=== PATIENT | male | born 1970 | race Caucasian/White ===

== ENCOUNTER → 2016-12-07 | Outpatient (CLI) | payer BC ==
[~2016-12-07] MED LIST: ASP81CT PO; ASP81TEC PO; ASPI-587 PO; ATOR40TA PO; CEFU500T5 PO; GBPN300C PO; IBUP800T26 PO; LEVO500T2 PO; LOVA10TA PO; METO-272 PO; MTP25TSR PO; NAPR-689 PO; OMEG1CAP74 PO; ONDA8TAB2 PO; OXYC10TA63 PO; OXYC40TA49 PO
== END ==
LOC: RAD 10:36
PROVIDERS: ATTEND Surgery
DX: N63 Unspecified lump in breast (principal)

== ENCOUNTER → 2016-12-20 | Day surgery (SDC) | payer BC ==
[~2016-12-20] VITALS: Ht 170.2 cm; Wt 88.0 kg
[~2016-12-20] MED LIST changes: +LIDOCAINE 1% INJ 20 ML (XYLOCAINE) VIAL ONE
--- OUTSIDE RECORDS SUMMARY | 2016-12-20 10:36 | XMS REPORT | Continuity of Care Document ---
Author Author [facility] Organization [facility] Address Unknown Phone Unavailable Care Team Providers Care Hospital Liaison Name Role Phone Self, Deshaun PCP [phone] Source Comments Some departments are not documenting in the electronic medical record. If you do not see the information that you expected, contact Release of Information in the Health Information Management department at [phone] for further assistance in locating additional records.[facility] Active Allergies and Adverse Reactions Allergen Noted Date Severity Reactions Comments Fleet Phospho-Soda 05/12/2009 Medium HIVES Accu-Prep Levaquin 05/11/2009 Medium RASH, MENTAL STATUS CHANGES Percocet 05/11/2009 Medium MENTAL STATUS CHANGES Current Medications Prescription Sig. Disp. Refills Start End Date Status Date acetaminophen (TYLENOL) Take 2 Tabs by mouth Active 500 mg tablet Every 6 Hours as needed. For pain. diazepam (VALIUM) 5 mg Take 1-2 Tabs by mouth 21 0 05/17/20 Active tablet Every 8 Hours as needed 09 for Anxiety. docusate (COLACE) 100 mg Take 1 Cap by mouth Twice 30 0 05/17/20 Active capsule Daily. 09 ferrous sulfate 325 mg Take 1 Tab by mouth Three 90 0 05/17/20 Active (65 mg Iron) tablet Times Daily With Meals. 09 oxycodone 10 mg Tab Take 1-1.5 Tabs by mouth 63 0 05/17/20 Active Every 2 Hours as needed 09 for Pain. oxycodone SR (OXYCONTIN) Take 3 Tabs by mouth 30 0 05/17/20 Active 10 mg tablet Twice Daily. 09 Active Problems Problem Noted Date Spondylolisthesis, acquired 05/17/2009 Social History Tobacco Use Types Packs/Day Years Used Date Former Smoker Cigarettes 2 20 Quit: 11/27/2001 Comments: quit 5 yrs ago Alcohol Use Drinks/Week oz/Week Comments Yes socially Last Filed Vital Signs Vital Sign Reading Time Taken Blood Pressure 139/64 05/17/2009 5:25 AM CDT Pulse 82 05/17/2009 9:10 AM CDT Temperature 37.2 C (98.9 F) 05/17/2009 5:25 AM CDT Respiratory Rate - - Height - - Weight - - Body Mass Index - - Oxygen Saturation 98% 05/17/2009 9:10 AM CDT Plan of Care Health Maintenance Due Date Last Done Comments Physical (Comprehensive) 1976 Exam Pertussis Vaccine 1980 Tetanus Vaccine 1986 Influenza Vaccine 2015 Results from Last 3 Months Not on file
--- OUTSIDE RECORDS SUMMARY | 2016-12-20 10:36 | XMS REPORT | Continuity of Care Document ---
Author Author [facility] Organization [facility] Address Unknown Phone Unavailable Care Team Providers Care Data Analytics Developer Name Role Phone Self, Deshaun PCP [phone] Source Comments Some departments are not documenting in the electronic medical record. If you do not see the information that you expected, contact Release of Information in the Health Information Management department at [phone] for further assistance in locating additional records.[facility] Active Allergies and Adverse Reactions Allergen Noted [...]
[2016-12-20 11:25] VITALS: BP 131/71
--- NOTE | 2016-12-20 13:29 | Cardiac Procedure Note-CS/ASA ---
Pre-Procedure Note Pre-Op Procedure Note H&P Reviewed The H&P was reviewed, patient examined and no changes noted. Date H&P Reviewed: Dec 20, 2016 Time H&P Reviewed: 13:29 Conscious Sedation Pre-Proced Time Reviewed: :29 ASA Class: 3 Airway Mallampati Classification: ([place] appropriate class) I. II. III, IV Lungs Heart ASA score ASA 1: a normal healthy patient ASA 2: a patient with a mild systemic disease (mid diabetes, controlled hypertension, obesity ASA 3: a patient with a severe systemic disease that limits activity (angina , COPD, prior Myocardial infarction) ASA 4: a patient with an incapacitating disease that is a constant threat to life (CHF, renal failure) ASA 5: a moribund patient not expected to survive 24 hrs. (ruptured aneurysm) ASA 6: a declared brain patient whose organs are being harvested. For emergent operations, add the letter E after the classification Grade 2 Sedation Plan: Analgesia, Amnesia, Plan communicated to team members, Discussed options with patient/fam, Discussed risks with patient/fam Note The patient is an appropriate candidate to undergo the planned procedure, sedation, and anesthesia. The patient immediately re-assessed prior to indication. EVERARDO HERRING MD FACP FAC CCDS Dec 20, 2016 13:29
--- NOTE | 2016-12-21 11:49 | PROCEDURE REPORT ---
PROCEDURE PHYSICIAN: EVERARDO HERRING DATE OF PROCEDURE: 12/20/2016 PREOPERATIVE DIAGNOSIS: Implantable loop recorder at end of life POSTOPERATIVE DIAGNOSIS: Implantable loop recorder at end of life. PROCEDURE: Removal of implantable loop recorder. Krishan Salmon Is a 46-year-old gentleman who has had a loop recorder for palpitations. It has reached end of life. He is due to have MRI for pulmonary evaluation for suspected pulmonary neoplasm, but the radiology services have refused to do this without removal of the device. An informed consent was obtained. He was brought to the cardiac catheterization laboratory. The left prepectoral area, the site of the device implantation, was prepared and draped in usual sterile fashion. Fluoroscopy was used to bernardo the site. Sharp and blunt dissection was used to open the pocket and enucleated from its pocket. This was accomplished without complication. The incision was closed using 3-0 Vicryl. He tolerated the procedure well. Job ID: [id number] Dictated Date: 12/20/2016 14:48:24 Head Strength And Conditioning Coach Date: 12/21/2016 11:43:47 / gena
== END ==
LOC: CATH 10:32
PROVIDERS: ATTEND Internal Medicine Cardiovascular Disease
DX: Z45.09 Encounter for adjustment and management of other cardiac device (principal); R00.2 Palpitations; I25.10 Atherosclerotic heart disease of native coronary artery without angina pectoris; E78.5 Hyperlipidemia, unspecified; Z87.891 Personal history of nicotine dependence; Z98.84 Bariatric surgery status
CPT/HCPCS: 33284

== ENCOUNTER → 2016-12-27 | Outpatient (CLI) | payer BC ==
[~2016-12-27] MED LIST changes: +GADOBUTROL 10 MMOL/10 ML (GADAVIST) VIAL IV ONE; -LIDOCAINE 1% INJ 20 ML (XYLOCAINE) VIAL ONE
--- OUTSIDE RECORDS SUMMARY | 2016-12-27 07:25 | XMS REPORT | Continuity of Care Document ---
Author Author [facility] Organization [facility] Address Unknown Phone Unavailable Care Team Providers Care Heavy Equipment Mechanic Name Role Phone Self, Deshaun PCP [phone] Source Comments Some departments are not documenting in the electronic medical record. If you do not see the information that you expected, contact Release of Information in the Health Information Management department at [phone] for further assistance in locating additional records.[facility] Active Allergies and Adverse Reactions Allergen Noted [...]
--- NOTE | 2016-12-28 19:14 | Diagnostic Imaging Report ---
INDICATION: Bilateral breast masses. EXAMINATION: MRI of the breast with and without contrast. TECHNIQUE: MRI of the breast was performed utilizing bilateral 8-channel breast coil with a 1.5 Saadia GE magnet. High-resolution sagittal T2-weighted fat-sat images were obtained as well as temporal images for sequential evaluation following intravenous gadolinium. Images were processed and evaluated by [employer]. COMPARISON: There are no previous mammogram or ultrasound examinations available for comparison. The report from the bilateral digital diagnostic mammogram performed at [facility] on 11/11/16 failed to show any sign of malignancy. There was no solid or cystic mass within either breast. The ultrasound exam of each breast, performed on the same day, from [facility], was also unremarkable for a discrete solid or cystic mass within either breast. FINDINGS: On this exam, there is a 0.9 x 1.2 cm area of enhancement along the upper inner aspect of the left breast. This area of abnormal signal appears to involve the skin surface and the soft tissues immediately beneath the skin surface. In reviewing the previous mammogram there was a loop recorder device in place in this region. It is my understanding that the loop recorder device has been removed in the interval since the prior mammogram. Therefore I suspect that the abnormal enhancement in this area is a sequela of that procedure as opposed to a neoplastic process. There is no other area of abnormal enhancement to suggest a malignant process. There is no sign of gynecomastia either. IMPRESSION: 1. There is no abnormal signal to suggest an underlying malignancy. If there is indeed a clinically palpable mass present, then biopsy should still be considered. 2. There is an area of enhancement involving the skin and the soft tissues immediately beneath the skin in the upper inner aspect of the left breast. This would correspond to the recent surgical removal of the loop recorder device. 3. These results were discussed with Dr. Briseno. ACR BI-RADS Category 1: Negative. Result letter will be mailed to the patient. Note: At least 10% of breast cancer is not imaged by mammography. Dictated by: Dictated on workstation # [id number]
== END ==
LOC: RAD 07:22
PROVIDERS: ATTEND Surgery
DX: N63 Unspecified lump in breast (principal)
CPT/HCPCS: 77059

== ENCOUNTER → 2016-12-28 | Outpatient (CLI) | payer BC ==
[~2016-12-28] MED LIST changes: -GADOBUTROL 10 MMOL/10 ML (GADAVIST) VIAL IV ONE
--- OUTSIDE RECORDS SUMMARY | 2016-12-28 07:25 | XMS REPORT | Continuity of Care Document ---
Author Author [facility] Organization [facility] Address Unknown Phone Unavailable Care Team Providers Care Hydraulic Bull Riveter Operator Name Role Phone Self, Deshaun PCP [phone] Source Comments Some departments are not documenting in the electronic medical record. If you do not see the information that you expected, contact Release of Information in the Health Information Management department at [phone] for further assistance in locating additional records.[facility] Active Allergies and Adverse Reactions Allergen [...]
== END ==
LOC: RAD 07:22
PROVIDERS: ATTEND Surgery
DX: N63 Unspecified lump in breast (principal)

== ENCOUNTER 2017-05-31 12:17 | Emergency (ER) | payer BC ==
[~2017-05-31] VITALS: Ht 165.1 cm; Wt 86.2 kg
[2017-05-31] MEDS ORDERED: CARB200T5 PO (12:58)
[2017-05-31] MEDS ORDERED: LEVO75TA6 PO (12:58)
[2017-05-31 14:02] LABS: BILIRUBIN,URINE NEGATIVE (NEGATIVE); KETONES,URINE NEGATIVE (NEGATIVE); LEUKOCYTE ESTERASE ,URINE NEGATIVE (NEGATIVE); NITRITE,URINE NEGATIVE (NEGATIVE); PH,URINE 7 (5-9); PROTEIN,URINE NEGATIVE (NEGATIVE); UROBILINOGEN,URINE NORMAL (NORMAL)
[2017-05-31] MEDS ORDERED: KETOROLAC 60 MG/2 ML VIAL IM STA (14:05)
[2017-05-31 14:22] LABS: WBC,URINE RARE /HPF
--- NOTE | 2017-05-31 14:26 | ED GU-Male ---
General Chief Complaint: Back Problems Stated Complaint: POSS KIDNEY STONES/PAIN Nursing Triage Note: Pt c/o R flank pain and suprapubic pain x2 days. pt reports he thinks he may have a kideny stone. Pt has hx multiple kidney stones. History of Present Illness Time seen by provider: 13:55 Initial Comments Evaluation for right flank and suprapubic pain. The patient states that he's had kidney stones in the past at least 5 years ago. He denies any dysuria or hematuria. He has had mild nausea and vomited once today. Timing/Duration: yesterday Severity/Quality: moderate (pain 6/10) Location: suprapubic, right flank Radiation: none Activities at Onset: none Prior Genitourinary Problems: none Modifying Factors: Improves With Urinating Associated Symptoms: denies symptoms Allergies and Home Medications Allergies Coded Allergies: rofecoxib (Unverified Allergy, Intermediate, 07/18/10) bisacodyl (Unverified Allergy, Mild, 07/18/10) Home Medications Carbamazepine 200 Mg Tablet, 400 MG PO BID, #180 (Reported) Hydrocodone/Acetaminophen 1 Each Tablet, 1 EACH PO Q6H PRN for PAIN, #10 Ref 0 Prescribed by: ОЛЬГА MENEZES on 05/31/17 1452 Levothyroxine Sodium 75 Mcg Tablet, 75 MCG PO DAILY, #30 (Reported) Ondansetron 8 Mg Tab.rapdis, 8 MG PO Q8H, #6 Ref 0 Prescribed by: ОЛЬГА MENEZES on 05/31/17 1452 Constitutional: no symptoms reported, see HPI EENTM: no symptoms reported, see HPI Respiratory: no symptoms reported, see HPI Cardiovascular: no symptoms reported, see HPI Gastrointestinal: no symptoms reported, see HPI Genitourinary: see HPI, flank pain Musculoskeletal: no symptoms reported, see HPI Skin: no symptoms reported, see HPI Psychiatric/Neurological: No Symptoms Reported, See HPI Endocrine: No Symptoms Reported, See HPI Hematologic/Lymphatic: No Symptoms Reported, See HPI All Other Systemes Reviewed Negative Unless Noted: Yes Past Irvckht-Ykzaba-Bgeoyd Hx Patient Social History Alcohol Use: Denies Use Recreational Drug Use: Yes Smoking Status: Former Smoker Recent Foreign Travel: No Contact w/Someone Who Travel: No Recent Infectious Disease Expo: No Recent Hopitalizations: No Immunizations Up To Date Date of Pneumonia Vaccine: Nov 27, 2011 Date of Influenza Vaccine: Aug 27, 2014 Seasonal Allergies Seasonal Allergies: No Surgeries HX Surgeries: Yes (BACK SURGERY, HEART CATH, HERNIA REPAIR, CARPAL TUNNEL, CYSTOSCOPY) Surgeries: Abdominal, Orthopedic Respiratory Hx Respiratory Disorders: Yes (C-PAP) Respiratory Disorders: Sleep Apnea Cardiovascular Hx Cardiac Disorders: Yes (5-6 heart caths/no stents ) Cardiac Disorders: High Cholesterol, Hypertension Neurological Hx Neurological Disorders: No Reproductive System Hx Reproductive Disorders: No Sexually Transmitted Disease: No Genitourinary Hx Genitourinary Disorders: Yes Genitourinary Disorders: Prostate Problems, Kidney Stones Gastrointestinal Hx Gastrointestinal Disorders: Yes (gastric sleeve July 2017, patient reports 130 pound weight loss over the last year and a half.) Gastrointestinal Disorders: Hiatal Hernia Musculoskeletal Hx Musculoskeletal Disorders: Yes (HX OF BACK SURGERY) Musculoskeletal Disorders: Chronic Back Pain Endocrine Hx Endocrine Disorders: No HEENT HX ENT Disorders: No Cancer Hx Cancer: No Psychosocial Hx Psychiatric Problems: No Integumentary HX Skin/Integumentary Disorder: No Blood Transfusions Hx Blood Disorders: No Reviewed Nursing Assessment Reviewed/Agree w Nursing PMH: Yes Family Medical History Significant Family History: Heart Disease, Diabetes Family Medial History: Patient reports no known family medical history. Physical Exam Vital Signs Vital Sign - Last 12Hours 05/31/17 12:52 Temp 97.3 Pulse 62 Resp 18 B/P (MAP) 118/69 Pulse Ox 99 O2 Delivery Room Air Capillary Refill : Less Than 3 Seconds General Appearance: WD/WN, no apparent distress Neck: non-tender, full range of motion, normal inspection Cardiovascular: normal peripheral pulses, regular rate, rhythm Respiratory: chest non-tender, lungs clear, normal breath sounds Gastrointestinal: normal bowel sounds, non tender, soft, no organomegaly, no pulsatile mass, No distended, No guarding, No rebound Back: normal inspection, no vertebral tenderness, CVA tenderness (R) Extremities: no pedal edema, normal capillary refill Neurologic/Psychiatric: no motor/sensory deficits, alert, normal mood/affect, oriented x 3 Skin: normal color, warm/dry Lymphatic: no adenopathy Progress/Results/Core Measures Results/Orders Lab Results Laboratory Tests Test 05/31/17 13:45 Range/Units Urine Color YELLOW Urine Clarity CLEAR Urine pH 7 5-9 Urine Specific [place] 1.010 L 1.016-1.022 Urine Protein NEGATIVE NEGATIVE Urine Glucose (UA) NEGATIVE NEGATIVE Urine Ketones NEGATIVE NEGATIVE Urine Nitrite NEGATIVE NEGATIVE Urine Bilirubin NEGATIVE NEGATIVE Urine Urobilinogen NORMAL NORMAL MG/DL Urine Leukocyte Esterase NEGATIVE NEGATIVE Urine RBC (Auto) NEGATIVE NEGATIVE Urine RBC NONE /HPF Urine WBC RARE /HPF Urine Crystals PRESENT H /LPF Urine Amorphous Sediment FEW GUILHERME URATES H /LPF Urine Bacteria NEGATIVE /HPF Urine Casts NONE /LPF Urine Mucus NEGATIVE /LPF Urine Culture Indicated NO My Orders Orders - ОЛЬГА MENEZES Ketorolac Injection (Toradol Injection) (05/31/17 14:05) Vital Signs/I&O Vital Sign - Last 12Hours 05/31/17 05/31/17 05/31/17 12:52 14:24 14:57 Temp 97.3 97.3 97.3 Pulse 62 64 Resp 18 18 B/P (MAP) 118/69 Pulse Ox 99 99 O2 Delivery Room Air Blood Pressure Mean: 85 Progress Note : Time: 13:55 Progress Note Initial evaluation completed. We'll reevaluate after UA. Toradol 60 mg IM. 1430 discussed UA results with the patient there are no RBCs present. Discussed option to do a lab work, KUB and CT to evaluate for kidney stones. He reports to be feeling better after the Toradol. He would prefer to try treating at home before doing additional studies. Patient education about when he should return to emergency department or his primary care provider were discussed at length. Departure Impression Impression: Primary Impression: Abdominal pain Qualified Codes: R10.84 - Generalized abdominal pain Disposition: 01 HOME, SELF-CARE Condition: Improved Departure-Patient Inst. Decision time for Depature: 14:45 Referrals: VU GRAJEDA MD (PCP/Family) Primary Care Physician Patient Instructions: Acute Abdomen (Belly Pain), Adult (DC), Kidney Stones (DC ) Add. Discharge Instructions: Drink 2-2-1/2 L of fluids daily. Empty bladder every 2-3 hours. Follow-up with Dr. Grajeda and Dr. Gomes if continued symptoms. Return to emergency department for nausea, vomiting, fevers, difficulty urinating, or new complaints. All discharge instructions reviewed with patient and/or family. Voiced understanding. Scripts Ondansetron (Zofran Odt) 8 Mg Tab.rapdis 8 MG PO Q8H for Nausea, #6 TAB 0 Refills Prov: ОЛЬГА MENEZES 05/31/17 Hydrocodone/Acetaminophen (Hydrocodon -Acetaminophen 5-325) 1 Each Tablet 1 EACH PO Q6H Y for PAIN, #10 TAB 0 Refills Prov: ОЛЬГА MENEZES 05/31/17 Copy Copies To 1: VU GRAJEDA MD Copies To 2: KELSY GOMES AMY ARNP May 31, 2017 14:26
[2017-05-31] MEDS ORDERED: HYDR-3812 PO (14:52)
[2017-05-31] MEDS ORDERED: ONDA8TAB9 PO (14:52)
[2017-05-31 14:57] VITALS: BP 116/70
--- OUTSIDE RECORDS SUMMARY | 2017-05-31 18:18 | XMS REPORT | Continuity of Care Document ---
Author Author [facility] Organization [facility] Address Unknown Phone Unavailable Care Team Providers Care Middle School Band Teacher Name Role Phone Self, Deshaun PCP [phone] Source Comments Some departments are not documenting in the electronic medical record. If you do not see the information that you expected, contact Release of Information in the Health Information Management department at [phone] for further assistance in locating additional records.[facility] Active Allergies and Adverse Reactions [...] Vaccine 1980 Tetanus Vaccine 1986 Influenza Vaccine 2017 Results from Last 3 Months Not on file
--- OUTSIDE RECORDS SUMMARY | 2017-05-31 18:19 | XMS REPORT | Continuity of Care Document ---
Author Author [facility] Address Unknown Phone Unavailable Allergies Active Description Code Type Severity Reaction Onset Reported/Identified Relationship to Patient Clinical Status Yes bisacodyl [id number] Drug Allergy Mild N/A 07/18/2010 Yes rofecoxib [id number] Drug Allergy Moderate N/A 07/18/2010 Yes Fleet Enema Drug Allergy N/A N/A 03/25/2014 Medications Problems Date Dx Coded Attending Type Code Diagnosis Diagnosed By 07/19/2010 Ot 272.4 07/19/2010 Ot 278.00 07/19/2010 Ot 401.9 07/19/2010 Ot 414.01 07/19/2010 Ot 724.2 07/19/2010 Ot 786.05 07/19/2010 Ot 786.59 07/19/2010 Ot V58.69 07/19/2010 Ot V85.38 03/25/2014 TIFFANY DAVEY DO K 338.29 OTHER CHRONIC PAIN 03/25/2014 TIFFANY DAVEY DO 401.1 HYPERTENSION, BENIGN ESSENTIAL 03/25/2014 TIFFANY DAVEY DO K 414.00 CORONARY ATHEROSCLEROSIS OF UNSPECIFIED TYPE OF VESSEL [place] OR GRAFT 03/25/2014 TIFFANY DAVEY DO 724.2 LUMBAGO 03/25/2014 TIFFANY DAVEY DO 724.3 SCIATICA 03/25/2014 TIFFANY DAVEY DO V70.0 EXAM - ROUTINE H&P 03/25/2014 TIFFANY DAVEY DO V76.44 PROSTATE CANCER SCREENING 03/25/2014 TIFFANY DAVEY DO V76.51 COLON CANCER SCREENING 03/25/2014 TIFFANY DAVEY DO 338.29 OTHER CHRONIC PAIN 03/25/2014 IJEOMA DAVEY DOA K 401.1 HYPERTENSION, BENIGN ESSENTIAL 03/25/2014 TIFFANY DAVEY DO K 414.00 CORONARY ATHEROSCLEROSIS OF UNSPECIFIED TYPE OF VESSEL [place] OR GRAFT 03/25/2014 TIFFANY DAVEY DO 604.90 ORCHITIS AND EPIDIDYMITIS UNSPECIFIED 03/25/2014 DAVEY DO, TIFFANY K 724.2 LUMBAGO 03/25/2014 DAVEY DO, TIFFANY K 724.3 SCIATICA 03/25/2014 DAVEY DO, TIFFANY K 782.0 DISTURBANCE OF SKIN SENSATION 03/25/2014 DAVEY DO, TIFFANY K V70.0 EXAM - ROUTINE H&P 03/25/2014 DAVEY DO, TIFFANY K V76.44 PROSTATE CANCER SCREENING 03/25/2014 DAVEY DO, TIFFANY K V76.51 COLON CANCER SCREENING 03/25/2014 DAVEY DO, TIFFANY K 338.29 OTHER CHRONIC PAIN 03/25/2014 DAVEY DO, TIFFANY K 401.1 HYPERTENSION, BENIGN ESSENTIAL 03/25/2014 DAVEY DO, TIFFANY K 414.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 03/25/2014 DAVEY DO, TIFFANY K 604.90 ORCHITIS AND EPIDIDYMITIS UNSPECIFIED 03/25/2014 DAVEY DO, TIFFANY K 724.2 LUMBAGO 03/25/2014 DAVEY DO, TIFFANY K 724.3 SCIATICA 03/25/2014 DAVEY DO, TIFFANY K 782.0 DISTURBANCE OF SKIN SENSATION 03/25/2014 DAVEY DO, TIFFANY K V70.0 EXAM - ROUTINE H&P 03/25/2014 DAVEY DO, TIFFANY K V76.44 PROSTATE CANCER SCREENING 03/25/2014 DAVEY DO, TIFFANY K V76.51 COLON CANCER SCREENING 03/25/2014 DAVEY DO, TIFFANY K 338.29 OTHER CHRONIC PAIN 03/25/2014 DAVEY DO, TIFFANY K 401.1 HYPERTENSION, BENIGN ESSENTIAL 03/25/2014 DAVEY DO, TIFFANY K 414.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 03/25/2014 DAVEY DO, TIFFANY K 604.90 ORCHITIS AND EPIDIDYMITIS UNSPECIFIED 03/25/2014 DAVEY DO, TIFFANY K 724.2 LUMBAGO 03/25/2014 DAVEY DO, TIFFANY K 724.3 SCIATICA 03/25/2014 DAVEY DO, TIFFANY K 782.0 DISTURBANCE OF SKIN SENSATION 03/25/2014 DAVEY DO, TIFFANY K V70.0 EXAM - ROUTINE H&P 03/25/2014 DAVEY DO, TIFFANY K V76.44 PROSTATE CANCER SCREENING 03/25/2014 DAVEY DO, TIFFANY K V76.51 COLON CANCER SCREENING 03/25/2014 MADL CLIENT SERVICE SUPERVISORJUWAN 338.29 OTHER CHRONIC PAIN 03/25/2014 MADL CLIENT SERVICE SUPERVISOR, JUWAN L 401.1 HYPERTENSION, BENIGN ESSENTIAL 03/25/2014 JINAL CLIENT SERVICE SUPERVISOR, JUWAN L 414.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 03/25/2014 JINAL CLIENT SERVICE SUPERVISOR, JUWAN L 604.90 ORCHITIS AND EPIDIDYMITIS UNSPECIFIED 03/25/2014 MADL CLIENT SERVICE SUPERVISOR, JUWAN L 724.2 LUMBAGO 03/25/2014 MADL CLIENT SERVICE SUPERVISOR, JUWAN L 724.3 SCIATICA 03/25/2014 MADL CLIENT SERVICE SUPERVISOR, JUWAN L 782.0 DISTURBANCE OF SKIN SENSATION 03/25/2014 JINAL CLIENT SERVICE SUPERVISOR, JUWAN L V70.0 EXAM - ROUTINE H&P 03/25/2014 ELROY CLIENT SERVICE SUPERVISOR JUWAN L V76.44 PROSTATE CANCER SCREENING 03/25/2014 ELROY DE JESUSBarbara JUWAN L V76.51 COLON CANCER SCREENING 03/25/2014 SAMANTHA HANEY MD 338.29 OTHER CHRONIC PAIN 03/25/2014 SAMANTHA HANEY MD 401.1 HYPERTENSION, BENIGN ESSENTIAL 03/25/2014 SAMANTHA HANEY MD 414.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 03/25/2014 SAMANTHA HANEY MD 604.90 ORCHITIS AND EPIDIDYMITIS UNSPECIFIED 03/25/2014 SAMANTHA HANYE MD 724.2 LUMBAGO 03/25/2014 SAMANTHA HANEY MD 724.3 SCIATICA 03/25/2014 SAMANTHA HANEY MD 782.0 DISTURBANCE OF SKIN SENSATION 03/25/2014 SAMANTHA HANEY MD V70.0 EXAM - ROUTINE H&P 03/25/2014 SAMANTHA HANEY MD V76.44 PROSTATE CANCER SCREENING 03/25/2014 SAMANTHA HANEY MD V76.51 COLON CANCER SCREENING 03/25/2014 IJEOMA DAVEY DOA K 338.29 OTHER CHRONIC PAIN 03/25/2014 IJEOMA DAVEY DOA K 401.1 HYPERTENSION, BENIGN ESSENTIAL 03/25/2014 TAMICA BOLTON TIFFANY K 414.00 CORONARY ATHEROSCLEROSIS OF UNSPECIFIED TYPE OF VESSEL [place] OR GRAFT 03/25/2014 TAMICA BOLTON TIFFANY K 604.90 ORCHITIS AND EPIDIDYMITIS UNSPECIFIED 03/25/2014 TAMICA BOLTON TIFFANY K 724.2 LUMBAGO 03/25/2014 DAVEY DO, TIFFANY K 724.3 SCIATICA 03/25/2014 DAVEY DO, TIFFANY K 782.0 DISTURBANCE OF SKIN SENSATION 03/25/2014 DAVEY DO, TIFFANY K V70.0 EXAM - ROUTINE H&P 03/25/2014 DAVEY DO, TIFFANY K V76.44 PROSTATE CANCER SCREENING 03/25/2014 DAVEY DO, TIFFANY K V76.51 COLON CANCER SCREENING 03/25/2014 DAVEY DO, TIFFANY K 338.29 OTHER CHRONIC PAIN 03/25/2014 DAVEY DO, TIFFANY K 401.1 HYPERTENSION, BENIGN ESSENTIAL 03/25/2014 DAVEY DO, TIFFANY K 414.00 CORONARY ATHEROSCLEROSIS OF UNSPECIFIED TYPE OF VESSEL [place] OR GRAFT 03/25/2014 DAVEY DO, TIFFANY K 604.90 ORCHITIS AND EPIDIDYMITIS UNSPECIFIED 03/25/2014 DAVEY DO, TIFFANY K 724.2 LUMBAGO 03/25/2014 DAVEY DO, TIFFANY K 724.3 SCIATICA 03/25/2014 DAVEY DO, TIFFANY K 782.0 DISTURBANCE OF SKIN SENSATION 03/25/2014 DAVEY DO, TIFFANY K V70.0 EXAM - ROUTINE H&P 03/25/2014 DAVEY DO, TIFFANY K V76.44 PROSTATE CANCER SCREENING 03/25/2014 DAEVY DO, TIFFANY K V76.51 COLON CANCER SCREENING 03/25/2014 DAVEY DO, TIFFANY K 338.29 OTHER CHRONIC PAIN 03/25/2014 DAVEY DO, TIFFANY K 401.1 HYPERTENSION, BENIGN ESSENTIAL 03/25/2014 DAVEY DO, TIFFANY K 414.00 CORONARY ATHEROSCLEROSIS OF UNSPECIFIED TYPE OF VESSEL [place] OR GRAFT 03/25/2014 DAVEY DO, TIFFANY K 604.90 ORCHITIS AND EPIDIDYMITIS UNSPECIFIED 03/25/2014 DAVEY DO, TIFFANY K 724.2 LUMBAGO 03/25/2014 DAVEY DO, TIFFANY K 724.3 SCIATICA 03/25/2014 DAVEY DO, TIFFANY K 782.0 DISTURBANCE OF SKIN SENSATION 03/25/2014 DAVEY DO, TIFFANY K V70.0 EXAM - ROUTINE H&P 03/25/2014 DAVEY DO, TIFFANY K V76.44 PROSTATE CANCER SCREENING 03/25/2014 DAVEY DO, TIFFANY K V76.51 COLON CANCER SCREENING 03/25/2014 DAVEY DO, TIFFANY K 338.29 OTHER CHRONIC PAIN 03/25/2014 DAVEY DO, TIFFANY K 401.1 HYPERTENSION, BENIGN ESSENTIAL 03/25/2014 IJEOMA DAVEY DOA K 414.00 CORONARY ATHEROSCLEROSIS OF UNSPECIFIED TYPE OF VESSEL [place] OR GRAFT 03/25/2014 TIFFANY DAVEY DO K 604.90 ORCHITIS AND EPIDIDYMITIS UNSPECIFIED 03/25/2014 TIFFANY DAVEY DO K 724.2 LUMBAGO 03/25/2014 IJEOMA DAVEY DOA K 724.3 SCIATICA 03/25/2014 TIFFANY DAVEY DO K 782.0 DISTURBANCE OF SKIN SENSATION 03/25/2014 TIFFANY DAVEY DO K V70.0 EXAM - ROUTINE H&P 03/25/2014 TIFFANY DAVEY DO K V76.44 PROSTATE CANCER SCREENING 03/25/2014 TIFFANY DAVEY DO V76.51 COLON CANCER SCREENING 04/02/2014 MEDINA ORR, SAMANTHA Sánchez Ot 272.4 HYPERLIPIDEMIA NEC/NOS 04/02/2014 SAMANTHA HANEY MD Ot 278.00 OBESITY, NOS 04/02/2014 SAMANTHA HANEY MD Ot 338.29 OTHER CHRONIC PAIN 04/02/2014 SAMANTHA HANEY MD Ot 401.9 HYPERTENSION NOS 04/02/2014 MEDINA ORR, SAMANTHA Sánchez Ot 414.01 CORONARY ATHEROSCLEROSIS OF [place] CORON 04/02/2014 SAMANTHA HANEY MD Ot 722.4 CERVICAL DISC DEGEN 04/02/2014 SAMANTHA HANEY MD Ot 724.2 LUMBAGO 04/02/2014 SAMANTHA HANEY MD Ot 729.5 PAIN IN LIMB 04/02/2014 SAMANTHA HANEY MD Ot 782.0 SKIN SENSATION DISTURB 04/02/2014 SAMANTHA HANEY MD Ot 786.59 CHEST PAIN NEC 04/02/2014 SAMANTHA HANEY MD Ot V85.41 BODY MASS INDEX 40.0-44.9, ADULT 04/14/2014 TIFFANY DAVEY DO 780.79 OTHER MALAISE AND FATIGUE 04/14/2014 TIFFANY DAVEY DO 780.79 OTHER MALAISE AND FATIGUE 04/14/2014 JUWAN ABBASI APRN 780.79 OTHER MALAISE AND FATIGUE 04/14/2014 SAMANTHA HANEY MD 780.79 OTHER MALAISE AND FATIGUE 04/14/2014 TIFFANY DAVEY DO 780.79 OTHER MALAISE AND FATIGUE 04/14/2014 DAVEY DO, TIFFANY K 780.79 OTHER MALAISE AND FATIGUE 04/14/2014 DAVEY DO, TIFFANY K 780.79 OTHER MALAISE AND FATIGUE 04/14/2014 DAVEY DO, TIFFANY K 780.79 OTHER MALAISE AND FATIGUE 04/22/2014 DAVEY DO, TIFFANY K 786.09 RESPIRATORY ABNORMALITY OTHER 04/22/2014 JUWAN ABBASI APRN L 786.09 RESPIRATORY ABNORMALITY OTHER 04/22/2014 SAMANTHA HANEY MD 786.09 RESPIRATORY ABNORMALITY OTHER 04/22/2014 DAVEY DO, TIFFANY K 786.09 RESPIRATORY ABNORMALITY OTHER 04/22/2014 DAVEY DO, TIFFANY K 786.09 RESPIRATORY ABNORMALITY OTHER 04/22/2014 DAVEY DO, TIFFANY K 786.09 RESPIRATORY ABNORMALITY OTHER 04/22/2014 DAVEY DO, TIFFANY K 786.09 RESPIRATORY ABNORMALITY OTHER 04/22/2014 SANDY DO, DEBORA K Ot 338.29 OTHER CHRONIC PAIN 04/22/2014 SANDY DO, DEBORA K Ot 786.05 SHORTNESS OF BREATH 04/22/2014 SANDY DO, DEBORA K Ot 786.52 PAINFUL RESPIRATION 04/22/2014 SANDY DO, DEBORA K Ot V15.81 HX OF PAST NONCOMPLIANCE 04/29/2014 JUWAN ABBASI APRN L 786.50 UNSPECIFIED CHEST PAIN 04/29/2014 SAMANTHA HANEY MD 786.50 UNSPECIFIED CHEST PAIN 04/29/2014 DAVEY DO, TIFFANY K 786.50 UNSPECIFIED CHEST PAIN 04/29/2014 DAVEY DO, TIFFANY K 786.50 UNSPECIFIED CHEST PAIN 04/29/2014 DAVEY DO, TIFFANY K 786.50 UNSPECIFIED CHEST PAIN 04/29/2014 DAVEY DO, TIFFANY K 786.50 UNSPECIFIED CHEST PAIN 05/06/2014 DAVEY DO, TIFFANY K 553.1 UMBILICAL HERNIA WITHOUT OBSTRUCTION OR GANGRENE 05/06/2014 DAVEY DO, TIFFANY K 780.57 UNSPECIFIED SLEEP APNEA 05/06/2014 DAVEY DO, TIFFANY K 799.02 HYPOXEMIA 05/06/2014 DAVEY DO, TIFFANY K 553.1 UMBILICAL HERNIA WITHOUT OBSTRUCTION OR GANGRENE 05/06/2014 DAVEY DO, TIFFANY K 780.57 UNSPECIFIED SLEEP APNEA 05/06/2014 DAVEY DO, TIFFANY K 799.02 HYPOXEMIA 05/06/2014 DAVEY DO, TIFFANY K 553.1 UMBILICAL HERNIA WITHOUT OBSTRUCTION OR GANGRENE 05/06/2014 TAMICA BOLTON TIFFANY K 780.57 UNSPECIFIED SLEEP APNEA 05/06/2014 IJEOMA DAVEY DOA K 799.02 HYPOXEMIA 05/06/2014 TAMICA BOLTON TIFFANY K 553.1 UMBILICAL HERNIA WITHOUT OBSTRUCTION OR GANGRENE 05/06/2014 IJEOMA DAVEY DOA K 780.57 UNSPECIFIED SLEEP APNEA 05/06/2014 TAMICA BOLTON TIFFANY K 799.02 HYPOXEMIA 12/02/2014 KYARA ORR, CARLOS N Ot 272.4 12/02/2014 KYARA ORR, CARLOS N Ot 401.9 12/02/2014 KYARA ORR, CARLOS N Ot 414.01 12/02/2014 KYARA ORR, CARLOS N Ot 560.9 12/02/2014 KYARA ORR, CARLOS N Ot 272.4 12/02/2014 KYARA ORR, CARLOS N Ot 401.9 12/02/2014 KYARA ORR, CARLOS N Ot 414.01 12/02/2014 KYARA ORR, CARLOS N Ot 560.9 12/02/2014 KYARA ORR, CARLOS N Ot 272.4 HYPERLIPIDEMIA NEC/NOS 12/02/2014 KYARA ORR, CARLOS N Ot 401.9 HYPERTENSION NOS 12/02/2014 KYARA ORR, CARLOS N Ot 414.01 CORONARY ATHEROSCLEROSIS OF [place] CORON 12/02/2014 KYARA ORR, CARLOS N Ot 560.9 INTESTINAL OBSTRUCT NOS 12/09/2014 TIFFANY DAVEY DO K 564.00 UNSPECIFIED CONSTIPATION 12/09/2014 TIFFANY DAVEY DO K 719.46 PAIN IN JOINT INVOLVING LOWER LEG 12/09/2014 TIFFANY DAVEY DO K 729.5 PAIN IN LIMB 12/09/2014 TIFFANY DAVEY DO K 564.00 UNSPECIFIED CONSTIPATION 12/09/2014 IJEOMA DAVEY DOA K 719.46 PAIN IN JOINT INVOLVING LOWER LEG 12/09/2014 TIFFANY DAVEY DO K 729.5 PAIN IN LIMB 03/19/2015 NIMA ORR FAC, ALI FACP CCDS Ot 414.00 03/19/2015 NIMA ORR FACC, ALI FACP CCDS Ot 443.9 03/19/2015 NIMA ORR FACC, ALI FACP CCDS Ot 278.01 03/19/2015 NIMA ORR FACC, ALI FACP CCDS Ot 414.00 03/19/2015 NIMA ORR FACC, ALI FACP CCDS Ot 786.50 03/19/2015 NIMA ORR FACC, EVERARDO FACP CCDS Ot V85.41 03/19/2015 NIMA ORR FACC, ALI FACP CCDS Ot 414.00 03/19/2015 NIMA ORR FACC, ALI FACP CCDS Ot 443.9 03/19/2015 NIMA ORR FACC, EVERARDO FACP CCDS Ot 278.01 03/19/2015 NIMA ORR FACC, ALI FACP CCDS Ot 414.00 03/19/2015 NIMA ORR FACC, EVERARDO FACP CCDS Ot 786.50 03/19/2015 NIMA ORR FAC, EVERARDO FACP CCDS Ot V85.41 03/20/2015 SHARP DO, CHILANGO Ot 272.4 HYPERLIPIDEMIA NEC/NOS 03/20/2015 SHARP DO, CHILANGO Ot 278.00 OBESITY, NOS 03/20/2015 ARON DO, CHILANGO Ot 401.9 HYPERTENSION NOS 03/20/2015 ARON DO CHILANGO Ot 414.01 CORONARY ATHEROSCLEROSIS OF [place] CORON 03/20/2015 ARON DO, CHILANGO Ot 724.2 LUMBAGO 03/20/2015 ARON DO, CHILANGO Ot 780.2 SYNCOPE AND COLLAPSE 03/20/2015 ARON DO, CHILANGO Ot 780.57 UNSPECIFIED SLEEP APNEA 03/20/2015 ARON DO, CHILANGO Ot 782.0 SKIN SENSATION DISTURB 03/20/2015 SHARP DO, CHILANGO Ot 784.0 HEADACHE 03/20/2015 ARON DO, CHILANGO Ot 786.05 SHORTNESS OF BREATH 03/20/2015 ARON DO, CHILANGO Ot 786.50 CHEST PAIN NOS 03/20/2015 SHARP DO, CHILANGO Ot V85.41 BODY MASS INDEX 40.0-44.9, ADULT 03/20/2015 SHARP DO, CHILANGO Ot 272.4 03/20/2015 SHARP DO, CHILANGO Ot 278.00 03/20/2015 SHARP DO, CHILANGO Ot 401.9 03/20/2015 SHARP DO, CHILANGO Ot 414.01 03/20/2015 SHARP DO CHILANGO Ot 724.2 03/20/2015 ARON BOLTON CHILANGO Ot 780.2 03/20/2015 SHARP DO, CHILANGO Ot 780.57 03/20/2015 SHARP DO, CHILANGO Ot 782.0 03/20/2015 SHARP DO, CHILANGO Ot 784.0 03/20/2015 SHARP DO, CHILANGO Ot 786.05 03/20/2015 SHARP DO, CHILANGO Ot 786.50 03/20/2015 SHARP DO, CHILANGO Ot V85.41 03/24/2015 NIMA ORR FACC, ALI FACP CCDS Ot 414.00 03/24/2015 NIMA ORR FACC, ALI FACP CCDS Ot 443.9 03/24/2015 NIMA ORR FACC, ALI FACP CCDS Ot 278.01 03/24/2015 NIMA ORR FACC, ALI FACP CCDS Ot 414.00 03/24/2015 NIMA ORR FACC, ALI FACP CCDS Ot 786.50 03/24/2015 NIMA ORR FACC, ALI FACP CCDS Ot V85.41 04/14/2015 NIMA ORR FACC, ALI FACP CCDS Ot 414.00 04/14/2015 NIMA ORR FACC, ALI FACP CCDS Ot 443.9 04/14/2015 NIMA ORR FACC, ALI FACP CCDS Ot 278.01 04/14/2015 NIMA ORR FACC, ALI FACP CCDS Ot 414.00 04/14/2015 NIMA ORR FACC, ALI FACP CCDS Ot 786.50 04/14/2015 NIMA ORR FACC, ALI FACP CCDS Ot V85.41 04/14/2015 NIMA ORR FACC, ALI FACP CCDS Ot 272.4 04/14/2015 NIMA ORR FACC, ALI FACP CCDS Ot 278.00 04/14/2015 NIMA ORR FACC, ALI FACP CCDS Ot 401.9 04/14/2015 NIMA ORR FACC, ALI FACP CCDS Ot 414.00 04/14/2015 NIMA ORR FACC, ALI FACP CCDS Ot 780.2 04/14/2015 NIMA ORR FACC, ALI FACP CCDS Ot 786.59 04/14/2015 NIMA ORR FACC, ALI FACP CCDS Ot V15.82 04/14/2015 NIMA ORR FACC, ALI FACP CCDS Ot V58.69 04/14/2015 NIMA ORR FACC, ALI FACP CCDS Ot V85.41 04/24/2015 NIMA ORR FACC, ALI FACP CCDS Ot 414.00 04/24/2015 NIMA ORR FACC, ALI FACP CCDS Ot 443.9 04/24/2015 NIMA ORR FACC, ALI FACP CCDS Ot 278.01 04/24/2015 NIMA ORR FACC, ALI FACP CCDS Ot 414.00 04/24/2015 NIMA ORR FACC, ALI FACP CCDS Ot 786.50 04/24/2015 NIMA ORR FACC, ALI FACP CCDS Ot V85.41 04/24/2015 NIMA ORR FACC, ALI FACP CCDS Ot 272.4 04/24/2015 NIMA ORR FACC, ALI FACP CCDS Ot 278.00 04/24/2015 NIMA ORR FACC, ALI FACP CCDS Ot 401.9 04/24/2015 NIMA ORR FACC, ALI FACP CCDS Ot 414.00 04/24/2015 NIMA ORR FACC, ALI FACP CCDS Ot 780.2 04/24/2015 NIMA ORR FACC, ALI FACP CCDS Ot 786.59 04/24/2015 NIMA ORR FACC, ALI FACP CCDS Ot V15.82 04/24/2015 NIMA ORR FACC, ALI FACP CCDS Ot V58.69 04/24/2015 NIMA ORR FACC, ALI FACP CCDS Ot V85.41 05/08/2015 JAYDNE JACOBSEN MD Ot 780.39 05/12/2015 JAYDEN JACOBSEN MD Ot 780.39 05/15/2015 NIMA ORR FACC, ALI FACP CCDS Ot 272.4 05/15/2015 NIMA ORR FACC, ALI FACP CCDS Ot 278.00 05/15/2015 NIMA ORR FACC, ALI FACP CCDS Ot 401.9 05/15/2015 NIMA ORR FACC, ALI FACP CCDS Ot 414.00 05/15/2015 NIMA ORR FACC, ALI FACP CCDS Ot 780.2 05/15/2015 NIMA ORR FACC, ALI FACP CCDS Ot 786.59 05/15/2015 NIMA ORR FACC, ALI FACP CCDS Ot V15.82 05/15/2015 NIMA ORR FACC, ALI FACP CCDS Ot V58.69 05/15/2015 NIMA ORR FACC, ALI FACP CCDS Ot V85.41 05/19/2015 JAYDEN JACOBSEN MD Ot 780.39 05/22/2015 JAYDEN JACOBSEN MD Ot 780.39 05/22/2015 JAYDEN JACOBSEN MD Ot V58.69 12/25/2015 ELISEOKELSY HARDEN DO Ot R10.11 12/07/2016 NIMA MONTGOMERYC, ALI FACP CCDS Ot 414.00 CORON ATHEROSCLER NOS TYPE VESSEL, NATIV 12/07/2016 NIMA MONTGOMERYC, ALI FACP CCDS Ot 443.9 PERIPH VASCULAR DIS NOS 12/07/2016 NIMA ORR FACC, ALI FACP CCDS Ot 278.01 MORBID OBESITY 12/07/2016 NIMA MONTGOMERYC, ALI FACP CCDS Ot 414.00 CORON ATHEROSCLER NOS TYPE VESSEL, NATIV 12/07/2016 NIMA ORR FACC, ALI FACP CCDS Ot 786.50 CHEST PAIN NOS 12/07/2016 NIMA ORR FACC, ALI FACP CCDS Ot V85.41 BODY MASS INDEX 40.0-44.9, ADULT 12/07/2016 NIMA ORR FACC, ALI FACP CCDS Ot 272.4 HYPERLIPIDEMIA NEC/NOS 12/07/2016 NIMA ORR FACC, ALI FACP CCDS Ot 278.00 OBESITY, NOS 12/07/2016 NIMA ORR FACC, ALI FACP CCDS Ot 401.9 HYPERTENSION NOS 12/07/2016 NIMA ORR FACC, ALI FACP CCDS Ot 414.00 CORON ATHEROSCLER NOS TYPE VESSEL, NATIV 12/07/2016 NIMA ORR FACC, ALI FACP CCDS Ot 780.2 SYNCOPE AND COLLAPSE 12/07/2016 NIMA MONTGOMERYC, ALI FACP CCDS Ot 786.59 CHEST PAIN NEC 12/07/2016 NIMA ORR FACC, ALI FACP CCDS Ot V15.82 HISTORY OF TOBACCO USE 12/07/2016 NIMA ORR FACC, ALI FACP CCDS Ot V58.69 OTH MED,LT,CURRENT USE 12/07/2016 NIMA ORR FACC, ALI FACP CCDS Ot V85.41 BODY MASS INDEX 40.0-44.9, ADULT 12/07/2016 JAYDEN JACOBSEN MD Ot 780.39 OTHER CONVULSIONS 12/07/2016 JAYDEN JACOBSEN MD Ot 780.39 OTHER CONVULSIONS 12/07/2016 JAYDEN JACOBSEN MD Ot V58.69 OTH MED,LT,CURRENT USE 12/07/2016 ELISEO , KELSY Ot R10.11 RIGHT UPPER QUADRANT PAIN 12/28/2016 ELISEO DO, KELSY Ot N63 UNSPECIFIED LUMP IN BREAST 12/28/2016 ELISEO DO, WAYNEROUTIE Ot N63 UNSPECIFIED LUMP IN BREAST 12/29/2016 ELISEO DO, WAYNEROUTIE Ot N63 UNSPECIFIED LUMP IN BREAST 12/29/2016 ELISEO KELSY BOLTON Ot N63 UNSPECIFIED LUMP IN BREAST 12/29/2016 ELISEO DO, WAYNEROUTIE Ot N63 UNSPECIFIED LUMP IN BREAST 01/04/2017 NIMA ORR FACC, ALI FACP CCDS Ot E78.5 HYPERLIPIDEMIA, UNSPECIFIED 01/04/2017 NIMA ORR FACC, ALI FACP CCDS Ot I25.10 ATHSCL HEART DISEASE OF [place] CORONARY 01/04/2017 NIMA ORR FACC, EVERARDO FACP CCDS Ot R00.2 PALPITATIONS 01/04/2017 NIMA ORR FACC, ALI FACP CCDS Ot Z45.09 ENCOUNTER FOR ADJUSTMENT AND MANAGEMENT 01/04/2017 NIMA ORR FACC, ALI FACP CCDS Ot Z87.891 PERSONAL HISTORY OF NICOTINE DEPENDENCE 01/04/2017 NIMA ORR FACC, ALI FACP CCDS Ot Z98.84 BARIATRIC SURGERY STATUS 01/26/2017 KELSY GOMES DO Ot N63 UNSPECIFIED LUMP IN BREAST 03/14/2017 NIMA ORR FACC, EVERARDO FACP CCDS Ot E78.5 HYPERLIPIDEMIA, UNSPECIFIED 03/14/2017 NIMA ORR FACC, ALI FACP CCDS Ot I25.10 ATHSCL HEART DISEASE OF [place] CORONARY 03/14/2017 NIMA ORR FACC, ALI FACP CCDS Ot R00.2 PALPITATIONS 03/14/2017 NIMA ORR FACC, ALI FACP CCDS Ot Z45.09 ENCOUNTER FOR ADJUSTMENT AND MANAGEMENT 03/14/2017 NIMA ORR FACC, ALI FACP CCDS Ot Z87.891 PERSONAL HISTORY OF NICOTINE DEPENDENCE 03/14/2017 NIMA ORR FACC, EVERARDO SHOEMAKER CCDS Ot Z98.84 BARIATRIC SURGERY STATUS Procedures Code Description [place] [address] ROUTINE VENIPUNCTURE 03/27/2014 08942 EKG, TRACING (IN-HOUSE) 03/27/2014 90863 CBC 03/27/2014 02183 CMP 03/27/2014 61019 LIPID PANEL 03/27 04005 MAGNESIUM 2013 [id number] GFR CALC (RESULT ONLY) 03/27/2014 27994 PSA TOTAL 2013 21703 TSH 03/27/2014 37955 HEMOCCULT 2013 01188 HEMOCCULT 2013 CARDIOLOG SHELLY WILKERSON 04/01/2014 64395 ROUTINE VENIPUNCTURE 04/22/2014 64227 A1C (IN-HOUSE) 19506 SED/ESR RATE (IN HOUSE) 04/22/2014 15812 URIC ACID 2013 19520 CRP 04/22/2014 21577 PULMONARY FUNCTION TEST (IN-HOUSE) 04/23/2014 36900 PULMONARY EDUCATION 04/23/2014 ANAANA GABRIELA ANALYZER (SCREEN) 04/23/2014 06673 RA FACTOR 2013 16476 CBC 04/29/2014 61843 OXIMETRY - OVERNIGHT 04/29/2014 80176 SLEEP STUDY (HOME) 05/06/2014 04940 PULMONARY FUNCTION TEST (IN-HOUSE) 05/09/2014 39817 RESPIRATORY FLOW VOLUME LOOP 05/09/2014 Results Encounters ACCT No. Visit Date/Time Discharge Status Pt. Type Provider Facility Loc./Unit Complaint [id number] 12/15/2014 13:53:00 12/15/2014 23: 59:59 CLS Outpatient TIFFANY DAVEY DO [id number] 12/09/2014 13:36:00 12/09/2014 23: 59:59 CLS Outpatient TIFFANY DAVEY DO [id number] 05/09/2014 16:00:00 05/09/2014 23: 59:59 CLS Outpatient TIFFANY DAVEY DO [id number] 05/06/2014 13:23:00 05/06/2014 23: 59:59 CLS Outpatient TIFFANY DAVEY DO [id number] 04/30/2014 05:36:00 04/30/2014 23: 59:59 CLS Outpatient SAMANTHA HANEY MD [id number] 04/29/2014 15:30:00 04/29/2014 23: 59:59 CLS Outpatient JUWAN ABBASI APRN [id number] 04/22/2014 13:18:00 04/22/2014 23: 59:59 CLS Outpatient TIFFANY DAVEY DO [id number] 04/14/2014 12:45:00 04/14/2014 23: 59:59 CLS Outpatient TIFFANY DAVEY DO [id number] 03/31/2014 17:27:00 03/31/2014 23: 59:59 CLS Outpatient TIFFANY DAVEY DO [id number] 03/27/2014 08:50:00 03/27/2014 23: 59:59 CLS Outpatient TIFFANY DAVEY DO
== END 2017-05-31 14:57 | disposition home or self-care (01) ==
LOC: EDUNIT# 12:17 → ER 12:19
DX: R10.30 Lower abdominal pain, unspecified (principal); G47.30 Sleep apnea, unspecified; E78.00 Pure hypercholesterolemia, unspecified; I10 Essential (primary) hypertension; Z87.442 Personal history of urinary calculi; Z87.891 Personal history of nicotine dependence; Z87.19 Personal history of other diseases of the digestive system; Z82.49 Family history of ischemic heart disease and other diseases of the circulatory system
CPT/HCPCS: 81000; 96372; 99284

== ENCOUNTER 2018-03-09 10:02 | Emergency (ER) | payer BC ==
[~2018-03-09] VITALS: Ht 165.1 cm; Wt 86.2 kg
[~2018-03-09 10:02] MED LIST changes: +ACHD5005 PO; +CARB200T5 PO; +LEVO75TA6 PO; +ONDA8TAB9 PO
--- NOTE | 2018-03-09 10:28 | Diagnostic Imaging Report ---
INDICATION: Headache, dizziness and left-sided weakness. TIME OF EXAMINATION: 10:42 a.m. COMPARISON: Comparison is made with prior study from 03/19/2015. FINDINGS: The heart size is normal. The pulmonary vascularity is unremarkable. The lungs are clear. No infiltrate, effusion or pneumothorax is detected. IMPRESSION: No acute cardiopulmonary process is detected. Dictated by: Dictated on workstation # [id number]
--- NOTE | 2018-03-09 10:31 | Diagnostic Imaging Report ---
Indication: Left weakness and headache. Comparison is made to study of 03/19/2015. Findings: Ventricles and sulci remain within normal limits for size. Low-density within the left basal ganglia region is likely due to volume averaging and is not changed when compared to previous study. There is no evidence of hemorrhage. There is no evidence of territorial infarct. No abnormal mass effect or shift of midline structures is identified. The calvarium is intact and the visualized paranasal sinuses are clear. Impression: No CT evidence of acute intracranial abnormality. Dictated by: Dictated on workstation # [id number]
--- NOTE | 2018-03-09 10:43 | ED Neurological Problem ---
General Chief Complaint: Neuro-Stroke Like Symptoms Stated Complaint: LEFT SIDE OF BODY NUMB,SPEECH ISSUES Source: patient Exam Limitations: no limitations History of Present Illness Date Seen by Provider: Mar 09, 2018 Time Seen by Provider: 10:39 Initial Comments To ER with reports of strokelike symptoms. Patient states that this began yesterday afternoon while at work. It began with a sensation of fatigue and a headache. The headache persisted and continued into last night at which point he developed some left arm numbness and tingling, left face numbness and tingling, left hip numbness and tingling. He also noticed some slurred speech and some difficulty with swallowing. He does report photophobia. He also states that he has in the past had a headache associated with some numbness in his left arm but it was nowhere near this bad he states. Timing/Duration: 24 hours Severity: moderate Associated Symptoms: paresthesia, slurred speech Allergies and Home Medications Allergies Coded Allergies: rofecoxib (Unverified Allergy, Intermediate, 07/18/10) bisacodyl (Unverified Allergy, Mild, 07/18/10) Home Medications Carbamazepine 200 Mg Tablet, 400 MG PO BID, (Reported) Hydrocodone Bit/Acetaminophen 1 Each Tablet, 1 EACH PO Q6H PRN for PAIN Prescribed by: ОЛЬАГ MENEZES on 05/31/171451 Levothyroxine Sodium 75 Mcg Tablet, 75 MCG PO DAILY, (Reported) Ondansetron 8 Mg Tab.rapdis, 8 MG PO Q8H Prescribed by: ОЛЬГА MENEZES on 05/31/171451 Patient Home Medication List Home Medication List Reviewed: Yes Review of Systems Constitutional: see HPI Eyes: No Symptoms Reported Ears, Nose, Mouth, Throat: no symptoms reported Respiratory: no symptoms reported Cardiovascular: no symptoms reported Genitourinary: no symptoms reported Musculoskeletal: no symptoms reported Skin: no symptoms reported Psychiatric/Neurological: See HPI, Headache, Numbness, Tingling Endocrine: No Symptoms Reported Hematologic/Lymphatic: No Symptoms Reported Past [place]-Rcojjh-Fkslhs Hx Patient Social History Recent Foreign Travel: No Contact w/Someone Who Travel: No Recent Hopitalizations: No Immunizations Up To Date Date of Pneumonia Vaccine: Nov 27, 2011 Date of Influenza Vaccine: Aug 27, 2014 Seasonal Allergies Seasonal Allergies: No Past Medical History Surgeries: Yes (BACK SURGERY, HEART CATH, HERNIA REPAIR, CARPAL TUNNEL, CYSTOSCOPY) Abdominal, Orthopedic Respiratory: Yes (C-PAP) Sleep Apnea Cardiac: Yes (5-6 heart caths/no stents ) High Cholesterol, Hypertension Neurological: No Reproductive Disorders: No Sexually Transmitted Disease: No Genitourinary: No Prostate Problems, Kidney Stones Gastrointestinal: No Hiatal Hernia Musculoskeletal: Yes (HX OF BACK SURGERY) Chronic Back Pain Endocrine: No HEENT: No Cancer: No Psychosocial: No Integumentary: No Blood Disorders: No Family Medical History Patient reports no known family medical history. Heart Disease, Diabetes Physical Exam Vital Signs Vital Signs - First Documented 03/09/18 10:07 Temp 98.6 Pulse 78 Resp 18 B/P (MAP) 144/86 (105) Pulse Ox 98 O2 Delivery Room Air Capillary Refill : General Appearance: WD/WN, no apparent distress HEENT: PERRL/EOMI, normal ENT inspection, other (does keep his eyes closed during conversation) Neck: non-tender, full range of motion Respiratory: normal breath sounds, no respiratory distress, no accessory muscle use Cardiovascular: regular rate, rhythm, no murmur Gastrointestinal: normal bowel sounds, non tender Neurologic/Psychiatric: alert, normal mood/affect, oriented x 3 Crainal Nerves: normal hearing, normal speech, PERRL Skin: normal color, warm/dry Stroke Onset of Symptoms Date of Onset of Symptoms: Mar 08, 2018 Time of Symptom Onset: 15:00 Onset of Symptoms: Yes NIH Stroke Scale Assessment Select: Initial Level of Consciousness: 0=Alert (0), Level of Consciousness- Questions: 0=Answers both month/age (0), LOC Commands: 0=Performs both tasks (0) , Gaze: Normal (0), Visual [place]: 0=No visual loss (0), Facial Movement ( Facial Paresis): 1=Minor paralysis (1), Motor Function-Arms Right: 0=No drift (0 ), Motor Function-Arms Left: 1=Drift (1), Motor Function-Legs Right: 0=No drift (0), Motor Function-Legs Left: 1=Drift (1), Limb Ataxia: 1=Present in one limb ( 1), Sensory: 1=Mild to Moderate loss (1), Best Language: 0=No aphasia (0), Dysarthria: 0=Normal (0), Extinction & Inattention: 0=No abnormality (0), Total : 5 Stroke Thrombolytic Exclusion Age 18 or Over: Yes Acute intenal hemorrhage: No History of CVA: No Uncontrolled Coagulation Defec: No Intracranial Hemorrhage: No Severe Hypertension: No GI or Bleed: No Subarachnoid Hemorrhage: No Intracranial Neoplasm/Aneurysm: No Oral Anticoagulants: No Surgery or Trauma: No Puncture of Non-Compressible V: No Recent CPR: No Diabetic Hemorrhagic Retinopat: No Organ Biopsy: No Recent Obstetric Delivery: No Glucose: No Significant Hepatic Dysfunctio: No NIH Stoke Scale >22: No Bacterial Endocarditis: No Pericarditis: No Improving Symptoms: No Platelets: No TPA Contraindication: No Progress/Results/Core Measures Lab Results Laboratory Tests Test 03/09/18 10:34 03/09/18 12:03 Range/Units White Blood Count 8.7 4.3-11.0 10^3/uL Red Blood Count 4.57 4.35-5.85 10^6/uL Hemoglobin 14.4 13.3-17.7 G/DL Hematocrit 42 40-54 % Mean Corpuscular Volume 92 80-99 FL Mean Corpuscular Hemoglobin 32 25-34 PG Mean Corpuscular Hemoglobin Concent 34 32-36 G/DL Red Cell Distribution Width 12.8 10.0-14.5 % Platelet Count 213 130-400 10^3/uL Mean Platelet Volume 8.1 7.4-10.4 FL Neutrophils (%) (Auto) 68 42-75 % Lymphocytes (%) (Auto) 25 12-44 % Monocytes (%) (Auto) 7 0-12 % Eosinophils (%) (Auto) 1 0-10 % Basophils (%) (Auto) 0 0-10 % Neutrophils # (Auto) 5.9 1.8-7.8 X 10^3 Lymphocytes # (Auto) 2.1 1.0-4.0 X 10^3 Monocytes # (Auto) 0.6 0.0-1.0 X 10^3 Eosinophils # (Auto) 0.0 0.0-0.3 10^3/uL Basophils # (Auto) 0.0 0.0-0.1 10^3/uL Prothrombin Time 12.4 12.2-14.7 SEC INR Comment 0.9 0.8-1.4 Activated Partial Thromboplast Time 26 24-35 SEC D-Dimer < 0.27 0.00-0.49 UG/ML Sodium Level 141 135-145 MMOL/L Potassium Level 3.7 3.6-5.0 MMOL/L Chloride Level 104 98-107 MMOL/L Carbon Dioxide Level 28 21-32 MMOL/L Anion Gap 9 5-14 MMOL/L Blood Urea Nitrogen 17 7-18 MG/DL Creatinine 0.89 0.60-1.30 MG/DL Estimat Glomerular Filtration Rate > 60 BUN/Creatinine Ratio 19 Glucose Level 95 70-105 MG/DL Calcium Level 9.6 8.5-10.1 MG/DL Total Bilirubin 0.4 0.1-1.0 MG/DL Aspartate Amino Transf (AST/SGOT) 16 5-34 U/L Alanine Aminotransferase (ALT/SGPT) 15 0-55 U/L Alkaline Phosphatase 76 40-136 U/L Troponin I < 0.30 <0.30 NG/ML Total Protein 6.7 6.4-8.2 GM/DL Albumin 4.2 3.2-4.5 GM/DL Urine Color YELLOW Urine Clarity CLEAR Urine pH 8 5-9 Urine Specific [place] 1.010 L 1.016-1.022 Urine Protein NEGATIVE NEGATIVE Urine Glucose (UA) NEGATIVE NEGATIVE Urine Ketones NEGATIVE NEGATIVE Urine Nitrite NEGATIVE NEGATIVE Urine Bilirubin NEGATIVE NEGATIVE Urine Urobilinogen NORMAL NORMAL MG/DL Urine Leukocyte Esterase NEGATIVE NEGATIVE Urine RBC (Auto) NEGATIVE NEGATIVE Urine RBC NONE /HPF Urine WBC NONE /HPF Urine Squamous Epithelial Cells RARE /HPF Urine Crystals PRESENT H /LPF Urine Amorphous Sediment RARE GUILHERME PHOSPHATE H /LPF Urine Bacteria NEGATIVE /HPF Urine Casts NONE /LPF Urine Mucus NEGATIVE /LPF Urine Culture Indicated NO My Orders Orders - YANCY GUZMAN APRN Cbc With Automated Diff (03/09/18 10:35) Comprehensive Metabolic Panel (03/09/18 10:35) Ct Angio Head/Neck (03/09/18 10:35) Ekg Tracing (03/09/18 10:35) Protime With Inr (03/09/18 10:35) Partial Thromboplastin Time (03/09/18 10:35) Fibrin Degradation Products (03/09/18 10:35) Troponin I (03/09/18 10:35) Ua Culture If Indicated (03/09/18 10:35) Nothing By Mouth (03/09/18 Dinner) Accucheck Stat ONCE (03/09/18 10:35) Saline Lock/Iv-Start (03/09/18 10:35) Vital Signs Stroke Patient Q15M (03/09/18 10:35) O2 (03/09/18 10:35) Intake & Output 06,14,22 (03/09/18 10:35) Monitor-Rhythm Ecg Trace Only (03/09/18 10:35) Dysphagia Screening Tool (03/09/18 10:35) Post Thrombolytic Adminstratio (03/09/18 10:35) Ketorolac Injection (Toradol Injection) (03/09/18 10:45) Ns Iv 1000 Ml (Sodium Chloride 0.9%) (03/09/18 10:45) Iohexol Injection (Omnipaque 350 Mg/Ml 1 (03/09/18 11:00) Ns (Ivpb) (Sodium Chloride 0.9%) (03/09/18 11:00) Pharmacy Communication (Pharmacy Communi (03/09/18 11:00) Mri Brain W/Wo Contrast (03/09/18 12:04) Gadobutrol Inj (Radiology) (Gadavist Inj (03/09/18 12:45) Medications Given in ED Current Medications Medications Dose Ordered Sig/Shant Route Start Time Stop Time Status Last Admin Dose Admin Gadobutrol 10 mmol ONCE ONCE IV 03/09/18 12:45 03/09/18 12:46 DC 03/09/18 12:55 8 MMOL Iohexol 80 ml ONCE ONCE IV 03/09/18 11:00 03/09/18 11:19 DC 03/09/18 11:10 80 ML Ketorolac Tromethamine 30 mg ONCE ONCE IVP 03/09/18 10:45 03/09/18 10:46 DC 03/09/18 10:52 30 MG Sodium Chloride 250 ml ONCE ONCE IV 03/09/18 11:00 03/09/18 11:19 DC 03/09/18 11:10 80 ML Vital Signs/I&O 03/09/18 10:07 Temp 98.6 Pulse 78 Resp 18 B/P (MAP) 144/86 (105) Pulse Ox 98 O2 Delivery Room Air Progress Note : Progress Note 1200-denies any improvement in his headache after 15 mg of Toradol IV. However the left arm numbness and weakness he states is essentially gone as long as he lay still but comes back when he moves. I did offer him Fioricet for his headache or fentanyl through his IV for headache. He states he used to be addicted to pills and does not want any pain medication Diagonstic Imaging: CT Comments NAME: CHAITANYA VAIL [facility] REC#: [id number] PT STATUS: REG ER : 1970 PHYSICIAN: YANCY GUZMAN APRN ADMIT DATE: 03/09/18/ER Draft Date of Exam:03/09/18 CT ANGIO HEAD/NECK PROCEDURE: CT angiography of the head and CT angiography of the neck with and without contrast. TECHNIQUE: Contiguous noncontrast images were obtained from the skull base through the vertex. After intravenous contrast administration, helical CT angiography of the neck was performed. Source data was reformatted into multiple MIP projections. Delayed post contrast acquisition was also obtained. INDICATION: Left-sided weakness. COMPARISON: Correlation is made with a noncontrast head CT performed earlier this same morning. FINDINGS: The delayed portion of the study is without evidence of abnormal enhancement. The CT angiography portion of the exam demonstrates a three-vessel branching pattern to the aortic arch. Both common carotid arteries are widely patent. There is mild plaquing at the bifurcations bilaterally. The internal carotid arteries appear to be intact. There is suboptimal opacification of the distal internal carotid arteries near the carotid siphons. Flow is identified within bilateral middle cerebral arteries. No filling defects are seen. There is opacification of bilateral anterior cerebral arteries. The bilateral posterior cerebral arteries are patent. The basilar is unremarkable. The vertebral arteries appear to be codominant and unremarkable. Extensive degenerative changes of the cervical spine are noted with prominent anterior osteophytes from C4 through C7. IMPRESSION: There is suboptimal opacification of the distal internal carotid arteries. The remainder of the study is unremarkable. No filling defect is seen to suggest thromboembolism. No carotid stenosis is detected. Dictated on workstation # [id number] Dict: 03/09/18 1143 Trans: 03/09/18 1152 [id number] Interpreted by: VICENTE RODNEY MD Electronically signed by: NAME: CHAITANYA VAIL [facility] REC#: [id number] PT STATUS: REG ER : 1970 PHYSICIAN: YANCY GUZMAN APRN ADMIT DATE: 03/09/18/ER Draft Date of Exam:03/09/18 MRI BRAIN W/WO CONTRAST PROCEDURE: MR imaging of the brain with and without contrast. TECHNIQUE: Multiplanar, multisequence MR imaging of the brain was performed with and without contrast. INDICATION: Headache and slurred speech with left-sided weakness. COMPARISON: Correlation is made with CT brain studies performed earlier the same day. FINDINGS: The ventricles and sulci are appropriate for the patient's age. No diffusion restriction is seen to suggest acute ischemia. Normal expected flow-voids within the carotid siphons are seen. No acute intra-axial or extra-axial hemorrhage is detected. The corpus callosum is unremarkable. The sella and parasellar structures are unremarkable. No abnormal enhancement is seen following contrast administration. IMPRESSION: Unremarkable MRI of the brain with and without contrast. No acute abnormality is detected. Dictated on workstation # [id number] Dict: 03/09/18 1306 Trans: 03/09/18 1310 [facility] [id number] Interpreted by: VICENTE RODNEY MD Electronically signed by: Departure Communication (Admissions) [id number] spoke with Dr. Mercedes from neurology at the [facility] regarding the patient's symptoms and laboratory evaluation so far. He agrees that a migraine variant is certainly a possibility but would be a diagnosis of exclusion he would recommend proceeding with a lipid panel and MRI of the brain. Impression Primary Impression: Migraine variant with headache Additional Impression: left side paresthesia Disposition: 01 HOME, SELF-CARE Condition: Stable Departure-Patient Inst. Decision time for Depature: 13:15 Referrals: VU BLISS MD (PCP/Family) Primary Care Physician Patient Instructions: Paresthesias (DC), Migraine Headache (DC) Add. Discharge Instructions: 1. Return to the emergency room for any worsening symptoms 2. Follow-up with your doctor next week for recheck within 5 days. All discharge instructions reviewed with patient and/or family. Voiced understanding. Work/School Note: Work Release Form Date Seen in the Emergency Department: Mar 09, 2018 Return to Work: Mar 11, 2018 YANCY GUZMAN APRN Mar 09, 2018 10:43
[2018-03-09 10:44] LABS: BASOPHILS % (AUTO) 0 % (0-10); EOSINOPHILS % (AUTO) 1 % (0-10); HEMATOCRIT 42 % (40-54); HEMOGLOBIN 14.4 G/DL (13.3-17.7); LYMPHOCYTES # (AUTO) 2.1 X 10^3 (1.0-4.0); LYMPHOCYTES % (AUTO) 25 % (12-44); MEAN CORPUSCULAR HEMOGLOBIN 32 PG (25-34); MEAN CORPUSCULAR HGB CONC 34 G/DL (32-36); MEAN CORPUSCULAR VOLUME 92 FL (80-99); MEAN PLATELET VOLUME 8.1 FL (7.4-10.4); MONOCYTES # (AUTO) 0.6 X 10^3 (0.0-1.0); MONOCYTES % (AUTO) 7 % (0-12); NEUTROPHILS # (AUTO) 5.9 X 10^3 (1.8-7.8); NEUTROPHILS % (AUTO) 68 % (42-75); PLATELET COUNT 213 10^3/uL (130-400); RED BLOOD COUNT 4.57 10^6/uL (4.35-5.85); RED CELL DISTRIBUTION WIDTH 12.8 % (10.0-14.5); WHITE BLOOD COUNT 8.7 10^3/uL (4.3-11.0)
[2018-03-09] MEDS ORDERED: NS IV 1000 ML 1,000 ML IV SCH (10:45)
[2018-03-09] MEDS ORDERED: KETOROLAC 30 MG/ML VIAL IVP ONE (10:45)
[2018-03-09 10:52] LABS: INR 0.9 (0.8-1.4); PROTHROMBIN TIME PATIENT 12.4 SEC (12.2-14.7)
[2018-03-09 10:53] LABS: PARTIAL THROMBOPLASTIN TIME 26 SEC (24-35)
[2018-03-09 10:55] LABS: FIBRIN DEGRADATION PRODUCTS < 0.27 UG/ML (0.00-0.49)
[2018-03-09 11:00] LABS: ALANINE AMINOTRANSFERASE 15 U/L (0-55); ALBUMIN 4.2 GM/DL (3.2-4.5); ALKALINE PHOSPHATASE 76 U/L (40-136); BILIRUBIN,TOTAL 0.4 MG/DL (0.1-1.0); BUN/CREATININE RATIO 19; CALCIUM 9.6 MG/DL (8.5-10.1); CARBON DIOXIDE 28 MMOL/L (21-32); CHLORIDE 104 MMOL/L (98-107); CREATININE SERUM 0.89 MG/DL (0.60-1.30); GFR ESTIMATED > 60; GLUCOSE 95 MG/DL (70-105); POTASSIUM 3.7 MMOL/L (3.6-5.0); SODIUM 141 MMOL/L (135-145); TOTAL PROTEIN 6.7 GM/DL (6.4-8.2)
[2018-03-09] MEDS ORDERED: IOHEXOL 350 MG/ML 100 ML (OMNIPAQUE 350) VIAL IV ONE (11:00)
[2018-03-09] MEDS ORDERED: NS 250 ML (IVPB) BAG IV ONE (11:00)
--- NOTE | 2018-03-09 11:53 | Diagnostic Imaging Report ---
PROCEDURE: CT angiography of the head and CT angiography of the neck with and without contrast. TECHNIQUE: Contiguous noncontrast images were obtained from the skull base through the vertex. After intravenous contrast administration, helical CT angiography of the neck was performed. Source data was reformatted into multiple MIP projections. Delayed post contrast acquisition was also obtained. INDICATION: Left-sided weakness. COMPARISON: Correlation is made with a noncontrast head CT performed earlier this same morning. FINDINGS: The delayed portion of the study is without evidence of abnormal enhancement. The CT angiography portion of the exam demonstrates a three-vessel branching pattern to the aortic arch. Both common carotid arteries are widely patent. There is mild plaquing at the bifurcations bilaterally. The internal carotid arteries appear to be intact. There is suboptimal opacification of the distal internal carotid arteries near the carotid siphons. Flow is identified within bilateral middle cerebral arteries. No filling defects are seen. There is opacification of bilateral anterior cerebral arteries. The bilateral posterior cerebral arteries are patent. The basilar is unremarkable. The vertebral arteries appear to be codominant and unremarkable. Extensive degenerative changes of the cervical spine are noted with prominent anterior osteophytes from C4 through C7. IMPRESSION: There is suboptimal opacification of the distal internal carotid arteries. The remainder of the study is unremarkable. No filling defect is seen to suggest thromboembolism. No carotid stenosis is detected. Dictated by: Dictated on workstation # [id number]
[2018-03-09 12:10] LABS: BILIRUBIN,URINE NEGATIVE (NEGATIVE); CLARITY,URINE CLEAR; COLOR,URINE YELLOW; GLUCOSE, URINE (UA) NEGATIVE (NEGATIVE); KETONES,URINE NEGATIVE (NEGATIVE); LEUKOCYTE ESTERASE ,URINE NEGATIVE (NEGATIVE); NITRITE,URINE NEGATIVE (NEGATIVE); PH,URINE 8 (5-9); PROTEIN,URINE NEGATIVE (NEGATIVE); UROBILINOGEN,URINE NORMAL (NORMAL)
[2018-03-09 12:25] LABS: AMORPHOUS SEDIMENT,UR RARE AMOR PHOSPHATE /LPF; BACTERIA,URINE NEGATIVE /HPF; SQUAMOUS EPITHELIAL CELL,UR RARE /HPF
[2018-03-09] MEDS ORDERED: GADOBUTROL 10 MMOL/10 ML (GADAVIST) VIAL IV ONE (12:45)
--- NOTE | 2018-03-09 13:10 | Diagnostic Imaging Report ---
PROCEDURE: MR imaging of the brain with and without contrast. TECHNIQUE: Multiplanar, multisequence MR imaging of the brain was performed with and without contrast. INDICATION: Headache and slurred speech with left-sided weakness. COMPARISON: Correlation is made with CT brain studies performed earlier the same day. FINDINGS: The ventricles and sulci are appropriate for the patient's age. No diffusion restriction is seen to suggest acute ischemia. Normal expected flow-voids within the carotid siphons are seen. No acute intra-axial or extra-axial hemorrhage is detected. The corpus callosum is unremarkable. The sella and parasellar structures are unremarkable. No abnormal enhancement is seen following contrast administration. IMPRESSION: Unremarkable MRI of the brain with and without contrast. No acute abnormality is detected. Dictated by: Dictated on workstation # [id number]
[2018-03-09 13:26] VITALS: BP 132/82
--- OUTSIDE RECORDS SUMMARY | 2018-03-11 07:18 | XMS REPORT | Clinical Summary ---
Author Author [facility] Organization [facility] Address Unknown Phone Unavailable Care Team Providers Care Outside [employer] Sales Name Role Phone Self, Deshaun ORR PCP Channing Be MD Unavailable Source Comments Some departments are not documenting in the electronic medical record. If you do not see the information that you expected, contact Release of Information in the Health Information Management department at [phone] for further assistance in locating additional records.[facility] Allergies Active Allergy Reactions Severity Noted Date Comments Sodium HIVES Medium 05/12/2009 Vsbxalhgic-Kqlmuq-Dnw Levofloxacin RASH, MENTAL STATUS Medium 05/11/2009 CHANGES Oxycodone-Acetaminophen MENTAL STATUS CHANGES Medium 05/11/2009 Current Medications Prescription Sig. Disp. Refills Start [...] Alcohol Use Drinks/Week oz/Week Comments Yes socially Sex Assigned at Date Recorded Not on file Last Filed Vital Signs Vital Sign Reading Time Taken Blood Pressure 139/64 05/17/2009 5:25 AM CDT Pulse 82 05/17/2009 9:10 AM CDT Temperature 37.2 C (98.9 F) 05/17/2009 5:25 AM CDT Respiratory Rate - - Oxygen Saturation 98% 05/17/2009 9:10 AM CDT Inhaled Oxygen - - Concentration Weight - - Height - - Body Mass Index - - Plan of Treatment Health Maintenance Due Date Last Done Comments PHYSICAL (COMPREHENSIVE) 1976 EXAM PERTUSSIS VACCINE 1980 HIV SCREENING 1984 TETANUS VACCINE 1986 INFLUENZA VACCINE 08/27/2018 Results Not on filefrom Last 3 Months
--- OUTSIDE RECORDS SUMMARY | 2018-03-11 07:19 | XMS REPORT | Continuity of Care Document ---
Author Author Counts Include [address] [facility] Address Unknown Phone Unavailable Allergies Active Description Code Type Severity Reaction Onset Reported/Identified Relationship to Patient Clinical Status Yes BISACODYL BISACODYL UNKNOWN Yes FLEET ENEMA FLEET ENEMA UNKNOWN Yes OXYCONTIN OXYCONTIN SEVERE Yes PERCOCET PERCOCET UNKNOWN Yes VIOXX VIOXX UNKNOWN Yes ZOLOFT ZOLOFT UNKNOWN Yes BISACODYL UNKNOWN UNKNOWN Yes FLEET ENEMA UNKNOWN UNKNOWN Yes OXYCONTIN SEVERE OTHER Yes PERCOCET UNKNOWN UNKNOWN Yes VIOXX UNKNOWN UNKNOWN Yes ZOLOFT UNKNOWN UNKNOWN Yes bisacodyl [id number] Drug Allergy Mild N/A 07/18/2010 Yes rofecoxib [id number] Drug Allergy Moderate N/A 07/18/2010 Yes Fleet Enema Drug Allergy N/A N/A 03/25/2014 Medications Medication Packaging Start Date Stop Date Route Dosage Sig NORMAL SALINE 1000CC IV BAG INJ 0.9 % (NS 1000CC IV BAG) ml 12/06/2017 12/06/2017 [id number] Problems Date Dx Coded Attending Type Code Diagnosis Diagnosed By 07/19/2010 Ot 272.4 07/19/2010 Ot 278.00 07/19/2010 Ot 401.9 07/19/2010 Ot 414.01 07/19/2010 Ot 724.2 07/19/2010 Ot 786.05 07/19/2010 Ot 786.59 07/19/2010 Ot V58.69 07/19/2010 Ot V85.38 03/25/2014 TIFFANY DAVEY DO 338.29 OTHER CHRONIC PAIN 03/25/2014 TIFFANY DAVEY DO 401.1 HYPERTENSION, BENIGN ESSENTIAL 03/25/2014 TIFFANY DAVEY DO 414.00 CORONARY ATHEROSCLEROSIS OF UNSPECIFIED TYPE OF VESSEL [place] OR GRAFT 03/25/2014 TIFFANY DAVEY DO 724.2 LUMBAGO 03/25/2014 DAVEY DO, TIFFANY K 724.3 SCIATICA 03/25/2014 DAVEY DO, TIFFANY K V70.0 EXAM - ROUTINE H&P 03/25/2014 DAVEY DO, TIFFANY K V76.44 PROSTATE CANCER SCREENING 03/25/2014 DAVEY DO, TIFFANY K V76.51 COLON CANCER SCREENING 03/25/2014 DAVEY DO, TIFFANY K 338.29 OTHER CHRONIC PAIN 03/25/2014 DAVEY DO TIFFANY K 401.1 HYPERTENSION, BENIGN ESSENTIAL 03/25/2014 DAVEY DO, TIFFANY K 414.00 CORONARY ATHEROSCLEROSIS OF UNSPECIFIED TYPE OF VESSEL [place] OR GRAFT 03/25/2014 DAVEY DO, TIFFANY K [...] K 782.0 DISTURBANCE OF SKIN SENSATION 03/25/2014 TAMICA BOLTON, TIFFANY K V70.0 EXAM - ROUTINE H&P 03/25/2014 DAVEY DO, TIFFANY K V76.44 PROSTATE CANCER SCREENING 03/25/2014 DAVEY , TIFFANY K V76.51 COLON CANCER SCREENING 03/25/2014 MADL CLOTHING CONSULTANT, JUWAN L 338.29 OTHER CHRONIC PAIN 03/25/2014 MADL CLOTHING CONSULTANT, JUWAN L 401.1 HYPERTENSION, BENIGN ESSENTIAL 03/25/2014 MADL CLOTHING CONSULTANT, JUWAN L 414.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 03/25/2014 MADL CLOTHING CONSULTANT, JUWAN L 604.90 ORCHITIS AND EPIDIDYMITIS UNSPECIFIED 03/25/2014 MADL CLOTHING CONSULTANT, JUWAN L 724.2 LUMBAGO 03/25/2014 MADL CLOTHING CONSULTANT, JUWAN L 724.3 SCIATICA 03/25/2014 MADL CLOTHING CONSULTANT, JUWAN L 782.0 DISTURBANCE OF SKIN SENSATION 03/25/2014 MADL CLOTHING CONSULTANT, JUWAN L V70.0 EXAM - ROUTINE H&P 03/25/2014 MADL CLOTHING CONSULTANT, JUWAN L V76.44 PROSTATE CANCER SCREENING 03/25/2014 MADL CLOTHING CONSULTANT, JUWAN L V76.51 COLON CANCER SCREENING 03/25/2014 SAMANTHA HANEY MD 338.29 OTHER CHRONIC PAIN 03/25/2014 SAMANTHA HANEY MD 401.1 HYPERTENSION, BENIGN ESSENTIAL 03/25/2014 SAMANTHA HANEY MD 414.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 03/25/2014 SAMANTHA HANEY MD 604.90 ORCHITIS AND EPIDIDYMITIS UNSPECIFIED 03/25/2014 SAMANTHA HANEY MD 724.2 LUMBAGO 03/25/2014 SAMANTHA HANEY MD 724.3 SCIATICA 03/25/2014 SAMANTHA HANEY MD 782.0 DISTURBANCE OF SKIN SENSATION 03/25/2014 SAMANTHA HANEY MD V70.0 EXAM - ROUTINE H&P 03/25/2014 SAMANTHA HANEY MD V76.44 PROSTATE CANCER SCREENING 03/25/2014 SAMANTHA HANEY MD V76.51 COLON CANCER SCREENING 03/25/2014 DAVEY DO, TIFFANY K 338.29 OTHER CHRONIC PAIN 03/25/2014 DAVEY DO, TIFFANY K 401.1 HYPERTENSION, BENIGN ESSENTIAL 03/25/2014 DAVEY DO, TIFFANY K 414.00 CORONARY ATHEROSCLEROSIS OF UNSPECIFIED TYPE OF VESSEL [place] OR GRAFT 03/25/2014 DAVEY DO, TIFFANY K [...] CORONARY ATHEROSCLEROSIS OF UNSPECIFIED TYPE OF VESSEL [place] OR GRAFT 03/25/2014 DAVEY DO, TIFFANY K [...] CORONARY ATHEROSCLEROSIS OF UNSPECIFIED TYPE OF VESSEL [place] OR GRAFT 03/25/2014 DAVEY DO TIFFANY K 604.90 ORCHITIS AND EPIDIDYMITIS UNSPECIFIED 03/25/2014 DAVEY DO, TIFFANY K 724.2 LUMBAGO 03/25/2014 DAVEY DO TIFFANY K 724.3 SCIATICA 03/25/2014 DAVEY DO, TIFFANY K 782.0 DISTURBANCE OF SKIN SENSATION 03/25/2014 DAVEY DO TIFFANY K V70.0 EXAM - ROUTINE H&P 03/25/2014 DAVEY DO TIFFANY K V76.44 PROSTATE CANCER SCREENING 03/25/2014 DAVEY DO TIFFANY K V76.51 COLON CANCER SCREENING 03/25/2014 DAVEY DO TIFFANY K 338.29 OTHER CHRONIC PAIN 03/25/2014 DAVEY DO TIFFANY K 401.1 HYPERTENSION, BENIGN ESSENTIAL 03/25/2014 DAVEY DO TIFFANY K 414.00 CORONARY ATHEROSCLEROSIS OF UNSPECIFIED TYPE OF VESSEL [place] OR GRAFT 03/25/2014 DAVEY DO TIFFANY K 604.90 ORCHITIS AND EPIDIDYMITIS UNSPECIFIED 03/25/2014 DAVEY DO TIFFANY K 724.2 LUMBAGO 03/25/2014 DAVEY DO TIFFANY K 724.3 SCIATICA 03/25/2014 DAVEY DO TIFFANY K 782.0 DISTURBANCE OF SKIN SENSATION 03/25/2014 DAVEY DO TIFFANY K V70.0 EXAM - ROUTINE H&P 03/25/2014 TAMICA BOLTON TIFFANY K V76.44 PROSTATE CANCER SCREENING 03/25/2014 DAVEY DO TIFFANY K V76.51 COLON CANCER SCREENING 04/02/2014 MEDINA ORR, SAMANTHA Sánchez Ot 272.4 HYPERLIPIDEMIA NEC/NOS 04/02/2014 SAMANTHA HANEY MD Ot 278.00 OBESITY, NOS 04/02/2014 SAMANTHA HANEY MD Ot 338.29 OTHER CHRONIC PAIN 04/02/2014 SAMANTHA HANEY MD Ot 401.9 HYPERTENSION NOS 04/02/2014 SAMANTHA HANEY MD Ot 414.01 CORONARY ATHEROSCLEROSIS OF [place] CORON 04/02/2014 SAMANTHA HANEY MD Ot 722.4 CERVICAL DISC DEGEN 04/02/2014 SAMANTHA HANEY MD Ot 724.2 LUMBAGO 04/02/2014 SAMANTHA HANEY MD Ot 729.5 PAIN IN LIMB 04/02/2014 SAMANTHA HANEY MD Ot 782.0 SKIN SENSATION DISTURB 04/02/2014 SAMANTHA HANEY MD, Ot 786.59 CHEST PAIN NEC 04/02/2014 SAMANTHA HANEY MD, Ot V85.41 BODY MASS INDEX 40.0-44.9, ADULT 04/14/2014 DAVEY DO, TIFFANY K 780.79 OTHER MALAISE AND FATIGUE 04/14/2014 DAVEY DO, TIFFANY K 780.79 OTHER MALAISE AND FATIGUE 04/14/2014 JUWAN ABBASI APRN 780.79 OTHER MALAISE AND FATIGUE 04/14/2014 SAMANTHA HANEY MD 780.79 OTHER MALAISE AND FATIGUE 04/14/2014 DAVEY [...] TIFFANY K 786.50 UNSPECIFIED CHEST PAIN 04/29/2014 TAMICA BOLTON, TIFFANY K 786.50 UNSPECIFIED CHEST PAIN 05/06/2014 TAMICA BOLTON, TIFFANY K 553.1 UMBILICAL HERNIA WITHOUT OBSTRUCTION OR GANGRENE 05/06/2014 TAMICA BOLTON, TIFFANY K 780.57 UNSPECIFIED SLEEP APNEA 05/06/2014 TAMICA BOLTON, TIFFANY K 799.02 HYPOXEMIA 05/06/2014 TAMICA BOLTON, TIFFANY K 553.1 UMBILICAL HERNIA WITHOUT OBSTRUCTION OR GANGRENE 05/06/2014 TAMICA BOLTON, TIFFANY K 780.57 UNSPECIFIED SLEEP APNEA 05/06/2014 TAMICA BOLTON, TIFFANY K 799.02 HYPOXEMIA 05/06/2014 TAMICA BOLTON, TIFFANY K 553.1 UMBILICAL HERNIA WITHOUT OBSTRUCTION OR GANGRENE 05/06/2014 TAMICA BOLTON, TIFFANY K 780.57 UNSPECIFIED SLEEP APNEA 05/06/2014 TAMICA BOLTON, TIFFANY K 799.02 HYPOXEMIA 05/06/2014 TAMICA BOLTON, TIFFANY K 553.1 UMBILICAL HERNIA WITHOUT OBSTRUCTION OR GANGRENE 05/06/2014 TAMICA BOLTON, TIFFANY K 780.57 UNSPECIFIED SLEEP APNEA 05/06/2014 TAMICA BOLTON, TIFFANY K 799.02 HYPOXEMIA 12/02/2014 CARLOS SPARROW MD N Ot 272.4 12/02/2014 CARLOS SPARROW MD Ot 401.9 12/02/2014 CARLOS SPARROW MD Ot 414.01 12/02/2014 CARLOS SPARROW MD Ot 560.9 12/02/2014 CARLOS SPARROW MD N Ot 272.4 12/02/2014 CARLOS SPARROW MD N Ot 401.9 12/02/2014 CARLOS SPARROW MD N Ot 414.01 12/02/2014 CARLOS SPARROW MD N Ot 560.9 12/02/2014 CARLOS SPARROW MD N Ot 272.4 HYPERLIPIDEMIA NEC/NOS 12/02/2014 CARLOS SPARROW MD N Ot 401.9 HYPERTENSION NOS 12/02/2014 CARLOS SPARROW MD N Ot 414.01 CORONARY ATHEROSCLEROSIS OF [place] CORON 12/02/2014 CARLOS SPARROW MD Ot 560.9 INTESTINAL OBSTRUCT NOS 12/09/2014 TIFFANY [...] 729.5 PAIN IN LIMB 03/19/2015 NIMA ORR FACC, EVERARDO FACP CCDS Ot 414.00 03/19/2015 NIMA ORR FACC, EVERARDO FACP CCDS Ot 443.9 03/19/2015 NIMA ORR FACC, ALI FACP CCDS Ot 278.01 03/19/2015 NIMA ORR FACC, ALI FACP CCDS Ot 414.00 03/19/2015 NIMA ORR FACC, ALI FACP CCDS Ot 786.50 03/19/2015 NIMA ORR FACC, ALI FACP CCDS Ot V85.41 03/19/2015 NIMA ORR FACC, ALI FACP CCDS Ot 414.00 03/19/2015 NIMA ORR FACC, ALI FACP CCDS Ot 443.9 03/19/2015 NIMA ORR FACC, ALI FACP CCDS Ot 278.01 03/19/2015 NIMA ORR FACC, ALI FACP CCDS Ot 414.00 03/19/2015 NIMA ORR FAC, ALI FACP CCDS Ot 786.50 03/19/2015 NIMA ORR FACC, ALI FACP CCDS Ot V85.41 03/20/2015 ARON BOLTON CHILANGO Ot 272.4 HYPERLIPIDEMIA NEC/NOS 03/20/2015 ARON BOLTON CHILANGO Ot 278.00 OBESITY, NOS 03/20/2015 ARON BOLTON CHILANGO Ot 401.9 HYPERTENSION NOS 03/20/2015 ARON BOLTON CHILANGO Ot 414.01 CORONARY ATHEROSCLEROSIS OF [place] CORON 03/20/2015 ARON BOLTON CHILANGO Ot 724.2 LUMBAGO 03/20/2015 ARON BOLTON CHILANGO Ot 780.2 SYNCOPE AND COLLAPSE 03/20/2015 ARON BOLTON CHILANGO Ot 780.57 UNSPECIFIED SLEEP APNEA 03/20/2015 ARON BOLTON CHILANGO Ot 782.0 SKIN SENSATION DISTURB 03/20/2015 ARON BOLTON CHILANGO Ot 784.0 HEADACHE 03/20/2015 SHARP DO, CHILANGO Ot 786.05 SHORTNESS OF BREATH 03/20/2015 SHARP DO, CHILANGO Ot 786.50 CHEST PAIN NOS 03/20/2015 SHARP DO, CHILANGO Ot V85.41 BODY MASS INDEX 40.0-44.9, ADULT 03/20/2015 SHARP DO, CHILANGO Ot 272.4 03/20/2015 SHARP DO, CHILANGO Ot 278.00 03/20/2015 SHARP DO, CHILANGO Ot 401.9 03/20/2015 SHARP DO, CHILANGO Ot 414.01 03/20/2015 SHARP DO, CHILANGO Ot 724.2 03/20/2015 SHARP DO, CHILANGO Ot 780.2 03/20/2015 SHARP DO, CHILANGO Ot 780.57 03/20/2015 SHARP DO, CHILANGO Ot 782.0 03/20/2015 SHARP DO, CHILANGO Ot 784.0 03/20/2015 SHARP DO, CHILANGO Ot 786.05 03/20/2015 SHARP DO, CHILANGO Ot 786.50 03/20/2015 SHARP DO, CHILANGO Ot V85.41 03/24/2015 NIMA ORR FACC, ALI FACP CCDS Ot 414.00 03/24/2015 NIMA ORR FACC, EVERARDO FACP CCDS Ot 443.9 03/24/2015 NIMA ORR [...] ALI FACP CCDS Ot 401.9 04/14/2015 NIMA FACC, ALI FACP CCDS Ot 414.00 04/14/2015 NIMA FACC, ALI FACP CCDS Ot 780.2 04/14/2015 NIMA MD FACC, ALI FACP CCDS Ot 786.59 04/14/2015 NIMA MD FACC, ALI FACP CCDS Ot V15.82 04/14/2015 NIMA MD FACC, ALI FACP CCDS Ot V58.69 04/14/2015 NIMA MD FACC, ALI FACP CCDS Ot V85.41 04/24/2015 NIMA MD FACC, ALI FACP CCDS Ot 414.00 04/24/2015 NIMA MD FACC, ALI FACP CCDS Ot 443.9 04/24/2015 NIMA MD FACC, ALI FACP CCDS Ot 278.01 04/24/2015 NIMA MD FACC, ALI FACP CCDS Ot 414.00 04/24/2015 NIMA MD FACC, ALI FACP CCDS Ot 786.50 04/24/2015 NIMA MD FACC, ALI FACP CCDS Ot V85.41 04/24/2015 NIMA MD FACC, ALI FACP CCDS Ot 272.4 04/24/2015 NIMA MD FACC, ALI FACP CCDS Ot 278.00 04/24/2015 NIMA MD FACC, ALI FACP CCDS Ot 401.9 04/24/2015 [facility] FACC, ALI FACP CCDS Ot 414.00 04/24/2015 NIMA MD FACC, ALI FACP CCDS Ot 780.2 04/24/2015 NIMA MD FACC, ALI FACP CCDS Ot 786.59 04/24/2015 NIMA MD FACC, ALI FACP CCDS Ot V15.82 04/24/2015 NIMA FACC, ALI FACP CCDS Ot V58.69 04/24/2015 NIMA MD FACC, ALI FACP CCDS Ot V85.41 05/08/2015 JAYDEN JACOBSEN MD Ot 780.39 05/12/2015 JAYDEN JACOBSEN MD Ot 780.39 05/15/2015 NIMA MONTGOMERYC, ALI FACP CCDS Ot 272.4 05/15/2015 NIMA MONTGOMERYC, ALI FACP CCDS Ot 278.00 05/15/2015 NIMA ORR FACC, ALI FACP CCDS Ot 401.9 05/15/2015 NIMA ORR FACC, ALI FACP CCDS Ot 414.00 05/15/2015 NIMA MONTGOMERYC, ALI FACP CCDS Ot 780.2 05/15/2015 NIMA ORR FACC, ALI FACP CCDS Ot 786.59 05/15/2015 NIMA ORR FACC, ALI FACP CCDS Ot V15.82 05/15/2015 NIMA ORR FACC, ALI FACP CCDS Ot V58.69 05/15/2015 NIMA MONTGOMERYC, ALI FACP CCDS Ot V85.41 05/19/2015 JAYDEN JACOBSEN MD Ot 780.39 05/22/2015 JAYDEN JACOBSEN MD Ot 780.39 05/22/2015 JAYDEN JACOBSEN MD K Ot V58.69 12/25/2015 KELSY GOMES DO Ot R10.11 12/07/2016 NIMA ORR FACC, EVERARDO FACP CCDS Ot 414.00 CORON ATHEROSCLER NOS TYPE VESSEL, NATIV 12/07/2016 NIMA ORR FACC, ALI FACP CCDS Ot 443.9 PERIPH VASCULAR DIS NOS 12/07/2016 NIMA MONTGOMERYC, ALI FACP CCDS Ot 278.01 MORBID OBESITY 12/07/2016 NIMA MONTGOMERYC, ALI FACP CCDS Ot 414.00 CORON ATHEROSCLER NOS TYPE VESSEL, NATIV 12/07/2016 NIMA MONTGOMERYC, ALI FACP CCDS Ot 786.50 CHEST PAIN NOS 12/07/2016 NIMA MONTGOMERYC, ALI FACP CCDS Ot V85.41 BODY MASS INDEX 40.0-44.9, ADULT 12/07/2016 NIMA MONTGOMERYC, ALI FACP CCDS Ot 272.4 HYPERLIPIDEMIA NEC/NOS 12/07/2016 NIMA MONTGOMERYC, ALI FACP CCDS Ot 278.00 OBESITY, NOS 12/07/2016 NIMA MONTGOMERYC, ALI FACP CCDS Ot 401.9 HYPERTENSION NOS 12/07/2016 NIMA ORR FACC, EVERARDO FACP CCDS Ot 414.00 CORON ATHEROSCLER NOS TYPE VESSEL, NATIV 12/07/2016 NIMA ORR FACC, EVERARDO FACP CCDS Ot 780.2 SYNCOPE AND COLLAPSE 12/07/2016 NIMA ORR FACC, EVERARDO FACP CCDS Ot 786.59 CHEST PAIN NEC 12/07/2016 NIMA ORR FACC, EVERARDO FACP CCDS Ot V15.82 HISTORY OF TOBACCO USE 12/07/2016 NIMA ORR FACC, EVERARDO FACP CCDS Ot V58.69 OTH MED,LT,CURRENT USE 12/07/2016 NIMA ORR FACC, EVERARDO FACP CCDS Ot V85.41 BODY MASS INDEX 40.0-44.9, ADULT 12/07/2016 JAYDEN JACOBSEN MD Ot 780.39 OTHER CONVULSIONS 12/07/2016 JAYDEN JACOBSEN MD Ot 780.39 OTHER CONVULSIONS 12/07/2016 JAYDEN JACOBSEN MD Ot V58.69 OTH MED,LT,CURRENT USE 12/07/2016 KELSY GOMES DO Ot R10.11 RIGHT UPPER QUADRANT PAIN 12/28/2016 KELSY GOMES DO Ot N63 UNSPECIFIED LUMP IN BREAST 12/28/2016 WAYNE GOMES DOROUTIE Ot N63 UNSPECIFIED LUMP IN BREAST 12/29/2016 WAYNE GOMES DOROUTIE Ot N63 UNSPECIFIED LUMP IN BREAST 12/29/2016 WAYNE GOMES DOROUTIE Ot N63 UNSPECIFIED LUMP IN BREAST 12/29/2016 WAYNE GOMES DOROUTIE Ot N63 UNSPECIFIED LUMP IN BREAST 01/04/2017 NIMA ORR FACC, EVERARDO FACP CCDS Ot E78.5 HYPERLIPIDEMIA, UNSPECIFIED 01/04/2017 NIMA ORR FACC, EVERARDO FACP CCDS Ot I25.10 ATHSCL HEART DISEASE OF [place] CORONARY 01/04/2017 NIMA ORR FACC, EVERARDO FACP CCDS Ot R00.2 PALPITATIONS 01/04/2017 NIMA ORR FACC, EVERARDO FACP CCDS Ot Z45.09 ENCOUNTER FOR ADJUSTMENT AND MANAGEMENT 01/04/2017 NIMA ORR FACC, EVERARDO FACP CCDS Ot Z87.891 PERSONAL HISTORY OF NICOTINE DEPENDENCE 01/04/2017 NIMA ORR FACC, EVERARDO FACP CCDS Ot Z98.84 BARIATRIC SURGERY STATUS 01/26/2017 KELSY GOMES DO Ot N63 UNSPECIFIED LUMP IN BREAST 03/14/2017 NIMA ORR FACC, EVERARDO FACP CCDS Ot E78.5 HYPERLIPIDEMIA, UNSPECIFIED 03/14/2017 NIMA ORR FACC, ALI FACP CCDS Ot I25.10 ATHSCL HEART DISEASE OF [place] CORONARY 03/14/2017 NIMA ORR FACC, EVERARDO FACP CCDS Ot R00.2 PALPITATIONS 03/14/2017 NIMA ORR FACC, EVERARDO FACP CCDS Ot Z45.09 ENCOUNTER FOR ADJUSTMENT AND MANAGEMENT 03/14/2017 NIMA ORR FACC, EVERARDO FACP CCDS Ot Z87.891 PERSONAL HISTORY OF NICOTINE DEPENDENCE 03/14/2017 NIMA ORR FACC, EVERARDO FACP CCDS Ot Z98.84 BARIATRIC SURGERY STATUS 05/31/2017 RIRI ОЛЬГА DAY HAUL YOUTH SUPERVISOR Ot E78.00 PURE HYPERCHOLESTEROLEMIA, UNSPECIFIED 05/31/2017 RIRI, ОЛЬГА DAY HAUL YOUTH SUPERVISOR Ot G47.30 SLEEP APNEA, UNSPECIFIED 05/31/2017 RIRI, ОЛЬГА DAY HAUL YOUTH SUPERVISOR Ot I10 ESSENTIAL (PRIMARY) HYPERTENSION 05/31/2017 RIRI, ОЛЬГА DAY HAUL YOUTH SUPERVISOR Ot R10.30 LOWER ABDOMINAL PAIN, UNSPECIFIED 05/31/2017 RIRI, ОЛЬГА DAY HAUL YOUTH SUPERVISOR Ot Z82.49 FAMILY HX OF ISCHEM HEART DIS AND OTH DI 05/31/2017 RIRI, ОЛЬГА DAY HAUL YOUTH SUPERVISOR Ot Z87.19 PERSONAL HISTORY OF OTHER DISEASES OF 05/31/2017 RIRI ОЛЬГА DAY HAUL YOUTH SUPERVISOR Ot Z87.442 PERSONAL HISTORY OF URINARY CALCULI 05/31/2017 RIRI ОЛЬГА DAY HAUL YOUTH SUPERVISOR Ot Z87.891 PERSONAL HISTORY OF NICOTINE DEPENDENCE 06/02/2017 RIRI, ОЛЬГА DAY HAUL YOUTH SUPERVISOR Ot E78.00 PURE HYPERCHOLESTEROLEMIA, UNSPECIFIED 06/02/2017 RIRI, ОЛЬГА DAY HAUL YOUTH SUPERVISOR Ot G47.30 SLEEP APNEA, UNSPECIFIED 06/02/2017 RIRI, ОЛЬГА DAY HAUL YOUTH SUPERVISOR Ot I10 ESSENTIAL (PRIMARY) HYPERTENSION 06/02/2017 RIRI, ОЛЬГА DAY HAUL YOUTH SUPERVISOR Ot R10.30 LOWER ABDOMINAL PAIN, UNSPECIFIED 06/02/2017 RIRI, ОЛЬГА DAY HAUL YOUTH SUPERVISOR Ot Z82.49 FAMILY HX OF ISCHEM HEART DIS AND OTH DI 06/02/2017 RIRI, ОЛЬГА DAY HAUL YOUTH SUPERVISOR Ot Z87.19 PERSONAL HISTORY OF OTHER DISEASES OF 06/02/2017 ОЛЬГА MENEZES Ot Z87.442 PERSONAL HISTORY OF URINARY CALCULI 06/02/2017 ОЛЬГА MENEZES Ot Z87.891 PERSONAL HISTORY OF NICOTINE DEPENDENCE 11/29/2017 BLISS, VU W 272.4 11/29/2017 BLISS, VU W 401.0 MALIGNANT ESSENTIAL HYPERTENSION 11/29/2017 BLISS, VU W 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 11/29/2017 BLISS, VU W 780.4 DIZZINESS AND GIDDINESS 11/29/2017 BLISS, VU W 780.97 ALTERED MENTAL STATUS 11/29/2017 BLISS, VU W E78.5 HYPERLIPIDEMIA, UNSPECIFIED 11/29/2017 BLISS, VU W I10 ESSENTIAL (PRIMARY) HYPERTENSION 11/29/2017 BLISS, VU W 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 11/29/2017 RUTHY VU W R41.82 ALTERED MENTAL STATUS, UNSPECIFIED 11/29/2017 BLISS, VU W R42 DIZZINESS AND GIDDINESS 11/29/2017 BLISS, VU W 244.9 11/29/2017 BLISS, VU W 272.4 11/29/2017 BLISS, VU W 401.0 11/29/2017 BLISS, VU W 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 11/29/2017 BLISS, VU W 780.4 DIZZINESS AND GIDDINESS 11/29/2017 BLISS, VU W 780.97 ALTERED MENTAL STATUS 11/29/2017 RUTHY VU W E03.9 HYPOTHYROIDISM, UNSPECIFIED 11/29/2017 BLISS, VU W E78.5 HYPERLIPIDEMIA, UNSPECIFIED 11/29/2017 BLISS, VU W I10 ESSENTIAL (PRIMARY) HYPERTENSION 11/29/2017 RUTHY VU W 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 11/29/2017 RUTHY VU W R41.82 ALTERED MENTAL STATUS, UNSPECIFIED 11/29/2017 BLISS, VU W R42 DIZZINESS AND GIDDINESS 11/29/2017 BLISS, VU W 244.9 11/29/2017 BLISS, VU W 272.4 11/29/2017 BLISS, VU W 401.0 11/29/2017 VU BLISS W 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 11/29/2017 VU BLISS W 780.4 DIZZINESS AND GIDDINESS 11/29/2017 VU BLISS W 780.97 ALTERED MENTAL STATUS 11/29/2017 VU BLISS W E03.9 HYPOTHYROIDISM, UNSPECIFIED 11/29/2017 VU BLISS W E78.5 HYPERLIPIDEMIA, UNSPECIFIED 11/29/2017 VU BLISS W I10 ESSENTIAL (PRIMARY) HYPERTENSION 11/29/2017 VU BLISS W 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 11/29/2017 VU BLISS W R41.82 ALTERED MENTAL STATUS, UNSPECIFIED 11/29/2017 VU BLISS W R42 DIZZINESS AND GIDDINESS 12/03/2017 VU BLISS W 780.97 ALTERED MENTAL STATUS 12/03/2017 VU BLISS W R41.82 ALTERED MENTAL STATUS, UNSPECIFIED 12/03/2017 VU BLISS W 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 12/03/2017 VU BLISS W 780.4 DIZZINESS AND GIDDINESS 12/03/2017 VU BLISS W 780.97 ALTERED MENTAL STATUS 12/03/2017 VU BLISS W 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 12/03/2017 VU BLISS W R41.82 ALTERED MENTAL STATUS, UNSPECIFIED 12/03/2017 VU BLISS W R42 DIZZINESS AND GIDDINESS 12/03/2017 VU BLISS W 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 12/03/2017 VU BLISS W 780.4 DIZZINESS AND GIDDINESS 12/03/2017 LESLIE BLISSHEL W 780.97 ALTERED MENTAL STATUS 12/03/2017 VU BLISS W 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 12/03/2017 VU BLISS W R41.82 ALTERED MENTAL STATUS, UNSPECIFIED 12/03/2017 RUTHY VU W R42 DIZZINESS AND GIDDINESS 12/06/2017 ERICKSON BYRNE W 244.9 UNSPECIFIED HYPOTHYROIDISM 12/06/2017 ERICKSON BYRNE W 272.4 OTHER AND UNSPECIFIED HYPERLIPIDEMIA 12/06/2017 ERICKSON BYRNE W 401.0 MALIGNANT ESSENTIAL HYPERTENSION 12/06/2017 ERICKSON BYRNE A 780.2 12/06/2017 CHAVEZ, ERICKSON W 780.4 12/06/2017 CHAVEZ, ERICKSON W 784.0 HEADACHE 12/06/2017 ERICKSON BYRNE E03.9 HYPOTHYROIDISM, UNSPECIFIED 12/06/2017 ERICKSON BYRNE W E78.5 HYPERLIPIDEMIA, UNSPECIFIED 12/06/2017 CHAVEZ, ERICKSON W I10 ESSENTIAL (PRIMARY) HYPERTENSION 12/06/2017 ERICKSON BYRNE W R42 DIZZINESS AND GIDDINESS 12/06/2017 CHAVEZ, ERICKSON W R51 HEADACHE 12/06/2017 ERICKSON BYRNE R55 SYNCOPE AND COLLAPSE 03/09/2018 NIMA ORR FACC, ALI FACP CCDS Ot 414.00 CORON ATHEROSCLER NOS TYPE VESSEL, NATIV 03/09/2018 NIMA ORR FACC, ALI FACP CCDS Ot 443.9 PERIPH VASCULAR DIS NOS 03/09/2018 NIMA MONTGOMERYC, ALI FACP CCDS Ot 278.01 MORBID OBESITY 03/09/2018 NIMA MONTGOMERYC, ALI FACP CCDS Ot 414.00 CORON ATHEROSCLER NOS TYPE VESSEL, NATIV 03/09/2018 NIMA MONTGOMERYC, ALI FACP CCDS Ot 786.50 CHEST PAIN NOS 03/09/2018 NIMA ORR FACC, ALI FACP CCDS Ot V85.41 BODY MASS INDEX 40.0-44.9, ADULT 03/09/2018 NIMA MONTGOMERYC, ALI FACP CCDS Ot 272.4 HYPERLIPIDEMIA NEC/NOS 03/09/2018 NIMA MONTGOMERYC, ALI FACP CCDS Ot 278.00 OBESITY, NOS 03/09/2018 NIMA ORR FACC, ALI FACP CCDS Ot 401.9 HYPERTENSION NOS 03/09/2018 NIMA MONTGOMERYC, ALI FACP CCDS Ot 414.00 CORON ATHEROSCLER NOS TYPE VESSEL, NATIV 03/09/2018 NIMA ORR FACC, ALI FACP CCDS Ot 780.2 SYNCOPE AND COLLAPSE 03/09/2018 NIMA ORR FACC, ALI FACP CCDS Ot 786.59 CHEST PAIN NEC 03/09/2018 NIMA ORR FACC, ALI FACP CCDS Ot V15.82 HISTORY OF TOBACCO USE 03/09/2018 NIMA ORR FACC, ALI FACP CCDS Ot V58.69 OTH MED,LT,CURRENT USE 03/09/2018 NIMA ORR FACC, ALI FACP CCDS Ot V85.41 BODY MASS INDEX 40.0-44.9, ADULT 03/09/2018 JAYDEN JACOBSEN MD Ot 780.39 OTHER CONVULSIONS 03/09/2018 JAYDEN JACOBSEN MD Ot 780.39 OTHER CONVULSIONS 03/09/2018 JAYDEN JACOBSEN MD Ot V58.69 OTH MED,LT,CURRENT USE 03/09/2018 KELSY GOMES DO Ot R10.11 RIGHT UPPER QUADRANT PAIN 03/09/2018 KELSY GOMES DO Ot N63 UNSPECIFIED LUMP IN BREAST 03/09/2018 KELSY GOMES DO Ot N63 UNSPECIFIED LUMP IN BREAST 03/09/2018 NIMA ORR FACC, ALI FACP CCDS Ot E78.5 HYPERLIPIDEMIA, UNSPECIFIED 03/09/2018 NIMA ORR FACC, ALI FACP CCDS Ot I25.10 ATHSCL HEART DISEASE OF [place] CORONARY 03/09/2018 NIMA ORR FACC, ALI FACP CCDS Ot R00.2 PALPITATIONS 03/09/2018 NIMA ORR FACC, ALI FACP CCDS Ot Z45.09 ENCOUNTER FOR ADJUSTMENT AND MANAGEMENT 03/09/2018 NIMA ORR FACC, ALI FACP CCDS Ot Z87.891 PERSONAL HISTORY OF NICOTINE DEPENDENCE 03/09/2018 NIMA ORR FACC, ALI FACP CCDS Ot Z98.84 BARIATRIC SURGERY STATUS 03/09/2018 KELSY GOMES DO Ot N63 UNSPECIFIED LUMP IN BREAST Procedures Code [place] [address] ROUTINE VENIPUNCTURE 03/27/2014 46667 EKG, TRACING (IN-HOUSE) 03/27/2014 43271 CBC 03/27/2014 19041 CMP 03/27/2014 61644 LIPID PANEL 03/27/2014 30431 MAGNESIUM 03/27/2014 8522771 GFR CALC (RESULT ONLY) 03/27/2014 06246 PSA TOTAL 03/27/2014 00700 TSH 03/27/2014 40836 HEMOCCULT 03/31/2014 53470 HEMOCCULT 03/31/2014 CARDIOLOG SHELLY WILKERSON 04/01/2014 85362 ROUTINE VENIPUNCTURE 04/22/2014 37400 A1C (IN-HOUSE) 04/22/2014 02861 SED/ESR RATE (IN HOUSE) 04/22/2014 28074 URIC ACID 04/22/2014 08213 CRP 04/22/2014 84967 PULMONARY FUNCTION TEST (IN- HOUSE) 04/23/2014 35604 PULMONARY EDUCATION 04/23/2014 ANAANA GABRIELA ANALYZER (SCREEN) 04/23/2014 88096 RA FACTOR 04/23/2014 76991 CBC 04/29/2014 06336 OXIMETRY - OVERNIGHT 04/29/2014 04429 SLEEP STUDY (HOME) 05/06/2014 69528 PULMONARY FUNCTION TEST (IN- HOUSE) 05/09/2014 22338 RESPIRATORY FLOW VOLUME LOOP 05/09/2014 Results Test Result Range Thyroid Stimulating Hormone - 10/18/16 14:45 TSH 0.00 mIU/mL 0.32-5.00 Free T4 - 11/10/16 10:15 Free T4 1.47 ng/dL 0.81-1.61 Thyroid Stimulating Hormone - 11/10/16 10:15 TSH 0.00 mIU/mL 0.32-5.00 Thyroid Stimulating Hormone - 01/10/17 15:10 TSH 0.06 mIU/mL 0.32-5.00 Thyroid Stimulating Hormone - 03/28/17 17:00 TSH 0.63 mIU/mL 0.32-5.00 Comprehensive Metabolic Panel - 05/17/17 17:00 Albumin 4.2 g/dL 3.6-5.1 ALP 78 U/L 35-130 ALT 13 U/L 6-45 Anion Gap 12 6-14 AST 13 U/L 2-40 BUN 17 mg/dL 5-25 Calcium 9.3 mg/dL 8.3-10.4 Chloride 107 mmol/L 95-114 CO2 29 mEq/L 22-33 Creat 0.91 mg/dL 0.50-1.50 eGFR 89 mL/min/1.73m2 >59 Globulin 2.3 g/dL 2.3-3.5 Glucose 79 mg/dL 70-110 Osmo 298 280-295 Potassium 4.1 mmol/L 3.5-5.3 Sodium 144 mmol/L 134-148 TBil 0.3 mg/dL 0.2-1.2 TP 6.5 g/dL 6.0-8.3 Carbamazepine - 05/17/17 17:00 Carbamazepine 8.4 ug/mL 4.0-10.0 CBC with Auto Diff - 05/18/17 16:30 Baso% 0.20 % 0.00-2.50 Eos 0.1 K/uL 0.0-0.7 Eos% 1.0 % 0.0-7.0 Hct 43.5 % 42.0-52.0 Hgb 14.3 g/dL 14.0-17.0 Lym 2.88 K/uL 0.60-3.40 Lym% 34.6 % 10.0-50.0 MCH 30.4 pg 27.0-31.2 MCHC 32.9 g/dL 32.0-36.0 MCV 92.4 fL 80.0-97.0 [place]% 8.5 % 0.0-12.0 MPV 9.1 fL 7.4-10.0 Elaine% 55.7 % 37.0-80.0 Plt 189 K/uL 150-400 RBC 4.71 M/uL 4.20-5.40 RDW 12.6 % 11.6-14.8 WBC 8.32 K/uL 5.00-10.00 Elaine 4.63 K/uL 2.00-6.90 [place] 0.7 K/uL 0.0-0.9 Baso 0.0 K/uL 0.0-0.2 Complete urinalysis with reflex to culture - 05/31/17 13:45 Urine color determination YELLOW NRG Urine clarity determination CLEAR NRG Urine pH measurement by test strip 7 5-9 Specific gravity of urine by test strip 1.010 1.016- 1.022 Urine protein assay by test strip, semi-quantitative NEGATIVE NEGATIVE Urine glucose detection by automated test strip NEGATIVE NEGATIVE Erythrocytes detection in urine sediment by light microscopy NEGATIVE NEGATIVE Urine ketones detection by automated test strip NEGATIVE NEGATIVE Urine nitrite detection by test strip NEGATIVE NEGATIVE Urine total bilirubin detection by test strip NEGATIVE NEGATIVE Urine urobilinogen measurement by automated test strip (mass/volume) NORMAL NORMAL Urine leukocyte esterase detection by dipstick NEGATIVE NEGATIVE Automated urine sediment erythrocyte count by microscopy (number/high power field) NONE NRG Automated urine sediment leukocyte count by microscopy (number/high power field ) RARE NRG Bacteria detection in urine sediment by light microscopy NEGATIVE NRG Crystals detection in urine sediment by light microscopy PRESENT NRG Casts detection in urine sediment by light microscopy NONE NRG Mucus detection in urine sediment by light microscopy NEGATIVE NRG Complete urinalysis with reflex to culture NO NRG Amorphous sediment detection in urine sediment by light microscopy FEW GUILHERME URATES NRG VIT B-12 - 06/27/17 17:38 Vitamin B12 1482.00 pg/mL 213.00-816.00 Lyme, Total Ab Test/Reflex - 06/27/17 17:38 LYME IGG/IGM AB <0.91 ISR 0.00-0.90 [facility] Sp[facility], IgM - 06/27/17 17:38 [facility] SPOTTED FEVER, IGM 0.31 INDEX 0.00-0.89 Thyroid Stimulating Hormone - 11/29/17 10:35 TSH 1.01 mIU/mL 0.32-5.00 EKG - 12/06/17 12:09 EKG Complete CBC with Auto Diff - 12/06/17 12:09 Baso% 0.10 % 0.00-2.50 Eos 0.0 K/uL 0.0-0.7 Eos% 0.0 % 0.0-7.0 Hct 44.1 % 42.0-52.0 Hgb 14.8 g/dL 14.0-17.0 Lym 0.64 K/uL 0.60-3.40 Lym% 5.6 % 10.0-50.0 MCH 31.5 pg 27.0-31.2 MCHC 33.6 g/dL 32.0-36.0 MCV 93.8 fL 80.0-97.0 [place]% 12.9 % 0.0-12.0 MPV 8.3 fL 7.4-10.0 Elaine% 81.4 % 37.0-80.0 Plt 177 K/uL 150-400 RBC 4.70 M/uL 4.20-5.40 RDW 11.9 % 11.6-14.8 WBC 11.42 K/uL 5.00-10.00 Elaine 9.30 K/uL 2.00-6.90 [place] 1.5 K/uL 0.0-0.9 Baso 0.0 K/uL 0.0-0.2 Rapid Drug Screen + ETOH,Medical - 12/06/17 12:09 Amphetamine NEGATIVE NEGATIVE Barbiturates NEGATIVE NEGATIVE Benzodiazepines NEGATIVE NEGATIVE Cocaine NEGATIVE NEGATIVE Marijuana NEGATIVE NEGATIVE Methylenedioxymethamphetamine NEGATIVE NEGATIVE Opiates NEGATIVE NEGATIVE Oxycodone NEGATIVE NEGATIVE Phencyclidine NEGATIVE NEGATIVE Propoxyphene NEGATIVE NEGATIVE Tricyclic Antidepressant NEGATIVE NEGATIVE Urinalysis - 12/06/17 12:09 Icotest N/A Negative Urine Volume Urine Volume Sufficient (10mL) Urine Yeast No Yeast present Urine-Appearance Clear Clear Urine-Bacteria Negative Urine-Bilirubin Negative Negative Urine-Blood Negative Negative Urine-Color Yellow Colorless-Lt. Yellow Urine-Epithelial Cells 0-5/HPF Urine-Glucose Negative Negative Urine-Ketones Negative Negative Urine-Leukocytes Negative Negative Urine-Nitrite Negative Negative Urine-Other Urine Saved if Culture Needed (48hrs from time of collection) Urine-pH 8.5 5-8.5 Urine-Protein Negative Negative Urine-RBC Negative Urine-Specific Raymond 1.020 1.000-1.030 Urine-WBC Nothing Seen on Microscopic Urobilinogen 1.0 E.U./dL 0.2-1.0 VIT B-12 - 12/07/17 15:39 Vitamin B12 967.00 pg/mL 213.00-816.00 Thyroid Stimulating Hormone - 12/07/17 15:39 TSH 0.73 mIU/mL 0.32-5.00 Holter Montor 24 Hour - 12/07/17 15:39 Holter Monitor 24 Hour Complete Encounters ACCT No. Visit Date/Time Discharge Status Pt. Type Provider Facility Loc./Unit Complaint [id number] 12/15/2014 13:53:00 12/15/2014 23:59:59 CLS Outpatient TIFFANY DAVEY DO [id number] 12/09/2014 13:36:00 12/09/2014 23:59:59 CLS Outpatient TIFFANY DAVEY DO [id number] 05/09/2014 16:00:00 05/09/2014 23:59:59 CLS Outpatient TIFFANY DAVEY DO [id number] 05/06/2014 13:23:00 05/06/2014 23:59:59 CLS Outpatient TIFFANY DAVEY DO [id number] 04/30/2014 05:36:00 04/30/2014 23:59:59 CLS Outpatient SAMANTHA HANEY MD [id number] 04/29/2014 15:30:00 04/29/2014 23:59:59 CLS Outpatient JUWAN ABBASI APRN [id number] 04/22/2014 13:18:00 04/22/2014 23:59:59 CLS Outpatient TIFFANY DAVEY DO [id number] 04/14/2014 12:45:00 04/14/2014 23:59:59 CLS Outpatient TIFFANY DAVEY DO [id number] 03/31/2014 17:27:00 03/31/2014 23:59:59 CLS Outpatient TIFFANY DAVEY DO [id number] 03/27/2014 08:50:00 03/27/2014 23:59:59 CLS Outpatient TIFFANY DAVEY DO [id number] 03/09/2018 10:04:00 03/09/2018 13:26:00 DIS Emergency YANCY GUZMAN Jacky DE JESUSN [facility] ER LEFT SIDE OF BODY NUMB, SPEECH ISSUES [id number] 05/31/2017 12:19:00 05/31/2017 14:57:00 DIS Emergency RIRIОЛЬГА [facility] ER POSS KIDNEY STONES/PAIN [id number] 12/28/2016 07:22:00 12/28/2016 23:59:59 CLS Outpatient WAYNE GOMES DOROUTIE [facility] RAD BILATERAL BREAST NODULES [id number] 12/27/2016 07:22:00 12/27/2016 23:59:59 CLS Outpatient WAYNE GOMES DOROUTIE [facility] RAD BILATERAL BREAST NODULES [id number] 12/20/2016 10:32:00 12/20/2016 23:59:59 CLS Outpatient NIMA ORR FACC, EVERARDO SHOEMAKER CCDS [facility] CATH END OF LIFE LOOP RECORDER [id number] 12/07/2016 10:36:00 12/07/2016 23:59:59 CLS Outpatient ELISEO BOLTON CHANDROUTIE [facility] RAD BILATERAL BREAST NODULES [id number] 12/08/2015 09:03:00 12/08/2015 23:59:59 CLS Outpatient WAYNE GOMES DOROUTIE [facility] CARD EPIGASTRIC PAIN [id number] 05/05/2015 09:34:00 05/05/2015 23:59:59 CLS Outpatient JAYDEN JACOBSEN MD [facility] LAB SEIZURE ON DEPAKOTE [id number] 04/24/2015 09:22:00 04/24/2015 23:59:59 CLS Outpatient JAYDEN JACOBSEN MD [facility] RT SEIZURES [id number] 03/24/2015 08:49:00 03/24/2015 23:59:59 CLS Outpatient NIMA ORR FACC, ALI FACP CCDS [facility] CARD DIZZINESS SYNCOPE CHEST TIGHTNESS [id number] 03/19/2015 18:52:00 03/20/2015 19:00:00 DIS Inpatient CHILANGO SHARP DO [facility] CSD CP,SYNCOE,MONIQUE,L FACIAL NUMBNESS,SOA [id number] 11/28/2014 11:02:00 12/02/2014 12:35:00 DIS Inpatient CARLOS SPARROW MD [facility] SURGICAL SMALL BOWEL OBSTRUCTION [id number] 05/12/2014 11:31:00 05/12/2014 23:59:59 CLS Outpatient NIMA ORR FACC, EVERARDO FACP CCDS [facility] CARD HLP,CP,CAD, [id number] 04/22/2014 09:27:00 04/22/2014 11:10:00 DIS Emergency DEBORA DELGADO DO [facility] ER BLURRED VISION,SOA [id number] 04/17/2014 13:34:00 04/17/2014 23:59:59 CLS Outpatient NIMA ORR FACC, ALI FACP CCDS [facility] RAD HLP,CP,CAD, CLAUDICATION [id number] 03/31/2014 21:00:00 04/02/2014 11:45:00 DIS Inpatient SAMANTHA HANEY MD [facility] CSD CHEST PAIN [id number] 05/12/2013 16:38:00 05/12/2013 23:59:59 CLS Outpatient [id number] 07/18/2010 22:50:00 Document Registration [id number] 12/07/2017 15:35:00 12/07/2017 23:59:00 DIS Outpatient VU BLISS [id number] 12/06/2017 12:01:00 12/06/2017 14:15:00 DIS Outpatient [facility] [id number] 12/03/2017 07:05:00 12/03/2017 23:59:00 DIS Outpatient VU BLISS [id number] 11/29/2017 11:20:00 11/29/2017 23:59:00 DIS Outpatient VU BLISS [id number] 06/27/2017 17:36:00 06/27/2017 23:59:00 DIS Outpatient VU BLISS [id number] 05/17/2017 17:00:00 05/17/2017 23:59:00 DIS Outpatient VU BLISS [id number] 03/28/2017 17:00:00 03/28/2017 23:59:00 DIS Outpatient VU BLISS [id number] 01/10/2017 15:10:00 01/10/2017 23:59:00 DIS Outpatient VU BLISS [id number] 11/11/2016 10:42:00 11/11/2016 23:59:00 DIS Outpatient VU BLISS [id number] 11/10/2016 11:02:00 11/10/2016 23:59:00 DIS Outpatient VU BLISS [id number] 10/18/2016 14:41:00 10/18/2016 23:59:00 DIS Outpatient VU BLISS [id number] 12/06/2017 12:13:13 Document Registration [id number] 12/07/2017 15:35:00 Document Registration [id number] 05/05/2015 09:36:29 ACT Document Registration
== END 2018-03-09 13:26 | disposition home or self-care (01) ==
LOC: EDUNIT# 10:02 → ER 10:04
DX: G43.809 Other migraine, not intractable, without status migrainosus (principal); R20.2 Paresthesia of skin; G47.30 Sleep apnea, unspecified; E78.00 Pure hypercholesterolemia, unspecified; I10 Essential (primary) hypertension; Z87.442 Personal history of urinary calculi; Z88.8 Allergy status to other drugs, medicaments and biological substances; Z87.19 Personal history of other diseases of the digestive system
CPT/HCPCS: 36415; 70450; 70496; 70498; 70553; 71045; 80053; 81000; 84484; 85025; 85379; 85610; 85730; 93005; 93041; 96361; 96374

== ENCOUNTER 2018-04-24 08:21 | Outpatient (RCR) | payer BC | END 2018-05-28 10:35 | disposition home or self-care (01) | PROVIDERS: ATTEND Physician Assistant | DX: M25.78 Osteophyte, vertebrae (principal) ==

== ENCOUNTER 2019-04-29 13:51 | Observation (INO) | payer BC ==
[~2019-04-29] VITALS: Ht 170.2 cm; Wt 93.7 kg
[2019-04-29] MEDS ORDERED: RT-ALBUTEROL/IPRATROPIUM 3 ML (DUONEB) VIAL ONE (13:59)
[2019-04-29 14:14] LABS: BASOPHILS % (AUTO) 0 % (0-10); EOSINOPHILS % (AUTO) 1 % (0-10); HEMATOCRIT 42 % (40-54); HEMOGLOBIN 14.4 G/DL (13.3-17.7); LYMPHOCYTES # (AUTO) 2.7 X 10^3 (1.0-4.0); LYMPHOCYTES % (AUTO) 43 % (12-44); MEAN CORPUSCULAR HEMOGLOBIN 32 PG (25-34); MEAN CORPUSCULAR HGB CONC 35 G/DL (32-36); MEAN CORPUSCULAR VOLUME 91 FL (80-99); MEAN PLATELET VOLUME 8.4 FL (7.4-10.4); MONOCYTES # (AUTO) 0.5 X 10^3 (0.0-1.0); MONOCYTES % (AUTO) 8 % (0-12); NEUTROPHILS % (AUTO) 49 % (42-75); PLATELET COUNT 198 10^3/uL (130-400); RED CELL DISTRIBUTION WIDTH 12.1 % (10.0-14.5); WHITE BLOOD COUNT 6.3 10^3/uL (4.3-11.0)
--- NOTE | 2019-04-29 14:26 | Diagnostic Imaging Report ---
INDICATION: Cough. TIME OF EXAM: 2:15 p.m. COMPARISON: Correlation is made with prior study from 03/09/2018. FINDINGS: The heart size is normal. The pulmonary vascularity is unremarkable. The lungs are clear. No infiltrate, effusion or pneumothorax is detected. IMPRESSION: No acute cardiopulmonary process is detected. Dictated by: Dictated on workstation # [id number]
[2019-04-29 14:28] LABS: MAGNESIUM 2.4 MG/DL (1.8-2.4)
[2019-04-29 14:30] LABS: INR 0.9 (0.8-1.4); PROTHROMBIN TIME PATIENT 12.5 SEC (12.2-14.7)
[2019-04-29 14:34] LABS: ALANINE AMINOTRANSFERASE 20 U/L (0-55); ALBUMIN 4.5 GM/DL (3.2-4.5); ALKALINE PHOSPHATASE 83 U/L (40-136); BILIRUBIN,TOTAL 0.4 MG/DL (0.1-1.0); BUN/CREATININE RATIO 7; CALCIUM 9.6 MG/DL (8.5-10.1); CARBON DIOXIDE 24 MMOL/L (21-32); CHLORIDE 105 MMOL/L (98-107); CREATININE SERUM 0.96 MG/DL (0.60-1.30); GFR ESTIMATED > 60; GLUCOSE 99 MG/DL (70-105); POTASSIUM 3.1 MMOL/L (3.6-5.0); SODIUM 140 MMOL/L (135-145); TOTAL PROTEIN 6.7 GM/DL (6.4-8.2)
--- NOTE | 2019-04-29 14:42 | NUR ---
lab just called me lactic acid of 2.14. i will give result to now.
[2019-04-29] MEDS ORDERED: POTASSIUM CL 10MEQ/50ML IVPB 50 ML IV ONE (14:45)
[2019-04-29] MEDS ORDERED: NS IV 1000 ML 1,000 ML IV ONE (14:45)
--- NOTE | 2019-04-29 14:58 | ED Syncope ---
General Chief Complaint: Neurological Problems Stated Complaint: SOA Nursing Triage Note: PT BROUGHT IN BY EMS FROM THE [facility] WITH COMPLAINT OF UNRESPONSIVENESS. PER EMS, PT STARTED ACTING OFF WHILE AT WORK. EMS STATES PT WOULD GO IN AND OUT OF UNRESPONSIVENESS. STATES PT HAS HAD DIFFICULTY SWALLOWING FOR ROUGHLY A MONTH. PT IS COMPLAINING OF PAIN FROM THROAT TO MIDDLE OF CHEST. EMS STATES PT HAD A FROTHY COUGH AT SCENE AND O2 WAS IN THE 80S. WAS GIVEN DUONEB IN ROUTE. 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 He experienced a witnessed syncope and collapse. His custodial supervisor was with him at the time and reports that he went down to the ground without any notable injury. He laid on the ground with wet sounding respiration and minimal responsiveness until EMS arrived. EMS reported waxing and waning level of alertness. Oxygen saturation was 80 percent on room air initially for EMS. It was 100 percent after a nebulizer treatment. Patient was noted to have decreased breath sounds and wheezing. Blood sugar was 101. There is no bowel or bladder incontinence. Patient is sluggish on arrival but will answer questions. He reports having difficulties with swallowing and chest/epigastric discomfort over the past month. He is under workup with Dr. Briseno who has performed a barium swallow, upper GI series, and endoscopy. Patient also has had numerous "knots" under the skin of his chest and upper extremities. He is scheduled for biopsy with Dr. Briseno to assess that further. Patient reports feeling very weak. He has not been able to eat solids for about a month. He has been consuming clear liquids due to his swallowing difficulty. He denies any drugs or alcohol. He denies any known cardiopulmonary problems. Patient had a gastric sleeve surgery performed about 3 years ago. Allergies and Home Medications Allergies Coded Allergies: rofecoxib (Unverified Allergy, Intermediate, 07/18/10) bisacodyl (Unverified Allergy, Mild, 07/18/10) acetaminophen (Verified Allergy, Unknown, 04/29/19) oxycodone (Verified Allergy, Unknown, 04/29/19) Home Medications Carbamazepine 200 Mg Tablet, 400 MG PO BID, (Reported) Hydrocodone Bit/Acetaminophen 1 Each Tablet, 1 EACH PO Q6H PRN for PAIN Prescribed by: ОЛЬГА MENEZES on 05/31/171451 Levothyroxine Sodium 75 Mcg Tablet, 75 MCG PO DAILY, (Reported) Ondansetron 8 Mg Tab.rapdis, 8 MG PO Q8H Prescribed by: ОЛЬГА MENEZES on 05/31/17 1452 Patient Home Medication List Home Medication List Reviewed: Yes Review of Systems Constitutional: see HPI EENTM: no symptoms reported Respiratory: see HPI Cardiovascular: see HPI Gastrointestinal: no symptoms reported Genitourinary: no symptoms reported Musculoskeletal: no symptoms reported Skin: no symptoms reported Psychiatric/Neurological: See HPI Past Zkilcqk-Iqermt-Lxuyzo Hx Past Med/Social Hx: Reviewed and Corrections made Patient Social History Alcohol Use: Denies Use Recreational Drug Use: No Smoking Status: Former Smoker Former Smoker, Quit: Nov 27, 2006 Recent Foreign Travel: No Contact w/Someone Who Travel: No Recent Infectious Disease Expo: No Recent Hopitalizations: No Immunizations Up To Date Date of Pneumonia Vaccine: Nov 27, 2011 Date of Influenza Vaccine: Aug 27, 2018 Seasonal Allergies Seasonal Allergies: No Past Medical History Surgeries: Yes (BACK SURGERY, HEART CATH, HERNIA REPAIR, CARPAL TUNNEL, CYSTOSCOPY, GASTRIC SLEEVE) Abdominal, Orthopedic Respiratory: Yes (PT. DENIES USING CPAP OR O2 AT THIS VIST. PMH SHOWED THAT HE DID USED CPAP) Asthma (Remotely treated), Sleep Apnea (Improved after losing weight) Cardiac: Yes (5-6 heart caths/no stents ) High Cholesterol, Hypertension Neurological: No Reproductive Disorders: No Sexually Transmitted Disease: No Genitourinary: Yes Prostate Problems, Kidney Stones Gastrointestinal: Yes Hiatal Hernia Musculoskeletal: Yes (HX OF BACK SURGERY) Chronic Back Pain Endocrine: No HEENT: No Cancer: No Psychosocial: Yes ("Anger issues") Integumentary: No Blood Disorders: No Family Medical History Patient reports no known family medical history. Heart Disease, Diabetes Physical Exam Vital Signs Vital Signs - First Documented 04/29/19 13:52 Temp 97.8 Pulse 75 Resp 17 B/P (MAP) 141/79 (99) Pulse Ox 96 O2 Delivery Room Air Capillary Refill : Less Than 3 Seconds Height, Weight, BMI Height: 5'7.00" Weight: 205lbs. 0.0oz. [id number]; 30.4 BMI Method:Stated General Appearance: No Apparent Distress, WD/WN, Other (Sluggish, somnolent) HEENT: PERRL/EOMI, Normal ENT Inspection, Pharynx Normal Neck: Normal Inspection Cardiovascular: Regular Rate, Rhythm, No Edema, No Murmur Respiratory: Lungs Clear, Normal Breath Sounds, No Accessory Muscle Use, No Respiratory Distress Gastrointestinal: Normal Bowel Sounds, Soft, Tenderness (Epigastrium) Extremities: Normal Inspection, No Pedal Edema Neurologic/Psychiatric: Alert, Oriented x3, No Motor/Sensory Deficits, Normal Mood/Affect, optical scientist II-XII Norm as Tested, Other (Initially mentation was sluggish and there was decreased alertness. This improved fairly rapidly with time.) Cranial Nerves: Normal Hearing, Normal Speech, PERRL Coordination/Gait: Normal Gait Motor/Sensory: No Motor Deficit, No Sensory Deficit Skin: Normal Color, Warm/Dry Focused Exam Lactate Level 04/29/19 14:04: Lactic Acid Level 2.14*H 04/29/19 14:13: Lactic Acid Level 1.43 Lactic Acid Level Laboratory Tests Test 04/29/19 14:04 04/29/19 14:13 Lactic Acid Level 2.14 MMOL/L (0.50-2.00) *H 1.43 MMOL/L (0.50-2.00) Progress/Results/Core Measures Results/Orders Lab Results Laboratory Tests Test 04/29/19 14:04 04/29/19 14:11 04/29/19 14:13 04/29/19 16:40 Range/Units White Blood Count 6.3 4.3-11.0 10^3/uL Red Blood Count 4.56 4.35-5.85 10^6/uL Hemoglobin 14.4 13.3-17.7 G/DL Hematocrit 42 40-54 % Mean Corpuscular Volume 91 80-99 FL Mean Corpuscular Hemoglobin 32 25-34 PG Mean Corpuscular Hemoglobin Concent 35 32-36 G/DL Red Cell Distribution Width 12.1 10.0-14.5 % Platelet Count 198 130-400 10^3/uL Mean Platelet Volume 8.4 7.4-10.4 FL Neutrophils (%) (Auto) 49 42-75 % Lymphocytes (%) (Auto) 43 12-44 % Monocytes (%) (Auto) 8 0-12 % Eosinophils (%) (Auto) 1 0-10 % Basophils (%) (Auto) 0 0-10 % Neutrophils # (Auto) 3.0 1.8-7.8 X 10^3 Lymphocytes # (Auto) 2.7 1.0-4.0 X 10^3 Monocytes # (Auto) 0.5 0.0-1.0 X 10^3 Eosinophils # (Auto) 0.0 0.0-0.3 10^3/uL Basophils # (Auto) 0.0 0.0-0.1 10^3/uL Prothrombin Time 12.5 12.2-14.7 SEC INR Comment 0.9 0.8-1.4 Activated Partial Thromboplast Time 24 24-35 SEC Sodium Level 140 135-145 MMOL/L Potassium Level 3.1 L 3.6-5.0 MMOL/L Chloride Level 105 98-107 MMOL/L Carbon Dioxide Level 24 21-32 MMOL/L Anion Gap 11 5-14 MMOL/L Blood Urea Nitrogen 7 7-18 MG/DL Creatinine 0.96 0.60-1.30 MG/DL Estimat Glomerular Filtration Rate > 60 BUN/Creatinine Ratio 7 Glucose Level 99 70-105 MG/DL Lactic Acid Level 2.14 *H 1.43 0.50-2.00 MMOL/L Calcium Level 9.6 8.5-10.1 MG/DL Corrected Calcium 9.2 8.5-10.1 MG/DL Magnesium Level 2.4 1.8-2.4 MG/DL Total Bilirubin 0.4 0.1-1.0 MG/DL Aspartate Amino Transf (AST/SGOT) 20 5-34 U/L Alanine Aminotransferase (ALT/SGPT) 20 0-55 U/L Alkaline Phosphatase 83 40-136 U/L Myoglobin 83.6 10.0-92.0 NG/ML Troponin I < 0.028 <0.028 NG/ML Total Protein 6.7 6.4-8.2 GM/DL Albumin 4.5 3.2-4.5 GM/DL Serum Alcohol < 10 <10 MG/DL Thyroid Stimulating Hormone (TSH) 0.69 0.35-4.94 UIU/ML Free Thyroxine 0.90 0.70-1.48 NG/DL Urine Color YELLOW Urine Clarity CLEAR Urine pH 8 5-9 Urine Specific [place] 1.010 L 1.016-1.022 Urine Protein NEGATIVE NEGATIVE Urine Glucose (UA) NEGATIVE NEGATIVE Urine Ketones NEGATIVE NEGATIVE Urine Nitrite NEGATIVE NEGATIVE Urine Bilirubin NEGATIVE NEGATIVE Urine Urobilinogen NORMAL NORMAL MG/DL Urine Leukocyte Esterase NEGATIVE NEGATIVE Urine RBC (Auto) NEGATIVE NEGATIVE Urine RBC NONE /HPF Urine WBC NONE /HPF Urine Crystals PRESENT H /LPF Urine Amorphous Sediment LARGE GUILHERME PHOSPHATE H /LPF Urine Bacteria NEGATIVE /HPF Urine Casts NONE /LPF Urine Mucus NEGATIVE /LPF Urine Culture Indicated CULTURE PENDING Urine Opiates Screen NEGATIVE NEGATIVE Urine Oxycodone Screen NEGATIVE NEGATIVE Urine Methadone Screen NEGATIVE NEGATIVE Urine Propoxyphene Screen NEGATIVE NEGATIVE Urine Barbiturates Screen NEGATIVE NEGATIVE Ur Tricyclic Antidepressants Screen NEGATIVE NEGATIVE Urine Phencyclidine Screen NEGATIVE NEGATIVE Urine Amphetamines Screen NEGATIVE NEGATIVE Urine Methamphetamines Screen NEGATIVE NEGATIVE Urine Benzodiazepines Screen NEGATIVE NEGATIVE Urine Cocaine Screen NEGATIVE NEGATIVE Urine Cannabinoids Screen NEGATIVE NEGATIVE My Orders Orders - ERICKSON SCOTT MD Albuterol/Ipra Inhalation Soln (Duoneb I (04/29/19 13:59) Cbc With Automated Diff (04/29/19 14:03) Comprehensive Metabolic Panel (04/29/19 14:03) Blood Culture (04/29/19 14:03) Sputum Culture (04/29/19 14:03) Urinalysis (04/29/19 14:03) Urine Culture (04/29/19 14:03) Protime With Inr (04/29/19 14:03) Partial Thromboplastin Time (04/29/19 14:03) Chest 1 View, Ap/Pa Only (04/29/19 14:03) Ed Iv/Invasive Line Start (04/29/19 14:03) Ed Iv/Invasive Line Start (04/29/19 14:03) Vital Signs Adult Sepsis Patie Q15M (04/29/19 14:03) O2 (04/29/19 14:03) Remove Rings In Anticipation O (04/29/19 14:03) Lactic Acid Analyzer (04/29/19 14:03) Magnesium (04/29/19 14:03) Ekg Tracing (04/29/19 14:03) Cardiac Profile 1 (04/29/19 14:03) Myoglobin Serum (04/29/19 14:03) Monitor-Rhythm Ecg Trace Only (04/29/19 14:03) Lipid Panel (04/30/19 06:00) Ns Iv 1000 Ml (Sodium Chloride 0.9%) (04/29/19 14:45) Potassium Cl 10meq/50ml Ivpb (Kcl 10 Meq (04/29/19 14:45) Alcohol (04/29/19 14:45) Drug Screen Stat (Urine) (04/29/19 14:45) Ct Head Wo (04/29/19 14:45) Ct Pita Chest/Noang Abd-Pelv W (04/29/19 14:45) Iohexol Injection (Omnipaque 350 Mg/Ml 1 (04/29/19 15:15) Received Contrast (Hold Metformin- Contr (04/29/19 15:15) Ns (Ivpb) (Sodium Chloride 0.9% Ivpb Bag (04/29/19 15:15) Ns Iv 500 Ml (Sodium Chloride 0.9%) (04/29/19 17:11) Thyroid Stimulating Hormone (04/29/19 18:35) Free T4 (Free Thyroxine) (04/29/19 18:35) Medications Given in ED Current Medications Medications Dose Ordered Sig/Shant Route Start Time Stop Time Status Last Admin Dose Admin Albuterol/ Ipratropium 3 ml STK-MED ONCE .ROUTE 04/29/19 13:59 04/29/19 14:04 DC 04/29/19 14:04 3 ML Iohexol 100 ml ONCE ONCE IV 04/29/19 15:15 04/29/19 15:16 DC 04/29/19 15:42 100 ML Potassium Chloride 50 ml @ 50 mls/hr ONCE ONCE IV 04/29/19 14:45 04/29/19 15:44 DC 04/29/19 16:37 50 MLS/HR Sodium Chloride 500 ml @ ud STK-MED ONCE .ROUTE 04/29/19 17:11 04/29/19 17:15 DC 04/29/19 17:15 500 MLS/HR Sodium Chloride 1,000 ml @ 0 mls/hr Q0M ONCE IV 04/29/19 14:45 04/29/19 14:46 DC 04/29/19 15:05 1,000 MLS/HR Vital Signs/I&O 04/29/19 04/29/19 13:52 14:04 Temp 97.8 Pulse 75 Resp 17 B/P (MAP) 141/79 (99) Pulse Ox 96 95 O2 Delivery Room Air Room Air Blood Pressure Mean: 99 Progress Progress Note #1: Time: 14:57 Progress Note Patient is now alert and oriented. He is having no difficulty breathing. Oxygen saturation is 100 percent. He complains of headache which he often has after a "spell". Neck was again palpated and he has no cervical spine tenderness. CT of the head, chest, abdomen, and pelvis has been ordered. Labs were fairly unremarkable except for hypokalemia. Potassium and IV fluids are being given. Progress Note #2: Progress Note CT scans were unremarkable. Potassium replacement was initiated with 10 mEq by IV route. Patient received 1500 mL of normal saline. Level of alertness returned to baseline. Cause of his syncopal episode is uncertain. It may have been related to hypoxia from COPD exacerbation, cardiac issue, or seizure. Patient has no history of seizures. He does take Tegretol for anger issues. Patient has remote history of asthma that was treated about 20 years ago. He also used to have sleep apnea for which she used CPAP until he lost weight a few years ago with a gastric sleeve. He used to weigh over 300 pounds. Patient agrees to admission for observation on telemetry. Case was discussed with Dr. Bhatt and Dr. Hilliard. Initial ECG Impression Date: Apr 29, 2019 Initial ECG Impression Time: 13:56 Initial ECG Rate: 69 Initial ECG Rhythm: Normal Sinus Comment Sinus rhythm with no ST elevation or depression. No abnormal intervals or axis deviation. Diagnostic Imaging Diagonstic Imaging: CT Plain Films/CT/US/NM/MRI: chest, abdomen, pelvis Comments CT chest, abdomen and pelvis viewed by me and report reviewed. See report below: NAME: CHAITANYA VAIL [facility] REC#: [id number] PT STATUS: REG ER : 1970 PHYSICIAN: ERICKSON SCOTT MD ADMIT DATE: 04/29/19/ER Draft Date of Exam:04/29/19 CT PITA CHEST/NOANG ABD-PELV W INDICATION: Esophageal problems. Patient has history of gastric sleeve. TECHNIQUE: Axial imaging through the chest, abdomen, and pelvis was performed after the administration of intravenous contrast. CT angiography protocol for the chest was performed. Multiplanar 3D and MIP reformations were performed. COMPARISON: No prior CT chest is available for comparison. Comparison is made with a prior CT abdomen/pelvis from 11/27/2014. FINDINGS: CTA CHEST: The arterial system is without thromboembolism. No filling defects are seen. The thoracic aorta is of normal caliber. There is no dissection. No pericardial or pleural fluid is identified. No axillary lymphadenopathy is seen. No definite hilar or mediastinal lymphadenopathy is seen. The esophagus has a normal appearance. Imaging through the lungs does show some calcification in the right lower lobe, perhaps granulomas or old scars. No noncalcified mass or nodule is seen. No infiltrate is detected. IMPRESSION: No evidence of pulmonary embolism or thoracic aortic dissection. No acute feature in the chest is identified. No mediastinal mass is identified. CT ABDOMEN AND PELVIS: Post surgical changes of gastric bypass are noted. The liver does contain some calcifications in the right lobe. No noncalcified mass is seen. The gallbladder is surgically absent. There is no biliary ductal dilatation. The pancreas and spleen are unremarkable. No adrenal mass is detected. The kidneys are unremarkable. The aorta is nonaneurysmal. No central retroperitoneal or mesenteric lymphadenopathy is seen. The bowel loops are of normal caliber. There is no ascites. No pelvic lymphadenopathy is seen. The bladder is unremarkable. The bony structures show postop changes of posterior instrumented fusion in the lower lumbar spine. IMPRESSION: Essentially unremarkable CT abdomen/pelvis with post surgical changes of gastric bypass. No acute feature is identified. No mass or lymphadenopathy is detected. Dictated on workstation # [id number] Dict: 04/29/19 1553 Trans: 04/29/19 1606 [id number] Interpreted by: VICENTE RODNEY MD Diagonstic Imaging: CT Plain Films/CT/US/NM/MRI: head Comments CT head viewed by me and report reviewed. See report below: NAME: CHAITANYA VAIL [facility] REC#: [id number] PT STATUS: REG ER : 1970 PHYSICIAN: ERICKSON SCOTT MD ADMIT DATE: 04/29/19/ER Signed Date of Exam: 04/29/19 CT HEAD WO PROCEDURE: CT head without contrast. TECHNIQUE: Multiple contiguous axial images were obtained through the brain without the use of intravenous contrast. Auto Exposure Controls were utilized during the CT exam to meet ALARA standards for radiation dose reduction. INDICATION: Posterior headache and dizziness. COMPARISON: 03/09/2018. FINDINGS: The ventricles and sulci are within normal limits. No sulcal effacement, midline shift, or hemorrhage is detected. The cisterns are patent. The visualized paranasal sinuses are clear apart from minimal mucosal thickening in the left maxillary sinus. IMPRESSION: No acute intracranial process is detected. Dictated by: Dictated on workstation # [id number] Dict: 04/29/19 1530 Trans: 04/29/19 1600 Interpreted by: VICENTE RODNEY MD Electronically signed by: VICENTE RODNEY MD 04/29/19 1600 Departure Communication (Admissions) Time/Spoke to Admitting Phy: 18:25 Dr. Hilliard Time/Spoke to Consulting Phy: 18:13 Dr. Bhatt Impression Primary Impression: Syncope and collapse Additional Impressions: Hypokalemia Epigastric pain Disposition: ADMITTED INPATIENT Condition: Improved Admissions Decision to Admit Reason: Admit from ER (General) Decision to Admit/Date: Apr 29, 2019 Time/Decision to Admit Time: 14:00 Departure-Patient Inst. Referrals: ERICKSON BOO (PCP) Primary Care Physician ERICKSON SCOTT MD Apr 29, 2019 14:58
[2019-04-29] MEDS ORDERED: HOLD METFORMIN - RECEIVED CONTRAST 20 ML VIAL IV SCH (15:15)
[2019-04-29] MEDS ORDERED: IOHEXOL 350 MG/ML 100 ML (OMNIPAQUE 350) VIAL IV ONE (15:15)
[2019-04-29] MEDS ORDERED: NS 100 ML (IVPB) BAG IV ONE (15:15)
--- NOTE | 2019-04-29 15:34 | Diagnostic Imaging Report ---
PROCEDURE: CT head without contrast. TECHNIQUE: Multiple contiguous axial images were obtained through the brain without the use of intravenous contrast. Auto Exposure Controls were utilized during the CT exam to meet ALARA standards for radiation dose reduction. INDICATION: Posterior headache and dizziness. COMPARISON: 03/09/2018. FINDINGS: The ventricles and sulci are within normal limits. No sulcal effacement, midline shift, or hemorrhage is detected. The cisterns are patent. The visualized paranasal sinuses are clear apart from minimal mucosal thickening in the left maxillary sinus. IMPRESSION: No acute intracranial process is detected. Dictated by: Dictated on workstation # [id number]
--- NOTE | 2019-04-29 16:07 | Diagnostic Imaging Report ---
INDICATION: Esophageal problems. Patient has history of gastric sleeve. TECHNIQUE: Axial imaging through the chest, abdomen, and pelvis was performed after the administration of intravenous contrast. CT angiography protocol for the chest was performed. Multiplanar 3D and MIP reformations were performed. COMPARISON: No prior CT chest is available for comparison. Comparison is made with a prior CT abdomen/pelvis from 11/27/2014. FINDINGS: CTA CHEST: The arterial system is without thromboembolism. No filling defects are seen. The thoracic aorta is of normal caliber. There is no dissection. No pericardial or pleural fluid is identified. No axillary lymphadenopathy is seen. No definite hilar or mediastinal lymphadenopathy is seen. The esophagus has a normal appearance. Imaging through the lungs does show some calcification in the right lower lobe, perhaps granulomas or old scars. No noncalcified mass or nodule is seen. No infiltrate is detected. IMPRESSION: No evidence of pulmonary embolism or thoracic aortic dissection. No acute feature in the chest is identified. No mediastinal mass is identified. CT ABDOMEN AND PELVIS: Post surgical changes of gastric bypass are noted. The liver does contain some calcifications in the right lobe. No noncalcified mass is seen. The gallbladder is surgically absent. There is no biliary ductal dilatation. The pancreas and spleen are unremarkable. No adrenal mass is detected. The kidneys are unremarkable. The aorta is nonaneurysmal. No central retroperitoneal or mesenteric lymphadenopathy is seen. The bowel loops are of normal caliber. There is no ascites. No pelvic lymphadenopathy is seen. The bladder is unremarkable. The bony structures show postop changes of posterior instrumented fusion in the lower lumbar spine. IMPRESSION: Essentially unremarkable CT abdomen/pelvis with post surgical changes of gastric bypass. No acute feature is identified. No mass or lymphadenopathy is detected. Dictated by: Dictated on workstation # [id number]
[2019-04-29 16:45] LABS: BILIRUBIN,URINE NEGATIVE (NEGATIVE); CLARITY,URINE CLEAR; COLOR,URINE YELLOW; GLUCOSE, URINE (UA) NEGATIVE (NEGATIVE); KETONES,URINE NEGATIVE (NEGATIVE); LEUKOCYTE ESTERASE ,URINE NEGATIVE (NEGATIVE); NITRITE,URINE NEGATIVE (NEGATIVE); PH,URINE 8 (5-9); PROTEIN,URINE NEGATIVE (NEGATIVE); UROBILINOGEN,URINE NORMAL (NORMAL)
[2019-04-29 16:56] LABS: AMORPHOUS SEDIMENT,UR LARGE AMOR PHOSPHATE /LPF; BACTERIA,URINE NEGATIVE /HPF
[2019-04-29 17:05] LABS: AMPHETAMINE SCREEN, URINE NEGATIVE (NEGATIVE); BARBITURATE SCREEN URINE NEGATIVE (NEGATIVE); BENZODIAZEPINES SCREEN URINE NEGATIVE (NEGATIVE); CANNABINOID SCREEN, URINE NEGATIVE (NEGATIVE); COCAINE SCREEN URINE NEGATIVE (NEGATIVE); METHADONE STAT NEGATIVE (NEGATIVE); METHAMPHETAMINE SCREEN URINE S NEGATIVE (NEGATIVE); OPIATE SCREEN URINE NEGATIVE (NEGATIVE); OXYCODONE STAT NEGATIVE (NEGATIVE); PROPOXYPHENE STAT NEGATIVE (NEGATIVE); TRICYCLIC ANTIDEPRESSANTS SCRE NEGATIVE (NEGATIVE)
[2019-04-29] MEDS ORDERED: NS IV 500 ML 500 ML ONE (17:11)
--- NOTE | 2019-04-29 17:33 | NUR ---
iv kcl completed.
[2019-04-29 19:19] LABS: FREE T4 (FREE THYROXINE) 0.9 NG/DL (0.70-1.48)
--- NOTE | 2019-04-29 20:07 | NUR ---
CHAITANYA VAIL admitted to room 430-1, with an admitting diagnosis of syncope, hypoxia, hypokalemia, on 04/29/19 from ED via wheelchair, accompanied by ED STAFF.CHAITANYA VAIL introduced to surroundings, call light, bed controls, phone, TV, temperature control, lights, meal times, smoking policy, visitor policy, side rail policy, bathrooms and showers. Patient Rights given to patient in the handbook. CHAITANYA VAIL verbalizes understanding that [facility] is not responsible for the loss or damage to any personal effects or valuables that are kept in the patients posession during their hospitalization. CHAITANYA VAIL verbalizes understanding of Interdisciplinary Patient Education. Patient and/or family were informed about the Rapid Response Team and its purpose.
[2019-04-29 20:08] VITALS: BP 131/68
[2019-04-29] MEDS ORDERED: NS W/KCL 40 MEQ/L 1,000 ML IV ONE (20:30)
[2019-04-29] MEDS ORDERED: ONDANSETRON 4 MG/2 ML (SDV) Z0FRAN IV PRN (20:30)
[2019-04-29] MEDS ORDERED: CATHETER FLUSH 10 ML SYR IV PRN (20:30)
[2019-04-29] MEDS: carBAMazepine 200 MG (TEGretol) TAB PO SCH (21:16)
[2019-04-29] MEDS: FAMOTIDINE 20MG/2ML IV (PEPCID) IV SCH (21:16)
--- OUTSIDE RECORDS SUMMARY | 2019-04-29 22:15 | XMS REPORT | Clinical Summary ---
Author Author [facility] Organization [facility] Address Unknown Phone Unavailable Care Team Providers Care Can Top Setter Name Role Phone PCP Unavailable Allergies Active Allergy Reactions Severity Noted Date Comments Fleet Prep Kit #4 Nausea And Vomiting 06/10/2015 Oxycodone-Acetaminophen Itching 06/10/2015 Also Weird dreams Rofecoxib 06/10/2015 Rash Current Medications Prescription Sig. Disp. Refills Start End Date Status Date aspirin 81 MG EC tablet Take 81 mg by mouth Active nightly. lovastatin (MEVACOR) 10 Take 10 mg by mouth Active MG tablet nightly. ibuprofen (ADVIL,MOTRIN) Take 800 mg by mouth Active 800 MG tablet every 8 (eight) hours as needed for pain. citalopram (CELEXA) 20 MG Take one tablet (20 mg 30 tablet 0 06/12/20 Active tablet total) by mouth daily. 15 Active Problems Problem Noted Date Other specified psychophysiological malfunction 06/12/2015 Hyperlipidemia 06/12/2015 WHIT on CPAP 06/12/2015 CAD (coronary artery disease) 06/12/2015 Morbid obesity (HCC) 06/12/2015 Chronic back pain 06/12/2015 Depression 06/12/2015 Anxiety 06/12/2015 Convulsions (HCC) 06/10/2015 Overview: ICD-10 conversion Syncope and collapse 06/01/2015 Family History Medical History Relation Name Comments Cancer Mother non-hodkins lymphoma Seizures Son Relation Name Status Comments Father Mother Alive Sister Sister Son Social History Tobacco Use Types Packs/Day Years Used Date Former Smoker Cigarettes 2 4 Quit: 12/11/2008 Smokeless Tobacco: Former Chew Quit: User 12/11/2008 Comments: chewing tobacco quit 2008 Alcohol Use Drinks/Week oz/Week Comments No 0 Standard 0.0 rare 1 beer per month / hx of heavy abuse x10 drinks or years quit 2008 equivalent Sex Assigned at Date Recorded Not on file Last Filed Vital Signs Vital Sign Reading Time Taken Blood Pressure 136/70 06/12/2015 3:10 PM CDT Pulse 82 06/12/2015 3:10 PM CDT Temperature 36.3 C (97.4 F) 06/12/2015 3:10 PM CDT Respiratory Rate 18 06/12/2015 3:10 PM CDT Oxygen Saturation 97% 06/12/2015 3:10 PM CDT Inhaled Oxygen - - Concentration Weight 137.7 kg (303 lb 8 oz) 06/10/2015 9:15 AM CDT Height 170.2 cm (5' 7") 06/10/2015 9:15 AM CDT Body Mass Index 47.53 06/10/2015 9:15 AM CDT Plan of Treatment Not on file Implants Implanted Type Area Teaching Specialists Device Expiration Model / Identifier Date Serial / Lot Rods Back Plates Back Screws Back Loop Recorder Chest MED[employer]ON[employer] [id number] / Implanted: 03/24/2015 (Quantity not [id number] on file) / Results Not on filefrom Last 3 Months
--- OUTSIDE RECORDS SUMMARY | 2019-04-29 22:15 | XMS REPORT ---
Author Author Migration, Doctor Organization [facility] Address Unknown Phone Unavailable Care Team Providers Care Conservation Enforcement Officer Name Role Phone Migration, Doctor Unavailable Unavailable PROBLEMS Type Condition ICD9-CM Code [id number] Code Onset Dates Condition Status SNOMED Code Problem Hypoxemia 799.02 Active 068301922 Problem Routine general medical examination at health care facility V70.0 Active 460586597 Problem Other dyspnea and respiratory abnormalities 786.09 Active 055557737 Problem Chest pain, unspecified 786.50 Active 05599976 Problem Other malaise and fatigue 780.79 Active 629870121 Problem Disturbance of skin sensation 782.0 Active 293400031 Problem Pain in soft tissues of limb 729.5 Active 49714697 Problem Unspecified sleep apnea 780.57 Active 36688607 Problem Sciatica 724.3 Active 54164794 Problem Unspecified orchitis and epididymitis 604.90 Active 453085361 Problem Unspecified constipation 564.00 Active 77295771 Problem 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 Active 42101987 Problem Lumbago 724.2 Active 526896330 Problem Special screening for malignant neoplasms, colon V76.51 Active 346449453 Problem Bipolar II disorder F31.81 Active 96918166 Problem Pain in joint, lower leg 719.46 Active 021918242 Problem Special screening for malignant neoplasm of prostate V76.44 Active 959099999 Problem Umbilical hernia without mention of obstruction or gangrene 553.1 Active 292352619 Problem Coronary atherosclerosis of unspecified type of vessel, [place] or graft 414.00 Active 525805630 Problem Essential hypertension, benign 401.1 Active 9444052 Problem Other chronic pain 338.29 Active 63896425 ALLERGIES No Information ENCOUNTERS Encounter Location Date Diagnosis [facility] [address] [facility] [id number], [place] [address] Oct, [facility] [address] [id number] [address] Jul, Bipolar II disorder F31.81 and 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 [facility] [address] [facility] [id number], [place] [address] Jul, Bipolar II disorder F31.81 and 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 [facility] [address] [facility] [id number], [place] [address] 14 Feb, 2015 [facility] [address] [facility] [id number] [place] [address] Feb, [facility] [address] [facility] [id number], [place] [address] Nov, [facility] [address] [facility] [id number] [place] [address] Nov, [facility] [address] [id number], [place] [address] Aug, [facility] [id number] [place] [address] Aug, [facility] [address] [id number], [place] [address] Jul, [facility] [address] [id number], [place] [address] Jul, [facility] [address]00565100[place], [place] [address] Apr, [facility] [address] [facility] [id number], [place] [address] 17 Apr, 2014 [facility] [place] [facility] [address] [facility] [id number], [place] [address] Apr, [facility] [place] [facility] [address] [facility] [id number], [place] [address] Apr, [facility] [address] [facility] [id number], [place] [address] Apr, [facility] [address]65[address], [place] [address] Apr, [facility] [place] [facility] [address] [id number] [place] [address] Apr, [facility] [place] [facility] [address] [id number] [place] [address] Apr, [facility] [place] [facility] [address] [id number] [place] [address] Apr, [facility] [place] [facility] [address] [id number] [place] [address] Apr, [facility] [place] [facility] [address] [id number] [place] [address] Apr, [facility] [place] [facility] [address] [id number] [place] [address] Apr, [facility] [place] [facility] [address] [id number] [place] [address] March, [facility] [place] [facility] [address] [id number] [place] [address] March, [facility] [place] [facility] [address] [id number] [place] [address] March, [facility] [place] [facility] [address] [id number] [place] [address] March, [facility] [place] [facility] [address] [id number] [place] [address] March, [facility] [place] [facility] [address] [id number] [place] [address] March, [facility] [place] [facility] [address] [id number] [place] [address] March, [facility] [place] [facility] [address] [id number] [place] [address] March, [facility] [place] [facility] [address] [id number] [place] [address] March, [facility] [place] [facility] [address] [facility] [id number], [place] [address] March, [facility] [address] [id number], [place] [address] March, [facility] [address] [facility] [id number], [place] [address] March, [facility] [address] [facility] [id number], [place] [address] March, [facility] [address] [id number], [place] [address] March, [facility] [address] [facility] [id number], [place] [address] March, [facility] [address] [facility] [id number], [place] [address] March, [facility] [address]65[address], [place] [address] March, [facility] [address] [id number], [place] [address] March, [facility] [address]00565100[place], [place] [address] March, [facility] [address] [id number], [place] [address] March, [facility] [address]65[address], [place] [address] March, [facility] [address] [facility] [id number], [place] [address] March, [facility] [address]65100[place], [place] [address] Feb, [facility] [address] [id number], [place] [address] Feb, IMMUNIZATIONS No Known Immunizations SOCIAL HISTORY Never Assessed REASON FOR VISIT [place] [place] CARE VITAL SIGNS MEDICATIONS Unknown Medications RESULTS No Results PROCEDURES No Known procedures INSTRUCTIONS MEDICATIONS ADMINISTERED No Known Medications MEDICAL (GENERAL) HISTORY Type Description Date Surgical History several hernia surgeries, 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
--- OUTSIDE RECORDS SUMMARY | 2019-04-29 22:15 | XMS REPORT | Clinical Summary ---
Author Author [facility] Organization [facility] Address Unknown Phone Unavailable Care Team Providers Care E Learning Developer Name Role Phone Self, Deshaun ORR PCP Channing Be MD Unavailable Unavailable Source Comments Some departments are not documenting in the electronic medical record. If you d o not see the information that you expected, contact Release of Information in [facility] Information Management department at [phone] for further assistan ce in locating additional records.[facility] Allergies Comments Active Allergy Reactions Severity Noted Date Sodium HIVES Medium 05/12/2009 Ujblhdgzat-Ueoatx-Oru Levofloxacin RASH, MENTAL Medium 05/11/2009 STATUS CHANGES Oxycodone-Acetaminophen MENTAL STATUS Medium 05/11/2009 CHANGES Medications End Date Status Medication Sig Dispensed Refills Start Date Active acetaminophen (TYLENOL) Take 2 Tabs 0 500 mg tablet by mouth Every 6 Hours as needed. For pain. Active diazepam (VALIUM) 5 mg Take 1-2 Tabs 21 0 200 tablet by mouth 9 Every 8 Hours as needed for Anxiety. Active docusate (COLACE) 100 mg Take 1 Cap by 30 0 200 capsule mouth Twice 9 Daily. Active ferrous sulfate 325 mg Take 1 Tab by 90 0 200 (65 mg Iron) tablet mouth Three 9 Times Daily With Meals. Active oxycodone 10 mg Tab Take 1-1.5 63 0 200 Tabs by mouth 9 Every 2 Hours as needed for Pain. Active oxycodone SR (OXYCONTIN) Take 3 Tabs 30 0 200 10 mg tablet by mouth 9 Twice Daily. Active Problems Problem Noted Date Spondylolisthesis, acquired 05/17/2009 Social History Date Tobacco Use Types Packs/Day Years Used Quit: 11/27/2001 Former Smoker Cigarettes 2 20 Comments: quit 5 yrs ago Alcohol Use Drinks/Week oz/Week Comments Yes socially Sex Assigned at Date Recorded Not on file Industry Job Start Date Occupation Not on file Not on file Not on file Travel End Travel History Travel Start No recent travel history available. Last Filed Vital Signs Time Taken Vital Sign Reading 05/17/2009 5:25 AM CDT Blood Pressure 139/64 05/17/2009 9:10 AM CDT Pulse 82 05/17/2009 5:25 AM CDT Temperature 37.2 C (98.9 F) - Respiratory Rate - 05/17/2009 9:10 AM CDT Oxygen Saturation 98% - Inhaled Oxygen - Concentration - Weight - - Height - - Body Mass Index - Plan of Treatment Health Maintenance Due Date Last Done Comments PHYSICAL (COMPREHENSIVE) 1976 EXAM HIV SCREENING 1984 DTAP/TDAP VACCINES (1 - 1987 Tdap) INFLUENZA VACCINE 08/27/2019 Results Not on filefrom Last 3 Months
--- OUTSIDE RECORDS SUMMARY | 2019-04-29 22:15 | XMS REPORT ---
Author Author Migration, Doctor Organization [facility] Address Unknown Phone Unavailable Care Team Providers Care Carrier Driver Name Role Phone Migration, Doctor Unavailable Unavailable PROBLEMS Type Condition ICD9-CM Code [id number] Code Onset Dates Condition Status SNOMED Code Problem Hypoxemia 799.02 Active 215567505 Problem Routine general medical examination at health care facility V70.0 Active 585185459 Problem Other dyspnea and respiratory abnormalities 786.09 Active 107858245 Problem Chest pain, unspecified 786.50 Active 80941313 Problem Other malaise and fatigue 780.79 Active 632464538 Problem Disturbance of skin sensation 782.0 Active 034811650 Problem Pain in soft tissues of limb 729.5 Active 63516359 Problem Unspecified sleep apnea 780.57 Active 47877649 Problem Sciatica 724.3 Active 42946382 Problem Unspecified orchitis and epididymitis 604.90 Active 262122070 Problem Unspecified constipation 564.00 Active 48806656 Problem 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 Active 59895115 Problem Lumbago 724.2 Active 611198075 Problem Special screening for malignant neoplasms, colon V76.51 Active 117711714 Problem Bipolar II disorder F31.81 Active 01385383 Problem Pain in joint, lower leg 719.46 Active 780390445 Problem Special screening for malignant neoplasm of prostate V76.44 Active 345340617 Problem Umbilical hernia without mention of obstruction or gangrene 553.1 Active 136830570 Problem Coronary atherosclerosis of unspecified type of vessel, [place] or graft 414.00 Active 818489726 Problem Essential hypertension, benign 401.1 Active 4584980 Problem Other chronic pain 338.29 Active 48911913 ALLERGIES No Information ENCOUNTERS Encounter Location Date Diagnosis [facility] [place] [address] [facility] [id number] [address] Oct, [facility] [place] [address] [id number] [address] Jul, Bipolar II disorder F31.81 and 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 [facility] [address] [facility] [place] [id number] [place] [address] Jul, Bipolar II disorder F31.81 and 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 [facility] [address] [facility] [place] [id number] [place] [address] 14 Feb, 2015 [facility] [address] [facility] [place] [id number] [place] [address] Feb, [facility] [address] [facility] [place] [id number] [place] [address] Nov, [facility] [address] [facility] [place] [id number] [place] [address] Nov, [facility] [address] [id number] [address] Aug, [facility] [id number] [place] [address] Aug, [facility] [address] [id number] [address] Jul, [facility] [address] [id number] [address] Jul, [facility] [address]00565100[place] [address] Apr, [facility] [address] [facility] [place] [id number] [place] [address] 17 Apr, 2014 [facility] [place] [facility] [address] [facility] [place] [id number] [place] [address] Apr, [facility] [place] [facility] [address] [facility] [place] [id number] [place] [address] Apr, [facility] [address] [facility] [place] [id number] [place] [address] Apr, [facility] [address]00565100[place] [address] Apr, [facility] [place] [facility] [address] [id number] [place] [address] Apr, [facility] [place] [facility] [address] [id number] [place] [address] Apr, [facility] [place] [facility] [address] [id number] [place] [address] Apr, [facility] [place] [facility] [address] [id number] [place] [address] Apr, [facility] [place] [facility] [address] [id number] [place] [address] Apr, [facility] [place] [facility] [address] [id number] [place] [address] Apr, [facility] [place] [facility] [address] [id number] [place] [address] March, [facility] [place] [facility] [address] [id number] [place] [address] March, [facility] [place] [facility] [address] [id number] [place] [address] March, [facility] [place] [facility] [address] [id number] [place] [address] March, [facility] [place] [facility] [address] [id number] [place] [address] March, [facility] [place] [facility] [address] [id number] [place] [address] March, [facility] [place] [facility] [address] [id number] [place] [address] March, [facility] [place] [facility] [address] [id number] [place] [address] March, [facility] [place] [facility] [address] [id number] [place] [address] March, [facility] [place] [facility] [address] [facility] [place] [id number] [place] [address] March, [facility] [place] [address] [id number] [place] [address] March, [facility] [place] [address] [facility] [place] [id number] [place] [address] March, [facility] [place] [address] [facility] [place] [id number] [place] [address] March, [facility] [place] [address] [id number] [place] [address] March, [facility] [place] [address] [facility] [place] [id number] [place] [address] March, [facility] [place] [address] [facility] [place] [id number] [place] [address] March, [facility] [place] [address]00565100[place] [address] March, [facility] [place] [address] [id number] [address] March, [facility] [place] [address]00565100[place] [address] March, [facility] [place] [address] [id number] [address] March, [facility] [place] [address]00565100[place] [address] March, [facility] [place] [address] [facility] [place] [id number] [place] [address] March, [facility] [place] [address]00565100[place] [address] Feb, [facility] [place] [address] [id number] [address] Feb, IMMUNIZATIONS No Known Immunizations SOCIAL HISTORY Never Assessed REASON FOR VISIT EMR-[facility] [place]AN OF CARE VITAL SIGNS MEDICATIONS Unknown Medications RESULTS No Results PROCEDURES No Known procedures INSTRUCTIONS MEDICATIONS ADMINISTERED No Known Medications MEDICAL (GENERAL) HISTORY Type Description Date Surgical History several hernia surgeries, 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
--- OUTSIDE RECORDS SUMMARY | 2019-04-29 22:16 | XMS REPORT ---
Author Author TIFFANY DAVEY 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 Active 18674941 Problem Special screening for malignant neoplasms, colon V76.51 Active 033143283 Problem Coronary atherosclerosis of unspecified type of vessel, [place] or graft 414.00 Active 698644257 Problem Umbilical hernia without mention of obstruction or gangrene 553.1 Active 424685711 Problem Other chronic pain 338.29 Active 53258272 Problem Essential hypertension, benign 401.1 Active 3675980 Problem Chest pain, unspecified 786.50 Active 68513444 Problem Other dyspnea and respiratory abnormalities 786.09 Active 384193357 Problem Routine general medical examination at health care facility V70.0 Active 149132138 Problem Hypoxemia 799.02 Active 124581904 Problem Unspecified sleep apnea 780.57 Active 00818219 Problem Pain in soft tissues of limb 729.5 Active 77886641 Problem Disturbance of skin sensation 782.0 Active 447077576 Problem Pain in joint, lower leg 719.46 Active 454349383 Problem Other malaise and fatigue 780.79 Active 265584780 Problem Lumbago 724.2 Active [id number] ALLERGIES No Information ENCOUNTERS Encounter Location Date Diagnosis [facility] [address] [facility] [id number], [place] [address] Oct, [facility] [address], [place] [address] 25 Jul, 2018 Bipolar II disorder F31.81 and 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 [facility] [address] [id number] [place] [address] 20 Jul, 2018 Bipolar II disorder F31.81 and 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 [facility] [address] [facility] [id number] [place] [address] 14 Feb, 2015 [facility] [address] [facility] [id number] [place] [address] Feb, [facility] [address] [facility] [id number] [place] [address] Nov, [facility] [address] [facility] [id number] [place] [address] Nov, [facility] [address], [place] [address] Aug, [facility] [address] [facility] [id number], [place] [address] Aug, [facility] [address], [place] [address] Jul, [facility] [address] [id number], [place] [address] Jul, [facility] [address], [place] [address] Apr, [facility] [address] [facility] [id number], [place] [address] Apr, [facility] [address] [facility] [id number], [place] [address] Apr, [facility] [address] [facility] [id number], [place] [address] Apr, [facility] [address], [place] [address] Apr, [facility] [place] [facility] [address] [id number] [place] [address] Apr, [facility] [place] [facility] [address] [id number] [place] [address] Apr, [facility] [place] [facility] [address] [id number] [place] [address] Apr, [facility] [place] [facility] [address] [id number] [place] [address] Apr, [facility] [place] [facility] [address] [id number] [place] [address] Apr, [facility] [place] [facility] [address] [id number] [place] [address] Apr, [facility] [place] [facility] [address] [id number] [place] [address] Apr, [facility] [place] [facility] [address] [id number] [place] [address] March, [facility] [place] [facility] [address] [id number] [place] [address] March, [facility] [place] [facility] [address] [id number] [place] [address] March, [facility] [place] [facility] [address] [id number] [place] [address] March, [facility] [place] [facility] [address] [id number] [place] [address] March, [facility] [place] [facility] [address] [id number] [place] [address] March, [facility] [place] [facility] [address] [id number] [place] [address] March, [facility] [place] [facility] [address] [id number] [place] [address] March, [facility] [place] [facility] [address] [id number] [place] [address] March, [facility] [address] [id number] [place] [address] March, [facility] [address] [id number] [place] [address] March, [facility] [address] [id number] [place] [address] March, [facility] [address] [id number] [place] [address] March, [facility] [address] [id number] [place] [address] March, [facility] [address] [id number] [place] [address] March, [facility] [address] [id number] [place] [address] March, [facility] [address] [id number] [place] [address] March, [facility] [address] [id number] [place] [address] March, [facility] [address] [facility] [id number] [place] [address] March, [facility] [address] [id number] [place] [address] March, [facility] [address] [id number], [place] [address] March, [facility] [address] [id number] [place] [address] March, [facility] [address] [id number] [place] [address] Feb, 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
--- OUTSIDE RECORDS SUMMARY | 2019-04-29 22:16 | XMS REPORT ---
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 Active 42306812 Problem Special screening for malignant neoplasms, colon V76.51 Active 505410247 Problem Coronary atherosclerosis of unspecified type of vessel, [place] or graft 414.00 Active 507553202 Problem Umbilical hernia without mention of obstruction or gangrene 553.1 Active 213789764 Problem Other chronic pain 338.29 Active 46112815 Problem Essential hypertension, benign 401.1 Active 5125538 Problem Chest pain, unspecified 786.50 Active 12143534 Problem Other dyspnea and respiratory abnormalities 786.09 Active 973340194 Problem Routine general medical examination at health care facility V70.0 Active 992530992 Problem Hypoxemia 799.02 Active 410028943 Problem Unspecified sleep apnea 780.57 Active 96479270 Problem Pain in soft tissues of limb 729.5 Active 14968435 Problem Disturbance of skin sensation 782.0 Active 189274875 Problem Pain in joint, lower leg 719.46 Active 365706396 Problem Other malaise and fatigue 780.79 Active 061947036 Problem Lumbago 724.2 Active 985905612 ALLERGIES No Information ENCOUNTERS Encounter Location Date Diagnosis [facility] [address] [id number], [place] [address] Aug, [facility] [address], [place] [address] 15 Aug, 2018 [facility] [id number] [place] [address] Aug, [facility] [address] [place] [address] 25 Jul, 2018 Bipolar II disorder F31.81 and 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 [facility] [id number] [place] [address] 20 Jul, 2018 Bipolar II disorder F31.81 and 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 [facility] [id number] [place] [address] 14 Feb, 2015 [facility] [address] [id number], [place] [address] Feb, [facility] [id number] [place] [address] Nov, [facility] [address], [place] [address] Nov, [facility] [address], [place] [address] Aug, [facility] [address], [place] [address] Aug, [facility] [address], [place] [address] 08 Jul, 2014 [facility] [address] [id number], [place] [address] Jul, [facility] [address] [id number], [place] [address] Apr, [facility] [address] [id number], [place] [address] Apr, [facility] [id number] [place] [address] Apr, [facility] [place] [facility] [address] [id number] [place] [address] Apr, [facility] [place] [facility] [address] [id number] [place] [address] Apr, [facility] [place] [facility] [address] [id number] [place] [address] Apr, [facility] [place] [facility] [address] [id number] [place] [address] Apr, [facility] [place] [facility] [address] [id number] [place] [address] Apr, [facility] [place] [facility] [address] [id number] [place] [address] Apr, [facility] [place] [facility] [address] [id number] [place] [address] Apr, [facility] [place] [facility] [address] [id number] [place] [address] Apr, [facility] [place] [facility] [address] [id number] [place] [address] Apr, [facility] [place] [facility] [address] [id number] [place] [address] March, [facility] [place] [facility] [address] [id number] [place] [address] March, [facility] [place] [facility] [address] [id number] [place] [address] March, [facility] [place] [facility] [address] [id number] [place] [address] March, [facility] [place] [facility] [address] [id number] [place] [address] March, [facility] [place] [facility] [address] [id number] [place] [address] March, [facility] [place] [facility] [address] [id number] [place] [address] March, [facility] [address] [id number] [place] [address] March, [facility] [address] [id number] [place] [address] March, [facility] [address] [id number] [place] [address] March, [facility] [address] [id number] [place] [address] March, [facility] [address] [id number] [place] [address] March, [facility] [address] [id number] [place] [address] March, [facility] [address] [id number] [place] [address] March, [facility] [address] [id number] [place] [address] March, [facility] [address] [id number] [place] [address] March, [facility] [address] [id number] [place] [address] March, [facility] [address] [id number] [place] [address] March, [facility] [address] [id number] [place] [address] March, [facility] [place] [facility] [address] [id number] [place] [address] March, [facility] [address] [id number] [place] [address] March, [facility] [address] [id number] [place] [address] March, [facility] [address] [facility] [id number] [place] [address] Feb, [facility] [address] [facility] [id number] [place] [address] Feb, IMMUNIZATIONS No Known Immunizations SOCIAL HISTORY Never Assessed REASON FOR VISIT f/u PLAN OF CARE Activity Details Follow Up Next available Reason: VITAL SIGNS MEDICATIONS Unknown Medications RESULTS No Results PROCEDURES Procedure Date Ordered Result Body Site Psychotherapy, patient &/family, 30 minutes, established patient Aug 21, 2018 INSTRUCTIONS MEDICATIONS ADMINISTERED No Known Medications MEDICAL (GENERAL) HISTORY Type Description Date Surgical History several hernia surgeries, 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
--- OUTSIDE RECORDS SUMMARY | 2019-04-29 22:16 | XMS REPORT ---
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 Active 00462482 Problem Special screening for malignant neoplasms, colon V76.51 Active 162788454 Problem Coronary atherosclerosis of unspecified type of vessel, [place] or graft 414.00 Active 124784088 Problem Umbilical hernia without mention of obstruction or gangrene 553.1 Active 734379998 Problem Other chronic pain 338.29 Active 51834868 Problem Essential hypertension, benign 401.1 Active 7819422 Problem Chest pain, unspecified 786.50 Active 89002143 Problem Other dyspnea and respiratory abnormalities 786.09 Active 125349530 Problem Routine general medical examination at health care facility V70.0 Active 152303746 Problem Hypoxemia 799.02 Active 629119163 Problem Unspecified sleep apnea 780.57 Active 21121981 Problem Pain in soft tissues of limb 729.5 Active 94493869 Problem Disturbance of skin sensation 782.0 Active 569073485 Problem Pain in joint, lower leg 719.46 Active 476372440 Problem Other malaise and fatigue 780.79 Active 107380793 Problem Lumbago 724.2 Active 796839451 ALLERGIES No Information ENCOUNTERS Encounter Location Date Diagnosis [facility] [address] [id number] [address] Aug, [facility] [address], [place] [address] 15 Aug, 2018 [facility] [address] [place] [address] Aug, [facility] [address] [place] [address] 25 Jul, 2018 Bipolar II disorder F31.81 and 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 [facility] [id number] [place] [address] 20 Jul, 2018 Bipolar II disorder F31.81 and 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 [facility] [id number] [place] [address] 14 Feb, 2015 [facility] [address] [id number] [address] Feb, [facility] [id number] [place] [address] Nov, [facility] [address] [address] Nov, [facility] [address], [place] [address] Aug, [facility] [address], [place] [address] Aug, [facility] [address], [place] [address] 08 Jul, 2014 [facility] [address] [id number] [address] Jul, [facility] [address] [id number], [place] [address] Apr, [facility] [address] [id number] [address] Apr, [facility] [id number] [place] [address] Apr, [facility] [place] [facility] [address] [id number] [place] [address] Apr, [facility] [place] [facility] [address] [id number] [place] [address] Apr, [facility] [place] [facility] [address] [id number] [place] [address] Apr, [facility] [place] [facility] [address] [id number] [place] [address] Apr, [facility] [place] [facility] [address] [id number] [place] [address] Apr, [facility] [place] [facility] [address] [id number] [place] [address] Apr, [facility] [place] [facility] [address] [id number] [place] [address] Apr, [facility] [place] [facility] [address] [id number] [place] [address] Apr, [facility] [place] [facility] [address] [id number] [place] [address] Apr, [facility] [place] [facility] [address] [id number] [place] [address] March, [facility] [place] [facility] [address] [id number] [place] [address] March, [facility] [place] [facility] [address] [id number] [place] [address] March, [facility] [place] [facility] [address] [id number] [place] [address] March, [facility] [place] [facility] [address] [id number] [place] [address] March, [facility] [place] [facility] [address] [id number] [place] [address] March, [facility] [place] [facility] [address] [id number] [place] [address] March, [facility] [address] [id number] [place] [address] March, [facility] [address] [id number] [place] [address] March, [facility] [address] [id number] [place] [address] March, [facility] [address] [id number] [place] [address] March, [facility] [address] [id number] [place] [address] March, [facility] [address] [id number] [place] [address] March, [facility] [address] [id number] [place] [address] March, [facility] [address] [id number] [place] [address] March, [facility] [address] [id number] [place] [address] March, [facility] [address] [id number] [place] [address] March, [facility] [address] [id number] [place] [address] March, [facility] [address] [id number] [place] [address] March, [facility] [place] [facility] [address] [id number] [place] [address] March, [facility] [address] [id number] [place] [address] March, [facility] [address] [id number] [place] [id number] March, [facility] [address] [facility] [id number] [place] [address] Feb, [facility] [address] [facility] [id number] [place] [address] Feb, IMMUNIZATIONS No Known Immunizations SOCIAL HISTORY Never Assessed REASON FOR VISIT intake PLAN OF CARE Activity Details Follow Up 2 Weeks Reason: VITAL SIGNS MEDICATIONS Medication Instructions Dosage Frequency Start Date End Date Duration Status Synthroid Active Tegretol Active Indomethacin 50 mg 1 capsule by Oral route 3 times per day Nov, Not-Taking Blood Pressure Cuff Dx: Hypertension history Feb, Not-Taking RESULTS No Results PROCEDURES Procedure Date Ordered Result Body Site Psych diagnostic evaluation, established patient Aug 16, 2018 INSTRUCTIONS MEDICATIONS ADMINISTERED No Known Medications MEDICAL (GENERAL) HISTORY Type Description Date Surgical History several hernia surgeries, 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
--- OUTSIDE RECORDS SUMMARY | 2019-04-29 22:18 | XMS REPORT | Continuity of Care Document ---
Demographics Preferred Language Unknown Marital Status Unknown Adventism Affiliation Unknown Race Unknown Ethnic Group Unknown Author Organization Unknown Address Unknown Allergies Active Description Code Type Severity Reaction Onset Reported/Identified Relationship to Patient Clinical Status Yes BISACODYL BISACODYL UNKNOWN Yes FLEET ENEMA FLEET ENEMA UNKNOWN Yes OXYCONTIN OXYCONTIN SEVERE Yes PERCOCET PERCOCET UNKNOWN Yes VIOXX VIOXX UNKNOWN Yes ZOLOFT ZOLOFT UNKNOWN Yes BISACODYL UNKNOWN UNKNOWN Yes FLEET ENEMA UNKNOWN UNKNOWN Yes OXYCONTIN SEVERE OTHER Yes OXYCONTIN SEVERE SEVERE Yes PERCOCET UNKNOWN UNKNOWN Yes VIOXX UNKNOWN UNKNOWN Yes ZOLOFT UNKNOWN UNKNOWN Yes bisacodyl [id number] Drug Allergy Mild N/A 07/18/2010 Yes rofecoxib [id number] Drug Allergy Moderate N/A 07/18/2010 Yes Fleet Enema Drug Allergy N/A N/A 03/25/2014 Medications Medication Packaging Start Date Stop Date Route Dosage Sig NORMAL SALINE 1000CC IV BAG INJ 0.9 % (NS 1000CC IV BAG) ml 12/06/2017 12/06/2017 [id number] LACTATED RINGERS 1000CC IV BAG INJ ml 04/12/2019 04/19/2019 CONTINUOUSEVERY 0 Hour Problems Date Dx Coded Attending Type Code Diagnosis Diagnosed By 10/26/1034 ERICKSON VARGAS Ot 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, VERTEBRAE 07/19/2010 Ot 272.4 07/19/2010 Ot 278.00 07/19/2010 Ot 401.9 07/19/2010 Ot 414.01 07/19/2010 Ot 724.2 07/19/2010 Ot 786.05 07/19/2010 Ot 786.59 07/19/2010 Ot V58.69 07/19/2010 Ot V85.38 03/25/2014 TIFFANY DAVEY DO 338.29 OTHER CHRONIC PAIN 03/25/2014 TIFFANY DAVEY DO 401.1 HYPERTENSION, BENIGN ESSENTIAL 03/25/2014 DAVEY DO, TIFFANY K 414.00 CORONARY ATHEROSCLEROSIS OF UNSPECIFIED TYPE OF VESSEL [place] OR GRAFT 03/25/2014 DAVEY DO, TIFFANY K 724.2 LUMBAGO [...] OF UNSPECIFIED TYPE OF VESSEL [place] OR GRAFT 03/25/2014 DAVEY DO, TIFFANY K [...] TIFFANY K V76.51 COLON CANCER SCREENING 03/25/2014 ELROY MINERALOGY PROFESSOR, JUWAN L 338.29 OTHER CHRONIC PAIN 03/25/2014 MADL MINERALOGY PROFESSOR, JUWAN L 401.1 HYPERTENSION, BENIGN ESSENTIAL 03/25/2014 MADL MINERALOGY PROFESSOR, JUWAN L 414.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 03/25/2014 MADL MINERALOGY PROFESSOR, JUWAN L 604.90 ORCHITIS AND EPIDIDYMITIS UNSPECIFIED 03/25/2014 MADL MINERALOGY PROFESSOR, JUWAN L 724.2 LUMBAGO 03/25/2014 MADL MINERALOGY PROFESSOR, JUWAN L 724.3 SCIATICA 03/25/2014 MADL MINERALOGY PROFESSOR, JUWAN L 782.0 DISTURBANCE OF SKIN SENSATION 03/25/2014 MADL MINERALOGY PROFESSOR, JUWAN L V70.0 EXAM - ROUTINE H&P 03/25/2014 MADL MINERALOGY PROFESSOR, JUWAN L V76.44 PROSTATE CANCER SCREENING 03/25/2014 MADL MINERALOGY PROFESSOR, JUWAN L V76.51 COLON CANCER SCREENING 03/25/2014 [...] OF UNSPECIFIED TYPE OF VESSEL [place] OR [place]FT 03/25/2014 DAVEY DO, TIFFANY K [...] OF UNSPECIFIED TYPE OF VESSEL [place] OR GRAFT 03/25/2014 DAVEY DO, TIFFANY K [...] OF UNSPECIFIED TYPE OF VESSEL [place] OR G[place]FT 03/25/2014 DAVEY DO, TIFFANY K [...] OF UNSPECIFIED TYPE OF VESSEL [place] OR [place] 03/25/2014 DAVEY DO TIFFANY K 604.90 ORCHITIS AND EPIDIDYMITIS UNSPECIFIED 03/25/2014 DAVEY DO, TIFFANY K 724.2 LUMBAGO 03/25/2014 DAVEY DO, TIFFANY K 724.3 SCIATICA 03/25/2014 DAVEY DO, TIFFANY K 782.0 DISTURBANCE OF SKIN SENSATION 03/25/2014 DAVEY DO, TIFFANY K V70.0 EXAM - ROUTINE H&P 03/25/2014 DAVEY DO TIFFANY K V76.44 PROSTATE CANCER SCREENING 03/25/2014 TAMICA BOLTON TIFFANY K V76.51 COLON CANCER SCREENING 04/02/2014 MEDINA ORR, SAMANTHA Sánchez Ot 272.4 HYPERLIPIDEMIA NEC/NOS 04/02/2014 SAMANTHA HANEY MD Ot 278.00 OBESITY, NOS 04/02/2014 SAMANTHA HANEY MD Ot 338.29 OTHER CHRONIC PAIN 04/02/2014 SAMANTHA HANEY MD Ot 401.9 HYPERTENSION NOS 04/02/2014 SAMANTHA HANEY MD Ot 414.01 CORONARY ATHEROSCLEROSIS OF [place] CORON 04/02/2014 SAMANTHA HANEY MD Ot 722.4 [...] MALAISE AND FATIGUE 04/14/2014 JUWAN ABBASI APRN L 780.79 OTHER MALAISE AND FATIGUE 04/14/2014 SAMANTHA [...] K 786.09 RESPIRATORY ABNORMALITY OTHER 04/22/2014 SANDY KALEY BOLTONA K Ot 338.29 OTHER CHRONIC PAIN 04/22/2014 SANDY DO DEBORA K Ot 786.05 SHORTNESS OF BREATH 04/22/2014 SANDY DO DEBORA K Ot 786.52 PAINFUL RESPIRATION 04/22/2014 SANDY DO DEBORA K Ot V15.81 HX OF PAST [...] K 799.02 HYPOXEMIA 12/02/2014 CARLOS SPARROW MD Ot 272.4 12/02/2014 CARLOS SPARROW MD Ot 401.9 12/02/2014 CARLOS SPARROW MD Ot 414.01 12/02/2014 CARLOS SPARROW MD Ot 560.9 12/02/2014 CARLOS SPARROW MD Ot 272.4 12/02/2014 CARLOS SPARROW MD Ot 401.9 12/02/2014 CARLOS SPARROW MD Ot 414.01 12/02/2014 CARLOS SPARROW MD Ot 560.9 12/02/2014 CARLOS SPARROW MD Ot 272.4 HYPERLIPIDEMIA NEC/NOS 12/02/2014 CARLOS SPARROW MD Ot 401.9 HYPERTENSION NOS 12/02/2014 CARLOS SPARROW MD Ot 414.01 CORONARY ATHEROSCLEROSIS OF [place] CORON 12/02/2014 CARLOS SPARROW MD Ot 560.9 INTESTINAL OBSTRUCT NOS 12/09/2014 DAVEY DO, TIFFANY K 564.00 UNSPECIFIED CONSTIPATION 12/09/2014 DAVEY DO, TIFFANY K 719.46 PAIN IN JOINT INVOLVING LOWER LEG 12/09/2014 DAVEY DO, TIFFANY K 729.5 PAIN IN LIMB 12/09/2014 DAVEY DO, TIFFANY K 564.00 UNSPECIFIED CONSTIPATION 12/09/2014 DAVEY DO, TIFFANY K 719.46 PAIN IN JOINT INVOLVING LOWER LEG 12/09/2014 DAVEY DO, TIFFANY K 729.5 PAIN IN LIMB 03/19/2015 NIMA ORR FACC, ALI FACP CCDS [...] ALI FACP CCDS Ot V85.41 03/20/2015 ARON DO CHILANGO Ot 272.4 HYPERLIPIDEMIA NEC/NOS 03/20/2015 ARON DO CHILANGO Ot 278.00 OBESITY, NOS 03/20/2015 ARON BOLTON CHILANGO Ot 401.9 HYPERTENSION NOS 03/20/2015 ARON BOLTON CHILANGO Ot 414.01 CORONARY ATHEROSCLEROSIS OF [place] CORON 03/20/2015 ARON BOLTON CHILANGO Ot 724.2 LUMBAGO 03/20/2015 ARON BOLTON CHILANGO Ot 780.2 SYNCOPE AND COLLAPSE 03/20/2015 ARON BOLTON CHILANGO Ot 780.57 UNSPECIFIED SLEEP APNEA 03/20/2015 SHARP DO, CHILANGO Ot 782.0 SKIN SENSATION DISTURB 03/20/2015 SHARP DO, CHILANGO Ot 784.0 HEADACHE 03/20/2015 SHARP DO, [...] SHARP DO, CHILANGO Ot V85.41 03/24/2015 NIMA MONTGOMERYC, EVERARDO FACP CCDS Ot 414.00 03/24/2015 NIMA ORR FACC, EVERARDO FACP CCDS Ot 443.9 03/24/2015 NIMA ORR FACC, EVERARDO FACP CCDS Ot 278.01 03/24/2015 NIMA MONTGOMERYC, ALI FACP CCDS Ot 414.00 03/24/2015 NIMA ORR FACC, ALI FACP CCDS Ot 786.50 03/24/2015 NIMA ORR FACC, ALI FACP CCDS Ot V85.41 04/14/2015 NIMA MONTGOMERYC, ALI FACP CCDS Ot 414.00 04/14/2015 NIMA ORR FACC, ALI FACP CCDS Ot 443.9 04/14/2015 NIMA MONTGOMERYC, ALI FACP CCDS Ot 278.01 04/14/2015 NIMA MONTGOMERYC, ALI FACP CCDS Ot 414.00 04/14/2015 NIMA [...] ALI FACP CCDS Ot 414.00 04/24/2015 NIMA ROR FACC, ALI FACP CCDS Ot 443.9 04/24/2015 [...] ALI FACP CCDS Ot V58.69 04/24/2015 NIMA MONTGOMERYC, ALI FACP CCDS Ot V85.41 05/08/2015 JAYDEN [...] ALI FACP CCDS Ot V15.82 05/15/2015 NIMA MONTGOMERYC, ALI FACP CCDS Ot V58.69 05/15/2015 NIMA ROR FACC, ALI FACP CCDS Ot V85.41 05/19/2015 JAYDEN JACOBSEN MD Ot 780.39 05/22/2015 JAYDEN JACOBSEN MD Ot 780.39 05/22/2015 JAYDEN JACOBSEN MD Ot V58.69 12/25/2015 MIGUELITO BRISENO DO Ot R10.11 12/07/2016 NIMA ORR FACC, EVERARDO FACP CCDS Ot 414.00 CORON ATHEROSCLER NOS TYPE VESSEL, NATIV 12/07/2016 NIMA ORR FACC, EVERARDO FACP CCDS Ot 443.9 PERIPH VASCULAR DIS [...] 278.00 OBESITY, NOS 12/07/2016 NIMA ORR FACC, EVERARDO FACP CCDS Ot 401.9 HYPERTENSION NOS 12/07/2016 [...] CCDS Ot V58.69 OTH MED,LT,CURRENT USE 12/07/2016 EVERARDO HERRING MD, FACC FACP CCDS Ot V85.41 BODY MASS INDEX 40.0-44.9, ADULT 12/07/2016 JAYDEN JACOBSEN MD Ot 780.39 OTHER CONVULSIONS 12/07/2016 JAYDEN JACOBSEN MD Ot 780.39 OTHER CONVULSIONS 12/07/2016 JAYDEN JACOBSEN MD Ot V58.69 OTH MED,LT,CURRENT USE 12/07/2016 MIGUELITO BRISENO DO Ot R10.11 RIGHT UPPER QUADRANT PAIN 12/28/2016 MIGUELITO BRISENO DO, Ot N63 UNSPECIFIED LUMP IN BREAST 12/28/2016 MIGUELITO BRISENO DO Ot N63 UNSPECIFIED [place] IN BREAST 12/29/2016 MIGUELITO BRISENO DO Ot N63 UNSPECIFIED LU[place] IN BREAST 12/29/2016 MIGUELITO BRISENO DO Ot N63 UNSPECIFIED LUMP IN BREAST 12/29/2016 MIGUELITO BRISENO DO Ot N63 UNSPECIFIED LUMP IN BREAST 01/04/2017 EVERARDO HERRING MD, FACC FACP CCDS Ot E78.5 HYPERLIPIDEMIA, UNSPECIFIED 01/04/2017 EVERARDO HERRING MD, FACC FACP CCDS Ot I25.10 ATHSCL HEART DISEASE OF [place] CORONARY 01/04/2017 EVERARDO HERRING MD, FACC FACP CCDS Ot R00.2 PALPITATIONS 01/04/2017 EVERARDO HERRING MD, FACC FACP CCDS Ot Z45.09 ENCOUNTER FOR ADJUSTMENT AND MANAGEMENT 01/04/2017 NIMA ORR FACC, ALI FACP CCDS Ot Z87.891 PERSONAL HISTORY OF NICOTINE DEPENDENCE 01/04/2017 NIMA ORR FACC, ALI FACP CCDS Ot Z98.84 BARIATRIC SURGERY STATUS 01/26/2017 ELISEOMIGUELITO HARDEN DO Ot N63 UNSPECIFIED LUMP IN BREAST 03/14/2017 NIMA ORR FACC, EVERARDO FACP CCDS Ot E78.5 HYPERLIPIDEMIA, UNSPECIFIED 03/14/2017 NIMA ORR FACC, ALI FACP CCDS Ot I25.10 ATHSCL HEART DISEASE OF [place] CORONARY 03/14/2017 NIMA ORR FACC, ALI FACP CCDS Ot R00.2 PALPITATIONS 03/14/2017 NIMA ORR FACC, ALI FACP CCDS Ot Z45.09 ENCOUNTER FOR ADJUSTMENT AND MANAGEMENT 03/14/2017 NIMA ORR FACC, ALI FACP CCDS Ot Z87.891 PERSONAL HISTORY OF NICOTINE DEPENDENCE 03/14/2017 NIMA ORR FACC, ALI FACP CCDS Ot Z98.84 BARIATRIC SURGERY STATUS 05/31/2017 RIRI, ОЛЬГА HADOOP APPLICATION DEVELOPER Ot E78.00 PURE HYPERCHOLESTEROLEMIA, UNSPECIFIED 05/31/2017 RIRI, ОЛЬГА HADOOP APPLICATION DEVELOPER Ot G47.30 SLEEP APNEA, UNSPECIFIED 05/31/2017 RIRI, ОЛЬГА HADOOP APPLICATION DEVELOPER Ot I10 ESSENTIAL (PRIMARY) HYPERTENSION 05/31/2017 RIRI, ОЛЬГА HADOOP APPLICATION DEVELOPER Ot R10.30 LOWER ABDOMINAL PAIN, UNSPECIFIED 05/31/2017 RIRI, ОЛЬГА HADOOP APPLICATION DEVELOPER Ot Z82.49 FAMILY HX OF ISCHEM HEART DIS AND OTH DI 05/31/2017 RIRI, ОЛЬГА HADOOP APPLICATION DEVELOPER Ot Z87.19 PERSONAL HISTORY OF OTHER DISEASES OF TH 05/31/2017 RIRI ОЛЬГА HADOOP APPLICATION DEVELOPER Ot Z87.442 PERSONAL HISTORY OF URINARY CALCULI 05/31/2017 RIRI, ОЛЬГА HADOOP APPLICATION DEVELOPER Ot Z87.891 PERSONAL HISTORY OF NICOTINE DEPENDENCE 06/02/2017 RIRI, ОЛЬГА HADOOP APPLICATION DEVELOPER Ot E78.00 PURE HYPERCHOLESTEROLEMIA, UNSPECIFIED 06/02/2017 RIRI, ОЛЬГА HADOOP APPLICATION DEVELOPER Ot G47.30 SLEEP APNEA, UNSPECIFIED 06/02/2017 RIRI, ОЛЬГА HADOOP APPLICATION DEVELOPER Ot I10 ESSENTIAL (PRIMARY) HYPERTENSION 06/02/2017 RIRI, ОЛЬГА HADOOP APPLICATION DEVELOPER Ot R10.30 LOWER ABDOMINAL PAIN, UNSPECIFIED 06/02/2017 RIRI, ОЛЬГА HADOOP APPLICATION DEVELOPER Ot Z82.49 FAMILY HX OF ISCHEM HEART DIS AND OTH DI 06/02/2017 ОЛЬГА MENEZES Ot Z87.19 PERSONAL HISTORY OF OTHER DISEASES OF TH 06/02/2017 ОЛЬГА MENEZES Ot Z87.442 PERSONAL HISTORY OF URINARY CALCULI 06/02/2017 ОЛЬГА MENEZES Ot Z87.891 PERSONAL HISTORY OF NICOTINE DEPENDENCE 11/29/2017 BLISSVU CARDOSO W 272.4 11/29/2017 LESLIE BLISSHEL W 401.0 MALIGNANT ESSENTIAL HYPERTENSION 11/29/2017 RUTHY VU W 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 11/29/2017 RUTHY VU W 780.4 DIZZINESS AND GIDDINESS 11/29/2017 RUTHY VU W 780.97 ALTERED MENTAL STATUS 11/29/2017 VU BLISS W E78.5 HYPERLIPIDEMIA, UNSPECIFIED 11/29/2017 RUTHY VU W I10 ESSENTIAL (PRIMARY) HYPERTENSION 11/29/2017 LESLIE BLISSHEL W 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 11/29/2017 VU BLISS W R41.82 ALTERED MENTAL STATUS, UNSPECIFIED 11/29/2017 BLISS, VU W R42 DIZZINESS AND GIDDINESS 11/29/2017 RUTHY VU W 244.9 11/29/2017 BLISS, VU W 272.4 11/29/2017 BLISS, VU W 401.0 11/29/2017 BLISS VU W 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 11/29/2017 VU BLISS W 780.4 DIZZINESS AND GIDDINESS 11/29/2017 LESLIE BLISSHEL W 780.97 ALTERED MENTAL STATUS 11/29/2017 VU BLISS W E03.9 HYPOTHYROIDISM, UNSPECIFIED 11/29/2017 LESLIE BLISSHEL W E78.5 HYPERLIPIDEMIA, UNSPECIFIED 11/29/2017 RUTHY VU W I10 ESSENTIAL (PRIMARY) HYPERTENSION 11/29/2017 RUTHY VU W 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 11/29/2017 VU BLISS W R41.82 ALTERED MENTAL STATUS, UNSPECIFIED 11/29/2017 LESLIE BLISSHEL W R42 DIZZINESS AND GIDDINESS 11/29/2017 VU BLISS W 244.9 11/29/2017 LESLIE BLISSHEL W 272.4 11/29/2017 BLISS, VU W 401.0 11/29/2017 BLISS, VU W 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 11/29/2017 LESLIE BLISSHEL W 780.4 DIZZINESS AND GIDDINESS 11/29/2017 LESLIE BLISSHEL W 780.97 ALTERED MENTAL STATUS 11/29/2017 VU BLISS W E03.9 HYPOTHYROIDISM, UNSPECIFIED 11/29/2017 LESLIE BLISSHEL W E78.5 HYPERLIPIDEMIA, UNSPECIFIED 11/29/2017 LESLIE BLISSHEL W I10 ESSENTIAL (PRIMARY) HYPERTENSION 11/29/2017 LESLIE BLISSHEL W 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 11/29/2017 RUTHY VU W R41.82 ALTERED MENTAL STATUS, UNSPECIFIED 11/29/2017 LESLIE BLISSHEL W R42 DIZZINESS AND GIDDINESS 12/03/2017 LESLIE BLSISHEL W 780.97 ALTERED MENTAL STATUS 12/03/2017 LESLIE BLISSHEL W R41.82 ALTERED MENTAL STATUS, UNSPECIFIED 12/03/2017 RUTHY VU W 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 12/03/2017 VU BLISS W 780.4 DIZZINESS AND GIDDINESS 12/03/2017 RUTHY, VU W 780.97 ALTERED MENTAL STATUS 12/03/2017 LESLIE BLISSHEL W 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 12/03/2017 RUTHY VU W R41.82 ALTERED MENTAL STATUS, UNSPECIFIED 12/03/2017 BLISS, VU W R42 DIZZINESS AND GIDDINESS 12/03/2017 LESLIE BLISSHEL W 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 12/03/2017 BLISSLESLIE CARDOSOHEL W 780.4 DIZZINESS AND GIDDINESS 12/03/2017 BLISS, VU W 780.97 ALTERED MENTAL STATUS 12/03/2017 RUTHY VU W 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 12/03/2017 BLISS VU W R41.82 ALTERED MENTAL STATUS, UNSPECIFIED 12/03/2017 BLISS, VU W R42 DIZZINESS AND GIDDINESS 12/06/2017 ERICKSON BYRNE W 244.9 UNSPECIFIED HYPOTHYROIDISM 12/06/2017 CHAVEZ, ERICKSON W 272.4 OTHER AND UNSPECIFIED HYPERLIPIDEMIA 12/06/2017 ERICKSON BYRNE W 401.0 MALIGNANT ESSENTIAL HYPERTENSION 12/06/2017 CHAVEZ, ERICKSON A 780.2 12/06/2017 CHAVEZ, ERICKSON W 780.4 12/06/2017 CHAVEZ, ERICKSON W 784.0 HEADACHE 12/06/2017 ERICKSON BYRNE W E03.9 HYPOTHYROIDISM, UNSPECIFIED 12/06/2017 CHAVEZ, ERICKSON W E78.5 HYPERLIPIDEMIA, UNSPECIFIED 12/06/2017 CHAVEZ, ERICKSON W I10 ESSENTIAL (PRIMARY) HYPERTENSION 12/06/2017 ERICKSON BYRNE W R42 DIZZINESS AND GIDDINESS 12/06/2017 ERICKSON BYRNE W R51 HEADACHE 12/06/2017 ERICKSON BYRNE A R55 SYNCOPE AND COLLAPSE 03/09/2018 NIMA ORR FACC, ALI FACP CCDS Ot 414.00 CORON ATHEROSCLER NOS TYPE VESSEL, NATIV 03/09/2018 NIMA ORR FACC, ALI FACP CCDS Ot 443.9 PERIPH VASCULAR DIS NOS 03/09/2018 NIMA ORR FACC, ALI FACP CCDS Ot 278.01 MORBID OBESITY 03/09/2018 NIMA ORR FACC, ALI FACP CCDS Ot 414.00 CORON ATHEROSCLER NOS TYPE VESSEL, NATIV 03/09/2018 NIMA ORR FACC, ALI FACP CCDS Ot 786.50 CHEST PAIN NOS 03/09/2018 NIMA ORR FACC, ALI FACP CCDS Ot V85.41 BODY MASS INDEX 40.0-44.9, ADULT 03/09/2018 NIMA ORR FACC, ALI FACP CCDS Ot 272.4 HYPERLIPIDEMIA NEC/NOS 03/09/2018 NIMA ORR FACC, ALI FACP CCDS Ot 278.00 OBESITY, NOS 03/09/2018 NIMA ORR FACC, ALI FACP CCDS Ot 401.9 HYPERTENSION NOS 03/09/2018 NIMA ORR FACC, ALI FACP CCDS Ot 414.00 CORON ATHEROSCLER NOS TYPE VESSEL, NATIV 03/09/2018 NIMA ORR FACC, ALI FACP CCDS Ot 780.2 SYNCOPE AND COLLAPSE 03/09/2018 NIMA ORR FACC, ALI FACP CCDS Ot 786.59 CHEST PAIN NEC 03/09/2018 NIMA ORR FACC, EVERARDO FACP CCDS Ot V15.82 HISTORY OF TOBACCO USE 03/09/2018 NIMA ORR FACC, ALI FACP CCDS Ot V58.69 OTH MED,LT,CURRENT USE 03/09/2018 NIMA ORR FACC, ALI FACP CCDS Ot V85.41 BODY MASS INDEX 40.0-44.9, ADULT 03/09/2018 JAYDEN JACOBSEN MD Ot 780.39 OTHER CONVULSIONS 03/09/2018 JAYDEN JACOBSEN MD K Ot 780.39 OTHER CONVULSIONS 03/09/2018 JAYDEN JACOBSEN MD Ot V58.69 OTH MED,LT,CURRENT USE 03/09/2018 MIGUELITO BRISENO DO Ot R10.11 RIGHT UPPER QUADRANT PAIN 03/09/2018 MIGUELITO BRISENO DO Ot N63 UNSPECIFIED LUMP IN BREAST 03/09/2018 MIGUELITO BRISENO DO Ot N63 UNSPECIFIED LUMP IN BREAST 03/09/2018 NIMA ORR FACC, ALI FACP CCDS Ot E78.5 HYPERLIPIDEMIA, UNSPECIFIED 03/09/2018 NIMA ORR FACC, ALI FACP CCDS Ot I25.10 ATHSCL HEART DISEASE OF [place] CORONARY 03/09/2018 NIMA ORR FACC, ALI FACP CCDS Ot R00.2 PALPITATIONS 03/09/2018 NIMA ORR FACC, ALI FACP CCDS Ot Z45.09 ENCOUNTER FOR ADJUSTMENT AND MANAGEMENT 03/09/2018 NIMA ORR FACC, ALI FACP CCDS Ot Z87.891 PERSONAL HISTORY OF NICOTINE DEPENDENCE 03/09/2018 NIMA ORR FACC, ALI FACP CCDS Ot Z98.84 BARIATRIC SURGERY STATUS 03/09/2018 MIGUELITO BRISENO DO Ot N63 UNSPECIFIED LUMP IN BREAST 03/09/2018 YANCY GUZMAN APRN Ot E78.00 PURE HYPERCHOLESTEROLEMIA, UNSPECIFIED 03/09/2018 YANCY GUZMAN APRN Ot G43.809 OTHER MIGRAINE, NOT INTRACTABLE, WITHOUT 03/09/2018 YANCY GUZMAN MINERALOGY PROFESSOR Ot G47.30 SLEEP APNEA, UNSPECIFIED 03/09/2018 YANCY GUZMAN MINERALOGY PROFESSOR Ot I10 ESSENTIAL (PRIMARY) HYPERTENSION 03/09/2018 YANCY GUZMAN APRN Ot R20.2 PARESTHESIA OF SKIN 03/09/2018 YANCY GUZMAN MINERALOGY PROFESSOR Ot R51 HEADACHE 03/09/2018 YANCY GUZMAN APRN Ot Z87.19 PERSONAL HISTORY OF OTHER DISEASES OF TH 03/09/2018 YANCY GUZMAN APRN Ot Z87.442 PERSONAL HISTORY OF URINARY CALCULI 03/09/2018 YANCY GUZMAN APRN Ot Z88.8 ALLERGY STATUS TO OTH DRUG/MEDS/BIOL SUB 03/12/2018 YANCY GUZMAN APRN Ot E78.00 PURE HYPERCHOLESTEROLEMIA, UNSPECIFIED 03/12/2018 YANCY GUZMAN APRN Ot G43.809 OTHER MIGRAINE, NOT INTRACTABLE, WITHOUT 03/12/2018 YANCY GUZMAN APRN Ot G47.30 SLEEP APNEA, UNSPECIFIED 03/12/2018 YANCY GUZMAN APRN Ot I10 ESSENTIAL (PRIMARY) HYPERTENSION 03/12/2018 YANCY GUZMAN APRN Ot R20.2 PARESTHESIA OF SKIN 03/12/2018 YANCY GUZMAN APRN Ot R51 HEADACHE 03/12/2018 YANCY GUZMAN APRN Ot Z87.19 PERSONAL HISTORY OF OTHER DISEASES OF 03/12/2018 YANCY GUZMAN APRN Ot Z87.442 PERSONAL HISTORY OF URINARY CALCULI 03/12/2018 YANCY GUZMAN APRN Ot Z88.8 ALLERGY STATUS TO OTH DRUG/MEDS/BIOL SUB 04/30/2018 GERI VARGASUA R Ot 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, VERTEBRAE 05/10/2018 SWEET KENNETH, ERICKSON R Ot 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, VERTEBRAE 07/24/2018 Lea Powell 719.42 PAIN IN JOINT INVOLVING UPPER ARM 07/24/2018 Lea Powell 780.79 OTHER MALAISE AND FATIGUE 07/24/2018 Lea Powell 989.5 TOXIC EFFECT OF VENOM 07/24/2018 Lea Powell M25.529 PAIN IN UNSPECIFIED ELBOW 07/24/2018 Lea Powell R53.83 OTHER FATIGUE 07/24/2018 Lea Powell S60.229 CONTUSION OF UNSPECIFIED HAND 02/11/2019 VU BLISS 244.9 UNSPECIFIED HYPOTHYROIDISM 02/11/2019 VU BLISS 401.0 MALIGNANT ESSENTIAL HYPERTENSION 02/11/2019 BLISS, VU W 414.01 CORONARY ATHEROSCLEROSIS OF [place] CORONARY ARTERY 02/11/2019 VU BLISS W E03.9 HYPOTHYROIDISM, UNSPECIFIED 02/11/2019 VU BLISS W I10 ESSENTIAL (PRIMARY) HYPERTENSION 02/11/2019 VU BLISS W I25.10 ATHEROSCLEROTIC HEART DISEASE OF [place] CORONARY ARTERY WITHOUT ANGINA PECTORIS 02/11/2019 VU BLISS W 244.9 UNSPECIFIED HYPOTHYROIDISM 02/11/2019 VU BLISS W 272.4 OTHER AND UNSPECIFIED HYPERLIPIDEMIA 02/11/2019 VU BLISS W 401.0 MALIGNANT ESSENTIAL HYPERTENSION 02/11/2019 VU BLISS W 414.01 CORONARY ATHEROSCLEROSIS OF [place] CORONARY ARTERY 02/11/2019 VU BLISS W E03.9 HYPOTHYROIDISM, UNSPECIFIED 02/11/2019 VU BLISS W E78.5 HYPERLIPIDEMIA, UNSPECIFIED 02/11/2019 VU BLISS W I10 ESSENTIAL (PRIMARY) HYPERTENSION 02/11/2019 LESLIE BLISSALLYSON Branch I25.10 ATHEROSCLEROTIC HEART DISEASE OF [place] CORONARY ARTERY WITHOUT ANGINA PECTORIS 02/11/2019 BLISS VU W V45.86 BARIATRIC SURGERY STATUS 02/11/2019 VU BLISS W Z98.84 BARIATRIC SURGERY STATUS 02/11/2019 VU BLISS W 244.9 UNSPECIFIED HYPOTHYROIDISM 02/11/2019 LESLIE BLISSHEL W 272.4 OTHER AND UNSPECIFIED HYPERLIPIDEMIA 02/11/2019 VU BLISS W 401.0 MALIGNANT ESSENTIAL HYPERTENSION 02/11/2019 VU BLISS W 414.01 CORONARY ATHEROSCLEROSIS OF [place] CORONARY ARTERY 02/11/2019 VU BLISS Sarina E03.9 HYPOTHYROIDISM, UNSPECIFIED 02/11/2019 VU BLISS W E78.5 HYPERLIPIDEMIA, UNSPECIFIED 02/11/2019 VU BLISS W I10 ESSENTIAL (PRIMARY) HYPERTENSION 02/11/2019 BLISSLESLIEVU W I25.10 ATHEROSCLEROTIC HEART DISEASE OF [place] CORONARY ARTERY WITHOUT ANGINA PECTORIS 02/11/2019 BLISS, VU W V45.86 BARIATRIC SURGERY STATUS 02/11/2019 BLISSVU Sarina Z98.84 BARIATRIC SURGERY STATUS Procedures Code [place] [address] ROUTINE VENIPUNCTURE 03/27/2014 92965 EKG, TRACING (IN-HOUSE) 03/27/2014 00384 CBC 03/27/2014 86563 CMP 03/27/2014 55819 LIPID PANEL 03/27/2014 78846 MAGNESIUM 03/27/2014 9739625 GFR CALC (RESULT ONLY) 03/27/2014 99072 PSA TOTAL 03/27/2014 01577 TSH 03/27/2014 62997 HEMOCCULT 03/31/2014 99435 HEMOCCULT 03/31/2014 CARDIOLOG SHELLY WILKERSON 04/01/2014 41054 ROUTINE VENIPUNCTURE 04/22/2014 34384 A1C (IN-HOUSE) 04/22/2014 19876 SED/ESR RATE (IN HOUSE) 04/22/2014 94647 URIC ACID 04/22/2014 58399 CRP 04/22/2014 41556 PULMONARY FUNCTION TEST (IN-HOUSE) 04/23/2014 03871 PULMONARY EDUCATION 04/23/2014 ANAANA GABRIELA ANALYZER (SCREEN) 04/23/2014 71354 RA FACTOR 04/23/2014 82999 CBC 04/29/2014 54493 OXIMETRY - OVERNIGHT 04/29/2014 60600 SLEEP STUDY (HOME) 05/06/2014 29265 PULMONARY FUNCTION TEST (IN-HOUSE) 05/09/2014 95887 RESPIRATORY FLOW VOLUME LOOP 05/09/2014 Results Test Result Range Comprehensive Metabolic Panel - 08/16/16 18:00 Albumin 4.1 g/dL 3.6-5.1 ALP 132 U/L 35-130 ALT 109 U/L 6-45 Anion Gap 13 6-14 AST 85 U/L 2-40 BUN 10 mg/dL 5-25 Calcium 9.0 mg/dL 8.3-10.4 Chloride 104 mmol/L 95-114 CO2 26 mEq/L 22-33 Creat 0.82 mg/dL 0.50-1.50 eGFR 101 mL/min/1.73m2 >59 Globulin 2.3 g/dL 2.3-3.5 Glucose 156 mg/dL 70-110 Osmo 289 280-295 Potassium 4.2 mmol/L 3.5-5.3 Sodium 139 mmol/L 134-148 TBil 0.5 mg/dL 0.2-1.2 TP 6.4 g/dL 6.0-8.3 Thyroid Stimulating Hormone - 10/18/16 14:45 TSH 0.00 mIU/mL 0.32-5.00 Free T4 - 12/15/16 10:15 Free T4 1.47 ng/dL 0.81-1.61 Thyroid [...] 32.9 g/dL 32.0-36.0 MCV 92.4 fL 80.0-97.0 Brooke% 8.5 % 0.0-12.0 MPV 9.1 fL 7.4-10.0 Elaine% 55.7 % 37.0-80.0 Plt 189 K/uL 150-400 RBC 4.71 M/uL 4.20-5.40 RDW 12.6 % 11.6-14.8 WBC 8.32 K/uL 5.00-10.00 Elaine 4.63 K/uL 2.00-6.90 Brooke 0.7 K/uL 0.0-0.9 Baso 0.0 K/uL 0.0-0.2 Complete urinalysis with reflex to culture - 05/31/17 13:45 Urine color determination YELLOW NRG Urine clarity determination CLEAR NRG Urine pH measurement by test strip 7 5-9 Specific gravity of urine by test strip 1.010 1.016-1.022 Urine protein assay by test strip, semi-quantitative [...] sediment leukocyte count by microscopy (number/high power field) RARE NRG Bacteria detection in urine sediment [...] 17:38 LYME IGG/IGM AB <0.91 ISR 0.00-0.[address] Spotted Fever, IgM - 06/27/17 17:38 WILLY MTN SPOTTED FEVER, IGM 0.31 INDEX 0.00-0.89 Thyroid [...] 33.6 g/dL 32.0-36.0 MCV 93.8 fL 80.0-97.0 Brooke% 12.9 % 0.0-12.0 MPV 8.3 fL 7.4-10.0 Elaine% 81.4 % 37.0-80.0 Plt 177 K/uL 150-400 RBC 4.70 M/uL 4.20-5.40 RDW 11.9 % 11.6-14.8 WBC 11.42 K/uL 5.00-10.00 Elaine 9.30 K/uL 2.00-6.90 Brooke 1.5 K/uL 0.0-0.9 Baso 0.0 K/uL 0.0-0.2 [...] 5-8.5 Urine-Protein Negative Negative Urine-RBC Negative Urine-Specific [place] 1.020 1.000-1.030 Urine-WBC Nothing Seen on Microscopic Urobilinogen 1.0 E.U./dL 0.2-1.0 VIT B-12/07/18 15:39 Vitamin B12 967.00 pg/mL 213.00-816.00 Thyroid Stimulating Hormone - 12/07/17 15:39 TSH 0.73 mIU/mL 0.32-5.00 Complete blood count (CBC) with automated white blood cell (WBC) differential - 03/09/18 10:34 Blood leukocytes automated count (number/volume) 8.7 10*3/uL 4.3-11.0 Blood erythrocytes automated count (number/volume) 4.57 10*6/uL 4.35-5.85 Venous blood hemoglobin measurement (mass/volume) 14.4 g/dL 13.3-17.7 Blood hematocrit (volume fraction) 42 % 40-54 Automated erythrocyte mean corpuscular volume 92 [foz_us] 80-99 Automated erythrocyte mean corpuscular hemoglobin (mass per erythrocyte) 32 pg 25-34 Automated erythrocyte mean corpuscular hemoglobin concentration measurement (mass/volume) 34 g/dL 32-36 Automated erythrocyte distribution width ratio 12.8 % 10.0- 14.5 Automated blood platelet count (count/volume) 213 10*3/uL 130-400 Automated blood platelet mean volume measurement 8.1 [foz_us] 7.4-10.4 Automated blood neutrophils/100 leukocytes 68 % 42-75 Automated blood lymphocytes/100 leukocytes 25 % 12-44 Blood monocytes/100 leukocytes 7 % 0-12 Automated blood eosinophils/100 leukocytes 1 % 0-10 Automated blood basophils/100 leukocytes 0 % 0-10 Blood neutrophils automated count (number/volume) 5.9 10*3 1.8-7.8 Blood lymphocytes automated count (number/volume) 2.1 10*3 1.0-4.0 Blood monocytes automated count (number/volume) 0.6 10*3 0.0- 1.0 Automated eosinophil count 0.0 10*3/uL 0.0-0.3 Automated blood basophil count (count/volume) 0.0 10*3/uL 0.0-0.1 Comprehensive metabolic panel - 03/09/18 10:34 Serum or plasma sodium measurement (moles/volume) 141 mmol/L 135-145 Serum or plasma potassium measurement (moles/volume) 3.7 mmol/L 3.6-5.0 Serum or plasma chloride measurement (moles/volume) 104 mmol/L 98-107 Carbon dioxide 28 mmol/L 21-32 Serum or plasma anion gap determination (moles/volume) 9 mmol/L 5-14 Serum or plasma urea nitrogen measurement (mass/volume) 17 mg/dL 7-18 Serum or plasma creatinine measurement (mass/volume) 0.89 mg/dL 0.60-1.30 Serum or plasma urea nitrogen/creatinine mass ratio 19 NRG Serum or plasma creatinine measurement with calculation of estimated glomerular filtration rate > NRG Serum or plasma glucose measurement (mass/volume) 95 mg/dL 70-105 Serum or plasma calcium measurement (mass/volume) 9.6 mg/dL 8.5-10.1 Serum or plasma total bilirubin measurement (mass/volume) 0.4 mg/dL 0.1-1.0 Serum or plasma alkaline phosphatase measurement (enzymatic activity/volume) 76 U/L 40-136 Serum or plasma aspartate aminotransferase measurement (enzymatic activity/volume) 16 U/L 5-34 Serum or plasma alanine aminotransferase measurement (enzymatic activity/volume) 15 U/L 0-55 Serum or plasma protein measurement (mass/volume) 6.7 g/dL 6.4-8.2 Serum or plasma albumin measurement (mass/volume) 4.2 g/dL 3.2-4.5 PT panel in platelet poor plasma by coagulation assay - 03/09/18 10:34 Prothrombin time (PT) in platelet poor plasma by coagulation assay 12.4 s 12.2-14.7 INR in platelet poor plasma or blood by coagulation assay 0.9 0.8-1.4 Activated partial thromboplastin time (aPTT) in platelet poor plasma bycoagulation assay - 03/09/18 10:34 Activated partial thromboplastin time (aPTT) in platelet poor plasma bycoagulation assay 26 s 24-35 Fibrin D-dimer FEU measurement in platelet poor plasma (mass/volume) - 03/09/18 10:34 Fibrin D-dimer FEU measurement in platelet poor plasma (mass/volume) < ug/mL 0.00-0.49 Serum or plasma troponin i.cardiac measurement (mass/volume) - 03/09/18 10:34 Serum or plasma troponin i.cardiac measurement (mass/volume) < ng/mL <0.30 Complete urinalysis with reflex to culture - 03/09/18 12:03 Urine color determination YELLOW NRG Urine clarity determination CLEAR NRG Urine pH measurement by test strip 8 5-9 Specific gravity of urine by test strip 1.010 1.016-1.022 Urine protein assay by test strip, semi-quantitative [...] sediment leukocyte count by microscopy (number/high power field) NONE NRG Bacteria detection in urine sediment by light microscopy NEGATIVE NRG Squamous epithelial cells detection in urine sediment by light microscopy RARE NRG Crystals detection in urine sediment by light microscopy PRESENT NRG Casts detection in urine sediment by light microscopy NONE NRG Mucus detection in urine sediment by light microscopy NEGATIVE NRG Complete urinalysis with reflex to culture NO NRG Amorphous sediment detection in urine sediment by light microscopy RARE GUILHERME PHOSPHATE NRG Carbamazepine - 07/24/18 11:37 Carbamazepine 8.7 ug/mL 4.0-10.0 Willy Mtn Spotted Fev,IgG - 07/24/18 11:37 RMSF, IGG, EIA NEGATIVE NEGATIVE Willy Mtn Spotted Fever, IgM - 07/24/18 11:37 WILLY MTN SPOTTED FEVER, IGM 0.28 INDEX 0.00-0.89 West Nile Virus Antibody,Serum - 07/24/18 11:37 [place]ST [place] VIRUS, IGG NEGATIVE NEGATIVE [place] VIRUS, IGM NEGATIVE NEGATIVE Ferritin - 02/11/19 09:05 Ferritin 106.21 ng/mL 21.81-274.66 Thyroid Stimulating Hormone - 02/11/19 09:05 TSH 0.93 mIU/mL 0.32-5.00 Prolactin - 04/02/19 10:15 Prolactin 8.0 ng/mL 4.0-15.2 VIT B-12 - 04/02/19 10:15 Vitamin B12 >2000.00 pg/mL 213.00-816.00 Prolactin - 04/02/19 10:15 PROLACTIN 8.0 NG/ML 4.0-15.2 BMP - 04/08/19 09:14 Anion Gap 12 6-14 BUN 13 mg/dL 5-25 Calcium 10.3 mg/dL 8.3-10.4 Chloride 103 mmol/L 95-114 CO2 29 mEq/L 22-33 Creat 0.97 mg/dL 0.50-1.50 eGFR 82 mL/min/1.73m2 >59 Glucose 93 mg/dL 70-110 Osmo 289 280-295 Potassium 4.3 mmol/L 3.5-5.3 Sodium 140 mmol/L 134-148 Surgical Pathology - 04/12/19 09:10 Surg Path Sent to [facility] Pathology Encounters ACCT No. Visit Date/Time Discharge Status Pt. Type Provider Facility Loc./Unit Complaint [id number] 04/03/2019 00:06:00 Document Registration [id number] 04/24/2018 08:21:00 05/28/2018 10:35:00 DIS Outpatient ERICKSON VARGAS [facility] REHAB LUE WEAKNESS;CERVICAL OSTEOPHYTES [id number] 03/09/2018 10:04:00 03/09/2018 13:26:00 DIS Emergency YANCY GUZMAN APRN [facility] ER LEFT SIDE OF BODY NUMB,SPEECH ISSUES [id number] 05/31/2017 12:19:00 05/31/2017 14:57:00 DIS Emergency ОЛЬГА MENEZES [facility] ER POSS KIDNEY STONES/PAIN [id number] 12/28/2016 07:22:00 12/28/2016 23:59:59 CLS Outpatient MIGUELITO BRISENO DO [facility] RAD BILATERAL BREAST NODULES [id number] 12/27/2016 07:22:00 12/27/2016 23:59:59 CLS Outpatient MIGUELITO BRISENO DO [facility] RAD BILATERAL BREAST NODULES [id number] 12/20/2016 10:32:00 12/20/2016 23:59:59 CLS Outpatient NIMA ORR FACCEVERARDO FACP CCDS [facility] CATH END OF LIFE LOOP RECORDER [id number] 12/07/2016 10:36:00 12/07/2016 23:59:59 CLS Outpatient MIGUELITO BRISENO DO [facility] RAD BILATERAL BREAST NODULES [id number] 12/08/2015 09:03:00 12/08/2015 23:59:59 CLS Outpatient MIGUELITO BRISENO DO [facility] CARD EPIGASTRIC PAIN [id number] 05/05/2015 09:34:00 05/05/2015 23:59:59 CLS Outpatient JAYDEN JACOBSEN MD [facility] LAB SEIZURE ON DEPAKOTE [id number] 04/24/2015 09:22:00 04/24/2015 23:59:59 CLS Outpatient JAYDEN JACOBSEN MD [facility] RT SEIZURES [id number] 03/24/2015 08:49:00 03/24/2015 23:59:59 CLS Outpatient EVERARDO HERRING MD, FACC, FACP CCDS [facility] CARD DIZZINESS SYNCOPE CHEST TIGHTNESS [id number] 03/19/2015 18:52:00 03/20/2015 19:00:00 DIS Inpatient CHILANGO SHARP DO [facility] CSD CP,SYNCOE,MONIQUE,L FACIAL NUMBNESS,SOA [id number] 11/28/2014 11:02:00 12/02/2014 12:35:00 DIS Inpatient CARLOS SPARROW MD [facility] SURGICAL SMALL BOWEL OBSTRUCTION [id number] 05/12/2014 11:31:00 05/12/2014 23:59:59 CLS Outpatient EVERARDO HERRING MD, FACC, FACP CCDS [facility] CARD HLP,CP,CAD, [id number] 04/22/2014 09:27:00 04/22/2014 11:10:00 DIS Emergency DEBORA DELGADO DO K [facility] ER BLURRED VISION,SOA [id number] 04/17/2014 13:34:00 04/17/2014 23:59:59 CLS Outpatient EVERARDO HERRING MD, FACC, FACP CCDS [facility] RAD HLP,CP,CAD,CLAUDICATION [id number] 03/31/2014 21:00:00 04/02/2014 11:45:00 DIS Inpatient SAMANTHA HANEY MD [facility] CSD CHEST PAIN [id number] 05/12/2013 16:38:00 05/12/2013 23:59:59 CLS Outpatient [id number] 07/18/2010 22:50:00 Document Registration [id number] 04/12/2019 07:14:00 04/12/2019 10:03:00 DIS Outpatient Miguelito Briseno [id number] 04/08/2019 08:54:00 04/08/2019 23:59:00 DIS Outpatient Miguelito Briseno [id number] 04/02/2019 10:54:00 04/02/2019 23:59:00 DIS Outpatient VU BLISS [id number] 02/11/2019 10:07:00 02/11/2019 23:59:00 DIS Outpatient RUTHY VU [id number] 07/24/2018 11:37:00 07/24/2018 23:59:00 DIS Outpatient Lea Powell [id number] 12/07/2017 15:35:00 12/07/2017 23:59:00 DIS Outpatient BLISSVU [id number] 12/06/2017 12:01:00 12/06/2017 14:15:00 [id number] 12/03/2017 07:05:00 12/03/2017 23:59:00 DIS Outpatient RUTHY VU [id number] 11/29/2017 11:20:00 11/29/2017 23:59:00 DIS Outpatient RUTHY VU [id number] 06/27/2017 17:36:00 06/27/2017 23:59:00 DIS Outpatient BLISSVU [id number] 05/17/2017 17:00:00 05/17/2017 23:59:00 DIS Outpatient BLISS, VU [id number] 03/28/2017 17:00:00 03/28/2017 23:59:00 DIS Outpatient BLISSVU [id number] 01/10/2017 15:10:00 01/10/2017 23:59:00 DIS Outpatient BLISSVU CARDOSO [id number] 11/11/2016 10:42:00 11/11/2016 23:59:00 DIS Outpatient BLISSVU CARDOSO [id number] 11/10/2016 11:02:00 11/10/2016 23:59:00 DIS Outpatient VU BLISS [id number] 10/18/2016 14:41:00 10/18/2016 23:59:00 DIS Outpatient VU BLISS [id number] 04/26/2019 11:57:52 Document Registration [id number] 12/06/2017 12:13:13 Document Registration [id number] 08/16/2016 06:58:00 Document Registration [id number] 12/15/2014 13:53:00 12/15/2014 23:59:59 CLS Outpatient DAVEY DO TIFFANY Samantha [id number] 12/09/2014 13:36:00 12/09/2014 23:59:59 CLS Outpatient DAVEY DO, TIFFANY Singh [id number] 05/09/2014 16:00:00 05/09/2014 23:59:59 CLS Outpatient DAVEY DO, TIFFANY Singh [id number] 05/06/2014 13:23:00 05/06/2014 23:59:59 CLS Outpatient DAVEY DO, TIFFANY Singh [id number] 04/30/2014 05:36:00 04/30/2014 23:59:59 CLS Outpatient SAMANTHA HANEY MD [id number] 04/29/2014 15:30:00 04/29/2014 23:59:59 CLS Outpatient JINAL JUWAN GÓMEZ [id number] 04/22/2014 13:18:00 04/22/2014 23:59:59 CLS Outpatient DAVEY DO, TIFFANY Singh [id number] 04/14/2014 12:45:00 04/14/2014 23:59:59 CLS Outpatient DAVEY DO, TIFFANY Singh [id number] 03/31/2014 17:27:00 03/31/2014 23:59:59 CLS Outpatient DAVEY DOTIFFANY [id number] 03/27/2014 08:50:00 03/27/2014 23:59:59 CLS Outpatient DAVEY DO, TIFFANY Singh [id number] 04/12/2019 07:14:00 Document Registration
[2019-04-29 22:39] VITALS: BP 131/68
[2019-04-29] MEDS ORDERED: RT-ALBUTEROL SULF 2.5 MG/3 ML PRE-MIX VIAL INH PRN (23:00)
--- OUTSIDE RECORDS SUMMARY | 2019-04-29 23:34 | XMS REPORT | Clinical Summary ---
Author Author [facility] Organization [facility] Address Unknown Phone Unavailable Care Team Providers Care Server Manager Name Role Phone Self, Deshaun ORR PCP Channing Be MD Unavailable Unavailable Source Comments Some departments are not documenting in the electronic medical record. If you d o not see the information that you expected, contact Release of Information in [facility] [employer] Information Management department at [phone] for further assistan ce in locating additional records.[facility] Allergies Comments Active Allergy Reactions Severity Noted Date Sodium HIVES Medium 05/12/2009 Qbznpgzzeo-Wycrtu-Cej Levofloxacin RASH, MENTAL Medium 05/11/2009 STATUS CHANGES [...]
--- OUTSIDE RECORDS SUMMARY | 2019-04-29 23:34 | XMS REPORT | Clinical Summary ---
Author Author [facility] Organization [facility] Address Unknown Phone Unavailable Care Team Providers Care Avionics Integration Engineer Name Role Phone PCP Unavailable Allergies Active [...] Not on file Implants Implanted Type Area Cleaner Touch Up Worker Device Expiration Model / Identifier Date Serial / Lot Rods Back Plates Back Screws Back Loop Recorder Chest [employer] [id number] / Implanted: 03/24/2015 (Quantity not [id number] on file) / Results Not on filefrom Last 3 Months
--- OUTSIDE RECORDS SUMMARY | 2019-04-29 23:36 | XMS REPORT | Continuity of Care Document ---
Demographics Preferred Language Unknown Marital Status Unknown Evangelical Affiliation Unknown Race Unknown Ethnic Group Unknown [...] UNKNOWN UNKNOWN Yes ZOLOFT UNKNOWN UNKNOWN Yes rofecoxib [id number] Drug Allergy Moderate N/A 07/18/2010 Yes bisacodyl [id number] Drug Allergy Mild N/A 07/18/2010 Yes Fleet Enema Drug Allergy N/A N/A 03/25/2014 Yes acetaminophen [id number] Drug Allergy Unknown N/A 04/29/2019 Yes oxycodone [id number] Drug Allergy Unknown N/A 04/29/2019 Medications Medication Packaging Start Date Stop Date [...] 07/19/2010 Ot V58.69 07/19/2010 Ot V85.38 03/25/2014 DAVEY DO, TIFFANY K 338.29 OTHER CHRONIC PAIN 03/25/2014 DAVEY DO, TIFFANY K 401.1 HYPERTENSION, BENIGN ESSENTIAL 03/25/2014 DAVEY DO, TIFFANY K 414.00 CORONARY ATHEROSCLEROSIS OF UNSPECIFIED TYPE OF VESSEL [place] OR GRAFT 03/25/2014 DAVEY DO, TIFFANY K [...] CORONARY ATHEROSCLEROSIS OF UNSPECIFIED TYPE OF VESSEL [place] OR GRAFT 03/25/2014 DAVEY DO, TIFFANY K [...] K V76.51 COLON CANCER SCREENING 03/25/2014 MADL CAT DOG OR OTHER PET GROOMER, JUWAN L 338.29 OTHER CHRONIC PAIN 03/25/2014 MADL CAT DOG OR OTHER PET GROOMER, JUWAN L 401.1 HYPERTENSION, BENIGN ESSENTIAL 03/25/2014 MADL CAT DOG OR OTHER PET GROOMER, JUWAN L 414.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 03/25/2014 MADL CAT DOG OR OTHER PET GROOMER, JUWAN L 604.90 ORCHITIS AND EPIDIDYMITIS UNSPECIFIED 03/25/2014 MADL CAT DOG OR OTHER PET GROOMER, JUWAN L 724.2 LUMBAGO 03/25/2014 MADL CAT DOG OR OTHER PET GROOMER, JUWAN L 724.3 SCIATICA 03/25/2014 MADL CAT DOG OR OTHER PET GROOMER, JUWAN L 782.0 DISTURBANCE OF SKIN SENSATION 03/25/2014 MADL CAT DOG OR OTHER PET GROOMER, JUWAN L V70.0 EXAM - ROUTINE H&P 03/25/2014 MADL CAT DOG OR OTHER PET GROOMER, JUWAN L V76.44 PROSTATE CANCER SCREENING 03/25/2014 MADL CAT DOG OR OTHER PET GROOMER, JUWAN L V76.51 COLON CANCER SCREENING 03/25/2014 [...] CORONARY ATHEROSCLEROSIS OF UNSPECIFIED TYPE OF VESSEL [place] OR [place] 03/25/2014 DAVEY DO TIFFANY K [...] CORONARY ATHEROSCLEROSIS OF UNSPECIFIED TYPE OF VESSEL [place] OR [place] 03/25/2014 DAVEY DO, TIFFANY K [...] CORONARY ATHEROSCLEROSIS OF UNSPECIFIED TYPE OF VESSEL [place] OR [place] 03/25/2014 DAVEY DO, TIFFANY K [...] CORONARY ATHEROSCLEROSIS OF UNSPECIFIED TYPE OF VESSEL [place] OR [place] 03/25/2014 DAVEY DO, TIFFANY K [...] DO, TIFFANY K V76.51 COLON CANCER SCREENING 04/02/2014 MEDINA ORR, SAMANTHA Sánchez Ot 272.4 HYPERLIPIDEMIA NEC/NOS 04/02/2014 SAMANTHA HANEY MD Ot 278.00 OBESITY, NOS 04/02/2014 SAMANTHA HANEY MD Ot 338.29 OTHER CHRONIC PAIN 04/02/2014 SAMANTHA HANEY MD Ot 401.9 HYPERTENSION NOS 04/02/2014 SAMANTHA HANEY MD Ot 414.01 CORONARY ATHEROSCLEROSIS OF [place] CORON 04/02/2014 SAMANTHA HANEY MD Ot 722.4 CERVICAL DISC DEGEN 04/02/2014 SAMANTHA HANEY MD Ot 724.2 LUMBAGO 04/02/2014 SAMANTHA HANEY MD Ot 729.5 PAIN IN LIMB 04/02/2014 SAMANTHA HANEY MD Ot 782.0 SKIN SENSATION DISTURB 04/02/2014 SAMANTHA HANEY MD Ot 786.59 CHEST PAIN NEC 04/02/2014 SAMANTHA HANEY MD Ot V85.41 BODY MASS INDEX 40.0-44.9, ADULT 04/14/2014 DAVEY DO TIFFANY K 780.79 OTHER MALAISE AND FATIGUE 04/14/2014 DAVEY DO TIFFANY K 780.79 OTHER MALAISE AND FATIGUE [...] RESPIRATORY ABNORMALITY OTHER 04/22/2014 JUWAN ABBASI APRN 786.09 RESPIRATORY ABNORMALITY OTHER 04/22/2014 SAMANTHA HANEY MD 786.09 RESPIRATORY ABNORMALITY OTHER 04/22/2014 DAVEY DO TIFFANY K 786.09 RESPIRATORY ABNORMALITY OTHER 04/22/2014 DAVEY DO, TIFFANY K 786.09 RESPIRATORY ABNORMALITY OTHER 04/22/2014 DAVEY DO, TIFFANY K 786.09 RESPIRATORY ABNORMALITY OTHER 04/22/2014 DAVEY DO TIFFANY K 786.09 RESPIRATORY ABNORMALITY OTHER 04/22/2014 DEBORA DELGADO DO Ot 338.29 OTHER CHRONIC PAIN 04/22/2014 DEBORA DELGADO DO Ot 786.05 SHORTNESS OF BREATH 04/22/2014 DEBORA DELGADO DO Ot 786.52 PAINFUL RESPIRATION 04/22/2014 DEBORA DELGADO DO Ot V15.81 HX OF PAST NONCOMPLIANCE 04/29/2014 JEREMIAH ABBASI APRNNYA Kassandra 786.50 UNSPECIFIED CHEST PAIN 04/29/2014 SAMANTHA HANEY [...] 05/06/2014 DAVEY DO, TIFFANY K 799.02 HYPOXEMIA 12/02/2014 CARLOS SPARROW [...] SPARROW MD Ot 414.01 CORONARY ATHEROSCLEROSIS OF [place] CORON 12/02/2014 CARLOS SPARROW MD Ot 560.9 [...] ALI FACP CCDS Ot V85.41 03/20/2015 ARON DO, CHILANGO Ot 272.4 HYPERLIPIDEMIA NEC/NOS 03/20/2015 SHARP DO, CHILANGO Ot 278.00 OBESITY, NOS 03/20/2015 SHARP DO, CHILANGO Ot 401.9 HYPERTENSION NOS 03/20/2015 ARON BOLTON CHILANGO Ot 414.01 CORONARY ATHEROSCLEROSIS OF [place] CORON 03/20/2015 ARON BOLTON CHILANGO Ot 724.2 LUMBAGO 03/20/2015 SHARP DO, CHILANGO Ot 780.2 SYNCOPE AND COLLAPSE 03/20/2015 SHARP DO, CHILANGO Ot 780.57 UNSPECIFIED SLEEP APNEA [...] 03/20/2015 SHARP DO, CHILANGO Ot 724.2 03/20/2015 SHAPR DO, CHILANGO Ot 780.2 03/20/2015 SHARP DO, CHILANGO Ot 780.57 03/20/2015 SHARP DO, CHILANGO Ot 782.0 03/20/2015 SHARP DO, CHILANGO Ot 784.0 03/20/2015 SHARP DO, CHILANGO Ot 786.05 03/20/2015 SHARP DO, CHILANGO Ot 786.50 03/20/2015 SHARP DO, CHILANGO Ot V85.41 03/24/2015 NIMA MONTGOMERYC, EVERARDO FACP CCDS Ot 414.00 03/24/2015 NIMA MONTGOMERYC, EVERARDO FACP CCDS Ot 443.9 03/24/2015 NIMA ORR FACC, ALI FACP CCDS Ot 278.01 03/24/2015 NIMA ORR FACC, ALI FACP CCDS Ot 414.00 03/24/2015 NIMA MONTGOMERYC, ALI FACP CCDS Ot 786.50 03/24/2015 NIMA MONTGOMERYC, ALI FACP CCDS Ot V85.41 04/14/2015 NIMA MONTGOMERYC, EVERARDO FACP CCDS Ot 414.00 04/14/2015 NIMA ORR FACC, EVERARDO FACP CCDS Ot 443.9 04/14/2015 NIMA MD FACC, ALI FACP CCDS Ot 278.01 04/14/2015 [...] ALI FACP CCDS Ot 786.59 04/24/2015 NIMA MONTGOMERYC, ALI FACP CCDS Ot V15.82 04/24/2015 NIMA [...] ALI FACP CCDS Ot 786.59 05/15/2015 NIMA MONTGOMERYC, ALI FACP CCDS Ot V15.82 05/15/2015 NIMA ORR FACC, ALI FACP CCDS Ot V58.69 05/15/2015 NIMA MONTGOMERYC, ALI FACP CCDS Ot V85.41 05/19/2015 JAYDEN JACOBSEN MD Ot 780.39 05/22/2015 JAYDEN JACOBSEN MD Ot 780.39 05/22/2015 JAYDEN JACOBSEN MD Ot V58.69 12/25/2015 MIGUELITO BRISENO DO Ot R10.11 12/07/2016 NIMA MONTGOMERYC, ALI [...] INDEX 40.0-44.9, ADULT 12/07/2016 NIMA ORR FACC, EVERARDO FACP CCDS Ot 272.4 HYPERLIPIDEMIA NEC/NOS 12/07/2016 NIMA ORR FACC, ALI FACP CCDS Ot 278.00 OBESITY, NOS 12/07/2016 NIMA ORR FACC, ALI FACP CCDS Ot 401.9 HYPERTENSION NOS 12/07/2016 NIMA ORR FACC, ALI FACP CCDS Ot 414.00 CORON ATHEROSCLER NOS TYPE VESSEL, [place] 12/07/2016 NIMA ORR FACC, ALI FACP CCDS Ot 780.2 SYNCOPE AND COLLAPSE 12/07/2016 NIMA ORR FACC, ALI FACP CCDS [...] RIGHT UPPER QUADRANT PAIN 12/28/2016 MIGUELITO BRISENO DO Ot N63 UNSPECIFIED [...] CCDS Ot I25.10 ATHSCL HEART DISEASE OF [place] CORONARY 01/04/2017 NIMA ORR FACC, EVERARDO FACP CCDS Ot R00.2 PALPITATIONS 01/04/2017 NIMA ORR FACC, ALI FACP CCDS Ot Z45.09 ENCOUNTER FOR ADJUSTMENT AND MANAGEMENT 01/04/2017 NIMA ORR FACC, ALI FACP CCDS Ot Z87.891 PERSONAL HISTORY OF NICOTINE DEPENDENCE 01/04/2017 NIMA ORR FACC, ALI FACP CCDS Ot Z98.84 BARIATRIC SURGERY STATUS 01/26/2017 MIGUELITO BRISENO DO Ot N63 UNSPECIFIED LUMP IN BREAST 03/14/2017 NIMA MONTGOMERY, EVERARDO FACP CCDS Ot E78.5 HYPERLIPIDEMIA, UNSPECIFIED 03/14/2017 NIMA ORR [facility], ALI FACP CCDS Ot I25.10 ATHSCL HEART DISEASE OF [place] CORONARY 03/14/2017 NIMA ORR FACC, ALI FACP CCDS Ot R00.2 PALPITATIONS 03/14/2017 NIMA ORR FACC, ALI FACP CCDS Ot Z45.09 ENCOUNTER FOR ADJUSTMENT AND MANAGEMENT 03/14/2017 NIMA ORR FACC, EVERARDO FACP CCDS Ot Z87.891 PERSONAL HISTORY OF NICOTINE DEPENDENCE 03/14/2017 NIMA ORR FACC, ALI FACP CCDS Ot Z98.84 BARIATRIC SURGERY STATUS 05/31/2017 RIRI ОЛЬГА CREDIT COORDINATOR Ot E78.00 PURE HYPERCHOLESTEROLEMIA, UNSPECIFIED 05/31/2017 RIRI, ОЛЬГА CREDIT COORDINATOR Ot G47.30 SLEEP APNEA, UNSPECIFIED 05/31/2017 RIRI, ОЛЬГА CREDIT COORDINATOR Ot I10 ESSENTIAL (PRIMARY) HYPERTENSION 05/31/2017 RIRI, ОЛЬГА CREDIT COORDINATOR Ot R10.30 LOWER ABDOMINAL PAIN, UNSPECIFIED 05/31/2017 RIRI, ОЛЬГА CREDIT COORDINATOR Ot Z82.49 FAMILY HX OF ISCHEM HEART DIS AND OTH DI 05/31/2017 RIRI ОЛЬГА CREDIT COORDINATOR Ot Z87.19 PERSONAL HISTORY OF OTHER DISEASES OF TH 05/31/2017 RIRI ОЛЬГА CREDIT COORDINATOR Ot Z87.442 PERSONAL HISTORY OF URINARY CALCULI 05/31/2017 RIRI ОЛЬГА CREDIT COORDINATOR Ot Z87.891 PERSONAL HISTORY OF NICOTINE DEPENDENCE 06/02/2017 RIRI ОЛЬГА CREDIT COORDINATOR Ot E78.00 PURE HYPERCHOLESTEROLEMIA, UNSPECIFIED 06/02/2017 RIRI, ОЛЬГА CREDIT COORDINATOR Ot G47.30 SLEEP APNEA, UNSPECIFIED 06/02/2017 RIRI, ОЛЬГА CREDIT COORDINATOR Ot I10 ESSENTIAL (PRIMARY) HYPERTENSION 06/02/2017 ОЛЬГА MENEZES Ot R10.30 LOWER ABDOMINAL PAIN, UNSPECIFIED 06/02/2017 ОЛЬГА MENEZESP Ot Z82.49 FAMILY HX OF ISCHEM HEART DIS AND OTH DI 06/02/2017 ОЛЬГА MENEZES Ot Z87.19 PERSONAL HISTORY OF OTHER DISEASES OF TH 06/02/2017 ОЛЬГА MENEZES Ot Z87.442 PERSONAL HISTORY OF URINARY CALCULI 06/02/2017 ОЛЬГА MENEZES Ot Z87.891 PERSONAL HISTORY OF NICOTINE DEPENDENCE 11/29/2017 VU BLISS W 272.4 11/29/2017 VU BLISS W 401.0 MALIGNANT ESSENTIAL HYPERTENSION 11/29/2017 VU BLISS W 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 11/29/2017 VU BLISS W 780.4 DIZZINESS AND GIDDINESS 11/29/2017 VU BLISS W 780.97 ALTERED MENTAL STATUS 11/29/2017 VU BLISS W E78.5 HYPERLIPIDEMIA, UNSPECIFIED 11/29/2017 VU BLISS W I10 ESSENTIAL (PRIMARY) HYPERTENSION 11/29/2017 VU BLISS W 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 11/29/2017 VU BLISS R41.82 ALTERED MENTAL STATUS, UNSPECIFIED 11/29/2017 VU BLISS W R42 DIZZINESS AND GIDDINESS 11/29/2017 VU BLISS W 244.9 11/29/2017 VU BLISS W 272.4 11/29/2017 VU BLISS W 401.0 11/29/2017 VU BLISS W 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 11/29/2017 VU BLISS W 780.4 DIZZINESS AND GIDDINESS 11/29/2017 VU BLISS W 780.97 ALTERED MENTAL STATUS 11/29/2017 VU BLISS W E03.9 HYPOTHYROIDISM, UNSPECIFIED 11/29/2017 VU BLISS W E78.5 HYPERLIPIDEMIA, UNSPECIFIED 11/29/2017 VU BLISS W I10 ESSENTIAL (PRIMARY) HYPERTENSION 11/29/2017 VU BLISS W 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 11/29/2017 BLISS, VU W R41.82 ALTERED MENTAL STATUS, UNSPECIFIED 11/29/2017 LESLIE BLISSHEL W R42 DIZZINESS AND GIDDINESS 11/29/2017 RUTHY VU W 244.9 11/29/2017 LESLIE BLISSHEL W 272.4 [...] 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 11/29/2017 BLISS VU W R41.82 ALTERED MENTAL STATUS, UNSPECIFIED 11/29/2017 RUTHY VU W R42 DIZZINESS AND GIDDINESS 12/03/2017 BLISS, VU W 780.97 ALTERED MENTAL STATUS 12/03/2017 LESLIE BLISSHEL W R41.82 ALTERED MENTAL STATUS, UNSPECIFIED 12/03/2017 RUTHY VU W 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 12/03/2017 BLISS VU W 780.4 DIZZINESS AND GIDDINESS 12/03/2017 BLISS VU W 780.97 ALTERED MENTAL STATUS 12/03/2017 LESLIE BLISSHEL W 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 12/03/2017 BLISS VU W R41.82 ALTERED MENTAL STATUS, UNSPECIFIED 12/03/2017 BLISS, VU W R42 DIZZINESS AND GIDDINESS 12/03/2017 BLISS, VU W 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 12/03/2017 BLISS VU W 780.4 DIZZINESS AND GIDDINESS 12/03/2017 BLISS, VU W 780.97 ALTERED MENTAL STATUS 12/03/2017 BLISS VU W 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 12/03/2017 VU BLISS W R41.82 ALTERED MENTAL STATUS, UNSPECIFIED 12/03/2017 VU BLISS W R42 DIZZINESS AND GIDDINESS 12/06/2017 ERICKSON BYRNE W 244.9 UNSPECIFIED HYPOTHYROIDISM 12/06/2017 CHAVEZ, ERICKSON W 272.4 OTHER AND UNSPECIFIED HYPERLIPIDEMIA 12/06/2017 ERICKSON BYRNE W 401.0 MALIGNANT ESSENTIAL HYPERTENSION 12/06/2017 CHAVEZ ERICKSON A 780.2 12/06/2017 CHAVEZ, ERICKSON W 780.4 12/06/2017 CHAVEZ, ERICKSON W 784.0 HEADACHE 12/06/2017 CHAVEZ, ERICKSON W E03.9 HYPOTHYROIDISM, UNSPECIFIED 12/06/2017 CHAVEZ, ERICKSON W E78.5 HYPERLIPIDEMIA, UNSPECIFIED 12/06/2017 CHAVEZ, ERICKSON W I10 ESSENTIAL (PRIMARY) HYPERTENSION 12/06/2017 ERICKSON BYRNE W R42 DIZZINESS AND GIDDINESS 12/06/2017 CHAVEZ ERICKSON W R51 HEADACHE 12/06/2017 CHAVEZ ERICKSON A R55 SYNCOPE AND COLLAPSE 03/09/2018 NIMA [...] SYNCOPE AND COLLAPSE 03/09/2018 NIMA ORR FACC, EVERARDO FACP CCDS Ot 786.59 CHEST PAIN NEC 03/09/2018 NIMA ORR FACC, EVERARDO FACP CCDS Ot V15.82 HISTORY OF TOBACCO USE 03/09/2018 NIMA ORR FACC, EVERARDO FACP CCDS [...] LUMP IN BREAST 03/09/2018 NIMA ORR FACC, EVERARDO FACP CCDS Ot E78.5 HYPERLIPIDEMIA, UNSPECIFIED 03/09/2018 NIMA ORR FACC, ALI FACP CCDS Ot I25.10 ATHSCL HEART DISEASE OF [place] CORONARY 03/09/2018 NIMA ORR FACC, EVERARDO FACP CCDS Ot R00.2 PALPITATIONS 03/09/2018 NIMA ORR FACC, EVERARDO FACP CCDS Ot Z45.09 ENCOUNTER FOR ADJUSTMENT AND MANAGEMENT 03/09/2018 NIMA ORR FACC, ALI FACP CCDS Ot Z87.891 PERSONAL HISTORY OF NICOTINE DEPENDENCE 03/09/2018 NIMA ORR FACC, ALI FACP CCDS Ot Z98.84 BARIATRIC SURGERY STATUS 03/09/2018 MIGUELITO BRISENO DO Ot N63 UNSPECIFIED LUMP IN BREAST 03/09/2018 YANCY GUZMAN APRN Ot E78.00 PURE HYPERCHOLESTEROLEMIA, UNSPECIFIED 03/09/2018 YANCY GUZMAN CAT DOG OR OTHER PET GROOMER Ot G43.809 OTHER MIGRAINE, NOT INTRACTABLE, WITHOUT 03/09/2018 YANCY GUZMAN CAT DOG OR OTHER PET GROOMER Ot G47.30 SLEEP APNEA, UNSPECIFIED 03/09/2018 YANCY GUZMAN APRN Ot I10 ESSENTIAL (PRIMARY) HYPERTENSION 03/09/2018 YANCY GUZMAN APRN Ot R20.2 PARESTHESIA OF SKIN 03/09/2018 YANCY GUZMAN APRN Ot R51 HEADACHE 03/09/2018 YANCY GUZMAN APRN [...] ALLERGY STATUS TO OTH DRUG/MEDS/BIOL SUB 04/30/2018 ERICKSON VARGAS R Ot 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, VERTEBRAE 05/10/2018 ERICKSON VARGAS R Ot 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, VERTEBRAE 07/24/2018 Lea Powell 719.42 PAIN IN JOINT INVOLVING UPPER ARM 07/24/2018 Lea Powell 780.79 OTHER MALAISE AND FATIGUE 07/24/2018 Lea Powell 989.5 TOXIC EFFECT OF VENOM 07/24/2018 Lea Powell M25.529 PAIN IN UNSPECIFIED ELBOW 07/24/2018 Lea Powell R53.83 OTHER FATIGUE 07/24/2018 Lea Powell S60.229 CONTUSION OF UNSPECIFIED HAND 02/11/2019 LESLIE BLISSHEL W 244.9 UNSPECIFIED HYPOTHYROIDISM 02/11/2019 LESLIE BLISSHEL W 401.0 MALIGNANT ESSENTIAL HYPERTENSION 02/11/2019 BLISSVU CARDOSO W 414.01 CORONARY ATHEROSCLEROSIS OF [place] CORONARY ARTERY 02/11/2019 LESLIE BLISSHEL W E03.9 HYPOTHYROIDISM, UNSPECIFIED 02/11/2019 VU BLISS W I10 ESSENTIAL (PRIMARY) HYPERTENSION 02/11/2019 BLISSVU CARDOSO W I25.10 ATHEROSCLEROTIC HEART DISEASE OF [place] CORONARY ARTERY WITHOUT ANGINA PECTORIS 02/11/2019 BLISS VU W 244.9 UNSPECIFIED HYPOTHYROIDISM 02/11/2019 BLISS VU W 272.4 OTHER AND UNSPECIFIED HYPERLIPIDEMIA 02/11/2019 BLISS, VU W 401.0 MALIGNANT ESSENTIAL HYPERTENSION 02/11/2019 BLISSVU CARDOSO W 414.01 CORONARY ATHEROSCLEROSIS OF [place] CORONARY ARTERY 02/11/2019 BLISS, VU W E03.9 HYPOTHYROIDISM, UNSPECIFIED 02/11/2019 VU BLISS W E78.5 HYPERLIPIDEMIA, UNSPECIFIED 02/11/2019 VU BLISS W I10 ESSENTIAL (PRIMARY) HYPERTENSION 02/11/2019 VU BLISS W I25.10 ATHEROSCLEROTIC HEART DISEASE OF [place] CORONARY ARTERY WITHOUT ANGINA PECTORIS 02/11/2019 VU BLISS V45.86 BARIATRIC SURGERY STATUS 02/11/2019 VU BLISS Z98.84 BARIATRIC SURGERY STATUS 02/11/2019 BLISS, VU W 244.9 UNSPECIFIED HYPOTHYROIDISM 02/11/2019 BLISS, VU W 272.4 OTHER AND UNSPECIFIED HYPERLIPIDEMIA 02/11/2019 VU BLISS W 401.0 MALIGNANT ESSENTIAL HYPERTENSION 02/11/2019 VU BLISS W 414.01 CORONARY ATHEROSCLEROSIS OF [place] CORONARY ARTERY 02/11/2019 BLISS, VU W E03.9 HYPOTHYROIDISM, UNSPECIFIED 02/11/2019 VU BLISS E78.5 HYPERLIPIDEMIA, UNSPECIFIED 02/11/2019 VU BLISS W I10 ESSENTIAL (PRIMARY) HYPERTENSION 02/11/2019 VU BLISS W I25.10 ATHEROSCLEROTIC HEART DISEASE OF [place] CORONARY ARTERY WITHOUT ANGINA PECTORIS 02/11/2019 VU BLISS V45.86 BARIATRIC SURGERY STATUS 02/11/2019 VU BLISS Z98.84 BARIATRIC SURGERY STATUS Procedures Code Description [place] [address] ROUTINE VENIPUNCTURE 03/27/2014 22264 EKG, TRACING (IN-HOUSE) 03/27/2014 95456 CBC 03/27/2014 89792 CMP 03/27/2014 20320 LIPID PANEL 03/27/2014 97887 MAGNESIUM 03/27/2014 [id number] GFR CALC (RESULT ONLY) 03/27/2014 93315 PSA TOTAL 03/27/2014 81919 TSH 03/27/2014 33845 HEMOCCULT 03/31/2014 45285 HEMOCCULT 03/31/2014 CARDIOLOG SHELLY WILKERSON 04/01/2014 26192 ROUTINE VENIPUNCTURE 04/22/2014 27353 A1C (IN-HOUSE) 04/22/2014 35361 SED/ESR RATE (IN HOUSE) 04/22/2014 05906 URIC ACID 04/22/2014 18768 CRP 04/22/2014 98351 PULMONARY FUNCTION TEST (IN-HOUSE) 04/23/2014 64237 PULMONARY EDUCATION 04/23/2014 ANAANA GABRIELA ANALYZER (SCREEN) 04/23/2014 07661 RA FACTOR 04/23/2014 77399 CBC 04/29/2014 00208 OXIMETRY - OVERNIGHT 04/29/2014 81650 SLEEP STUDY (HOME) 05/06/2014 12190 PULMONARY FUNCTION TEST (IN-HOUSE) 05/09/2014 59208 RESPIRATORY FLOW VOLUME LOOP 05/09/2014 Results Test [...] 6.4 g/dL 6.0-8.3 Thyroid Stimulating Hormone - 11/22/16 14:45 TSH 0.00 mIU/mL 0.32-5.00 Free T4 [...] 32.9 g/dL 32.0-36.0 MCV 92.4 fL 80.0-97.0 [place]% 8.5 % 0.0-12.0 MPV 9.1 fL 7.4-10.0 Elaine% 55.7 % 37.0-80.0 Plt 189 K/uL 150-400 RBC 4.71 M/uL 4.20-5.40 RDW 12.6 % 11.6-14.8 WBC 8.32 K/uL 5.00-10.00 Elaine 4.63 K/uL 2.00-6.90 [place] 0.7 K/uL 0.0-0.9 Baso 0.0 K/uL 0.0-0.2 [...] 33.6 g/dL 32.0-36.0 MCV 93.8 fL 80.0-97.0 [place]% 12.9 % 0.0-12.0 MPV 8.3 fL 7.4-10.0 [place]% 81.4 % 37.0-80.0 Plt 177 K/uL 150-400 RBC 4.70 M/uL 4.20-5.40 RDW 11.9 % 11.6-14.8 WBC 11.42 K/uL 5.00-10.00 Elaine 9.30 K/uL 2.00-6.90 [place] 1.5 K/uL 0.0-0.9 Baso 0.0 K/uL 0.0-0.2 [...] 5-8.5 Urine-Protein Negative Negative Urine-RBC Negative Urine-Specific [place] 1.020 1.000-1.030 Urine-WBC Nothing Seen on Microscopic [...] - 04/12/19 09:10 Surg Path Sent to [facility] Pathology Complete blood count (CBC) with automated white blood cell (WBC) differential - 04/29/19 14:04 Blood leukocytes automated count (number/volume) 6.3 10*3/uL 4.3-11.0 Blood erythrocytes automated count (number/volume) 4.56 10*6/uL 4.35-5.85 Venous blood hemoglobin measurement (mass/volume) 14.4 g/dL 13.3-17.7 Blood hematocrit (volume fraction) 42 % 40-54 Automated erythrocyte mean corpuscular volume 91 [foz_us] 80-99 Automated erythrocyte mean corpuscular hemoglobin (mass per erythrocyte) 32 pg 25-34 Automated erythrocyte mean corpuscular hemoglobin concentration measurement (mass/volume) 35 g/dL 32-36 Automated erythrocyte distribution width ratio 12.1 % 10.0- 14.5 Automated blood platelet count (count/volume) 198 10*3/uL 130-400 Automated blood platelet mean volume measurement 8.4 [foz_us] 7.4-10.4 Automated blood neutrophils/100 leukocytes 49 % 42-75 Automated blood lymphocytes/100 leukocytes 43 % 12-44 Blood monocytes/100 leukocytes 8 % 0-12 Automated blood eosinophils/100 leukocytes 1 % 0-10 Automated blood basophils/100 leukocytes 0 % 0-10 Blood neutrophils automated count (number/volume) 3.0 10*3 1.8-7.8 Blood lymphocytes automated count (number/volume) 2.7 10*3 1.0-4.0 Blood monocytes automated count (number/volume) 0.5 10*3 0.0- 1.0 Automated eosinophil count 0.0 10*3/uL 0.0-0.3 Automated blood basophil count (count/volume) 0.0 10*3/uL 0.0-0.1 Magnesium - 04/29/19 14:04 Magnesium 2.4 mg/dL 1.8-2.4 PT panel in platelet poor plasma by coagulation assay - 04/29/19 14:04 Prothrombin time (PT) in platelet poor plasma by coagulation assay 12.5 s 12.2-14.7 INR in platelet poor plasma or blood by coagulation assay 0.9 0.8-1.4 Activated partial thromboplastin time (aPTT) in platelet poor plasma bycoagulation assay - 04/29/19 14:04 Activated partial thromboplastin time (aPTT) in platelet poor plasma bycoagulation assay 24 s 24-35 Comprehensive metabolic panel - 04/29/19 14:04 Serum or plasma sodium measurement (moles/volume) 140 mmol/L 135-145 Serum or plasma potassium measurement (moles/volume) 3.1 mmol/L 3.6-5.0 Serum or plasma chloride measurement (moles/volume) 105 mmol/L 98-107 Carbon dioxide 24 mmol/L 21-32 Serum or plasma anion gap determination (moles/volume) 11 mmol/L 5-14 Serum or plasma urea nitrogen measurement (mass/volume) 7 mg/dL 7-18 Serum or plasma creatinine measurement (mass/volume) 0.96 mg/dL 0.60-1.30 Serum or plasma urea nitrogen/creatinine mass ratio 7 NRG Serum or plasma creatinine measurement with calculation of estimated glomerular filtration rate > NRG Serum or plasma glucose measurement (mass/volume) 99 mg/dL 70-105 Serum or plasma calcium measurement (mass/volume) 9.6 mg/dL 8.5-10.1 Serum or plasma total bilirubin measurement (mass/volume) 0.4 mg/dL 0.1-1.0 Serum or plasma alkaline phosphatase measurement (enzymatic activity/volume) 83 U/L 40-136 Serum or plasma aspartate aminotransferase measurement (enzymatic activity/volume) 20 U/L 5-34 Serum or plasma alanine aminotransferase measurement (enzymatic activity/volume) 20 U/L 0-55 Serum or plasma protein measurement (mass/volume) 6.7 g/dL 6.4-8.2 Serum or plasma albumin measurement (mass/volume) 4.5 g/dL 3.2-4.5 CALCIUM CORRECTED 9.2 mg/dL 8.5-10.1 Serum or plasma troponin i.cardiac measurement (mass/volume) - 04/29/19 14:04 Serum or plasma troponin i.cardiac measurement (mass/volume) < ng/mL <0.028 Myoglobin, serum - 04/29/19 14:04 Myoglobin, serum 83.6 ng/mL 10.0-92.0 Blood lactic acid measurement (moles/volume) - 04/29/19 14:04 Blood lactic acid measurement (moles/volume) 2.14 mmol/L 0.50- 2.00 Serum or plasma ethanol measurement (mass/volume) - 04/29/19 14:04 Serum or plasma ethanol measurement (mass/volume) < mg/dL <10 THYROID STIMULATING HORMONE - 04/29/19 14:11 THYROID STIMULATING HORMONE 0.69 u[iU]/mL 0.35-4.94 Serum or plasma thyroxine (T4) free measurement (mass/volume) - 04/29/19 14:11 Serum or plasma thyroxine (T4) free measurement (mass/volume) 0.90 ng/dL 0.70-1.48 Serum or plasma lactate measurement (moles/volume) - 04/29/19 14:13 Serum or plasma lactate measurement (moles/volume) 1.43 mmol/L 0.50-2.00 Complete urinalysis with reflex to culture - 04/29/19 16:40 Urine color determination YELLOW NRG Urine clarity [...] NRG Complete urinalysis with reflex to culture CULTURE PENDING NRG Amorphous sediment detection in urine sediment by light microscopy LARGE GUILHERME PHOSPHATE NRG Urine drug screening test - 04/29/19 16:40 Urine phencyclidine detection by screening method NEGATIVE NEGATIVE Urine benzodiazepines detection by screening method NEGATIVE NEGATIVE Urine cocaine detection NEGATIVE NEGATIVE Urine amphetamines detection by screening method NEGATIVE NEGATIVE Urine methamphetamine detection by screening method NEGATIVE NEGATIVE Urine cannabinoids detection by screening method NEGATIVE NEGATIVE Urine opiates detection by screening method NEGATIVE NEGATIVE Urine barbiturates detection NEGATIVE NEGATIVE Screening urine tricyclic antidepressants detection NEGATIVE NEGATIVE Urine methadone detection by screening method NEGATIVE NEGATIVE Urine oxycodone detection NEGATIVE NEGATIVE Urine propoxyphene detection NEGATIVE NEGATIVE Encounters ACCT No. Visit Date/Time Discharge Status Pt. Type Provider Facility Loc./Unit Complaint [id number] 04/03/2019 00:06:00 Document Registration [id number] 04/24/2018 08:21:00 05/28/2018 10:35:00 DIS Outpatient ERICKSON VARGAS [facility] REHAB LUE WEAKNESS;CERVICAL OSTEOPHYTES [id number] 03/09/2018 10:04:00 03/09/2018 13:26:00 DIS Emergency YANCY GUZMAN APRN [facility] ER LEFT SIDE OF BODY NUMB,SPEECH ISSUES [id number] 05/31/2017 12:19:00 05/31/2017 14:57:00 DIS Emergency ОЛЬГА MENEZES [facility] ER POSS KIDNEY STONES/PAIN [id number] 12/28/2016 07:22:00 12/28/2016 23:59:59 CLS Outpatient MIGUELITO BRISENO DO [facility] RAD BILATERAL BREAST NODULES [id number] 12/27/2016 07:22:00 12/27/2016 23:59:59 CLS Outpatient MIGUELITO BRISENO DO [facility] RAD BILATERAL BREAST NODULES [id number] 12/20/2016 10:32:00 12/20/2016 23:59:59 CLS Outpatient NIMA ORR FACC, EVERARDO SHOEMAKER CCDS [facility] CATH END OF LIFE LOOP RECORDER [id number] 12/07/2016 10:36:00 12/07/2016 23:59:59 CLS Outpatient MIGUELITO BRISENO DO [facility] RAD BILATERAL BREAST NODULES [id number] 12/08/2015 09:03:00 12/08/2015 23:59:59 CLS Outpatient [facility] - [place] CARD EPIGASTRIC PAIN [id number] 05/05/2015 09:34:00 05/05/2015 23:59:59 CLS Outpatient JAYDEN JACOBSEN MD [facility] [place] LAB SEIZURE ON DEPAKOTE [id number] 04/24/2015 09:22:00 04/24/2015 23:59:59 CLS Outpatient JAYDEN JACOBSEN MD [facility] [place] RT SEIZURES [id number] 03/24/2015 08:49:00 03/24/2015 23:59:59 CLS Outpatient EVERARDO HERRING MD, FACC, FACP CCDS [facility] [place] CARD DIZZINESS SYNCOPE CHEST TIGHTNESS [id number] 03/19/2015 18:52:00 03/20/2015 19:00:00 DIS Inpatient CHILANGO SHARP DO [facility] [place] CSD CP,SYNCOE,MONIQUE,L FACIAL NUMBNESS,SOA [id number] 11/28/2014 11:02:00 12/02/2014 12:35:00 DIS Inpatient KYARA ORR, CARLOS Jimenez [facility] [place] SURGICAL SMALL BOWEL OBSTRUCTION [id number] 05/12/2014 11:31:00 05/12/2014 23:59:59 CLS Outpatient EVERARDO HERRING MD, FACC, FACP CCDS [facility] [place] CARD HLP,CP,CAD, [id number] 04/22/2014 09:27:00 04/22/2014 11:10:00 DIS Emergency DEBORA DELGADO DO Samantha [facility] [place] ER BLURRED VISION,SOA [id number] 04/17/2014 13:34:00 04/17/2014 23:59:59 CLS Outpatient NIMA ORR FACC, EVERARDO SHOEMAKER CCDS [facility] [place] RAD HLP,CP,CAD,CLAUDICATION [id number] 03/31/2014 21:00:00 04/02/2014 11:45:00 DIS Inpatient MEDINA ORR, SAMANTHA Sánchez [facility] [place] CSD CHEST PAIN [id number] 05/12/2013 16:38:00 05/12/2013 23:59:59 CLS Outpatient [id number] 04/29/2019 18:39:00 ACT Inpatient TALI ARANA MD [facility] [place] 4TH SYNCOPE,HYPOXIA,HYPOKALEMIA [id number] 07/18/2010 22:50:00 Document Registration [id number] 04/12/2019 07:14:00 04/12/2019 10:03:00 DIS Outpatient Miguelito Briseno [id number] 04/08/2019 08:54:00 04/08/2019 23:59:00 DIS Outpatient Miguelito Briseno [id number] 04/02/2019 10:54:00 04/02/2019 23:59:00 DIS Outpatient VU BLISS [id number] 02/11/2019 10:07:00 02/11/2019 23:59:00 DIS Outpatient VU BLISS [id number] 07/24/2018 11:37:00 07/24/2018 23:59:00 DIS Outpatient Lea Powell [id number] 12/07/2017 15:35:00 12/07/2017 23:59:00 DIS Outpatient VU BLISS [id number] 12/06/2017 12:01:00 12/06/2017 14:15:00 DIS Outpatient [facility] [id number] 12/03/2017 07:05:00 12/03/2017 23:59:00 DIS Outpatient VU BLISS [id number] 11/29/2017 11:20:00 11/29/2017 23:59:00 DIS Outpatient VU BLISS [id number] 06/27/2017 17:36:00 06/27/2017 23:59:00 DIS Outpatient VU BLISS [id number] 05/17/2017 17:00:00 05/17/2017 23:59:00 DIS Outpatient VU BLISS [id number] 03/28/2017 17:00:00 03/28/2017 23:59:00 DIS Outpatient VU BLISS [id number] 01/10/2017 15:10:00 01/10/2017 23:59:00 DIS Outpatient VU BLISS [id number] 11/11/2016 10:42:00 11/11/2016 23:59:00 DIS Outpatient VU BLISS [id number] 11/10/2016 11:02:00 11/10/2016 23:59:00 DIS Outpatient VU BLISS [id number] 10/18/2016 14:41:00 10/18/2016 23:59:00 DIS Outpatient VU BLISS [id number] 04/26/2019 11:57:52 Document Registration [id number] 12/06/2017 12:13:13 Document Registration [id number] 08/16/2016 06:58:00 Document Registration [id number] 12/15/2014 13:53:00 12/15/2014 23:59:59 CLS Outpatient DAVEY DO, TIFFANY Samantha [id number] 12/09/2014 13:36:00 12/09/2014 23:59:59 CLS Outpatient DAVEY DOTIFFANY [id number] 05/09/2014 16:00:00 05/09/2014 23:59:59 CLS Outpatient DAVEY DO, TIFFANY Samantha [id number] 05/06/2014 13:23:00 05/06/2014 23:59:59 CLS Outpatient DAVEY DOTIFFANY [id number] 04/30/2014 05:36:00 04/30/2014 23:59:59 CLS Outpatient SAMANTHA HANEY MD [id number] 04/29/2014 15:30:00 04/29/2014 23:59:59 CLS Outpatient JINAKassandra JUWAN GÓMEZ Kassandra [id number] 04/22/2014 13:18:00 04/22/2014 23:59:59 CLS Outpatient DAVEY DO, TIFFANY Samantha [id number] 04/14/2014 12:45:00 04/14/2014 23:59:59 CLS Outpatient DAVEY DO, TIFFANY Samantha [id number] 03/31/2014 17:27:00 03/31/2014 23:59:59 CLS Outpatient DAVEY DO, TIFFANY Samantha [id number] 03/27/2014 08:50:00 03/27/2014 23:59:59 CLS Outpatient DAVEY DO, TIFFANY Samantha [id number] 04/12/2019 07:14:00 Document Registration
[2019-04-30 00:36] VITALS: BP 120/69
[2019-04-30 03:23] VITALS: BP 112/71
[2019-04-30 06:22] LABS: BASOPHILS % (AUTO) 0 % (0-10); EOSINOPHILS # (AUTO) 0.1 10^3/uL (0.0-0.3); EOSINOPHILS % (AUTO) 2 % (0-10); HEMATOCRIT 38 % (40-54); HEMOGLOBIN 12.6 G/DL (13.3-17.7); LYMPHOCYTES # (AUTO) 1.8 X 10^3 (1.0-4.0); LYMPHOCYTES % (AUTO) 37 % (12-44); MEAN CORPUSCULAR HEMOGLOBIN 31 PG (25-34); MEAN CORPUSCULAR HGB CONC 33 G/DL (32-36); MEAN CORPUSCULAR VOLUME 94 FL (80-99); MONOCYTES # (AUTO) 0.5 X 10^3 (0.0-1.0); MONOCYTES % (AUTO) 10 % (0-12); NEUTROPHILS # (AUTO) 2.5 X 10^3 (1.8-7.8); NEUTROPHILS % (AUTO) 51 % (42-75); PLATELET COUNT 182 10^3/uL (130-400); RED CELL DISTRIBUTION WIDTH 12.4 % (10.0-14.5); WHITE BLOOD COUNT 4.9 10^3/uL (4.3-11.0)
[2019-04-30] MEDS ORDERED: LEVOTHYROXINE 75 MCG (LEVOTHROID) TABLET PO SCH (06:30)
[2019-04-30 06:43] LABS: ALANINE AMINOTRANSFERASE 15 U/L (0-55); ALBUMIN 3.6 GM/DL (3.2-4.5); ALKALINE PHOSPHATASE 70 U/L (40-136); BILIRUBIN,TOTAL 0.3 MG/DL (0.1-1.0); BUN/CREATININE RATIO 6; CALCIUM 8.8 MG/DL (8.5-10.1); CARBON DIOXIDE 23 MMOL/L (21-32); CHLORIDE 111 MMOL/L (98-107); CHOLESTEROL 146 MG/DL (< 200); CREATININE SERUM 0.78 MG/DL (0.60-1.30); GFR ESTIMATED > 60; GLUCOSE 91 MG/DL (70-105); HDL CHOLESTEROL 34 MG/DL (40-60); POTASSIUM 4.1 MMOL/L (3.6-5.0); SODIUM 142 MMOL/L (135-145); TOTAL PROTEIN 5.4 GM/DL (6.4-8.2); TRIGLYCERIDES 127 MG/DL (<150); VLDL CHOLESTEROL 25 MG/DL (5-40)
[2019-04-30 08:00] VITALS: BP 128/79
[2019-04-30] MEDS ORDERED: NS IV 1000 ML 1,000 ML IV SCH (08:15)
--- NOTE | 2019-04-30 08:20 | Consultation-Cardiology ---
HPI-Cardiology Cardiology Consultation Date of Consultation 04/30/19 Date of Admission Time Seen by Provider: 08:14 Indication: syncope HPI 48 years old gentleman with history of syncope in the remote past no recent syncopal episode until yesterday. He had a bariatric surgery done about 3 years ago and lost significant amount of weight. For the past few months he has been having increasing dysphagia and difficulty swallowing started with solid food progress to any food at this time. Had poor oral intake. Has been complaining of generalized weakness and loss of energy, yesterday had a syncopal episode at work weakness became extremely lethargic and in and out of consciousness. Denied any chest pain or palpitation. No shortness of breath. Currently fe eling better but still having generalized weakness and loss of energy. Home Medications & Allergies Allergies: Coded Allergies: rofecoxib (Unverified Allergy, Intermediate, 07/18/10) bisacodyl (Unverified Allergy, Mild, 07/18/10) acetaminophen (Verified Allergy, Unknown, 04/29/19) oxycodone (Verified Allergy, Unknown, 04/29/19) Home Medication List Reviewed: Yes VWP-Efztgx-Kwzbeu Hx Patient Social History Marital Status: single Employed/Student: employed Alcohol Use: Denies Use Recreational Drug Use: No Smoking Status: Former Smoker Recent Foreign Travel: No Recent Infectious Disease Expo: No Recent Hopitalizations: No Immunizations Up To Date Date of Pneumonia Vaccine: Nov 27, 2011 Date of Influenza Vaccine: Aug 27, 2018 Past Medical History discussed below Family Medical History Significant Family History: Heart Disease, Diabetes Family History: Arthritis 19 MOTHER Diabetes mellitus 19 MOTHER FH: non-Hodgkin's lymphoma 19 MOTHER Hypertension 19 MOTHER Review of Systems-General Review of Systems Constitutional: see HPI, chills, malaise EENTM: see HPI, no symptoms reported Respiratory: see HPI; No cough, No dyspnea on exertion, No hemoptysis, No o rthopnea, No phlegm, No short of breath, No stridor, No wheezing, No other Cardiovascular: see HPI; No chest pain, No edema, No Hx of Intervention, No palpitations; syncope; No vascular heart diseas, No other Gastrointestinal: no symptoms reported, see HPI Genitourinary: no symptoms reported, see HPI Musculoskeletal: no symptoms reported, see HPI Skin: no symptoms reported, other (multiple subcutaneous lesion that has been investigated) Psychiatric/Neurological: See HPI Reviewed Test Results Reviewed Test Results Lab Laboratory Tests Test 04/29/19 14:04 04/29/19 14:11 04/29/19 14:13 04/29/19 16:40 Range/Units White Blood Count 6.3 4.3-11.0 10^3/uL Red Blood Count 4.56 4.35-5.85 10^6/uL Hemoglobin 14.4 13.3-17.7 G/DL Hematocrit 42 40-54 % Mean Corpuscular Volume 91 80-99 FL Mean Corpuscular Hemoglobin 32 25-34 PG Mean Corpuscular Hemoglobin Concent 35 32-36 G/DL Red Cell Distribution Width 12.1 10.0-14.5 % Platelet Count 198 130-400 10^3/uL Mean Platelet Volume 8.4 7.4-10.4 FL Neutrophils (%) (Auto) 49 42-75 % Lymphocytes (%) (Auto) 43 12-44 % Monocytes (%) (Auto) 8 0-12 % Eosinophils (%) (Auto) 1 0-10 % Basophils (%) (Auto) 0 0-10 % Neutrophils # (Auto) 3.0 1.8-7.8 X 10^3 Lymphocytes # (Auto) 2.7 1.0-4.0 X 10^3 Monocytes # (Auto) 0.5 0.0-1.0 X 10^3 Eosinophils # (Auto) 0.0 0.0-0.3 10^3/uL Basophils # (Auto) 0.0 0.0-0.1 10^3/uL Prothrombin Time 12.5 12.2-14.7 SEC INR Comment 0.9 0.8-1.4 Activated Partial Thromboplast Time 24 24-35 SEC Sodium Level 140 135-145 MMOL/L Potassium Level 3.1 L 3.6-5.0 MMOL/L Chloride Level 105 98-107 MMOL/L Carbon Dioxide Level 24 21-32 MMOL/L Anion Gap 11 5-14 MMOL/L Blood Urea Nitrogen 7 7-18 MG/DL Creatinine 0.96 0.60-1.30 MG/DL Estimat Glomerular Filtration Rate > 60 BUN/Creatinine Ratio 7 Glucose Level 99 70-105 MG/DL Lactic Acid Level 2.14 *H 1.43 0.50-2.00 MMOL/L Calcium Level 9.6 8.5-10.1 MG/DL Corrected Calcium 9.2 8.5-10.1 MG/DL Magnesium Level 2.4 1.8-2.4 MG/DL Total Bilirubin 0.4 0.1-1.0 MG/DL Aspartate Amino Transf (AST/SGOT) 20 5-34 U/L Alanine Aminotransferase (ALT/SGPT) 20 0-55 U/L Alkaline Phosphatase 83 40-136 U/L Myoglobin 83.6 10.0-92.0 NG/ML Troponin I < 0.028 <0.028 NG/ML Total Protein 6.7 6.4-8.2 GM/DL Albumin 4.5 3.2-4.5 GM/DL Serum Alcohol < 10 <10 MG/DL Thyroid Stimulating Hormone (TSH) 0.69 0.35-4.94 UIU/ML Free Thyroxine 0.90 0.70-1.48 NG/DL Urine Color YELLOW Urine Clarity CLEAR Urine pH 8 5-9 Urine Specific Wade 1.010 L 1.016-1.022 Urine Protein NEGATIVE NEGATIVE Urine Glucose (UA) NEGATIVE NEGATIVE Urine Ketones NEGATIVE NEGATIVE Urine Nitrite NEGATIVE NEGATIVE Urine Bilirubin NEGATIVE NEGATIVE Urine Urobilinogen NORMAL NORMAL MG/DL Urine Leukocyte Esterase NEGATIVE NEGATIVE Urine RBC (Auto) NEGATIVE NEGATIVE Urine RBC NONE /HPF Urine WBC NONE /HPF Urine Crystals PRESENT H /LPF Urine Amorphous Sediment LARGE GUILHERME PHOSPHATE H /LPF Urine Bacteria NEGATIVE /HPF Urine Casts NONE /LPF Urine Mucus NEGATIVE /LPF Urine Culture Indicated CULTURE PENDING Urine Opiates Screen NEGATIVE NEGATIVE Urine Oxycodone Screen NEGATIVE NEGATIVE Urine Methadone Screen NEGATIVE NEGATIVE Urine Propoxyphene Screen NEGATIVE NEGATIVE Urine Barbiturates Screen NEGATIVE NEGATIVE Ur Tricyclic Antidepressants Screen NEGATIVE NEGATIVE Urine Phencyclidine Screen NEGATIVE NEGATIVE Urine Amphetamines Screen NEGATIVE NEGATIVE Urine Methamphetamines Screen NEGATIVE NEGATIVE Urine Benzodiazepines Screen NEGATIVE NEGATIVE Urine Cocaine Screen NEGATIVE NEGATIVE Urine Cannabinoids Screen NEGATIVE NEGATIVE Test 04/30/19 06:05 Range/Units White Blood Count 4.9 4.3-11.0 10^3/uL Red Blood Count 4.08 L 4.35-5.85 10^6/uL Hemoglobin 12.6 L 13.3-17.7 G/DL Hematocrit 38 L 40-54 % Mean Corpuscular Volume 94 80-99 FL Mean Corpuscular Hemoglobin 31 25-34 PG Mean Corpuscular Hemoglobin Concent 33 32-36 G/DL Red Cell Distribution Width 12.4 10.0-14.5 % Platelet Count 182 130-400 10^3/uL Mean Platelet Volume 8.0 7.4-10.4 FL Neutrophils (%) (Auto) 51 42-75 % Lymphocytes (%) (Auto) 37 12-44 % Monocytes (%) (Auto) 10 0-12 % Eosinophils (%) (Auto) 2 0-10 % Basophils (%) (Auto) 0 0-10 % Neutrophils # (Auto) 2.5 1.8-7.8 X 10^3 Lymphocytes # (Auto) 1.8 1.0-4.0 X 10^3 Monocytes # (Auto) 0.5 0.0-1.0 X 10^3 Eosinophils # (Auto) 0.1 0.0-0.3 10^3/uL Basophils # (Auto) 0.0 0.0-0.1 10^3/uL Sodium Level 142 135-145 MMOL/L Potassium Level 4.1 3.6-5.0 MMOL/L Chloride Level 111 H 98-107 MMOL/L Carbon Dioxide Level 23 21-32 MMOL/L Anion Gap 8 5-14 MMOL/L Blood Urea Nitrogen 5 L 7-18 MG/DL Creatinine 0.78 0.60-1.30 MG/DL Estimat Glomerular Filtration Rate > 60 BUN/Creatinine Ratio 6 Glucose Level 91 70-105 MG/DL Calcium Level 8.8 8.5-10.1 MG/DL Corrected Calcium 9.1 8.5-10.1 MG/DL Total Bilirubin 0.3 0.1-1.0 MG/DL Aspartate Amino Transf (AST/SGOT) 15 5-34 U/L Alanine Aminotransferase (ALT/SGPT) 15 0-55 U/L Alkaline Phosphatase 70 40-136 U/L Total Protein 5.4 L 6.4-8.2 GM/DL Albumin 3.6 3.2-4.5 GM/DL Triglycerides Level 127 <150 MG/DL Cholesterol Level 146 < 200 MG/DL LDL Cholesterol Direct 92 1-129 MG/DL VLDL Cholesterol 25 5-40 MG/DL HDL Cholesterol 34 L 40-60 MG/DL Physical Exam Physical Exam Vital Signs Vital Signs - First Documented 04/29/19 04/29/19 13:52 22:39 Temp 97.8 Pulse 75 Resp 17 B/P (MAP) 141/79 (99) Pulse Ox 96 O2 Delivery Room Air FiO2 21 Capillary Refill : Less Than 3 Seconds Height, Weight, BMI Height: 5'7.00" Weight: 206lbs. 8.0oz. 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 This improved fairly rapidly with time.) Skin: Normal Color, Warm/Dry A/P-Cardiology Admission Diagnosis Syncope Dysphagia Hypothyroidism Obesity Assessment/Plan Syncope, probably vasovagal with hypotension. Has been having poor oral intake that has been progressive. Blood pressure is better, continue on IV fluid and evaluate 2-D echocardiogram. Sinus bradycardia, asymptomatic. Monitor for now Dysphagia, has been progressive over the past few months, history of bariatric surgery with significant weight loss over 120 pounds, had extensive workup for his dysphagia with Dr. Briseno and was referred for GI evaluation Multiple subcutaneous lesions scheduled for biopsy with Dr. Briseno Generalized weakness and loss of energy due to poor caloric intake History of morbid obesity, significant weight loss. Hypothyroidism maintained on thyroid replacement Patient has history of syncope in the past, underwent extensive workup including loop recorder, tilt table test and EEG and all workup was negative in the past, no recent syncopal episode at least for the past 3-4 years. After receiving IV fluid if echocardiogram is normal, patient can be discharged and followed as an outpatient Clinical Quality Measures DVT/VTE Risk/Contraindication: Risk Factor Score Per Nursin RFS Level Per Nursing on Admit: 2=Moderate SHELLY WILKERSON MD Apr 30, 2019 08:19
[2019-04-30] MEDS: carBAMazepine 200 MG (TEGretol) TAB PO SCH (08:51)
[2019-04-30] MEDS: FAMOTIDINE 20MG/2ML IV (PEPCID) IV SCH (08:51)
[2019-04-30] MEDS ORDERED: LEVO88TA54 PO (08:53)
[2019-04-30] MEDS ORDERED: IBUP-1780 PO (08:53)
[2019-04-30] MEDS ORDERED: CALC-6 PO (09:20)
[2019-04-30] MEDS ORDERED: MULT-851 PO (09:20)
--- NOTE | 2019-04-30 09:21 | NUR ---
SPOKE WITH THE PATIENT ABOUT HIS MEDICATIONS. HE WAS ABLE TO LIST WHAT HE IS TAKING AND I VERIFIED WITH [facility]. IN ADDITION TO WHAT IS SHOWN ON THE EXT MED HX DISHA FILLED: 04-24-19 LEVOTHYROXINE 88MCG DAILY 04-24-19 EPITOL 200MG 2 TID (HE TAKES 3 BID) HE STATES HE ONLY TAKES THE IBU NEEDED AND HAS NOT BEEN TAKING IT MUCH RECENTLY. HE TAKES CALCIUM+D OTC BID AND MENS ONE A DAY DAILY.
[2019-04-30 12:00] VITALS: BP 129/73
[2019-04-30 15:45] VITALS: BP 117/69
--- NOTE | 2019-04-30 16:31 | History & Physical-Hospitalist ---
History of Present Illness HPI/Chief Complaint The patient is a 48-year-old white male who was brought to the emergency room yesterday. He had been at work at [employer] and suffered a syncopal episode. He reports that 3 years ago he had a bariatric procedure and lost approximately 100 pounds down to 220 pounds. He reports that over the last 3 months he has lost another 20-30 pounds. He has difficulty swallowing and feels that he is obstructed at times. He states that his physician Dr. peng performed an upper endoscopy about 2 months ago and found no evidence of obstruction. She has recommended that he see a visual effects editor in [place] for the purposes of motility studies. He reported that yesterday when he went to work he did not feel well. He attempted to drink a cup of coffee and felt a bit worse. He then got a second cup of coffee and felt very lightheaded. He apparently exhibited a blank stare to his coworkers and then collapsed to the ground. He was brought to the emergency room and ultimately was admitted for observation as nothing was absolutely clear and his workup. Date Seen 04/30/19 Time Seen by a Provider: 16:26 Attending Physician Brandon Arana MD PCP No,Local Physician Referring Physician Date of Admission Apr 29, 2019 at 18:39 Home Medications & Allergies Home Medications Reviewed patient Home Medication Reconciliation performed by pharmacy medication reconciliations cmm technician and/or nursing. Patients Allergies have been reviewed. Allergies Allergies Coded Allergies rofecoxib (Unverified Allergy, Intermediate, 07/18/10) bisacodyl (Unverified Allergy, Mild, 07/18/10) acetaminophen (Verified Allergy, Unknown, 04/29/19) oxycodone (Verified Allergy, Unknown, 04/29/19) Past Ttunmee-Ldgkzx-Wamyfa Hx Past Med/Social Hx: Reviewed Nursing Past Med/Soc Hx, Reviewed and Corrections made Patient Social History Marrital Status: single Employed/Student: employed Alcohol Use: Denies Use Recreational Drug Use: No Smoking Status: Former Smoker Former Smoker, Quit: Nov 27, 2006 Recent Foreign Travel: No Contact w/other who traveled: No Recent Hopitalizations: No Recent Infectious Disease Expo: No Immunizations Up To Date Date of Pneumonia Vaccine: Nov 27, 2011 Date of Influenza Vaccine: Aug 27, 2018 Seasonal Allergies Seasonal Allergies: No Past Medical History Surgeries: Abdominal, Orthopedic Cardiac: High Cholesterol, Hypertension Reproductive: No Sexually Transmitted Disease: No Genitourinary: Prostate Problems, Kidney Stones Gastrointestinal: Hiatal Hernia Musculoskeletal: Chronic Back Pain History of Blood Disorders: No Family History Arthritis 19 MOTHER Diabetes mellitus 19 MOTHER FH: non-Hodgkin's lymphoma 19 MOTHER Hypertension 19 MOTHER Heart Disease, Diabetes Review of Systems Constitutional: see HPI EENTM: no symptoms reported Respiratory: no symptoms reported Cardiovascular: no symptoms reported Gastrointestinal: see HPI, dysphagia, heartburn, loss of appetite (describes what almost seems to be the fear of eating solid food) Genitourinary: no symptoms reported Musculoskeletal: muscle weakness Skin: no symptoms reported Psychiatric/Neurological: No Symptoms Reported Physical Exam Physical Exam Vital Signs Vital Signs - First Documented 04/29/19 04/29/19 13:52 22:39 Temp 97.8 Pulse 75 Resp 17 B/P (MAP) 141/79 (99) Pulse Ox 96 O2 Delivery Room Air FiO2 21 Capillary Refill : Less Than 3 Seconds Height, Weight, BMI Height: 5'7.00" Weight: 206lbs. 8.0oz. 93.795900qg; 32.3 BMI Method:Stated General Appearance: No Apparent Distress, Anxious, Other (appears his stated age) Eyes: Bilateral Eye Normal Inspection HEENT: Normal ENT Inspection Neck: Normal Inspection Respiratory: Chest Non Tender, Lungs Clear, Normal Breath Sounds, No Accessory Muscle Use, No Respiratory Distress Cardiovascular: Regular Rate, Rhythm, No Edema, No Gallop, No JVD, No Murmur, Normal Peripheral Pulses Gastrointestinal: Normal Bowel Sounds, No Organomegaly, No Pulsatile Mass, Non Tender, Soft Back: Normal Inspection Extremity: Normal Capillary Refill, Normal Inspection, Normal Range of Motion, Non Tender, No Calf Tenderness, No Pedal Edema Neurologic/Psychiatric: Alert, Oriented x3, No Motor/Sensory Deficits, Normal Mood/Affect Skin: Normal Color, Warm/Dry Lymphatic: No Adenopathy Results Results/Procedures Labs Laboratory Tests 04/29/19 14:04 04/30/19 06:05 Patient resulted labs reviewed. Assessment/Plan Admission Diagnosis Syncopal episode. 2.dysphagia Admission Status: Observation Clinical Quality Measures DVT/VTE Risk/Contraindication: Risk Factor Score Per Nursin RFS Level Per Nursing on Admit: 2=Moderate BRANDON ARANA MD Apr 30, 2019 16:31
--- NOTE | 2019-04-30 16:35 | Discharge Inst-Simple/Standard ---
Discharge Inst-Standard Patient Instructions/Follow Up Plan of Care/Instructions/FU: Medications as listed on the discharge sequence. Reschedule the previously planned biopsy of subcutaneous nodules. Arrange/keep appointment with Brooke grocery clerk. Activity as Tolerated: Yes Discharge Diet: No Restrictions Planned Outpatient Orders/Ref. Pneu Vac Indicated: Yes TALI ARANA MD Apr 30, 2019 16:35
[2019-04-30 17:05] VITALS: BP 117/69
--- NOTE | 2019-04-30 17:05 | NUR ---
CHAITANYA VAIL demonstrates understanding of discharge instructions and accurately returns instructions upon questioning. Copy of Post-Discharge Instructions and Medication Discharge Instructions given to PATIENT. CHAITANYA VAIL is able to manage continuing needs after discharge. Patients belongings returned to [facility]. Skin dry and intact; no breakdown noted. Patient discharged from [facility] on at 1705. CHAITANYA VAIL left floor via WHEELCHAIR, accompanied by STAFF.
== END 2019-04-30 16:34 | disposition home or self-care (01) ==
LOC: EDUNIT# 13:51 → ER 13:52 → UNDOADMOB 18:39 → 4TH 18:39 → UNDODISOB 04-30 17:05
PROVIDERS: ADMIT Internal Medicine; ATTEND Internal Medicine
DX: R55 Syncope and collapse (principal); R13.10 Dysphagia, unspecified; Z98.84 Bariatric surgery status; Z88.5 Allergy status to narcotic agent; Z87.891 Personal history of nicotine dependence; E78.00 Pure hypercholesterolemia, unspecified; I10 Essential (primary) hypertension; K44.9 Diaphragmatic hernia without obstruction or gangrene; M54.9 Dorsalgia, unspecified; Z87.442 Personal history of urinary calculi; E03.9 Hypothyroidism, unspecified; E66.9 Obesity, unspecified; R00.1 Bradycardia, unspecified; L98.9 Disorder of the skin and subcutaneous tissue, unspecified; R53.1 Weakness; E87.6 Hypokalemia; R10.11 Right upper quadrant pain; Z79.899 Other long term (current) drug therapy; Z68.32 Body mass index [BMI] 32.0-32.9, adult
CPT/HCPCS: 36415; 70450; 71045; 71275; 74177; 80053; 80061; 80306; 80320; 81000; 83605; 83735; 83874; 84439; 84443; 84484; 85025; 85610; 85730; 87040; 87088; 93005; 93041; 93306; 94640; 94760; 96360; G0378

== ENCOUNTER 2019-07-28 19:21 | Emergency (ER) | payer BC ==
[~2019-07-28] VITALS: Ht 170.2 cm; Wt 90.7 kg
[~2019-07-28 19:21] MED LIST changes: +CALC-6 PO; +IBUP-1780 PO; +LEVO88TA54 PO; +MULT-851 PO
--- NOTE | 2019-07-28 19:43 | ED Neurological Problem ---
General Stated Complaint: HEADACHE Source: patient, family Exam Limitations: no limitations History of Present Illness Date Seen by Provider: Jul 28, 2019 Time Seen by Provider: 19:34 Initial Comments This 49-year-old white male presents with a plethora of symptoms that began prior to presentation emergency department. He had a headache throughout the day but then collapsed shortly prior to presentation to the emergency department. He complained of generalized weakness without lateralizing or localizing neurologic symptoms. He had been working outside with his family throughout the day when he collapsed. The patient has had similar self-limited episodes over the last month approximately 4 in number, unrelated to activity, that was worse tonight precipitating his presentation emergency department. The patient's blood sugar was 130. His blood pressure was 130/75 at the scene. The patient has had gastric sleeve surgery in the past. Patient has hypertension and elevation of his lipids. He is under the care Dr. Mima Hernandez. Allergies and Home Medications Allergies Coded Allergies: rofecoxib (Unverified Allergy, Intermediate, 07/18/10) bisacodyl (Unverified Allergy, Mild, 07/18/10) acetaminophen (Verified Allergy, Unknown, 04/29/19) oxycodone (Verified Allergy, Unknown, 04/29/19) Home Medications Calcium Carbonate/Vitamin D3 1 Each Tablet, 1 TAB PO BID, (Reported) Carbamazepine 200 Mg Tablet, 600 MG PO BID, (Reported) TAKES 3 (200MG) TABLETS Ibuprofen 800 Mg Tablet, 800 MG PO TID PRN for PAIN-MILD, (Reported) Levothyroxine Sodium 88 Mcg Tablet, 88 MCG PO DAILY, (Reported) Multivits-Minerals/FA/Lycopene 1 Each Tablet, 1 TAB PO DAILY, (Reported) Patient Home Medication List Home Medication List Reviewed: Yes Review of Systems Review of Systems Constitutional: see HPI, dizziness; No fever; malaise, weakness Eyes: Blurred Vision; Denies Pain; Photophobia Ears, Nose, Mouth, Throat: denies ear pain Respiratory: No cough Cardiovascular: No chest pain, No palpitations Gastrointestinal: No abdominal pain, No constipation, No nausea, No vomiting Genitourinary: No decreased output, No dysuria, No frequency Skin: No change in color, No rash Psychiatric/Neurological: No Symptoms Reported Endocrine: No Symptoms Reported Hematologic/Lymphatic: No Symptoms Reported Past Ajphfqr-Zrgnbp-Cohbxr Hx Past Med/Social Hx: Reviewed Nursing Past Med/Soc Hx Patient Social History Former Smoker, Quit: Nov 27, 2006 Recent Hopitalizations: No Immunizations Up To Date Date of Pneumonia Vaccine: Nov 27, 2011 Date of Influenza Vaccine: Aug 27, 2018 Seasonal Allergies Seasonal Allergies: No Past Medical History Surgeries: Yes (GASTRIC SLEEVE) Abdominal, Orthopedic Respiratory: Yes (PT. DENIES USING CPAP OR O2 AT THIS VIST. PMH SHOWED THAT HE DID USED CPAP) Asthma, Sleep Apnea Cardiac: Yes (5-6 heart caths/no stents ) High Cholesterol, Hypertension Neurological: No Reproductive Disorders: No Sexually Transmitted Disease: No Genitourinary: Yes Prostate Problems, Kidney Stones Gastrointestinal: Yes (DIFFICULTY SWALLOWING) Hiatal Hernia Musculoskeletal: Yes (HX OF BACK SURGERY) Chronic Back Pain Endocrine: No HEENT: No Cancer: No Psychosocial: Yes ("Anger issues") Integumentary: No Blood Disorders: No Family Medical History Arthritis 19 MOTHER Diabetes mellitus 19 MOTHER FH: non-Hodgkin's lymphoma 19 MOTHER Hypertension 19 MOTHER Heart Disease, Diabetes Physical Exam Vital Signs Vital Signs - First Documented 07/28/19 19:21 Temp 98.0 Pulse 78 Resp 16 B/P (MAP) 165/84 (111) Pulse Ox 98 O2 Delivery Room Air Capillary Refill : Height, Weight, BMI Height: 5'7.00" Weight: 206lbs. 8.0oz. 93.285508er; 32.3 BMI Method:Stated General Appearance: WD/WN, no apparent distress HEENT: normal ENT inspection Neck: full range of motion, supple Respiratory: lungs clear Cardiovascular: regular rate, rhythm Gastrointestinal: normal bowel sounds, non tender, soft Back: normal inspection Extremities: normal range of motion, normal inspection Neurologic/Psychiatric: no motor/sensory deficits, alert, normal mood/affect, oriented x 3 Crainal Nerves: normal hearing, normal speech Motor/Sensory: no motor deficit, no sensory deficit Skin: normal color, warm/dry Stroke NIH Stroke Scale Assessment Gaze: Normal (0), Total: Stroke Thrombolytic Exclusion Age 18 or Over: Yes Acute intenal hemorrhage: No History of CVA: No Uncontrolled Coagulation Defec: No Intracranial Hemorrhage: No Severe Hypertension: No GI or Bleed: No Subarachnoid Hemorrhage: No Intracranial Neoplasm/Aneurysm: No Oral Anticoagulants: No Surgery or Trauma: No Puncture of Non-Compressible V: No Recent CPR: No Diabetic Hemorrhagic Retinopat: No Organ Biopsy: No Recent Obstetric Delivery: No Glucose: No Significant Hepatic Dysfunctio: No NIH Stoke Scale >22: No Bacterial Endocarditis: No Pericarditis: No Improving Symptoms: No Platelets: No Progress/Results/Core Measures Results/Orders Lab Results Laboratory Tests Test 07/28/19 19:30 07/28/19 19:45 Range/Units White Blood Count 5.9 4.3-11.0 10^3/uL Red Blood Count 4.15 L 4.35-5.85 10^6/uL Hemoglobin 13.0 L 13.3-17.7 G/DL Hematocrit 40 40-54 % Mean Corpuscular Volume 36 L 80-99 FL Mean Corpuscular Hemoglobin 31 25-34 PG Mean Corpuscular Hemoglobin Concent 33 32-36 G/DL Red Cell Distribution Width 12.8 10.0-14.5 % Platelet Count 205 130-400 10^3/uL Mean Platelet Volume 8.1 7.4-10.4 FL Neutrophils (%) (Auto) 54 42-75 % Lymphocytes (%) (Auto) 36 12-44 % Monocytes (%) (Auto) 9 0-12 % Eosinophils (%) (Auto) 1 0-10 % Basophils (%) (Auto) 0 0-10 % Neutrophils # (Auto) 3.2 1.8-7.8 X 10^3 Lymphocytes # (Auto) 2.1 1.0-4.0 X 10^3 Monocytes # (Auto) 0.5 0.0-1.0 X 10^3 Eosinophils # (Auto) 0.1 0.0-0.3 10^3/uL Basophils # (Auto) 0.0 0.0-0.1 10^3/uL Sodium Level 144 135-145 MMOL/L Potassium Level 3.5 L 3.6-5.0 MMOL/L Chloride Level 105 98-107 MMOL/L Carbon Dioxide Level 26 21-32 MMOL/L Anion Gap 13 5-14 MMOL/L Blood Urea Nitrogen 24 H 7-18 MG/DL Creatinine 0.94 0.60-1.30 MG/DL Estimat Glomerular Filtration Rate > 60 BUN/Creatinine Ratio 26 Glucose Level 113 H 70-105 MG/DL Calcium Level 9.3 8.5-10.1 MG/DL Corrected Calcium 9.0 8.5-10.1 MG/DL Total Bilirubin 0.2 0.1-1.0 MG/DL Aspartate Amino Transf (AST/SGOT) 23 5-34 U/L Alanine Aminotransferase (ALT/SGPT) 18 0-55 U/L Alkaline Phosphatase 78 40-136 U/L Troponin I < 0.30 <0.30 NG/ML Total Protein 6.7 6.4-8.2 GM/DL Albumin 4.4 3.2-4.5 GM/DL Urine Color YELLOW Urine Clarity CLEAR Urine pH 6.0 5-9 Urine Specific Marshall >=1.030 1.016-1.022 Urine Protein NEGATIVE NEGATIVE Urine Glucose (UA) NEGATIVE NEGATIVE Urine Ketones NEGATIVE NEGATIVE Urine Nitrite NEGATIVE NEGATIVE Urine Bilirubin NEGATIVE NEGATIVE Urine Urobilinogen 0.2 NORMAL MG/DL Urine Leukocyte Esterase NEGATIVE NEGATIVE Urine RBC (Auto) NEGATIVE NEGATIVE Urine RBC NEG /HPF Urine WBC NEG /HPF Urine Squamous Epithelial Cells NEG /HPF Urine Crystals /LPF Urine Bacteria NEG /HPF Urine Casts NONE /LPF Urine Mucus NEGATIVE /LPF Urine Culture Indicated NO Urine Opiates Screen NEGATIVE NEGATIVE Urine Oxycodone Screen NEGATIVE NEGATIVE Urine Methadone Screen NEGATIVE NEGATIVE Urine Propoxyphene Screen NEGATIVE NEGATIVE Urine Barbiturates Screen NEGATIVE NEGATIVE Ur Tricyclic Antidepressants Screen NEGATIVE NEGATIVE Urine Phencyclidine Screen NEGATIVE NEGATIVE Urine Amphetamines Screen NEGATIVE NEGATIVE Urine Methamphetamines Screen NEGATIVE NEGATIVE Urine Benzodiazepines Screen NEGATIVE NEGATIVE Urine Cocaine Screen NEGATIVE NEGATIVE Urine Cannabinoids Screen NEGATIVE NEGATIVE My Orders Orders - BETH MORTON MD Cbc With Automated Diff (07/28/19 19:45) Comprehensive Metabolic Panel (07/28/19 19:45) Ua Culture If Indicated (07/28/19 19:45) Drug Screen Stat (Urine) (07/28/19 19:45) Ekg Tracing (07/28/19 19:45) Troponin I (07/28/19 19:45) Chest 1 View Ap/Pa Only (07/28/19 19:45) Ct Head Wo (07/28/19 19:45) Fentanyl Injection (Sublimaze Injection (07/28/19 20:15) Medications Given in ED Current Medications Medications Dose Ordered Sig/Shant Route Start Time Stop Time Status Last Admin Dose Admin Fentanyl Citrate 50 mcg ONCE ONCE IVP 07/28/19 20:15 07/28/19 20:21 DC 07/28/19 20:23 50 MCG Vital Signs/I&O 9/1/19 19:21 Temp 98.0 Pulse 78 Resp 16 B/P (MAP) 165/84 (111) Pulse Ox 98 O2 Delivery Room Air Progress Progress Note : Time: 20:40 Progress Note Patient was observed in the emergency department over the next 2 hours. He had no further untoward effects. His headache was relieved with 50 g fentanyl IV. Laboratory evaluation including CT of the head, CBC, complete metabolic panel, troponin, tox screen and urinalysis were unremarkable. I asked the patient to rest at home tomorrow and to follow up closely with his primary care physician Dr. Mima Grajeda on Monday. I invited him to return to emergency department if any further problems or questions. Departure Impression Primary Impression: Dizziness Additional Impression: Headache Qualified Codes: R51 - Headache Disposition: 01 HOME, SELF-CARE Condition: Improved Departure-Patient Inst. Decision time for Depature: 20:42 Referrals: NO,LOCAL PHYSICIAN (PCP) Primary Care Physician Patient Instructions: Dizziness, Nonvertigo, (DC), Headache, Adult Add. Discharge Instructions: Close follow-up with Dr. Mima Grajeda on Monday. Rest at home tomorrow. Return if any problems or questions. BETH MORTON MD Jul 28, 2019 19:43
[2019-07-28 19:51] LABS: EOSINOPHILS % (AUTO) 1 % (0-10); HEMATOCRIT 40 % (40-54); LYMPHOCYTES % (AUTO) 36 % (12-44); MEAN CORPUSCULAR HEMOGLOBIN 31 PG (25-34); MEAN CORPUSCULAR HGB CONC 33 G/DL (32-36); MEAN CORPUSCULAR VOLUME 36 FL (80-99); MEAN PLATELET VOLUME 8.1 FL (7.4-10.4); MONOCYTES % (AUTO) 9 % (0-12); NEUTROPHILS % (AUTO) 54 % (42-75); PLATELET COUNT 205 10^3/uL (130-400); RED CELL DISTRIBUTION WIDTH 12.8 % (10.0-14.5); WHITE BLOOD COUNT 5.9 10^3/uL (4.3-11.0)
[2019-07-28 19:52] LABS: BASOPHILS % (AUTO) 0 % (0-10); EOSINOPHILS # (AUTO) 0.1 10^3/uL (0.0-0.3); LYMPHOCYTES # (AUTO) 2.1 X 10^3 (1.0-4.0); MONOCYTES # (AUTO) 0.5 X 10^3 (0.0-1.0); NEUTROPHILS # (AUTO) 3.2 X 10^3 (1.8-7.8)
[2019-07-28 20:05] LABS: ALANINE AMINOTRANSFERASE 18 U/L (0-55); ALBUMIN 4.4 GM/DL (3.2-4.5); ALKALINE PHOSPHATASE 78 U/L (40-136); BILIRUBIN,TOTAL 0.2 MG/DL (0.1-1.0); BUN/CREATININE RATIO 26; CALCIUM 9.3 MG/DL (8.5-10.1); CARBON DIOXIDE 26 MMOL/L (21-32); CHLORIDE 105 MMOL/L (98-107); CREATININE SERUM 0.94 MG/DL (0.60-1.30); GFR ESTIMATED > 60; GLUCOSE 113 MG/DL (70-105); POTASSIUM 3.5 MMOL/L (3.6-5.0); SODIUM 144 MMOL/L (135-145); TOTAL PROTEIN 6.7 GM/DL (6.4-8.2)
[2019-07-28] MEDS ORDERED: fentaNYL INJECTION 100 MCG/2 ML AMP IVP ONE (20:15)
--- NOTE | 2019-07-28 20:28 | Diagnostic Imaging Report ---
PROCEDURE: CT head without contrast. TECHNIQUE: Multiple contiguous axial images were obtained through the brain without the use of intravenous contrast. Auto Exposure Controls were utilized during the CT exam to meet ALARA standards for radiation dose reduction. INDICATION: Dizziness. Weakness. Headache. FINDINGS: The ventricles are normal in size, shape and position. There is no acute parenchymal hemorrhage, edema or mass. There is no extra-axial mass or hemorrhage. IMPRESSION: Normal CT of the head. There is no change from 04/29/2019. Dictated by: Dictated on workstation # [id number]
[2019-07-28 20:31] LABS: CLARITY,URINE CLEAR; COLOR,URINE YELLOW; PROTEIN,URINE NEGATIVE (NEGATIVE)
[2019-07-28 20:32] LABS: BACTERIA,URINE NEG /HPF; BILIRUBIN,URINE NEGATIVE (NEGATIVE); GLUCOSE, URINE (UA) NEGATIVE (NEGATIVE); KETONES,URINE NEGATIVE (NEGATIVE); LEUKOCYTE ESTERASE ,URINE NEGATIVE (NEGATIVE); NITRITE,URINE NEGATIVE (NEGATIVE); RBC,URINE NEG /HPF; SQUAMOUS EPITHELIAL CELL,UR NEG /HPF; UROBILINOGEN,URINE 0.2 MG/DL (NORMAL); WBC,URINE NEG /HPF
[2019-07-28 20:35] LABS: AMPHETAMINE SCREEN, URINE NEGATIVE (NEGATIVE); BARBITURATE SCREEN URINE NEGATIVE (NEGATIVE); BENZODIAZEPINES SCREEN URINE NEGATIVE (NEGATIVE); CANNABINOID SCREEN, URINE NEGATIVE (NEGATIVE); COCAINE SCREEN URINE NEGATIVE (NEGATIVE); METHADONE STAT NEGATIVE (NEGATIVE); METHAMPHETAMINE SCREEN URINE S NEGATIVE (NEGATIVE); OPIATE SCREEN URINE NEGATIVE (NEGATIVE); OXYCODONE STAT NEGATIVE (NEGATIVE); PROPOXYPHENE STAT NEGATIVE (NEGATIVE); TRICYCLIC ANTIDEPRESSANTS SCRE NEGATIVE (NEGATIVE)
--- NOTE | 2019-07-28 20:41 | Diagnostic Imaging Report ---
INDICATION: Dizziness and weakness A single view of the chest shows normal heart size and vascularity. The lungs are clear. There is no effusion or pneumothorax. IMPRESSION: Normal chest. There is no change from 04/29/2019. Dictated by: Dictated on workstation # [id number]
[2019-07-28 20:47] VITALS: BP 140/71
== END 2019-07-28 20:47 | disposition home or self-care (01) ==
LOC: EDUNIT# 19:21 → ER FS 19:23
DX: R42 Dizziness and giddiness (principal); R51 Headache; I10 Essential (primary) hypertension; J45.909 Unspecified asthma, uncomplicated; G47.30 Sleep apnea, unspecified; E78.00 Pure hypercholesterolemia, unspecified; Z87.19 Personal history of other diseases of the digestive system; Z87.442 Personal history of urinary calculi; Z95.5 Presence of coronary angioplasty implant and graft; Z98.84 Bariatric surgery status; Z88.6 Allergy status to analgesic agent; Z88.5 Allergy status to narcotic agent; Z88.8 Allergy status to other drugs, medicaments and biological substances; Z87.891 Personal history of nicotine dependence; Z82.49 Family history of ischemic heart disease and other diseases of the circulatory system; Z80.7 Family history of other malignant neoplasms of lymphoid, hematopoietic and related tissues
CPT/HCPCS: 36415; 70450; 71045; 80053; 80306; 81000; 84484; 85025; 93005

== ENCOUNTER → 2019-09-10 | Outpatient (CLI) | payer BC ==
[~2019-09-10] MED LIST changes: +GADOBUTROL 10 MMOL/10 ML (GADAVIST) VIAL IV ONE
[2019-09-10 14:25] LABS: BUN/CREATININE RATIO 20; CREATININE SERUM 0.79 MG/DL (0.60-1.30); GFR ESTIMATED > 60
--- NOTE | 2019-09-10 15:21 | Diagnostic Imaging Report ---
PROCEDURE: MR imaging of the brain with and without contrast. TECHNIQUE: Multiplanar, multisequence MR imaging of the brain was performed with and without contrast. INDICATION: Dizziness and syncope. COMPARISON: Correlation is made with prior MRI of the brain from 03/09/2018. FINDINGS: No diffusion restriction is identified. The normal expected flow-voids within the carotid siphons are seen. No white matter changes are identified. The ventricular size and sulcal pattern are normal. No acute intra-axial or extra-axial hemorrhage is detected. Thin slice imaging through the IAC's was performed. The 7th and 8th nerve complexes appear to be unremarkable. No CP angle mass is detected. No abnormal enhancement is seen following contrast administration. Corpus callosum is unremarkable. The sella and parasellar structures are unremarkable. IMPRESSION: Unremarkable MRI of the brain and IACs with and without contrast. Dictated by: Dictated on workstation # [id number]
== END ==
LOC: RAD 13:53
PROVIDERS: ATTEND Otolaryngology Otolaryngology/Facial Plastic Surgery
DX: R42 Dizziness and giddiness (principal); R55 Syncope and collapse
CPT/HCPCS: 36415; 70553; 82565; 84520

== ENCOUNTER 2020-02-20 18:48 | Emergency (ER) | payer BC ==
[~2020-02-20] VITALS: Ht 170 cm; Wt 104.5 kg
[~2020-02-20 18:48] MED LIST changes: -GADOBUTROL 10 MMOL/10 ML (GADAVIST) VIAL IV ONE
[2020-02-20] MEDS ORDERED: PROMETHAZINE/ CODEINE SYRUP 5 ML UDC ONE (18:50)
--- NOTE | 2020-02-20 18:50 | NUR ---
Pt arrives via POV sent from [facility]. ED staff assisted pt via ED w/c to room #8. Pt flushed, diaphoretic, with labored breathing noted. Pt reports intermittent fever et dry cough x1 wk. Pt reports he was swabbed for COVID19 by [facility]. A&OX4.
--- NOTE | 2020-02-20 19:23 | ED Respiratory ---
General Chief Complaint: Respiratory Problems Stated Complaint: SOB, COUGH, FEVER Nursing Triage Note: cough/soa x1 week, worse after prednisone, doxycycline. flu/strep negative, covid test pending. Source: patient Exam Limitations: no limitations History of Present Illness Date Seen by Provider: Feb 20, 2020 Time Seen by Provider: 19:21 Initial Comments To ER with productive cough shortness of breath 1 week that is getting progressively worse. He was seen at [facility] had strep and flu done both of which were negative. He was then tested for COVID-19 on Monday of this week, results are not yet back. Timing/Duration: constant Severity: moderate Prior Episodes/Possible Cause: no prior episodes Associated Symptoms: cough, shortness of breath Allergies and Home Medications Allergies Coded Allergies: rofecoxib (Unverified Allergy, Intermediate, 07/18/10) bisacodyl (Unverified Allergy, Mild, 07/18/10) acetaminophen (Verified Allergy, Unknown, 04/29/19) oxycodone (Verified Allergy, Unknown, 04/29/19) Home Medications Calcium Carbonate/Vitamin D3 1 Each Tablet, 1 TAB PO BID, (Reported) Carbamazepine 200 Mg Tablet, 600 MG PO BID, (Reported) TAKES 3 (200MG) TABLETS Ibuprofen 800 Mg Tablet, 800 MG PO TID PRN for PAIN-MILD, (Reported) Levothyroxine Sodium 88 Mcg Tablet, 88 MCG PO DAILY, (Reported) Multivits-Minerals/FA/Lycopene 1 Each Tablet, 1 TAB PO DAILY, (Reported) Promethazine HCl/Codeine 5 Ml Syrup, 5 ML PO Q4H PRN for COUGH Prescribed by: YANCY GUZMAN on 02/20/201999 Patient Home Medication List Home Medication List Reviewed: Yes Review of Systems Review of Systems Constitutional: see HPI EENTM: see HPI Respiratory: see HPI, cough, short of breath Genitourinary: no symptoms reported Musculoskeletal: no symptoms reported Skin: no symptoms reported Psychiatric/Neurological: No Symptoms Reported Hematologic/Lymphatic: No Symptoms Reported Immunological/Allergic: no symptoms reported Past Fhbxlwa-Xqsxdf-Qaorvw Hx Patient Social History Alcohol Use: Denies Use Recreational Drug Use: No Smoking Status: Former Smoker Former Smoker, Quit: Nov 27, 2006 Recent Foreign Travel: No Contact w/Someone Who Travel: No Recent Infectious Disease Expo: No Recent Hopitalizations: No Immunizations Up To Date Date of Pneumonia Vaccine: Nov 27, 2011 Date of Influenza Vaccine: Aug 27, 2018 Seasonal Allergies Seasonal Allergies: No Past Medical History Surgeries: Yes (GASTRIC SLEEVE) Abdominal, Orthopedic Respiratory: Yes Asthma, Sleep Apnea Cardiac: Yes (5-6 heart caths/no stents ) High Cholesterol, Hypertension Neurological: No Reproductive Disorders: No Sexually Transmitted Disease: No Genitourinary: Yes Prostate Problems, Kidney Stones Gastrointestinal: Yes (DIFFICULTY SWALLOWING) Hiatal Hernia Musculoskeletal: Yes Chronic Back Pain Endocrine: Yes Hypothyroidsim HEENT: No Cancer: No Psychosocial: Yes ("Anger issues") Depression Integumentary: No Blood Disorders: No Family Medical History Arthritis 19 MOTHER Diabetes mellitus 19 MOTHER FH: non-Hodgkin's lymphoma 19 MOTHER Hypertension 19 MOTHER Heart Disease, Diabetes Physical Exam Vital Signs - First Documented 02/20/20 18:50 Temp 37.3 Pulse 85 Resp 12 B/P (MAP) 118/85 (96) Pulse Ox 97 O2 Delivery Room Air Capillary Refill : Less Than 3 Seconds Height: 5'7.00" Weight: 200lbs. 0oz. [id number]; 36.00 BMI Method:Stated General Appearance: WD/WN, no apparent distress, other (he is having a coughing fit but is moving good air, ) Eyes: Bilateral Eye Normal Inspection, Bilateral Eye PERRL, Bilateral Eye EOMI HEENT: PERRL/EOMI, normal ENT inspection Respiratory: no respiratory distress, no accessory muscle use Cardiovascular: regular rate, rhythm, no murmur Gastrointestinal: normal bowel sounds, non tender, soft Neurologic/Psychiatric: alert, normal mood/affect, oriented x 3 Skin: normal color, warm/dry Progress/Results/Core Measures Suspected Sepsis Recent Fever Within 48 Hours: Yes Infection Criteria Present: Documented Infection New/Unexplained Altered Menta: No Sepsis Screen: No Definite Risk SIRS Temperature: Pulse: 85 Respiratory Rate: 12 Laboratory Tests 02/20/20 18:55: White Blood Count 8.0 Blood Pressure 118 /85 Mean: 96 Laboratory Tests 02/20/20 18:55: Creatinine 1.00, Platelet Count 303, Total Bilirubin 0.2 Results/Orders Lab Results Laboratory Tests Test 02/20/20 18:55 Range/Units White Blood Count 8.0 4.3-11.0 10^3/uL Red Blood Count 4.94 4.35-5.85 10^6/uL Hemoglobin 15.7 13.3-17.7 G/DL Hematocrit 46 40-54 % Mean Corpuscular Volume 93 80-99 FL Mean Corpuscular Hemoglobin 32 25-34 PG Mean Corpuscular Hemoglobin Concent 34 32-36 G/DL Red Cell Distribution Width 12.7 10.0-14.5 % Platelet Count 303 130-400 10^3/uL Mean Platelet Volume 8.1 7.4-10.4 FL Neutrophils (%) (Auto) 79 H 42-75 % Lymphocytes (%) (Auto) 17 12-44 % Monocytes (%) (Auto) 3 0-12 % Eosinophils (%) (Auto) 0 0-10 % Basophils (%) (Auto) 0 0-10 % Neutrophils # (Auto) 6.3 1.8-7.8 X 10^3 Lymphocytes # (Auto) 1.4 1.0-4.0 X 10^3 Monocytes # (Auto) 0.3 0.0-1.0 X 10^3 Eosinophils # (Auto) 0.0 0.0-0.3 10^3/uL Basophils # (Auto) 0.0 0.0-0.1 10^3/uL Sodium Level 141 135-145 MMOL/L Potassium Level 4.1 3.6-5.0 MMOL/L Chloride Level 107 98-107 MMOL/L Carbon Dioxide Level 22 21-32 MMOL/L Anion Gap 12 5-14 MMOL/L Blood Urea Nitrogen 19 H 7-18 MG/DL Creatinine 1.00 0.60-1.30 MG/DL Estimat Glomerular Filtration Rate > 60 BUN/Creatinine Ratio 19 Glucose Level 129 H 70-105 MG/DL Calcium Level 9.6 8.5-10.1 MG/DL Corrected Calcium 8.5-10.1 MG/DL Total Bilirubin 0.2 0.1-1.0 MG/DL Aspartate Amino Transf (AST/SGOT) 38 H 5-34 U/L Alanine Aminotransferase (ALT/SGPT) 44 0-55 U/L Alkaline Phosphatase 104 40-136 U/L Troponin I < 0.028 <0.028 NG/ML C-Reactive Protein High Sensitivity 0.05 0.00-0.50 MG/DL B-Type Natriuretic Peptide 12.7 <100.0 PG/ML Total Protein 7.7 6.4-8.2 GM/DL Albumin 4.6 H 3.2-4.5 GM/DL Procalcitonin 0.03 <0.10 NG/ML My Orders Orders - YANCY GUZMAN APRN Promethazine/ Codeine Syrup (Phenergan W (02/20/20 18:50) Cbc With Automated Diff (02/20/20 19:07) Comprehensive Metabolic Panel (02/20/20 19:07) Hs C Reactive Protein (02/20/20 19:07) BNP (02/20/20 19:07) Procalcitonin (Pct) (02/20/20 19:07) Ed Iv/Invasive Line Start (02/20/20 19:07) Chest 1 View, Ap/Pa Only (02/20/20 19:07) Ekg Tracing (02/20/20 19:07) Troponin I (02/20/20 19:07) Medications Given in ED Vital Signs/I&O 02/20/20 02/20/20 18:50 21:19 Temp 37.3 37.0 Pulse 85 93 Resp 12 18 B/P (MAP) 118/85 (96) 136/78 (96) Pulse Ox 97 96 O2 Delivery Room Air Room Air Capillary Refill : Less Than 3 Seconds Blood Pressure Mean: 96 Diagnostic Imaging Diagonstic Imaging: Xray Comments NAME: [facility] REC#: [id number] PT STATUS: REG ER : 1970 PHYSICIAN: YANCY GUZMAN APRN ADMIT DATE: 02/20/20/ER Draft Date of Exam:02/20/20 CHEST 1 VIEW, AP/PA ONLY INDICATION: Shortness of air, cough. TECHNIQUE: Single view chest 7:22 PM. CORRELATION STUDY: 07/28/2019 FINDINGS: The heart size, mediastinal configuration and pulmonary vascularity are within normal limits. There is no suggestion for consolidating infiltrate, effusion or pneumothorax. There is very slight area of nodularity just below the right diaphragm. Not definitively present on the prior study. IMPRESSION: 1. Negative for acute abnormality of the chest. 2. Very slight area of nodularity at the right lung base. Likely of no significance and may be artifactual. However, short-term follow-up repeat two-view chest imaging recommended. Dictated on workstation # [id number] Dict: 02/20/201931 Trans: 02/20/201946 BEV [id number] Interpreted by: MARIO HOLLIS DO Electronically signed by: Departure Communication (Admissions) 1957-he appears very anxious on arrival, was given promethazine/codeine for cough control is now much more relaxed, oxygen saturation is never gone below 96%. Blood pressure 119/81 heart rate 86. Chest x-ray is clear. Impression Primary Impression: Bronchitis Disposition: HOME, SELF-CARE Condition: Improved Departure-Patient Inst. Decision time for Depature: 19:56 Referrals: [facility] (PCP/Family) Primary Care Physician Patient Instructions: Acute Bronchitis Add. Discharge Instructions: 1. Continue all current medications and add the cough medication that I p rescribed. Follow-up with your doctor as scheduled. Return to ER for any concerns. All discharge instructions reviewed with patient and/or family. Voiced understanding. Scripts Promethazine HCl/Codeine (Prometh-Codein 6.25-10 mg/5 ml) 5 Ml Syrup 5 ML PO Q4H PRN for COUGH, #60 ML Prov: YANCY GUZMAN [employer] 02/20/20 YANCY GUZMAN [employer] Feb 20, 2020 19:23
[2020-02-20 19:25] LABS: BASOPHILS % (AUTO) 0 % (0-10); EOSINOPHILS % (AUTO) 0 % (0-10); HEMATOCRIT 46 % (40-54); HEMOGLOBIN 15.7 G/DL (13.3-17.7); LYMPHOCYTES # (AUTO) 1.4 X 10^3 (1.0-4.0); LYMPHOCYTES % (AUTO) 17 % (12-44); MEAN CORPUSCULAR HEMOGLOBIN 32 PG (25-34); MEAN CORPUSCULAR HGB CONC 34 G/DL (32-36); MEAN CORPUSCULAR VOLUME 93 FL (80-99); MEAN PLATELET VOLUME 8.1 FL (7.4-10.4); MONOCYTES # (AUTO) 0.3 X 10^3 (0.0-1.0); MONOCYTES % (AUTO) 3 % (0-12); NEUTROPHILS # (AUTO) 6.3 X 10^3 (1.8-7.8); NEUTROPHILS % (AUTO) 79 % (42-75); PLATELET COUNT 303 10^3/uL (130-400); RED CELL DISTRIBUTION WIDTH 12.7 % (10.0-14.5)
[2020-02-20 19:40] LABS: ALANINE AMINOTRANSFERASE 44 U/L (0-55); ALBUMIN 4.6 GM/DL (3.2-4.5); ALKALINE PHOSPHATASE 104 U/L (40-136); BILIRUBIN,TOTAL 0.2 MG/DL (0.1-1.0); BUN/CREATININE RATIO 19; CALCIUM 9.6 MG/DL (8.5-10.1); CARBON DIOXIDE 22 MMOL/L (21-32); GFR ESTIMATED > 60; GLUCOSE 129 MG/DL (70-105); TOTAL PROTEIN 7.7 GM/DL (6.4-8.2)
--- NOTE | 2020-02-20 19:48 | Diagnostic Imaging Report ---
INDICATION: Shortness of air, cough. TECHNIQUE: Single view chest 7:22 PM. CORRELATION STUDY: 07/28/2019 FINDINGS: The heart size, mediastinal configuration and pulmonary vascularity are within normal limits. There is no suggestion for consolidating infiltrate, effusion or pneumothorax. There is very slight area of nodularity just below the right diaphragm. Not definitively present on the prior study. IMPRESSION: 1. Negative for acute abnormality of the chest. 2. Very slight area of nodularity at the right lung base. Likely of no significance and may be artifactual. However, short-term follow-up repeat two-view chest imaging recommended. Dictated by: Dictated on workstation # [id number]
[2020-02-20 19:55] LABS: CHLORIDE 107 MMOL/L (98-107); POTASSIUM 4.1 MMOL/L (3.6-5.0); SODIUM 141 MMOL/L (135-145)
[2020-02-20] MEDS ORDERED: PROM5SYR PO (19:59)
--- OUTSIDE RECORDS SUMMARY | 2020-02-20 20:22 | XMS REPORT | Encounter Summary ---
Author Author [facility] Organization [facility] Address Unknown Phone Unavailable Care Team Providers Care Ship Mate Name Role Phone Deshaun Jay MD PCP Channing Be MD Unavailable Unavailable Reason for Referral * Consult, Test & Treat (Routine) Referred By Contact Referred To Contact Status Reason Specialty Diagnoses / Procedures Cristhian Barba MD [address] [facility] [address] [place] [id number] [facility] Ent Cl [address] [place] [address] New Request Specialty Services Otolaryngology Diagnoses Required Encounter for hearing examination, unspecified whether abnormal findings Encounter Details Care Team Description Date Type Department Cristhian Barba MD [address] [facility] [address] [place] [id number] Encounter for hearing examination, unspe cified whether abnormal findings (Primary Dx) 12/12/2019 Orders Only [facility] [address] [place] [address] Social History Date Tobacco Use Types Packs/Day Years Used Quit: 11/27/2001 Former Smoker Cigarettes 2 20 Comments: quit 5 yrs ago Drinks/Week oz/Week Comments Alcohol Use socially Yes Sex Assigned at Date Recorded Not on file Industry Job Start Date Occupation Not on file Not on file Not on file Travel End Travel History Travel Start No recent travel history available. documented as of this encounter Plan of Treatment Order Schedule Name Type Priority Associated Diag noses Ordered: 12/12/2019 AMB REFERRAL TO AUDIOLOGY Outpatient Routine [place] unter for hearing Referral examination, unspecified whether abnormal findings documented as of this encounter Visit Diagnoses Diagnosis Encounter for hearing examination, unsp ecified whether abnormal findings documented in this encounter
--- OUTSIDE RECORDS SUMMARY | 2020-02-20 20:22 | XMS REPORT | Clinical Summary ---
Author Author [facility] Organization [facility] Address Unknown Phone Unavailable Care Team Providers Care Cosmetic Chemist Name Role Phone PCP Unavailable Allergies Comments Active Allergy Reactions Severity Noted Date Fleet Prep Kit #4 Nausea And 06/10/2015 Vomiting Also Weird dreams Oxycodone-Acetaminophen Itching 06/10/2015 Rash Rofecoxib 06/10/2015 Medications End Date Status Medication Sig Dispensed Refills Start Date Active aspirin 81 MG EC tablet Take 81 mg by 0 mouth nightly. Active lovastatin (MEVACOR) 10 Take 10 mg by 0 MG tablet mouth nightly. Active ibuprofen (ADVIL,MOTRIN) Take 800 mg 0 800 MG tablet by mouth every 8 (eight) hours as needed for pain. Active citalopram (CELEXA) 20 MG Take one 30 tablet 0 tablet tablet (20 mg 5 total) by mouth daily. Active Problems Problem Noted Date Other specified psychophysiological malfunction 05/27 Hyperlipidemia 06/12/2015 WHIT on CPAP 06/12/2015 CAD (coronary artery disease) 06/12/2015 Morbid obesity 06/12/2015 Chronic back pain 06/12/2015 Depression 06/12/2015 Anxiety 06/12/2015 Convulsions 06/10/2015 Overview: ICD-10 conversion Syncope and collapse 06/01/2015 Family History Medical History Relation Name Comments Cancer Mother non-hodkins lymphom a Seizures Son Relation Name Status Comments Father Mother Alive Sister Sister Son Social History Date Tobacco Use Types Packs/Day Years Used Quit: 12/11/2008 Former Smoker Cigarettes 2 4 Smokeless Tobacco: Former Chew Quit: 2008 User Comments: chewing tobacco quit 2008 Drinks/Week oz/Week Comments Alcohol Use 0 Standard drinks or equivalent 0.0 rare 1 beer per month / 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 Last Filed Vital Signs Reading Time Taken Comments Vital Sign 136/70 06/12/2015 3:10 PM CDT Blood Pressure 82 06/12/2015 3:10 PM CDT Pulse 36.3 C (97.4 F) 06/12/2015 3:10 PM CDT Temperature 18 06/12/2015 3:10 PM CDT Respiratory Rate 97% 06/12/2015 3:10 PM CDT Oxygen Saturation - - Inhaled Oxygen Concentration 137.7 kg (303 lb 8 oz) 06/10/2015 9:15 AM CDT Weight 170.2 cm (5' 7") 06/10/2015 9:15 AM CDT Height 47.53 06/10/2015 9:15 AM CDT Body Mass Index Plan of Treatment Not on file Implants Device Identifier Shelf Expiration Date Model / Serial / L ot Implanted Type Area Manufactur er Rods Back Description:x3 Plates Back Description:x3 Screws Back Description:x5 [id number] / [id number] / Loop Recorder Chest [employer] Implanted: 03/24/2015 (Quantity not on file) Results Not on filefrom Last 3 Months Insurance Type Payer Benefit Subscriber ID Effective Phone Address Plan / Dates Group BLUE CROSS BLUE SHIELD OUT OF xxxxxxxxxxxx 20 15- [facility] Present CARE Advance Directives For more information, please contact: [phone] Date Inactivated Comments Code Status Date Activated 06/12/2015 5:47 PM Full Code 06/10/2015 10:36 AM
--- OUTSIDE RECORDS SUMMARY | 2020-02-20 20:22 | XMS REPORT | Encounter Summary ---
Author Author [facility] Organization [facility] Address Unknown Phone Unavailable Care Team Providers Care Court Worker Name Role Phone Mima Mckeon PCP Unavailable Encounter Details Care Team Description Date Type Department [facility], Historical 06/04/2015 PracPart Note [facility] Social History Date Tobacco Use Types Packs/Day Years Used Never Assessed Sex Assigned at Date Recorded Not on file Industry Job Start Date Occupation Not on file Not on file Not on file Travel End Travel History Travel Start No recent travel history available. documented as of this encounter Progress Notes * [facility], Historical - 06/04/2015 8:35 AM CDT . :08:35AM .T:medical leave paperwork FAXED KR INVALID LINK:[id number] From: Padmini Montero (MS) Originated by: Padmini Montero (MS) Sent: 06/04/2015 at 08:35AM To: Pop James (KAREN) Type: CHART Priority: 3 Attachment: INVALID LINK:Chaitanya Salmon Medical leave paperwork [id number] - [id number]\\[id number]:\\ppart\\[id number]\\[id number]\\LEVG 001\\[id number]\\[id number]\\[id number]\\[id number]\\[id number]\\[id number]\\[id number]\\[id number]\\[id number]\\LEVQ 001\\[id number]\\[id number]\\[id number]\\[id number].tif Subject: medical leave paperwork documented in this encounter Plan of Treatment Not on filedocumented as of this encounter Visit Diagnoses Not on filedocumented in this encounter"
--- OUTSIDE RECORDS SUMMARY | 2020-02-20 20:22 | XMS REPORT | Encounter Summary ---
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 Associated Order(s): TRANSCRIBED EEG REPORT Name: CHAITANYA VAIL Date of : 1970 Attending Physician: Sammy Marques MD Date of Procedure: 06/11/2015 24-HOUR VIDEO EEG TELEMETRY Date of study: 06/11/2015 ATTENDING PHYSICIAN: Dr. Marques. INTERPRETING PHYSICIAN: Dr. Marques. OBJECT: A 44-year-old man with a history of recurrent spells of facial flushing , paresthesias, more so on the left side of his face, and at times headache and lightheadedness. Evaluate for seizures. FINDINGS: 3 pushbutton activations occur in the recording for clinical events i nvolving facial warmth, tingling over the left side of his face and at the verte x, and lightheadedness. Electrographically, the record shows a normal backgroun d rhythm in wakefulness. No clear epileptiform activities identified. Clinical ly, the patient appears awake. With some events he will fan himself using his r ight hand as though he is hot. There is no clear clinical evidence of seizure a ctivity. Otherwise, the record shows a normal background rhythm in wakefulness with boogie l transitions of sleep. PAYMENT ANALYST: Shows a generally regular rhythm. IMPRESSION: This is a 24-hour video EEG telemetry from 06/11/2015 with 3 pushbu tton activations for clinical events involving facial warmth and left-sided numb ness and tingling and lightheadedness that did not show electrographic evidence of seizure. No clear epileptiform activities identified in the recording. Sammy Marques MD [id number] CC: * Sammy Marques MD - 06/11/2015 8:47 AM CDT Associated Order(s): TRANSCRIBED EEG REPORT Name: CHAITANYA VAIL Date of : 1970 Attending Physician: Sammy Marques MD Date of Procedure: 06/10/2015 PROCEDURE: A 13-hour video EEG telemetry. INTERPRETING PHYSICIAN: Jerald. OBJECT: A 44-year-old man with a history of recurrent spells of facial flushing , paresthesias, more so on the left side of his face, and at times headache and facial flushing. Evaluate for seizures. FINDINGS: Three pushbutton activations occur in the recording for clinical even ts, predominantly involving the patient feeling hot. With one event, he notes p ain towards the back of his head and warmth predominantly over the left side of his face. There was no electrographic evidence of seizure with these events. T he record shows a normal background rhythm in wakefulness with normal transition s of sleep. Clinically, the patient appears awake and alert through the events without clinical change to suggest seizure. He fans himself with a piece of pap er. He is able to answer questions appropriately from nursing. Otherwise, the record shows a normal background rhythm in wakefulness with boogie l transitions to sleep. PAYMENT ANALYST: Shows a generally regular rhythm. IMPRESSION: This is a 13-hour video EEG telemetry from 06/10/2015 with 3 pushbu tton activations for clinical events involving subjective feelings of facial war mth, more so on the left and at times, pain towards the occipital region. There was no electrographic evidence of seizure. No clear lateralizing or epileptifo rm abnormalities were identified in the recording. Sammy Marques MD [id number] CC: documented in this encounter Consult Notes * Virgie Plummer MD - 06/12/2015 10:24 AM CDT Associated Order(s): IP CONSULT TO PSYCHIATRY Attending Lockstitch Back Maker Physician Psychiatry Evaluation ID: Chaitanya Vail is a male 44 y.o., who lives [address] [facility] [id number] . CC: "I bottle it up." History of Present Illness: Patient is admitted due to possible seizure activity. Psychiatry has been consul geena for PNES per the primary team of Dr. Marques. Patient reports being depressed on and off for most of his life. He reports int ernalizing his feelings. Reports a depressive episode around the time of his fi rst divorce and passive SI. Has not had SI since. He reports much stress and d epression since second divorce in [id number] when he found out his was moles ting their two sons and 2 neighbor boys. His depressive symptoms over the last couple of months have increased. He reports being depressed more days than not, nearly every day. He reports he may have some good days, but other than that n othing makes it better. He reports that his "mind is always going". He states he worries most of the time nearly every day. He reports fears of what will hap pen to his mother regarding her health. Sometimes these increased thoughts and worry keep him from sleeping well. He describes sleeping about 4-5 hours and fe eling tired most of the time. He reports it being very hard to fall asleep. Sle ep has become worse over the last couple months. He describes a fluctuating appe tite. He reports that his neurologist in [place] put him on Depakote which cause d him to gain 30 pounds in a few weeks. Past Psychiatric History: He saw a psychiatrist in [id number] for about 6-7 months after his second divorce . He was diagnosed with depression and started on Zoloft which he reports was n ot effective. He participated in counseling during that time as well. Past Medical History: Patient has a past medical history of Sleep apnea; Asthma; Heart murmur; Hyperli pidemia; Urinary calculi; BPH (benign prostatic hypertrophy); Chronic pain disor vivek; CTS (carpal tunnel syndrome); Anxiety; Morbid obesity; and CAD (coronary ar kristofer disease). Patient has past surgical history that includes Carpal tunnel rel ease (Right); FUSION ANTERIOR LUMBAR THORACIC SPINE WITH INSTRUMENTATION; CYSTOS COPY; TONSILLECTOMY; Cardiac catheterization; Abdominal hernia repair; and Impla ntable Loop Recorder historical (02/2015). Allergy: Allergies Allergen Reactions Fleet Prep Kit #4 Nausea And Vomiting Percocet [Oxycodone-Acetaminophen] Itching Also Weird dreams Vioxx [Rofecoxib] Rash Review of Systems: The review of systems as per the treating physician was reviewed. Vital Signs: BP 139/70 mmHg | Pulse 60 | Temp(Src) 36.7 C (98 F) (Oral) | Resp 18 | Ht 1. 702 m (5' 7") | Wt 137.667 kg (303 lb 8 oz) | BMI 47.52 kg/m2 | SpO2 98% Current Medications: aspirin 81 mg Oral Nightly pravastatin 10 mg Oral Nightly Labs: No lab components to display No lab components to display Invalid input(s): LABALBU Family Psychiatric History: Reports possible depression in his family history. Has one son with ADHD, one w ith developmental learning disabilities s/p anoxic injury during , one son in and out of mental hospitals and with epileptic seizures. Personal Social History: Patient was to his first for about 7 years. They had three childre n. He does not have a relationship with his two sons from first marriage, but t he daughter he does speak to occasionally. His second marriage lasted 11 years and they had three sons. The older son he does not have relationship with. The two younger sons he takes care of and he is their primary guardian. His biolog ical father is and he never had a relationship with him. He was adopte d by a stepfather whom he reports a good relationship with, but he is . His mother lives close to him in [place] and was recently diagnosed with non-hod gkin's lymphoma. He has 2 sisters. One sister he does not have a relationship with. One sister he speaks to occasionally. He has had two DUI's, last one in 2007 when he was drinking heavily during his s econd divorce. He reports that since then he has not been drinking that much. He reports maybe drinking 1-4 beers a month. Denies any other illicit or recrea tional drug use. He has cut back on his intake of sodas and caffeine beverages a s well. Reports maybe drinking about 1-2 sodas a week and 1-2 cups of coffee oc casionally. Quit nicotine use in 2008. Mental Status Examination: Mr. Vail is 44 year old male in hospital gown, awake, alert, orient ed to place, person, situation. Appears his stated age. He is cooperative and pleasant. Speech is clear with regular rhythm, rate and volume. He has no abnorm al involuntary movements. Makes eye contact. Thought content is without delusio ns or hallucinations or paranoia. Thought process is logical, linear, and goal directed. No looseness of associations or flight of ideas. Mood is depressed wit h flat affect. Language is adequate without deficits in comprehension, word find ing difficulties, or paraphasic errors. No suicidal or homicidal thoughts. Judgm ent and insight are limited but fair. Remote and recent memory intact. He provi tyler adequate health history. Diagnosis: Stanton I: Depressive Disorder NOS, Anxiety Disorder NOS Stanton II: Deferred Stanton III: Patient has a past medical history of Sleep apnea; Asthma; Heart murm ur; Hyperlipidemia; Urinary calculi; BPH (benign prostatic hypertrophy); Chronic pain disorder; CTS (carpal tunnel syndrome); Anxiety; Morbid obesity; and CAD ( coronary artery disease). Stanton IV: other psychosocial or environmental problems Stanton V: 51-60 moderate symptoms Impression: Patient Chaitanya Vail is a 44 y.o. who reports last couple months his depressive symptoms have increased. He has limited social support. He has increased stres s related to the health care needs of his 2 sons that are in his custody, and hi s mother who is newly diagnosed with non-hodgkin's lymphoma. The physical sympt oms he has been experiencing which were considered to be seizure like spells, ar e ruled out to be non epileptic. He is aware and accepting of the diagnosis, trever ling to seek counseling. Recommendations: 1. Discussed about medication option, since he has been on Zoloft in past but di d not notice any benefit, will try Celexa 20 mg - he agrees. 2. Also recommend counseling, will have public health social worker assist with options. Recom mend him to keep journal as well to help identify trigger factors for his spells , and improve coping skills. 3. Supportive therapy. Discussed with: VACUUM SYSTEM TESTER- Bernice Mann, public health social worker - Leandra Plummer MD06/12/201510:24 AM * Tiara Sierra RN - 06/10/2015 11:02 AM CDT Associated Order(s): IP CONSULT TO VASCULAR ACCESS TEAM PIV placed x1 attempt with US by Goran Musa RN documented in this encounter Miscellaneous Notes * Plan of Care - Cristina Boland RN - 06/12/2015 3:08 PM CDT Problem: Knowledge Deficit Goal: Patient/family/caregiver demonstrates understanding of disease process, tr eatment plan, medications, and discharge instructions Outcome: Progressing Patient updated by Dr. Marques. Problem: Pain Goal: Patients pain/discomfort is manageable Outcome: Progressing Patients chronic back pain managed with motrin. Problem: Skin Integrity Goal: Skin integrity is maintained or improved Outcome: Progressing Patients skin is intact. Problem: Safety Goal: Patient will be injury free during hospitalization Outcome: Progressing Patient is free from injury. Problem: Nutrition Goal: Patients nutritional intake is adequate Outcome: Progressing Patient has an excellent appetite. * Plan of Care - Orlando Grover RN - 06/11/2015 7:33 PM CDT Problem: Knowledge Deficit Goal: Patient/family/caregiver demonstrates understanding of disease process, tr eatment plan, medications, and discharge instructions Outcome: Progressing Patient voices understanding of treatment plan, disease process, and medications . Goal: Patient/Family/Caregiver sets realistic goals Outcome: Progressing Patient sets realistic goals. Problem: Pain Goal: Patients pain/discomfort is manageable Outcome: Progressing Patient's pain is manageable. Problem: Skin Integrity Goal: Skin integrity is maintained or improved Outcome: Progressing Skin integrity is maintained and within normal limits. Problem: Safety Goal: Patient will be injury free during hospitalization Outcome: Progressing Patient will be injury free. Bed low and locked, call light in reach, bed alarm on PRN, mats on floor. Patient voices understanding of mobility restrictions. Problem: Nutrition Goal: Patients nutritional intake is adequate Outcome: Progressing Nutritional intake within normal limits. Patient has good appetite. * Plan of Care - Cristina Boland RN - 06/11/2015 4:17 PM CDT Problem: Knowledge Deficit Goal: Patient/family/caregiver demonstrates understanding of disease process, tr eatment plan, medications, and discharge instructions Outcome: Progressing Patient updated by Jes LEE with Dr. Marques. Problem: Pain Goal: Patients pain/discomfort is manageable Outcome: Progressing Patient c/o back pain, managed with Motrin. Problem: Skin Integrity Goal: Skin integrity is maintained or improved Outcome: Progressing Patients skin intact. Patients face flushes at times during "episodes". Problem: Safety Goal: Patient will be injury free during hospitalization Outcome: Progressing Patient is free from injury. Problem: Nutrition Goal: Patients nutritional intake is adequate Outcome: Progressing Patient has an excellent appetite. * Plan of Care - Orlando Grover RN - 06/10/2015 8:34 PM CDT Problem: Knowledge Deficit Goal: Patient/family/caregiver demonstrates understanding of disease process, tr eatment plan, medications, and discharge instructions Outcome: Progressing Patient voices understanding of treatment plan, disease process, and medications . Goal: Patient/Family/Caregiver sets realistic goals Outcome: Progressing Patient sets realistic goals. Problem: Pain Goal: Patients pain/discomfort is manageable Outcome: Progressing Patient's pain is manageable. Problem: Skin Integrity Goal: Skin integrity is maintained or improved Outcome: Progressing Skin integrity is maintained and within normal limits. Problem: Safety Goal: Patient will be injury free during hospitalization Outcome: Progressing Patient will be injury free. Bed low and locked, call light in reach, bed alarm on PRN, mats on floor. Patient voices understanding of mobility restrictions. Problem: Nutrition Goal: Patients nutritional intake is adequate Outcome: Progressing Nutritional intake within normal limits. * Plan of Care - Cristina Boland RN - 06/10/2015 3:05 PM CDT Problem: Knowledge Deficit Goal: Patient/family/caregiver demonstrates understanding of disease process, tr eatment plan, medications, and discharge instructions Outcome: Progressing Patient updated by Marlene LEE and Dr. Marques. Problem: Pain Goal: Patients pain/discomfort is manageable Outcome: Progressing Patient complains of stiff back, managed with Motrin. Problem: Skin Integrity Goal: Skin integrity is maintained or improved Outcome: Progressing Patients skin is intact. Problem: Safety Goal: Patient will be injury free during hospitalization Outcome: Progressing Patient is free from injury. Problem: Nutrition Goal: Patients nutritional intake is adequate Outcome: Progressing Patient has a good appetite, eating 100% of his meals. documented in this encounter Plan of Treatment Date/Time Name Type Priority Associated Diag noses 06/10/2015 10:40 AM CDT EEG video monitoring Neurology Routine 06/11/2015 12:10 AM CDT EEG video monitoring Neurology Routine 06/12/2015 12:10 AM CDT EEG video monitoring Neurology Routine documented as of this encounter Procedures Comments Procedure Name Priority Date/Time Associated Diag nosis TRANSCRIBED EEG REPORT 06/18/2015 11:42 PM CDT TRANSCRIBED EEG REPORT 06/18/2015 11:34 PM CDT OXYGEN Routine 06/12/2015 12:06 AM CDT TRANSCRIBED EEG REPORT 06/11/2015 10:06 AM CDT documented in this encounter Results * TRANSCRIBED EEG REPORT (06/18/2015 11:42 PM CDT) Transcriptions Sammy Marques MD - 06/12/2015 9:21 AM CDT Name: CHAITANYA VAIL Date of : 1970 Attending Physician: Sammy Marques MD Date of Procedure: 06/11/2015 24-HOUR VIDEO EEG TELEMETRY Date of study: 06/11/2015 ATTENDING PHYSICIAN: Dr. Marques. INTERPRETING PHYSICIAN: Dr. Marques. OBJECT: A 44-year-old man with a history of recurrent spells of facial flushing, paresthesias, more so on the left side of his face, and at times headache and lightheadedness. Evaluate for seizures. FINDINGS: 3 pushbutton activations occur in the recording for clinical events involving facial warmth, tingling over the left side of his face and at the vertex, and lightheadedness. Electrographically, the record shows a normal background rhythm in wakefulness. No clear epileptiform activities identified. Clinically, the patient appears awake. With some events he will fan himself using his right hand as though he is hot. There is no clear clinical evidence of seizure activity. Otherwise, the record shows a normal background rhythm in wakefulness with normal transitions of sleep. PAYMENT ANALYST: Shows a generally regular rhythm. IMPRESSION: This is a 24-hour video EEG telemetry from 06/11/2015 with 3 pushbutton activations for clinical events involving facial warmth and left- sided numbness and tingling and lightheadedness that did not show electrographic evidence of seizure. No clear epileptiform activities identified in the recording. Sammy Marques MD [id number] CC: * TRANSCRIBED EEG REPORT (06/18/2015 11:34 PM CDT) Transcriptions Sammy Marques MD - 06/13/2015 10:34 AM CDT Name: CHAITANYA VAIL Date of : 1970 Attending Physician: Sammy Marques MD Date of Procedure: 06/12/2015 12-HOUR VIDEO EEG TELEMETRY ATTENDING PHYSICIAN: Dr. Marques INTERPRETING PHYSICIAN: Dr. Marques. OBJECT: A 44-year-old man with a history of recurrent spells of facial flushing, paresthesias, occipital headache, lightheadedness. His facial flushing and warmth and paresthesias affected the left side of his face more than right. Evaluate for seizures. FINDINGS: One pushbutton activation occurs in the recording that did not show electrographic or clinical evidence of seizure activity. The patient describes having warmth on the left side of his face and discomfort at the back of his head. He otherwise appears awake and alert. There is no electrographic evidence of seizure. The record shows a normal background rhythm in wakefulness with normal transitions of sleep. PAYMENT ANALYST: Shows a generally regular rhythm. IMPRESSION: This is a 12-hour video EEG telemetry from 06/12/2015 with 1 pushbutton activation for a clinical event that did not show electrographic or clear clinical evidence of seizure. No clear epileptiform activities identified in the recording. Sammy Marques MD [id number] CC: * TRANSCRIBED EEG REPORT (06/11/2015 10:06 AM CDT) Transcriptions Sammy Marques MD - 06/11/2015 8:47 AM CDT Name: CHAITANYA VAIL Date of : 1970 Attending Physician: Sammy Marques MD Date of Procedure: 06/10/2015 PROCEDURE: A 13-hour video EEG telemetry. INTERPRETING PHYSICIAN: Jerald. OBJECT: A 44-year-old man with a history of recurrent spells of facial flushing, paresthesias, more so on the left side of his face, and at times headache and facial flushing. Evaluate for seizures. FINDINGS: Three pushbutton activations occur in the recording for clinical events, predominantly involving the patient feeling hot. With one event, he notes pain towards the back of his head and warmth predominantly over the left side of his face. There was no electrographic evidence of seizure with these events. The record shows a normal background rhythm in wakefulness with normal transitions of sleep. Clinically, the patient appears awake and alert through the events without clinical change to suggest seizure. He fans himself with a piece of paper. He is able to answer questions appropriately from nursing. Otherwise, the record shows a normal background rhythm in wakefulness with normal transitions to sleep. PAYMENT ANALYST: Shows a generally regular rhythm. IMPRESSION: This is a 13-hour video EEG telemetry from 06/10/2015 with 3 pushbutton activations for clinical events involving subjective feelings of facial warmth, more so on the left and at times, pain towards the occipital region. There was no electrographic evidence of seizure. No clear lateralizing or epileptiform abnormalities were identified in the recording. Sammy Marques MD [id number] CC: documented in this encounter Visit Diagnoses Diagnosis Convulsions (HCC) Other convulsions Other specified psychophysiological mal function documented in this encounter Administered Medications Action Date Dose Rate Site Medication Order MAR Action 06/11/2015 8:00 PM CDT 81 mg aspirin EC tablet 81 mg Given 81 mg, Oral, Nightly, First dose on Mon06/10/15 at 2100, DO NOT CRUSH OR CHEW., 81 mg Given 06/10/2015 8:15 PM CDT 06/12/2015 12:07 PM CDT 20 mg citalopram (CeleXA) tablet 20 mg Given 20 mg, Oral, Daily, First dose on Mon06/12/15 at 1115 06/12/2015 8:31 AM CDT 800 mg ibuprofen (ADVIL,MOTRIN) tablet 800 mg Given 800 mg, Oral, Every 8 hours PRN, mild pain (pain score 1-3), headaches, Starting Mon06/10/15 at 1040 800 mg Given 06/11/2015 8:00 PM CDT 800 mg Given 06/11/2015 8:35 AM CDT 06/11/2015 8:00 PM CDT 10 mg pravastatin (PRAVACHOL) tablet 10 mg Given 10 mg, Oral, Nightly, First dose on Mon06/10/15 at 2100 10 mg Given 06/10/2015 8:14 PM CDT 06/11/2015 11:00 PM CDT sterile water irrigation irrigation Given solution Starting Mon06/11/15 at 2259, For 1 dose, Created by cabinet override, documented in this encounter
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
--- OUTSIDE RECORDS SUMMARY | 2020-02-20 20:22 | XMS REPORT | Encounter Summary ---
Author Author [facility] Organization [facility] Address Unknown Phone Unavailable Care Team Providers Care Jointer Machine Name Role Phone Mima Mckeon PCP Unavailable Encounter Details Care Team Description Date Type Department Slnc, Historical 06/01/2015 PracPart Note [facility] Social History Date Tobacco Use Types Packs/Day Years Used Never Assessed Sex Assigned at Date Recorded Not on file Industry Job Start Date Occupation Not on file Not on file Not on file Travel End Travel History Travel Start No recent travel history available. documented as of this encounter Progress Notes * [facility]lnc, Historical - 06/01/2015 10:17 AM CDT . : 10:17am .T: Past medical history PATIENT NAME: Krishan Salmon DATE OF : [birth year] AGE: 44 year DATE: 06/01/15 REFERRING PHYSICIAN: Mima Grajeda PREFERED PHARMACY: [facility] [phone] MAIL ORDER: IS THE REFERRING PHYSICIAN LISTED ABOVE YOUR PRIMARY CARE PHYSICIAN? yes IF NOT PLEASE LIST YOUR PCP NAME: ADDRESS: PHONE: FAX: REASON FOR VISIT : Getting red in the face and head feeling hot. Blurry vision, sweats, sometime head aches watery eyes, lite headed OTHER PHYSICIANS TO NOTIFY: PAST MEDICAL HISTORY: None of these apply no ARTHRITIS: no BLADDER PROBLEMS: no EPILEPSY OF SEIZURES : no BLACKOUTS: yes EYE PROBLEMS: no STOMACH ULCERS: no GASTRITIS: no GERD: no HYPOTHYROIDISM: no OTHER TYROID DISEASE: no IRRITABLE BOWEL SYNDROME: no OTHER INTESTINAL PROB.: no DIABETES MELLITUS: no STROKE OR TIA: no DEPRESSION: no ANXIETY: no BIPOLAR DISORDER: no ANEMIA: no OTHER BLOOD DISORDER: no SKIN CANCER: no BREAST CANCER: no COLON CANCER: no PROSTATE CANCER: no THYROID CANCER: no OTHER CANCER: no DYSLIPIDEMIA: no HYPERTENSION: no CORONARY (HEART) DISEASE: no ATRIAL FIBRILLATION: no LIVER PROBLEMS: no ASTHMA: no COPD: no OTHER LUNG DISEASE: no MIGRAINE HEADACHES: no TENSION HEADACHES: no KIDNEY PROBLEMS: no FIBROMYALGIA: no OTHER: no PAST SURGICAL HISTORY SURGICAL YEAR Back 2007 OTHER HOSPITALIZATION OR INJURIES HOSPITAL OR INJURY YEAR DRUG ALLERGIES: Aspirin: no NKDA Codeine: no Iodine other Dyes: no Penicillin: no Sulfa : no Other : no Review of Systems Dominant Left Hand no Dominant Right Hand yes Both Equally no Pain Average pain most days (lowest) 1 2 3 4 5 6 7 8 9 10 (highest) Where does hurt? left to back of head Is the pain changing? Getting Better Staying the Same Getting Worse What do you take for the pain? Iburprofen Does it help? yes sometimes General Fever no Sweats yes Weakness no Fatigue no Weight Loss no Skin None Apply no Excessive sun exposure no Blistering no Bernabe no Use Sunscreen no Dark PigmentedSkin Lesions no Removed no Melanoma no Bleeding skin lesion no Skin Cancer no Psoriasis no Chronic Rash no Vitiligo no Waldemar no Family member with nevus syndrome no Eyes/Ears/Sinuses None Apply no Loss of vision no Wear Glass no Cataracts no Glaucoma no Loss of hearing no Ringing in your ears no Sinus trouble no Nosebleeds no Mouth/Neck None Apply no Dental problems no Wear Dentures no Swollen glands no Laryngitis no Hoarseness no Lungs None Apply no Cough every day no Cough,produce sputum most days no Blood in your sputum no Pneumonia no Bronchitis no Emphysema no Pleurisy no Tuberculosis no Asthma no Short of breath w/activity no Short of breath at rest no Frequent colds no Heart/Blood Vessels None Apply no Chest pain (angina) no Chest pressure no Heart attack no Short of breath at night no Heart murmur no Rapid heartbeat required treatment no Swollen ankles no Leg cramps at night no Leg cramps when walking no Rheumatic fever no Congenital heart disease no Gastrointestinal None Apply no Loss appetite no Recent weight change no Excess saliva no Swallowing Problems no Heartburn no Ulcer no Endoscopy no Nausea no Vomiting no Vomiting Blood no Diarrhea no Upset Stomach no Constipation no Black Bowel Movements no Bloody bowel movements no Juandice (yellow skin) no Hepatitis no Gall bladder problems no Cirrhosis no Neuro/Spine Back None Apply no Headaches yes Migraine Headaches no Seizure no Double Vision no Blurred Vision yes Arm or leg weakness no Numbness no Stroke no Forgetfulness no Confusion no Arthritis no Back Pain yes Broken Bones no Swollen Joints no Endocrine/Glands None Apply no Diabetes Mellitus no Thyroid Disease no Other Endocrine/Gland Conditions no ARE YOU CLAUSTROPHOBIC?: no Input frame operator Patient Signature Date _ INVALID LINK:[id number]\Krishan Salmon HHX [id number] INVALID LINK:[id number]\Krishan Salmon Notes [id number] documented in this encounter Plan of Treatment Not on filedocumented as of this encounter Visit Diagnoses Not on filedocumented in this encounter
--- OUTSIDE RECORDS SUMMARY | 2020-02-20 20:22 | XMS REPORT | Encounter Summary ---
Author Author [facility] Organization [facility] Address Unknown Phone Unavailable Care Team Providers Care Photo Lab Manager Name Role Phone Mima Mckeon PCP Unavailable Encounter Details Care Team Description Date Type Department [facility], Historical 06/01/2015 PracPart Note [facility] Social History Date Tobacco Use Types Packs/Day Years Used Never Assessed Sex Assigned at Date Recorded Not on file Industry Job Start Date Occupation Not on file Not on file Not on file Travel End Travel History Travel Start No recent travel history available. documented as of this encounter Progress Notes * [facility], Historical - 06/01/2015 10:24 AM CDT . : 10:24am .T: Social history Marital Status: Children: 6 sons, age(s) 25, 25, 18, 10, 11, 1 daughters, age(s) 26 Caffeine Use: Coffee: X per Tea: X per Soda: X per Tobacco Use: Cigarettes: How often? Di d you quit? If so, what year? Cigars: How often? Did you quit? If so, what year? Pipes: How often? Did you quit? If so, what year? Chewing Tobacco: How often? Did you qu it? If so, what year? Alcohol use: Do you drink alcohol? yes If yes, how often? maybe per once a month Recreational/Ilicit Drugs: Marijuana: How often? Did you quit? If so, what year? Cocaine: How often? Did you quit? If so, what year? Meth: How often? Did you quit? If so, what year? Heroin: How often? Did you quit? If so, what year? Ecstasy: How often? Did you quit? If so, what year? Other: How often? Did you quit? If so, what year? 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
--- OUTSIDE RECORDS SUMMARY | 2020-02-20 20:22 | XMS REPORT | Encounter Summary ---
Author Author [facility] Organization [facility] Address Unknown Phone Unavailable Care Team Providers Care Health Director Name Role Phone Mima Mckeon PCP Unavailable Encounter Details Care Team Description Date Type Department [facility], Historical 06/08/2015 PracPart Note [facility] Social History Date Tobacco Use Types Packs/Day Years Used Never Assessed Sex Assigned at Date Recorded Not on file Industry Job Start Date Occupation Not on file Not on file Not on file Travel End Travel History Travel Start No recent travel history available. documented as of this encounter Progress Notes * [facility], Historical - 06/08/2015 11:47 AM CDT . : 11:47am .T: Call from [facility] in regards to PA for hospitalization for long term care administrator epilepsy mo nitoring sent call to - documented in this encounter Plan of Treatment Not on filedocumented as of this encounter Visit Diagnoses Not on filedocumented in this encounter
--- OUTSIDE RECORDS SUMMARY | 2020-02-20 20:22 | XMS REPORT | Encounter Summary ---
Author Author [facility] Address Unknown Phone Unavailable Care Team Providers Care Is Manager Name Role Phone PCP Unavailable Encounter Details Care Team Description Date Type Department [facility], Historical 07/03/2015 PracPart Note [facility] Social History Date Tobacco Use Types Packs/Day Years Used Never Assessed Sex Assigned at Date Recorded Not on file Industry Job Start Date Occupation Not on file Not on file Not on file Travel End Travel History Travel Start No recent travel history available. documented as of this encounter Progress Notes * [facility], Historical - 07/03/2015 2:11 PM CDT . : 02:11pm .T: chart note zetafaxed pg 3 of Rqst frm [employer] back to Carla Giraldo back with the mess age: Please fax me pt signed authorization. Your rqst will not be processed unti l one is received. Rqst on file. Claim # [id number]. FK documented in this encounter Plan of Treatment Not on filedocumented as of this encounter Visit Diagnoses Not on filedocumented in this encounter
--- OUTSIDE RECORDS SUMMARY | 2020-02-20 20:22 | XMS REPORT | Encounter Summary ---
Author Author [facility] Organization [facility] Address Unknown Phone Unavailable Care Team Providers Care Physical Security Engineer Name Role Phone Mima Mckeon PCP Unavailable Encounter Details Care Team Description Date Type Department [facility], Historical 06/01/2015 PracPart Note [facility] Social History Date Tobacco Use Types Packs/Day Years Used Never Assessed Sex Assigned at Date Recorded Not on file Industry Job Start Date Occupation Not on file Not on file Not on file Travel End Travel History Travel Start No recent travel history available. documented as of this encounter Progress Notes * [facility], Historical - 06/01/2015 10:23 AM CDT . : 10:23am .T: Family history Hypertension: no Dyslipidemia: no Coronary heart disease: no Diabetes mellitus: no Migraines: no CVD / Stroke: no Cancer: yes mom and aunts Alcoholism: no Epilepsy: no Multiple Sclerosis: no Alzheimers/Dementia: no Parkinson Disease: yes aunt Mental illness: no Other: no Other: no documented in this encounter Plan of Treatment Not on filedocumented as of this encounter Visit Diagnoses Not on filedocumented in this encounter
--- OUTSIDE RECORDS SUMMARY | 2020-02-20 20:22 | XMS REPORT | Clinical Summary ---
Author Author [facility] Organization [facility] Address Unknown Phone Unavailable Care Team Providers Care Environmental Field Team Member Name Role Phone Self, Deshaun ORR PCP Channing Be MD Unavailable Unavailable Source Comments Some departments are not documenting in the electronic medical record. If you d o not see the information that you expected, contact Release of Information in [facility] Information Management department at [phone] for further assistan ce in locating additional records.[facility] Allergies Comments Active Allergy Reactions Severity Noted Date Sodium HIVES Medium 05/12/2009 Lduqxrmtjk-Qvwjfz-Mel Levofloxacin RASH, MENTAL Medium 05/11/2009 STATUS CHANGES Oxycodone-Acetaminophen MENTAL STATUS Medium 2008 CHANGES Medications End Date Status Medication Sig Dispensed Refills Start Date Active acetaminophen (TYLENOL) Take 2 Tabs 0 500 mg tablet by mouth Every 6 Hours as needed. For pain. Active diazepam (VALIUM) 5 mg Take 1-2 Tabs 21 0 0 05/17/200 tablet by mouth 9 Every 8 Hours as needed for Anxiety. Active docusate (COLACE) 100 mg Take 1 Cap by 30 0 200 capsule mouth Twice 9 Daily. Active ferrous sulfate 325 mg Take 1 Tab by 90 0 0 200 (65 mg Iron) tablet mouth Three 9 Times Daily With Meals. Active oxycodone 10 mg Tab Take 1-1.5 63 0 200 Tabs by mouth 9 Every 2 Hours as needed for Pain. Active oxycodone SR (OXYCONTIN) Take 3 Tabs 30 0 0 200 10 mg tablet by mouth 9 Twice Daily. Active Problems Problem Noted Date Spondylolisthesis, acquired 05/17/2009 Encounters Care Team Description Date Type Specialty Cristhian Barba MD Encounter for hearing examination, unspe cified whether abnormal findings (Primary Dx) 12/12/2019 Orders Only Otolaryngology from Last 3 Months Social History Date Tobacco Use Types Packs/Day [...] Signs Reading Time Taken Comments Vital Sign 139/64 05/17/2009 5:25 AM CDT Blood Pressure 82 05/17/2009 9:10 AM CDT Pulse 37.2 C (98.9 F) 05/17/2009 5:25 AM CDT Temperature - - Respiratory Rate 98% 05/17/2009 9:10 AM CDT Oxygen Saturation - - Inhaled Oxygen Concentration - - Weight - - Height - - Body Mass Index Plan of Treatment Health Maintenance Due Date Last Done Comments DTAP/TDAP VACCINES (1 - 1980 Tdap) HIV SCREENING 1984 PHYSICAL (COMPREHENSIVE) 1987 EXAM INFLUENZA VACCINE 06/27/2019 COLORECTAL CANCER 2019 SCREENING SHINGLES RECOMBINANT 2019 VACCINE (1 of 2) Results Not on filefrom Last 3 Months Insurance Type Payer Benefit Subscriber ID Effective Phone Address Plan / Dates Group PPO BCBS NATHANAEL [employer] xxxxxxxxxxxx [id number] OUT OF resent STATE [id number] Advance Directives Patient Supervisor Audit Clerks Explanation Type Date Recorded Advance Directive/DPOA
--- OUTSIDE RECORDS SUMMARY | 2020-02-20 20:22 | XMS REPORT | Encounter Summary ---
Author Author [facility] Organization [facility] Address Unknown Phone Unavailable Care Team Providers Care In Flight Refueling System Repairer Name Role Phone Mima Mckeon PCP Unavailable Encounter Details Care Team Description Date Type Department [facility], Historical 06/08/2015 PracPart Note [facility] Social History Date Tobacco Use Types Packs/Day Years Used Never Assessed Sex Assigned at Date Recorded Not on file Industry Job Start Date Occupation Not on file Not on file Not on file Travel End Travel History Travel Start No recent travel history available. documented as of this encounter Progress Notes * [facility], Historical - 06/08/2015 3:08 PM CDT . : 03:08pm .T: Chart Note Sent pt to [place] regarding PA for EEG. GI documented in this encounter Plan of Treatment Not on filedocumented as of this encounter Visit Diagnoses Not on filedocumented in this encounter
--- OUTSIDE RECORDS SUMMARY | 2020-02-20 20:22 | XMS REPORT | Encounter Summary ---
Author Author [facility] Organization [facility] Address Unknown Phone Unavailable Care Team Providers Care Moisture Machine Tender Name Role Phone Mima Mckeon PCP Unavailable Encounter Details Care Team Description Date Type Department [facility], Historical 06/01/2015 Hist-Visit [facility] Social History [...] Body Mass Index documented in this encounter Plan of Treatment Not on filedocumented as of this encounter Visit Diagnoses Not on filedocumented in this encounter
--- OUTSIDE RECORDS SUMMARY | 2020-02-20 20:23 | XMS REPORT | Encounter Summary ---
Author Author [facility] Organization [facility] Address Unknown Phone Unavailable Care Team Providers Care Barrel Header Name Role Phone Self, Deshaun ORR PCP Channing Be MD Unavailable Unavailable Encounter Details Care Team Description Date Type Department 09/10/2019 [facility] [address] [place] [id number] Social History Date Tobacco Use Types Packs/Day [...] history available. documented as of this encounter Medications at Time of Discharge Start Date End Date Medication Sig Dispensed Refills acetaminophen (TYLENOL) Take 2 Tabs 0 500 mg tablet by mouth Every 6 Hours as needed. For pain. 05/17/2009 diazepam (VALIUM) 5 mg Take 1-2 Tabs 21 0 tablet by mouth Every 8 Hours as needed for Anxiety. 05/17/2009 docusate (COLACE) 100 mg Take 1 Cap by 30 0 capsule mouth Twice Daily. 05/17/2009 ferrous sulfate 325 mg Take 1 Tab by 90 0 (65 mg Iron) tablet mouth Three Times Daily With Meals. 05/17/2009 oxycodone 10 mg Tab Take 1-1.5 63 0 Tabs by mouth Every 2 Hours as needed for Pain. 05/17/2009 oxycodone SR (OXYCONTIN) Take 3 Tabs 30 0 10 mg tablet by mouth Twice Daily. documented as of this encounter Plan of Treatment Not on filedocumented as of this encounter Procedures Comments Procedure Name Priority Date/Time Associated Diag nosis MRI HEAD EXTERNAL IMAGING Routine 09/10/2019 12:00 AM CDT documented in this encounter Results * MRI HEAD EXTERNAL IMAGING (09/10/2019 12:00 AM CDT) Specimen Narrative Performed At This order has been auto finalized and does not contain a result. documented in this encounter Visit Diagnoses Not on filedocumented in this encounter
--- OUTSIDE RECORDS SUMMARY | 2020-02-20 20:24 | XMS REPORT ---
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 84846070 Problem Bipolar II disorder F31.81 Active 15245776 ALLERGIES No Information ENCOUNTERS Encounter Location Date Diagnosis [facility] [address] [facility] [id number] [address] [place] [address] May, Kaur, 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 [facility] [address] [address] Oct, [facility] [address] [address] Jul, Bipolar II disorder F31.81 and Functiona l neurological symptom disorder with mixed symptoms F44.7 [facility] [address] [address] Jul, Bipolar II disorder F31.81 and Functiona l neurological symptom disorder with mixed symptoms F44.7 [facility] [address] [address] Feb, [facility] [address] [address] Feb, [facility] [address] [address] Nov, [facility] [address] [address] Nov, [facility] [address] [address] Aug, [facility] [address] [address] Aug, [facility] [address] [facility] [id number] [place] [address] 08 Jul, 2014 [facility] [address] [facility] [id number] [place] [address] Jul, [facility] [address] [id number] [place] [address] Apr, [facility] [address] [facility] [id number] [place] [address] Apr, [facility] [address] [facility] [id number] [place] [address] Apr, [facility] [address] [facility] [id number] [place] [address] Apr, [facility] [address] [id number] [place] [address] Apr, [facility] [address] [id number] [place] [address] Apr, [facility] [address] [id number] [place] [address] Apr, [facility] [address] [id number] [place] [address] Apr, [facility] [address] [id number] [place] [address] Apr, [facility] [address] [id number] [place] [address] Apr, [facility] [address] [facility] [id number] [place] [address] Apr, [facility] [address] [facility] [id number] [place] [address] Apr, [facility] [address] [id number] [place] [address] March, [facility] [address] [id number] [place] [address] March, [facility] [address] [id number] [place] [address] March, [facility] [address] [id number] [place] [address] March, [facility] [address] [id number] [place] [address] March, [facility] [address] [id number] [place] [address] March, [facility] [address] [id number] [place] [address] March, [facility] [address] [id number] [place] [address] March, [facility] [address] [id number] [place] [address] March, [facility] [address] [id number] [place] [address] March, [facility] [address] [id number] [place] [address] March, [facility] [address] [id number] [place] [address] March, [facility] [address] [id number] [place] [address] March, [facility] [address] [id number] [place] [address] March, [facility] [address] [id number] [place] [address] March, [facility] [address] [id number] [place] [address] March, [facility] [address] [id number] [place] [address] March, [facility] [address] [id number] [place] [address] March, [facility] [address] [id number] [place] [address] March, [facility] [address] [id number] [place] [address] March, [facility] [address] [id number] [place] [address] March, [facility] [address] [id number] [place] [address] March, [facility] [address] [id number] [place] [address] Feb, [facility] [address] [id number] [place] [address] Feb, IMMUNIZATIONS No Known Immunizations SOCIAL HISTORY Never Assessed REASON FOR VISIT PLAN OF CARE VITAL SIGNS Height 67 in 2014-03-25 Weight 257.8 lbs 2014-03-25 Temperature 97.4 degrees Fahrenheit 2014-03-25 Heart Rate 80 bpm 2014-03-25 Respiratory Rate 20 2014-03-25 Blood pressure systolic 124 mmHg 2014-03-25 Blood pressure diastolic 86 mmHg 2014-03-25 MEDICATIONS No Known Medications RESULTS No Results PROCEDURES No Known procedures INSTRUCTIONS MEDICATIONS ADMINISTERED No Known Medications MEDICAL (GENERAL) HISTORY Type Description Date Medical History hypothyroidism Surgical History several hernia surgeries, 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
--- OUTSIDE RECORDS SUMMARY | 2020-02-20 20:25 | XMS REPORT ---
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 [id number] Problem Bipolar II disorder F31.81 Active [id number] ALLERGIES No Information ENCOUNTERS Encounter Location Date Diagnosis [facility] [address] [facility] [id number] [address] [place] [address] May, Kaur, 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 [facility] [address] [address] Oct, [facility] [address] [address] Jul, Bipolar II disorder F31.81 and Functiona l neurological symptom disorder with mixed symptoms F44.7 [facility] [address] [address] Jul, Bipolar II disorder F31.81 and Functiona l neurological symptom disorder with mixed symptoms F44.7 [facility] [address] [address] Feb, [facility] [address] [address] Feb, [facility] [address] [address] Nov, [facility] [address] [address] Nov, [facility] [address] [address] Aug, [facility] [address] [address] Aug, [facility] [address] [facility] [id number] [place] [address] 08 Jul, 2014 [facility] [address] [facility] [id number] [facility] [place] [address] Jul, [facility] [address] [id number] [place] [address] Apr, [facility] [address] [facility] [id number] [place] [address] Apr, [facility] [address] [facility] [id number] [place] [address] Apr, [facility] [address] [facility] [id number] [place] [address] Apr, [facility] [address] [id number] [place] [address] Apr, [facility] [address] [id number] [place] [address] Apr, [facility] [address] [id number] [place] [address] Apr, [facility] [address] [id number] [place] [address] Apr, [facility] [address] [id number] [place] [address] Apr, [facility] [address] [id number] [place] [address] Apr, [facility] [address] [facility] [id number] [place] [address] Apr, [facility] [address] [facility] [id number] [place] [address] Apr, [facility] [address] [id number] [place] [address] March, [facility] [address] [id number] [place] [address] March, [facility] [address] [id number] [place] [address] March, [facility] [address] [id number] [place] [address] March, [facility] [address] [id number] [place] [address] March, [facility] [address] [id number] [place] [address] March, [facility] [address] [id number] [place] [address] March, [facility] [address] [id number] [place] [address] March, [facility] [address] [id number] [place] [address] March, [facility] [address] [id number] [place] [address] March, [facility] [address] [id number] [place] [address] March, [facility] [address] [id number] [place] [address] March, [facility] [address] [id number] [place] [address] March, [facility] [address] [id number] [place] [address] March, [facility] [address] [id number] [place] [address] March, [facility] [address] [id number] [place] [address] March, [facility] [address] [id number] [place] [address] March, [facility] [address] [id number] [place] [address] March, [facility] [address] [id number] [place] [address] March, [facility] [address] [id number] [place] [address] March, [facility] [address] [id number] [place] [address] March, [facility] [address] [id number] [place] [address] March, [facility] [address] [id number] [place] [address] Feb, [facility] [address] [id number] [place] [address] Feb, IMMUNIZATIONS No Known Immunizations SOCIAL HISTORY Never Assessed REASON FOR VISIT PLAN OF CARE VITAL SIGNS Height 67 in 2014-03-31 Weight 278 lbs 2014-03-31 Temperature 97.7 degrees Fahrenheit 2014-03-31 Heart Rate 74 bpm 2014-03-31 Respiratory Rate 18 2014-03-31 Blood pressure systolic 118 mmHg 2014-03-31 Blood pressure diastolic 84 mmHg 2014-03-31 MEDICATIONS No Known Medications RESULTS No Results PROCEDURES Procedure Date Ordered Result Body Site TEST FOR BLOOD, FECES March 31, 2014 INSTRUCTIONS MEDICATIONS ADMINISTERED No Known Medications MEDICAL (GENERAL) HISTORY Type Description Date Medical History hypothyroidism Surgical History several hernia surgeries, 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
--- OUTSIDE RECORDS SUMMARY | 2020-02-20 20:25 | XMS REPORT ---
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 62490516 Problem Bipolar II disorder F31.81 Active [id number] ALLERGIES No Information ENCOUNTERS Encounter Location Date Diagnosis [facility] [address] [id number] [address] [place] [address] May, Sunmelo, 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 [facility] [address] [id number] [address] [place] [address] Oct, [facility] [address] [id number] [address] [place] [address] Jul, Bipolar II disorder F31.81 a nd 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 [facility] [address] [id number] [address] [place] [address] Jul, Bipolar II disorder F31.81 a nd 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 [facility] [address] [id number] [address] [place] [address] Feb, [facility] [address] [id number] [address] [place] [address] Feb, [facility] [address] [id number] [address] [place] [address] Nov, [facility] [address] [id number] [address] [place] [address] Nov, [facility] [address] [id number] [address] [place] [address], [place] [address] Aug, [facility] [address] [id number] [address] [place] [address], [place] [address] Aug, [facility] [address] [id number] [address] [place] [address], [place] [address] Jul, [facility] [address] [id number] [address] [place] [address], [place] [address] Jul, [facility] [address] [id number] [address] [place] [address], [place] [address] Apr, [facility] [address] [id number] [address] [place] [address], [place] [address] 17 Apr, 2014 [facility] [address] [id number] [address] [place] [address], [place] [address] Apr, [facility] [address] [id number] [address] [place] [address], [place] [address] Apr, [facility] [address] [id number] [address] [place] [address], [place] [address] Apr, [facility] [address] [id number] [address] [place] [address], [place] [address] Apr, [facility] [address] [id number] [address] [place] [address], [place] [address] 05 Apr, 2014 [facility] [address] [id number] [address] [place] [address], [place] [address] Apr, [facility] [address] [id number] [address] [place] [address], [place] [address] Apr, [facility] [address] [id number] [address] [place] [address], [place] [address] Apr, [facility] [address] [id number] [address] [place] [address], [place] [address] Apr, [facility] [address] [id number] [address] [place] [address], [place] [address] Apr, [facility] [address] [id number] [address] [place] [address], [place] [address] March, [facility] [address] [id number] [address] [place] [address], [place] [address] March, [facility] [address] [id number] [address] [place] [address], [place] [address] March, [facility] [address] [id number] [address] [place] [address], [place] [address] March, [facility] [address] [id number] [address] [place] [address], [place] [address] March, [facility] [address] [id number] [address] [place] [address], [place] [address] March, [facility] [address] [id number] [address] [place] [address], [place] [address] March, [facility] [address] [id number] [address] [place] [address], [place] [address] March, [facility] [address] [id number] [address] [place] [address], [place] [address] March, [facility] [address] [id number] [address] [place] [address], [place] [address] March, [facility] [address] [id number] [address] [place] [address], [place] [address] March, [facility] [address] [id number] [address] [place] [address], [place] [address] March, [facility] [address] [id number] [address] [place] [address], [place] [address] March, [facility] [address] [id number] [address] [place] [address], [place] [address] March, [facility] [address] [id number] [address] [place] [address], [place] [address] March, [facility] [address] [id number] [address] [place] [address] March, [facility] [address] [facility] [id number] [address] [place] [address] March, [facility] [address] [facility] [id number] [address] [place] [address] March, [facility] [address] [facility] [id number] [address] [place] [address] March, [facility] [address] [facility] [id number] [address] [place] [address] March, [facility] [address] [facility] [id number] [address] [place] [address] March, [facility] [address] [facility] [id number] [address] [place] [address] March, [facility] [address] [facility] [id number] [address] [place] [address] Feb, [facility] [address] [facility] [id number] [address] [place] [address] Feb, IMMUNIZATIONS No Known Immunizations SOCIAL HISTORY Never Assessed REASON FOR VISIT PLAN OF CARE VITAL SIGNS MEDICATIONS No Known Medications RESULTS No Results PROCEDURES No Known procedures INSTRUCTIONS MEDICATIONS ADMINISTERED No Known Medications MEDICAL (GENERAL) HISTORY Type Description Date Medical History hypothyroidism Surgical History several hernia surgeries, 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
--- OUTSIDE RECORDS SUMMARY | 2020-02-20 20:25 | XMS REPORT ---
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 [facility] [address] [address] Oct, [facility] [address] [address] Jul, Bipolar II disorder F31.81 and Functiona l neurological symptom disorder with mixed symptoms F44.7 [facility] [address] [address] Jul, Bipolar II disorder F31.81 and Functiona l neurological symptom disorder with mixed symptoms F44.7 [facility] [address] [address] Feb, [facility] [address] [address] Feb, [facility] [address] [address] Nov, [facility] [address] [address] Nov, [facility] [address] [address] Aug, [facility] [address] [address] Aug, [facility] [address] [facility] [id number] [place] [address] 08 Jul, 2014 [facility] [address] [facility] [id number] [facility] [place] [address] Jul, [facility] [address] [id number] [place] [address] Apr, [facility] [address] [facility] [id number] [place] [address] Apr, [facility] [address] [facility] [id number] [place] [address] Apr, [facility] [address] [facility] [id number] [place] [address] Apr, [facility] [address] [id number] [place] [address] Apr, [facility] [address] [id number] [place] [address] Apr, [facility] [address] [id number] [place] [address] Apr, [facility] [address] [id number] [place] [address] Apr, [facility] [address] [id number] [place] [address] Apr, [facility] [address] [id number] [place] [address] Apr, [facility] [address] [facility] [id number] [place] [address] Apr, [facility] [address] [facility] [id number] [place] [address] Apr, [facility] [address] [id number] [place] [address] March, [facility] [address] [id number] [place] [address] March, [facility] [address] [id number] [place] [address] March, [facility] [address] [id number] [place] [address] March, [facility] [address] [id number] [place] [address] March, [facility] [address] [id number] [place] [address] March, [facility] [address] [id number] [place] [address] March, [facility] [address] [id number] [place] [address] March, [facility] [address] [id number] [place] [address] March, [facility] [address] [id number] [place] [address] March, [facility] [address] [id number] [place] [address] March, [facility] [address] [id number] [place] [address] March, [facility] [address] [id number] [place] [address] March, [facility] [address] [id number] [place] [address] March, [facility] [address] [id number] [place] [address] March, [facility] [address] [id number] [place] [address] March, [facility] [address] [id number] [place] [address] March, [facility] [address] [id number] [place] [address] March, [facility] [address] [id number] [place] [address] March, [facility] [address] [id number] [place] [address] March, [facility] [address] [id number] [place] [address] March, [facility] [address] [id number] [place] [address] March, [facility] [address] [id number] [place] [address] Feb, [facility] [address] [id number] [place] [address] Feb, IMMUNIZATIONS No Known Immunizations SOCIAL HISTORY Never Assessed REASON FOR VISIT PLAN OF CARE VITAL SIGNS Height 67 in 2014-05-06 Weight 269.8 lbs 2014-05-06 Temperature 98.6 degrees Fahrenheit 2014-05-06 Heart Rate 76 bpm 2014-05-06 Respiratory Rate 22 2014-05-06 Blood pressure systolic 128 mmHg 2014-05-06 Blood pressure diastolic 78 mmHg 2014-05-06 MEDICATIONS No Known Medications RESULTS No Results PROCEDURES Procedure Date Ordered Result Body Site SLEEP STUDY, UNATTENDED May 06, 2014 INSTRUCTIONS MEDICATIONS ADMINISTERED No Known Medications MEDICAL (GENERAL) HISTORY Type Description Date Medical History hypothyroidism Surgical History several hernia surgeries, 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
--- OUTSIDE RECORDS SUMMARY | 2020-02-20 20:25 | XMS REPORT ---
Author Author Krishan Atkinson Doctor Organization 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 [address] [address] Oct, [facility] [address] [address] Jul, Bipolar II disorder F31.81 and Functiona l neurological symptom disorder with mixed symptoms F44.7 [facility] [address] [address] Jul, Bipolar II disorder F31.81 and Functiona l neurological symptom disorder with mixed symptoms F44.7 [facility] [address] [address] Feb, [facility] [address] [address] Feb, [facility] [address] [address] Nov, [facility] [address] [address] Nov, [facility] [address] [address] Aug, [facility] [address] [address] Aug, [facility] [address] [facility] [id number] [place] [address] 08 Jul, 2014 [facility] [address] [facility] [id number] [facility] [place] [address] Jul, [facility] [address] [id number] [place] [address] Apr, [facility] [address] [facility] [id number] [place] [address] Apr, [facility] [address] [facility] [id number] [place] [address] Apr, [facility] [address] [facility] [id number] [place] [address] Apr, [facility] [address] [id number] [place] [address] Apr, [facility] [address] [id number] [place] [address] Apr, [facility] [address] [id number] [place] [address] Apr, [facility] [address] [id number] [place] [address] Apr, [facility] [address] [id number] [place] [address] Apr, [facility] [address] [id number] [place] [address] Apr, [facility] [address] [facility] [id number] [place] [address] Apr, [facility] [address] [facility] [id number] [place] [address] Apr, [facility] [address] [id number] [place] [address] March, [facility] [address] [id number] [place] [address] March, [facility] [address] [id number] [place] [address] March, [facility] [address] [id number] [place] [address] March, [facility] [address] [id number] [place] [address] March, [facility] [address] [id number] [place] [address] March, [facility] [address] [id number] [place] [address] March, [facility] [address] [id number] [place] [address] March, [facility] [address] [id number] [place] [address] March, [facility] [address] [id number] [place] [address] March, [facility] [address] [id number] [place] [address] March, [facility] [address] [id number] [place] [address] March, [facility] [address] [id number] [place] [address] March, [facility] [address] [id number] [place] [address] March, [facility] [address] [id number] [place] [address] March, [facility] [address] [id number] [place] [address] March, [facility] [address] [id number] [place] [address] March, [facility] [address] [id number] [place] [address] March, [facility] [address] [id number] [place] [address] March, [facility] [address] [id number] [place] [address] March, [facility] [address] [id number] [place] [address] March, [facility] [address] [id number] [place] [address] March, [facility] [address] [id number] [place] [address] Feb, [facility] [address] [id number] [place] [address] Feb, IMMUNIZATIONS No Known Immunizations SOCIAL HISTORY [...]
--- OUTSIDE RECORDS SUMMARY | 2020-02-20 20:25 | XMS REPORT ---
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 [address] [facility] [id number] [address] [place] [address] Oct, [facility] [address] [facility] [id number] [address] [place] [address] Jul, Bipolar II disorder F31.81 a nd 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 [facility] [address] [facility] [id number] [address] [place] [address] Jul, Bipolar II disorder F31.81 a nd 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 [facility] [address] [facility] [id number] [address] [place] [address] Feb, [facility] [address] [facility] [id number] [address] [place] [address] Feb, [facility] [address] [facility] [id number] [address] [place] [address] Nov, [facility] [address] [facility] [id number] [address] [place] [address] Nov, [facility] [address] [facility] [id number] [address] [place] [address] Aug, [facility] [address] [id number] [address] [place] [address], [place] [address] Aug, [facility] [address] [id number] [facility] [place] [address] Jul, [facility] [address] [id number] [address] [place] [address], [place] [address] Jul, [facility] [address] [id number] [address] [place] [address], [place] [address] Apr, [facility] [address] [id number] [address] [place] [address], [place] [address] Apr, [facility] [address] [id number] [address] [place] [address], [place] [address] Apr, [facility] [address] [id number] [address] [place] [address], [place] [address] Apr, [facility] [address] [id number] [address] [place] [address], [place] [address] Apr, [facility] [address] [id number] [address] [place] [address], [place] [address] Apr, [facility] [address] [id number] [address] [place] [address], [place] [address] Apr, [facility] [address] [id number] [address] [place] [address], [place] [address] Apr, [facility] [address] [id number] [address] [place] [address], [place] [address] Apr, [facility] [address] [id number] [address] [place] [address], [place] [address] Apr, [facility] [address] [id number] [address] [place] [address], [place] [address] Apr, [facility] [address] [id number] [address] [place] [address], [place] [address] Apr, [facility] [address] [id number] [address] [place] [address], [place] [address] March, [facility] [address] [id number] [address] [place] [address], [place] [address] March, [facility] [address] [id number] [address] [place] [address], [place] [address] March, [facility] [address] [id number] [address] [place] [address], [place] [address] March, [facility] [address] [id number] [address] [place] [address], [place] [address] March, [facility] [address] [id number] [address] [place] [address], [place] [address] March, [facility] [address] [id number] [address] [place] [address], [place] [address] March, [facility] [address] [id number] [address] [place] [address], [place] [address] March, [facility] [address] [id number] [address] [place] [address], [place] [address] March, [facility] [address] [id number] [address] [place] [address], [place] [address] March, [facility] [address] [id number] [address] [place] [address], [place] [address] March, [facility] [address] [id number] [address] [place] [address], [place] [address] March, [facility] [address] [id number] [address] [place] [address], [place] [address] March, [facility] [address] [id number] [address] [place] [address], [place] [address] March, [facility] [address] [id number] [address] [place] [address], [place] [address] March, [facility] [address] [id number] [address] [place] [address], [place] [address] March, [facility] [address] [id number] [address] [place] [address] March, [facility] [address] [id number] [address] [place] [address] March, [facility] [address] [facility] [id number] [address] [place] [address] March, [facility] [address] [facility] [id number] [address] [place] [address] March, [facility] [address] [facility] [id number] [address] [place] [address] March, [facility] [address] [facility] [id number] [address] [place] [address] March, [facility] [address] [facility] [id number] [address] [place] [address] Feb, 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
--- OUTSIDE RECORDS SUMMARY | 2020-02-20 20:25 | XMS REPORT ---
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 [facility] [address] [address] Oct, [facility] [address] [address] Jul, Bipolar II disorder F31.81 and Functiona l neurological symptom disorder with mixed symptoms F44.7 [facility] [address] [address] Jul, Bipolar II disorder F31.81 and Functiona l neurological symptom disorder with mixed symptoms F44.7 [facility] [address] [address] Feb, [facility] [address] [address] Feb, [facility] [address] [address] Nov, [facility] [address] [address] Nov, [facility] [address] [address] Aug, [facility] [address] [address] Aug, [facility] [address] [facility] [id number] [place] [address] Jul, 2014 [facility] [address] [facility] [id number] [facility] [address] Jul, [facility] [address] [id number] [place] [address] Apr, [facility] [address] [facility] [id number] [place] [address] Apr, [facility] [address] [facility] [id number] [place] [address] Apr, [facility] [address] [facility] [id number] [place] [address] Apr, [facility] [address] [id number] [place] [address] Apr, [facility] [address] [id number] [place] [address] Apr, [facility] [address] [id number] [place] [address] Apr, [facility] [address] [id number] [place] [address] Apr, [facility] [address] [id number] [place] [address] Apr, [facility] [address] [id number] [place] [address] Apr, [facility] [address] [facility] [id number] [place] [address] Apr, [facility] [address] [facility] [id number] [place] [address] Apr, [facility] [address] [id number] [place] [address] March, [facility] [address] [id number] [place] [address] March, [facility] [address] [id number] [place] [address] March, [facility] [address] [id number] [place] [address] March, [facility] [address] [id number] [place] [address] March, [facility] [address] [id number] [place] [address] March, [facility] [address] [id number] [place] [address] March, [facility] [address] [id number] [place] [address] March, [facility] [address] [id number] [place] [address] March, [facility] [address] [id number] [place] [address] March, [facility] [address] [id number] [place] [address] March, [facility] [address] [id number] [place] [address] March, [facility] [address] [id number] [place] [address] March, [facility] [address] [id number] [place] [address] March, [facility] [address] [id number] [place] [address] March, [facility] [address] [id number] [place] [address] March, [facility] [address] [id number] [place] [address] March, [facility] [address] [id number] [place] [address] March, [facility] [address] [id number] [place] [address] March, [facility] [address] [id number] [place] [address] March, [facility] [address] [id number] [place] [address] March, [facility] [address] [id number] [place] [address] March, [facility] [address] [id number] [place] [address] Feb, [facility] [address] [id number] [place] [address] Feb, IMMUNIZATIONS No Known Immunizations SOCIAL HISTORY Never Assessed REASON FOR VISIT PLAN OF CARE VITAL SIGNS Height 67 in 2014-04-14 Weight 277.6 lbs 2014-04-14 Temperature 97.7 degrees Fahrenheit 2014-04-14 Heart Rate 80 bpm 2014-04-14 Respiratory Rate 18 2014-04-14 Blood pressure systolic 138 mmHg 2014-04-14 Blood pressure diastolic 80 mmHg 2014-04-14 MEDICATIONS No Known Medications RESULTS No Results PROCEDURES No Known procedures INSTRUCTIONS MEDICATIONS ADMINISTERED No Known Medications MEDICAL (GENERAL) HISTORY Type Description Date Medical History hypothyroidism Surgical History several hernia surgeries, 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
--- OUTSIDE RECORDS SUMMARY | 2020-02-20 20:25 | XMS REPORT ---
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 82476913 Problem Bipolar II disorder F31.81 Active 66615451 ALLERGIES No Information ENCOUNTERS Encounter Location Date Diagnosis [facility] [address] [facility] [id number] [address] [place] [address] May, Kaur, 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 [facility] [address] [facility] [id number] [address] [place] [address] Oct, [facility] [address] [facility] [id number] [address] [place] [address] Jul, Bipolar II disorder F31.81 a nd 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 [facility] [address] [facility] [id number] [address] [place] [address] Jul, Bipolar II disorder F31.81 a nd 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 [facility] [address] [facility] [id number] [address] [place] [address] Feb, [facility] [address] [facility] [id number] [address] [place] [address] Feb, [facility] [address] [facility] [id number] [address] [place] [address] Nov, [facility] [address] [facility] [id number] [address] [place] [address] Nov, [facility] [address] [facility] [id number] [address] [place] [address] Aug, [facility] [address] [id number] [address] [place] [address], [place] [address] Aug, [facility] [address] [id number] [facility] [place] [address] Jul, [facility] [address] [id number] [address] [place] [address], [place] [address] Jul, [facility] [address] [id number] [address] [place] [address], [place] [address] Apr, [facility] [address] [id number] [address] [place] [address], [place] [address] Apr, [facility] [address] [id number] [address] [place] [address], [place] [address] Apr, [facility] [address] [id number] [address] [place] [address], [place] [address] Apr, [facility] [address] [id number] [address] [place] [address], [place] [address] Apr, [facility] [address] [id number] [address] [place] [address], [place] [address] Apr, [facility] [address] [id number] [address] [place] [address], [place] [address] Apr, [facility] [address] [id number] [address] [place] [address], [place] [address] Apr, [facility] [address] [id number] [address] [place] [address], [place] [address] Apr, [facility] [address] [id number] [address] [place] [address], [place] [address] Apr, [facility] [address] [id number] [address] [place] [address], [place] [address] Apr, [facility] [address] [id number] [address] [place] [address], [place] [address] Apr, [facility] [address] [id number] [address] [place] [address], [place] [address] March, [facility] [address] [id number] [address] [place] [address], [place] [address] March, [facility] [address] [id number] [address] [place] [address], [place] [address] March, [facility] [address] [id number] [address] [place] [address], [place] [address] March, [facility] [address] [id number] [address] [place] [address], [place] [address] March, [facility] [address] [id number] [address] [place] [address], [place] [address] March, [facility] [address] [id number] [address] [place] [address], [place] [address] March, [facility] [address] [id number] [address] [place] [address], [place] [address] March, [facility] [address] [id number] [address] [place] [address], [place] [address] March, [facility] [address] [id number] [address] [place] [address], [place] [address] March, [facility] [address] [id number] [address] [place] [address], [place] [address] March, [facility] [address] [id number] [address] [place] [address], [place] [address] March, [facility] [address] [id number] [address] [place] [address], [place] [address] March, [facility] [address] [id number] [address] [place] [address], [place] [address] March, [facility] [address] [id number] [address] [place] [address], [place] [address] March, [facility] [address] [id number] [address] [place] [address], [place] [address] March, [facility] [address] [id number] [address] [place] [address] March, [facility] [address] [facility] [id number] [address] [place] [address] March, [facility] [address] [facility] [id number] [address] [place] [address] March, [facility] [address] [facility] [id number] [address] [place] [address] March, [facility] [address] [facility] [id number] [address] [place] [address] March, [facility] [address] [facility] [id number] [address] [place] [address] March, [facility] [address] [facility] [id number] [address] [place] [address] Feb, [facility] [address] [facility] [id number] [address] [place] [address] Feb, IMMUNIZATIONS No Known Immunizations SOCIAL HISTORY [...]
--- OUTSIDE RECORDS SUMMARY | 2020-02-20 20:25 | XMS REPORT ---
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 82395466 Problem Bipolar II disorder F31.81 Active [id number] ALLERGIES No Information ENCOUNTERS Encounter Location Date Diagnosis [facility] [address] [facility] [id number] [address] [place] [address] May, Kaur, 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 [facility] [address] [address] Oct, [facility] [address] [address] Jul, Bipolar II disorder F31.81 and Functiona l neurological symptom disorder with mixed symptoms F44.7 [facility] [address] [address] Jul, Bipolar II disorder F31.81 and Functiona l neurological symptom disorder with mixed symptoms F44.7 [facility] [address] [address] Feb, [facility] [address] [address] Feb, [facility] [address] [address] Nov, [facility] [address] [address] Nov, [facility] [address] [address] Aug, [facility] [address] [address] Aug, [facility] [address] [facility] [id number] [place] [address] 08 Jul, 2014 [facility] [address] [facility] [id number] [facility] [place] [address] Jul, [facility] [address] [id number] [place] [address] Apr, [facility] [address] [facility] [id number] [place] [address] Apr, [facility] [address] [facility] [id number] [place] [address] Apr, [facility] [address] [facility] [id number] [place] [address] Apr, [facility] [address] [id number] [place] [address] Apr, [facility] [address] [id number] [place] [address] Apr, [facility] [address] [id number] [place] [address] Apr, [facility] [address] [id number] [place] [address] Apr, [facility] [address] [id number] [place] [address] Apr, [facility] [address] [id number] [place] [address] Apr, [facility] [address] [facility] [id number] [place] [address] Apr, [facility] [address] [facility] [id number] [place] [address] Apr, [facility] [address] [id number] [place] [address] March, [facility] [address] [id number] [place] [address] March, [facility] [address] [id number] [place] [address] March, [facility] [address] [id number] [place] [address] March, [facility] [address] [id number] [place] [address] March, [facility] [address] [id number] [place] [address] March, [facility] [address] [id number] [place] [address] March, [facility] [address] [id number] [place] [address] March, [facility] [address] [id number] [place] [address] March, [facility] [address] [id number] [place] [address] March, [facility] [address] [id number] [place] [address] March, [facility] [address] [id number] [place] [address] March, [facility] [address] [id number] [place] [address] March, [facility] [address] [id number] [place] [address] March, [facility] [address] [id number] [place] [address] March, [facility] [address] [id number] [place] [address] March, [facility] [address] [id number] [place] [address] March, [facility] [address] [id number] [place] [address] March, [facility] [address] [id number] [place] [address] March, [facility] [address] [id number] [place] [address] March, [facility] [address] [id number] [place] [address] March, [facility] [address] [id number] [place] [address] March, [facility] [address] [id number] [place] [address] Feb, [facility] [address] [id number] [place] [address] Feb, IMMUNIZATIONS No Known Immunizations SOCIAL HISTORY [...]
--- OUTSIDE RECORDS SUMMARY | 2020-02-20 20:25 | XMS REPORT ---
Author Author Krishan ABBASI 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 [id number] Problem Bipolar II disorder F31.81 Active [id number] ALLERGIES No Information ENCOUNTERS Encounter Location Date Diagnosis [facility] [address] [facility] [id number] [address] [place] [address] May, Sunmelo, 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 [facility] [address] [address] Oct, [facility] [address] [address] Jul, Bipolar II disorder F31.81 and Functiona l neurological symptom disorder with mixed symptoms F44.7 [facility] [address] [address] Jul, Bipolar II disorder F31.81 and Functiona l neurological symptom disorder with mixed symptoms F44.7 [facility] [address] [address] Feb, [facility] [address] [address] Feb, [facility] [address] [address] Nov, [facility] [address] [address] Nov, [facility] [address] [address] Aug, [facility] [address] [facility] [id number] [place] [address] Aug, [facility] [address] [facility] [id number] [facility] [place] [address] Jul, [facility] [address] [facility] [id number] [place] [address] Jul, [facility] [address] [facility] [id number] [place] [address] Apr, [facility] [address] [facility] [id number] [place] [address] Apr, [facility] [address] [id number] [place] [address] Apr, [facility] [address] [id number] [place] [address] Apr, [facility] [address] [id number] [place] [address] Apr, [facility] [address] [id number] [place] [address] Apr, [facility] [address] [id number] [place] [address] Apr, [facility] [address] [id number] [place] [address] Apr, [facility] [address] [id number] [place] [address] Apr, [facility] [address] [facility] [id number] [place] [address] Apr, [facility] [address] [id number] [place] [address] Apr, [facility] [address] [id number] [place] [address] Apr, [facility] [address] [id number] [place] [address] March, [facility] [address] [id number] [place] [address] March, [facility] [address] [id number] [place] [address] March, [facility] [address] [id number] [place] [address] March, [facility] [address] [id number] [place] [address] March, [facility] [address] [id number] [place] [address] March, [facility] [address] [id number] [place] [address] March, [facility] [address] [id number] [place] [address] March, [facility] [address] [id number] [place] [address] March, [facility] [address] [id number] [place] [address] March, [facility] [address] [id number] [place] [address] March, [facility] [address] [id number] [place] [address] March, [facility] [address] [id number] [place] [address] March, [facility] [address] [id number] [place] [address] March, [facility] [address] [id number] [place] [address] March, [facility] [address] [id number] [place] [address] March, [facility] [address] [id number] [place] [address] March, [facility] [address] [id number] [place] [address] March, [facility] [address] [id number] [place] [address] March, [facility] [address] [id number] [place] [address] March, [facility] [address] [id number] [place] [address] March, [facility] [address] [id number] [place] [address] March, [facility] [address] [id number] [place] [address] Feb, [facility] [address] [id number] [place] [address] Feb, IMMUNIZATIONS No Known Immunizations SOCIAL HISTORY [...]
--- OUTSIDE RECORDS SUMMARY | 2020-02-20 20:25 | XMS REPORT ---
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 [id number] Problem Bipolar II disorder F31.81 Active 79953554 ALLERGIES No Information ENCOUNTERS Encounter Location Date Diagnosis [facility] [address] [id number] [address] [place] [address] May, Sunmelo, 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 [facility] [address] [id number] [address] [place] [address] Oct, [facility] [address] [id number] [address] [place] [address] Jul, Bipolar II disorder F31.81 a nd 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 [facility] [address] [id number] [address] [place] [address] Jul, Bipolar II disorder F31.81 a nd 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 [facility] [address] [id number] [address] [place] [address] Feb, [facility] [address] [id number] [address] [place] [address] Feb, [facility] [address] [id number] [address] [place] [address] Nov, [facility] [address] [id number] [address] [place] [address] Nov, [facility] [address] [id number] [address] [place] [address], [place] [address] Aug, [facility] [address] [id number] [address] [place] [address], [place] [address] Aug, [facility] [address] [id number] [address] [place] [address], [place] [address] Jul, [facility] [address] [id number] [address] [place] [address], [place] [address] Jul, [facility] [address] [id number] [address] [place] [address], [place] [address] Apr, [facility] [address] [id number] [address] [place] [address], [place] [address] 17 Apr, 2014 [facility] [address] [id number] [address] [place] [address], [place] [address] Apr, [facility] [address] [id number] [address] [place] [address], [place] [address] Apr, [facility] [address] [id number] [address] [place] [address], [place] [address] Apr, [facility] [address] [id number] [address] [place] [address], [place] [address] Apr, [facility] [address] [id number] [address] [place] [address], [place] [address] 05 Apr, 2014 [facility] [address] [id number] [address] [place] [address], [place] [address] Apr, [facility] [address] [id number] [address] [place] [address], [place] [address] Apr, [facility] [address] [id number] [address] [place] [address], [place] [address] Apr, [facility] [address] [id number] [address] [place] [address], [place] [address] Apr, [facility] [address] [id number] [address] [place] [address], [place] [address] Apr, [facility] [address] [id number] [address] [place] [address], [place] [address] March, [facility] [address] [id number] [address] [place] [address], [place] [address] March, [facility] [address] [id number] [address] [place] [address], [place] [address] March, [facility] [address] [id number] [address] [place] [address], [place] [address] March, [facility] [address] [id number] [address] [place] [address], [place] [address] March, [facility] [address] [id number] [address] [place] [address], [place] [address] March, [facility] [address] [id number] [address] [place] [address], [place] [address] March, [facility] [address] [id number] [address] [place] [address], [place] [address] March, [facility] [address] [id number] [address] [place] [address], [place] [address] March, [facility] [address] [id number] [address] [place] [address], [place] [address] March, [facility] [address] [id number] [address] [place] [address], [place] [address] March, [facility] [address] [id number] [address] [place] [address], [place] [address] March, [facility] [address] [id number] [address] [place] [address], [place] [address] March, [facility] [address] [id number] [address] [place] [address], [place] [address] March, [facility] [address] [id number] [address] [place] [address], [place] [address] March, [facility] [address] [id number] [address] [place] [address] March, [facility] [address] [id number] [address] [place] [address] March, [facility] [address] [id number] [address] [place] [address] March, [facility] [address] [id number] [address] [place] [address] March, [facility] [address] [id number] [address] [place] [address] March, [facility] [address] [id number] [address] [place] [address] March, [facility] [address] [id number] [address] [place] [address] March, [facility] [address] [id number] [address] [place] [address] Feb, [facility] [address] [id number] [address] [place] [address] Feb, IMMUNIZATIONS No Known Immunizations SOCIAL HISTORY Never Assessed REASON FOR VISIT PLAN OF CARE VITAL SIGNS Height 67 in 2014-04-29 Weight 271 lbs 2014-04-29 Temperature 98 degrees Fahrenheit 2014-04-29 Heart Rate 60 bpm 2014-04-29 Respiratory Rate 18 2014-04-29 Blood pressure systolic 138 mmHg 2014-04-29 Blood pressure diastolic 70 mmHg 2014-04-29 MEDICATIONS No Known Medications RESULTS No Results PROCEDURES Procedure Date Ordered Result Body Site COMPLETE CBC W/AUTO DIFF WBC April 29, 2014 MEASURE BLOOD OXYGEN LEVEL April 29, 2014 VENIPUNCT, ROUTINE* April 29, 2014 INSTRUCTIONS MEDICATIONS ADMINISTERED No Known Medications MEDICAL (GENERAL) HISTORY Type Description Date Medical History hypothyroidism Surgical History several hernia surgeries, 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
--- OUTSIDE RECORDS SUMMARY | 2020-02-20 20:25 | XMS REPORT ---
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 [id number] [address] [place] [address] May, Kaur, 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 [facility] [address] [address] Oct, [facility] [address] [address] Jul, Bipolar II disorder F31.81 and Functiona l neurological symptom disorder with mixed symptoms F44.7 [facility] [address] [address] Jul, Bipolar II disorder F31.81 and Functiona l neurological symptom disorder with mixed symptoms F44.7 [facility] [address] [address] Feb, [facility] [address] [address] Feb, [facility] [address] [address] Nov, [facility] [address] [address] Nov, [facility] [address] [address] Aug, [facility] [address] [address] Aug, [facility] [address] [facility] [id number] [place] [address] 08 Jul, 2014 [facility] [address] [facility] [id number] [place] [address] Jul, [facility] [address] [id number] [place] [address] Apr, [facility] [address] [facility] [id number] [place] [address] Apr, [facility] [address] [facility] [id number] [place] [address] Apr, [facility] [address] [facility] [id number] [place] [address] Apr, [facility] [address] [id number] [place] [address] Apr, [facility] [address] [id number] [place] [address] Apr, [facility] [address] [id number] [place] [address] Apr, [facility] [address] [id number] [place] [address] Apr, [facility] [address] [id number] [place] [address] Apr, [facility] [address] [id number] [place] [address] Apr, [facility] [address] [facility] [place] [id number] [place] [address] Apr, [facility] [address] [facility] [place] [id number] [place] [address] Apr, [facility] [address] [id number] [place] [address] March, [facility] [address] [id number] [place] [address] March, [facility] [address] [id number] [place] [address] March, [facility] [address] [id number] [place] [address] March, [facility] [address] [id number] [place] [address] March, [facility] [address] [id number] [place] [address] March, [facility] [address] [id number] [place] [address] March, [facility] [address] [id number] [place] [address] March, [facility] [address] [id number] [place] [address] March, [facility] [address] [id number] [place] [address] March, [facility] [address] [id number] [place] [address] March, [facility] [address] [id number] [place] [address] March, [facility] [address] [id number] [place] [address] March, [facility] [address] [id number] [place] [address] March, [facility] [address] [id number] [place] [address] March, [facility] [address] [id number] [place] [address] March, [facility] [address] [id number] [place] [address] March, [facility] [address] [id number] [place] [address] March, [facility] [address] [id number] [place] [address] March, [facility] [address] [id number] [place] [address] March, [facility] [address] [id number] [place] [address] March, [facility] [address] [id number] [place] [address] March, [facility] [address] [id number] [place] [address] Feb, [facility] [address] [id number] [place] [address] Feb, IMMUNIZATIONS No Known Immunizations SOCIAL HISTORY [...]
--- OUTSIDE RECORDS SUMMARY | 2020-02-20 20:25 | XMS REPORT ---
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 [id number] [address] [place] [address] May, Sunmelo, 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 [address] [address] Oct, [facility] [address] [address] Jul, Bipolar II disorder F31.81 and Functiona l neurological symptom disorder with mixed symptoms F44.7 [facility] [address] [address] Jul, Bipolar II disorder F31.81 and Functiona l neurological symptom disorder with mixed symptoms F44.7 [facility] [address] [address] Feb, [facility] [address] [address] Feb, [facility] [address] [address] Nov, [facility] [address] [address] Nov, [facility] [address] [address] Aug, [facility] [address] [facility] [id number] [place] [address] Aug, [facility] [address] [facility] [id number] [place] [address] Jul, [facility] [address] [facility] [id number] [place] [address] Jul, [facility] [address] [facility] [id number] [place] [address] Apr, [facility] [address] [facility] [id number] [place] [address] Apr, [facility] [address] [id number] [place] [address] Apr, [facility] [address] [id number] [place] [address] Apr, [facility] [address] [id number] [place] [address] Apr, [facility] [address] [id number] [place] [address] Apr, [facility] [address] [id number] [place] [address] Apr, [facility] [address] [id number] [place] [address] Apr, [facility] [address] [id number] [place] [address] Apr, [facility] [address] [facility] [id number] [place] [address] Apr, [facility] [address] [id number] [place] [address] Apr, [facility] [address] [id number] [place] [address] Apr, [facility] [address] [id number] [place] [address] March, [facility] [address] [id number] [place] [address] March, [facility] [address] [id number] [place] [address] March, [facility] [address] [id number] [place] [address] March, [facility] [address] [id number] [place] [address] March, [facility] [address] [id number] [place] [address] March, [facility] [address] [id number] [place] [address] March, [facility] [address] [id number] [place] [address] March, [facility] [address] [id number] [place] [address] March, [facility] [address] [id number] [place] [address] March, [facility] [address] [id number] [place] [address] March, [facility] [address] [id number] [place] [address] March, [facility] [address] [id number] [place] [address] March, [facility] [address] [id number] [place] [address] March, [facility] [address] [id number] [place] [address] March, [facility] [address] [id number] [place] [address] March, [facility] [address] [id number] [place] [address] March, [facility] [address] [id number] [place] [address] March, [facility] [address] [id number] [place] [address] March, [facility] [address] [id number] [place] [address] March, [facility] [address] [id number] [place] [address] March, [facility] [address] [id number] [place] [address] March, [facility] [address] [id number] [place] [address] Feb, [facility] [address] [id number] [place] [address] Feb, IMMUNIZATIONS No Known Immunizations SOCIAL HISTORY Never Assessed REASON FOR VISIT PLAN OF CARE VITAL SIGNS Height 67 in 2014-04-22 Weight 265 lbs 2014-04-22 Temperature 98 degrees Fahrenheit 2014-04-22 Heart Rate 58 bpm 2014-04-22 Respiratory Rate 18 2014-04-22 Blood pressure systolic 138 mmHg 2014-04-22 Blood pressure diastolic 72 mmHg 2014-04-22 MEDICATIONS No Known Medications RESULTS No Results PROCEDURES Procedure Date Ordered Result Body Site RHEUMATOID FACTOR, QUANT April 22, 2014 C-REACTIVE PROTEIN April 22, 2014 RBC SED RATE, NONAUTOMATED April 22, 2014 ASSAY OF BLOOD/URIC ACID April 22, 2014 GLYCATED HEMOGLOBIN TEST April 22, 2014 VENIPUNCT, ROUTINE* April 22, 2014 INSTRUCTIONS MEDICATIONS ADMINISTERED No Known Medications MEDICAL (GENERAL) HISTORY Type Description Date Medical History hypothyroidism Surgical History several hernia surgeries, 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
--- OUTSIDE RECORDS SUMMARY | 2020-02-20 20:25 | XMS REPORT ---
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 [id number] Problem Bipolar II disorder F31.81 Active [id number] ALLERGIES No Information ENCOUNTERS Encounter Location Date Diagnosis [facility] [address] [facility] [id number] [address] [place] [address] May, Kaur, 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 [facility] [address] [address] Oct, [facility] [address] [address] Jul, Bipolar II disorder F31.81 and Functiona l neurological symptom disorder with mixed symptoms F44.7 [facility] [address] [address] Jul, Bipolar II disorder F31.81 and Functiona l neurological symptom disorder with mixed symptoms F44.7 [facility] [address] [address] Feb, [facility] [address] [address] Feb, [facility] [address] [address] Nov, [facility] [address] [address] Nov, [facility] [address] [address] Aug, [facility] [address] [address] Aug, [facility] [address] [facility] [id number] [place] [address] 08 Jul, 2014 [facility] [address] [facility] [id number] [place] [address] Jul, [facility] [address] [id number] [place] [address] Apr, [facility] [address] [facility] [id number] [place] [address] Apr, [facility] [address] [facility] [id number] [place] [address] Apr, [facility] [address] [facility] [id number] [place] [address] Apr, [facility] [address] [id number] [place] [address] Apr, [facility] [address] [id number] [place] [address] Apr, [facility] [address] [id number] [place] [address] Apr, [facility] [address] [id number] [place] [address] Apr, [facility] [address] [id number] [place] [address] Apr, [facility] [address] [id number] [place] [address] Apr, [facility] [address] [facility] [id number] [place] [address] Apr, [facility] [address] [facility] [id number] [place] [address] Apr, [facility] [address] [id number] [place] [address] March, [facility] [address] [id number] [place] [address] March, [facility] [address] [id number] [place] [address] March, [facility] [address] [id number] [place] [address] March, [facility] [address] [id number] [place] [address] March, [facility] [address] [id number] [place] [address] March, [facility] [address] [id number] [place] [address] March, [facility] [address] [id number] [place] [address] March, [facility] [address] [id number] [place] [address] March, [facility] [address] [id number] [place] [address] March, [facility] [address] [id number] [place] [address] March, [facility] [address] [id number] [place] [address] March, [facility] [address] [id number] [place] [address] March, [facility] [address] [id number] [place] [address] March, [facility] [address] [id number] [place] [address] March, [facility] [address] [id number] [place] [address] March, [facility] [address] [id number] [place] [address] March, [facility] [address] [id number] [place] [address] March, [facility] [address] [id number] [place] [address] March, [facility] [address] [id number] [place] [address] March, [facility] [address] [id number] [place] [address] March, [facility] [address] [id number] [place] [address] March, [facility] [address] [id number] [place] [address] Feb, [facility] [address] [id number] [place] [address] Feb, IMMUNIZATIONS No Known Immunizations SOCIAL HISTORY [...]
--- OUTSIDE RECORDS SUMMARY | 2020-02-20 20:25 | XMS REPORT ---
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 [id number] Problem Bipolar II disorder F31.81 Active [id number] ALLERGIES No Information ENCOUNTERS Encounter Location Date Diagnosis [facility] [address] [facility] [id number] [address] [place] [address] May, Kaur, 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 [facility] [address] [facility] [id number] [address] [place] [address] Oct, [facility] [address] [facility] [id number] [address] [place] [address] Jul, Bipolar II disorder F31.81 a nd 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 [facility] [address] [facility] [id number] [address] [place] [address] Jul, Bipolar II disorder F31.81 a nd 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 [facility] [address] [facility] [id number] [address] [place] [address] Feb, [facility] [address] [facility] [id number] [address] [place] [address] Feb, [facility] [address] [facility] [id number] [address] [place] [address] Nov, [facility] [address] [facility] [id number] [address] [place] [address] Nov, [facility] [address] [facility] [id number] [address] [place] [address] Aug, [facility] [address] [id number] [address] [place] [address], [place] [address] Aug, [facility] [address] [id number] [facility] [place] [address] Jul, [facility] [address] [id number] [address] [place] [address], [place] [address] Jul, [facility] [address] [id number] [address] [place] [address], [place] [address] Apr, [facility] [address] [id number] [address] [place] [address], [place] [address] Apr, [facility] [address] [id number] [address] [place] [address], [place] [address] Apr, [facility] [address] [id number] [address] [place] [address], [place] [address] Apr, [facility] [address] [id number] [address] [place] [address], [place] [address] Apr, [facility] [address] [id number] [address] [place] [address], [place] [address] Apr, [facility] [address] [id number] [address] [place] [address], [place] [address] Apr, [facility] [address] [id number] [address] [place] [address], [place] [address] Apr, [facility] [address] [id number] [address] [place] [address], [place] [address] Apr, [facility] [address] [id number] [address] [place] [address], [place] [address] Apr, [facility] [address] [id number] [address] [place] [address], [place] [address] Apr, [facility] [address] [id number] [address] [place] [address], [place] [address] Apr, [facility] [address] [id number] [address] [place] [address], [place] [address] March, [facility] [address] [id number] [address] [place] [address], [place] [address] March, [facility] [address] [id number] [address] [place] [address], [place] [address] March, [facility] [address] [id number] [address] [place] [address], [place] [address] March, [facility] [address] [id number] [address] [place] [address], [place] [address] March, [facility] [address] [id number] [address] [place] [address], [place] [address] March, [facility] [address] [id number] [address] [place] [address], [place] [address] March, [facility] [address] [id number] [address] [place] [address], [place] [address] March, [facility] [address] [id number] [address] [place] [address], [place] [address] March, [facility] [address] [id number] [address] [place] [address], [place] [address] March, [facility] [address] [id number] [address] [place] [address], [place] [address] March, [facility] [address] [id number] [address] [place] [address], [place] [address] March, [facility] [address] [id number] [address] [place] [address], [place] [address] March, [facility] [address] [id number] [address] [place] [address], [place] [address] March, [facility] [address] [id number] [address] [place] [address], [place] [address] March, [facility] [address] [id number] [address] [place] [address], [place] [address] March, [facility] [address] [id number] [address] [place] [address] March, [facility] [address] [facility] [id number] [address] [place] [address] March, [facility] [address] [facility] [id number] [address] [place] [address] March, [facility] [address] [facility] [id number] [address] [place] [address] March, [facility] [address] [facility] [id number] [address] [place] [address] March, [facility] [address] [facility] [id number] [address] [place] [address] March, [facility] [address] [facility] [id number] [address] [place] [address] Feb, [facility] [address] [facility] [id number] [address] [place] [address] Feb, IMMUNIZATIONS No Known Immunizations SOCIAL HISTORY [...]
--- OUTSIDE RECORDS SUMMARY | 2020-02-20 20:25 | XMS REPORT ---
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 23163924 Problem Bipolar II disorder F31.81 Active [id number] ALLERGIES No Information ENCOUNTERS Encounter Location Date Diagnosis [facility] [address] [facility] [id number] [address] [place] [address] May, Kaur, 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 [facility] [address] [address] Oct, [facility] [address] [address] Jul, Bipolar II disorder F31.81 and Functiona l neurological symptom disorder with mixed symptoms F44.7 [facility] [address] [address] Jul, Bipolar II disorder F31.81 and Functiona l neurological symptom disorder with mixed symptoms F44.7 [facility] [address] [address] Feb, [facility] [address] [address] Feb, [facility] [address] [address] Nov, [facility] [address] [address] Nov, [facility] [address] [address] Aug, [facility] [address] [address] Aug, [facility] [address] [facility] [id number] [place] [address] 08 Jul, 2014 [facility] [address] [facility] [id number] [facility] [place] [address] Jul, [facility] [address] [id number] [place] [address] Apr, [facility] [address] [facility] [id number] [place] [address] Apr, [facility] [address] [facility] [id number] [place] [address] Apr, [facility] [address] [facility] [id number] [place] [address] Apr, [facility] [address] [id number] [place] [address] Apr, [facility] [address] [id number] [place] [address] Apr, [facility] [address] [id number] [place] [address] Apr, [facility] [address] [id number] [place] [address] Apr, [facility] [address] [id number] [place] [address] Apr, [facility] [address] [id number] [place] [address] Apr, [facility] [address] [facility] [id number] [place] [address] Apr, [facility] [address] [facility] [id number] [place] [address] Apr, [facility] [address] [id number] [place] [address] March, [facility] [address] [id number] [place] [address] March, [facility] [address] [id number] [place] [address] March, [facility] [address] [id number] [place] [address] March, [facility] [address] [id number] [place] [address] March, [facility] [address] [id number] [place] [address] March, [facility] [address] [id number] [place] [address] March, [facility] [address] [id number] [place] [address] March, [facility] [address] [id number] [place] [address] March, [facility] [address] [id number] [place] [address] March, [facility] [address] [id number] [place] [address] March, [facility] [address] [id number] [place] [address] March, [facility] [address] [id number] [place] [address] March, [facility] [address] [id number] [place] [address] March, [facility] [address] [id number] [place] [address] March, [facility] [address] [id number] [place] [address] March, [facility] [address] [id number] [place] [address] March, [facility] [address] [id number] [place] [address] March, [facility] [address] [id number] [place] [address] March, [facility] [address] [id number] [place] [address] March, [facility] [address] [id number] [place] [address] March, [facility] [address] [id number] [place] [address] March, [facility] [address] [id number] [place] [address] Feb, [facility] [address] [id number] [place] [address] Feb, IMMUNIZATIONS No Known Immunizations SOCIAL HISTORY Never Assessed REASON FOR VISIT PLAN OF CARE VITAL SIGNS MEDICATIONS No Known Medications RESULTS No Results PROCEDURES Procedure Date Ordered Result Body Site COMPLETE CBC W/AUTO DIFF WBC March 27, 2014 ASSAY THYROID STIM HORMONE March 27, 2014 ASSAY OF PSA, TOTAL March 27, 2014 ASSAY OF MAGNESIUM March 27, 2014 LIPID PANEL March 27, 2014 COMPREHEN METABOLIC PANEL March 27, 2014 ELECTROCARDIOGRAM, TRACING March 27, 2014 VENIPUNCT, ROUTINE* March 27, 2014 INSTRUCTIONS MEDICATIONS ADMINISTERED No Known Medications MEDICAL (GENERAL) HISTORY Type Description Date Medical History hypothyroidism Surgical History several hernia surgeries, 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
--- OUTSIDE RECORDS SUMMARY | 2020-02-20 20:25 | XMS REPORT ---
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 [address] [address] Oct, [facility] [address] [address] Jul, Bipolar II disorder F31.81 and Functiona l neurological symptom disorder with mixed symptoms F44.7 [facility] [address] [address] Jul, Bipolar II disorder F31.81 and Functiona l neurological symptom disorder with mixed symptoms F44.7 [facility] [address] [address] Feb, [facility] [address] [address] Feb, [facility] [address] [address] Nov, [facility] [address] [address] Nov, [facility] [address] [address] Aug, [facility] [address] [address] Aug, [facility] [address] [facility] [id number] [place] [address] 08 Jul, 2014 [facility] [address] [facility] [id number] [facility] [place] [address] Jul, [facility] [address] [id number] [place] [address] Apr, [facility] [address] [facility] [id number] [place] [address] Apr, [facility] [address] [facility] [id number] [place] [address] Apr, [facility] [address] [facility] [id number] [place] [address] Apr, [facility] [address] [id number] [place] [address] Apr, [facility] [address] [id number] [place] [address] Apr, [facility] [address] [id number] [place] [address] Apr, [facility] [address] [id number] [place] [address] Apr, [facility] [address] [id number] [place] [address] Apr, [facility] [address] [id number] [place] [address] Apr, [facility] [address] [facility] [id number] [place] [address] Apr, [facility] [address] [facility] [id number] [place] [address] Apr, [facility] [address] [id number] [place] [address] March, [facility] [address] [id number] [place] [address] March, [facility] [address] [id number] [place] [address] March, [facility] [address] [id number] [place] [address] March, [facility] [address] [id number] [place] [address] March, [facility] [address] [id number] [place] [address] March, [facility] [address] [id number] [place] [address] March, [facility] [address] [id number] [place] [address] March, [facility] [address] [id number] [place] [address] March, [facility] [address] [id number] [place] [address] March, [facility] [address] [id number] [place] [address] March, [facility] [address] [id number] [place] [address] March, [facility] [address] [id number] [place] [address] March, [facility] [address] [id number] [place] [address] March, [facility] [address] [id number] [place] [address] March, [facility] [address] [id number] [place] [address] March, [facility] [address] [id number] [place] [address] March, [facility] [address] [id number] [place] [address] March, [facility] [address] [id number] [place] [address] March, [facility] [address] [id number] [place] [address] March, [facility] [address] [id number] [place] [address] March, [facility] [address] [id number] [place] [address] March, [facility] [address] [id number] [place] [address] Feb, [facility] [address] [id number] [place] [address] Feb, IMMUNIZATIONS No Known Immunizations SOCIAL HISTORY [...]
--- OUTSIDE RECORDS SUMMARY | 2020-02-20 20:26 | XMS REPORT | Continuity of Care Document ---
Demographics Preferred Language Unknown Marital Status Unknown Uatsdin Affiliation Unknown Race Unknown Ethnic Group Unknown Author Organization Unknown Address Unknown Phone Unavailable Allergies Active Description [...] UNKNOWN UNKNOWN Yes ZOLOFT UNKNOWN UNKNOWN Yes Fleet Enema Drug Allergy N/A N/A 03/25/2014 Medications Medication Packaging Start Date St op Date Route Dosage Sig NORMAL SALINE 1000CC IV BAG INJ 0.9 % (NS 1000CC IV BAG) ml 12/06/2017 12/06/2017 ONCE&1209 LACTATED RINGERS 1000CC IV BAG INJ ml 04/12/2019 04/19/2019 CONTINUOUSEVERY 0 Hour LACTATED RINGERS 1000CC IV BAG INJ ml 05/01/2019 05/08/2019 CONTINUOUSEVERY 0 Hour LACTATED RINGERS 1000CC IV BAG INJ ml 05/14/2019 05/21/2019 CONTINUOUSEVERY 0 Hour CEFAZOLIN VIAL INJ 1 GM (ANCEF) GM 05/15/2019 05/15/2019 ONCE&0815 LIDOCAINE TOPICAL SOLUTION L IQ 4 % (XYLOCAINE TOP SOLN) APPLICATION 06/27/2019 06/27/2019 ONCE&1308 BISACODYL SUPPOS 10 MG (DULCOLAX SUPPOS) MG 06/27/2019 06/27/2019 PRN ONCE KETOROLAC VIAL INJ 30 MG/CC (TORADOL VIAL) MG 06/27/2019 06/27/2019 ONCE&1321 FENTANYL INJ 100 MCG/2CC VIAL MCG 06/27/2019 06/27/2019 ONCE&1321 FENTANYL INJ 100 MCG/2CC VIAL MCG 06/27/2019 06/27/2019 ONCE&1357 CEFTRIAXONE INJ 1 GM (ROCEPHIN) GM 06/27/2019 06/27/2019 ONCE&1357 LIDOCAINE 1% MPF INJ 1 % (XYLOCAINE (MPF) ml 06/27/2019 06/27/2019 ONCE&1357 KETOROLAC VIAL INJ 30 MG/CC (TORADOL VIAL) MG 06/27/2019 06/27/2019 PRN ONCE CEFTRIAXONE PREMIX IV BAG IV 1 GM/50CC (ROCEPHIN PREMIX IV BAG) GM 06/28/2019 07/04/2019 Daily&0900 HYDROCODONE/APAP 10/325 TAB 10 /325 (ANABELLE-TAB 10/325) TAB 06/28/2019 06/28/2019 ONCE&1438 DIAZEPAM TAB 2 MG (VALIUM) M G 07/29/2019 07/29/2019 ONCE&1203 MECLIZINE TAB 25 MG (ANTIVERT) MG 07/29/2019 08/05/2019 PRN Q6H Problems Date Dx Coded Attending Type Code Diagnosis Diagnosed By 03/25/2014 TIFFANY DAVEY DO 338.29 OTHER CHRONIC PAIN 03/25/2014 TIFFANY DAVEY DO 401.1 HYPERTENSION, BENIGN ESSENTIAL 03/25/2014 TIFFANY DAVEY DO 414.00 CORONARY ATHEROSCLEROSIS OF UNSPECIFIED TYPE OF VESSEL [place] 03/25/2014 TIFFANY DAVEY DO 724.2 [...] CORONARY ATHEROSCLEROSIS OF UNSPECIFIED TYPE OF VESSEL [place] OR [place] 03/25/2014 TIFFANY DAVEY DO 604.90 ORCHITIS AND EPIDIDYMITIS UNSPECIFIED 03/25/2014 TIFFANY DAVEY DO 724.2 LUMBAGO 03/25/2014 TIFFANY DAVEY DO 724.3 SCIATICA 03/25/2014 DAVEY DO, TIFFANY K [...] K V76.51 COLON CANCER SCREENING 03/25/2014 [facility], JUWAN L 338 .29 OTHER CHRONIC PAIN 03/25/2014 [facility], JUWAN L 401 .1 HYPERTENSION, BENIGN ESSENTIAL 03/25/2014 [facility], JUWAN L 414 .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 03/25/2014 [facility], JUWAN L 604 .90 ORCHITIS AND EPIDIDYMITIS UNSPECIFIED 03/25/2014 [facility], JUWAN L 724 .2 LUMBAGO 03/25/2014 [facility], JUWAN L 724 .3 SCIATICA 03/25/2014 [facility], JUWAN L 782 .0 DISTURBANCE OF SKIN SENSATION 03/25/2014 [facility], UJWAN L V70 .0 EXAM - ROUTINE H&P 03/25/2014 [facility], JUWAN L V76 .44 PROSTATE CANCER SCREENING 03/25/2014 [facility], JUWAN L V76 .51 COLON CANCER SCREENING 03/25/2014 SAMANTHA HANEY MD 338.2 9 OTHER CHRONIC PAIN 03/25/2014 SAMANTHA HANEY MD 401.1 HYPERTENSION, BENIGN ESSENTIAL 03/25/2014 SAMANTHA HANEY MD 414.0 0 MULTI VESSEL CORONARY ARTERY DISEASE 03/25/2014 SAMANTHA HANEY MD 604.9 0 ORCHITIS AND EPIDIDYMITIS UNSPECIFIED 03/25/2014 SAMANTHA HANEY MD 724.2 LUMBAGO 03/25/2014 SAMANTHA HANEY MD 724.3 SCIATICA 03/25/2014 SAMANTHA HANEY MD 782.0 DISTURBANCE OF SKIN SENSATION 03/25/2014 SAMANTHA HANEY MD V70.0 EXAM - ROUTINE H&P 03/25/2014 SAMANTHA HANEY MD V76.4 4 PROSTATE CANCER SCREENING 03/25/2014 SAMANTHA HANEY MD V76.5 1 COLON CANCER SCREENING 03/25/2014 TAMICA BOLTON TIFFANY K 338.29 OTHER CHRONIC PAIN 03/25/2014 TAMICA BOLTON TIFFANY K 401.1 HYPERTENSION, BENIGN ESSENTIAL 03/25/2014 TAMICA BOLTON TIFFANY K 414.00 CORONARY ATHEROSCLEROSIS OF UNSPECIFIED TYPE OF VESSEL [place] 03/25/2014 DAVEY DO TIFFANY K [...] CORONARY ATHEROSCLEROSIS OF UNSPECIFIED TYPE OF VESSEL [place] 03/25/2014 DAVEY DO, TIFFANY K [...] CORONARY ATHEROSCLEROSIS OF UNSPECIFIED TYPE OF VESSEL [place] 03/25/2014 DAVEY DO, TIFFANY K [...] CORONARY ATHEROSCLEROSIS OF UNSPECIFIED TYPE OF VESSEL [place] 03/25/2014 DAVEY DO, TIFFANY K [...] DO, TIFFANY K V76.51 COLON CANCER SCREENING 04/14/2014 DAVEY DO, TIFFANY K 780.79 OTHER MALAISE AND FATIGUE 04/14/2014 DAVEY DO, TIFFANY K 780.79 OTHER MALAISE AND FATIGUE 04/14/2014 JUWAN ABBASI APRN 780 .79 OTHER MALAISE AND FATIGUE 04/14/2014 SAMANTHA HANEY MD 780.7 9 OTHER MALAISE AND FATIGUE 04/14/2014 DAVEY DO, TIFFANY K 780.79 OTHER MALAISE AND FATIGUE 04/14/2014 DAVEY DO, TIFFANY K 780.79 OTHER MALAISE AND FATIGUE 04/14/2014 DAVEY DO, TIFFANY K 780.79 OTHER MALAISE AND FATIGUE 04/14/2014 DAVEY DO, TIFFANY K 780.79 OTHER MALAISE AND FATIGUE 04/22/2014 DAVEY DO, TIFFANY K 786.09 RESPIRATORY ABNORMALITY OTHER 04/22/2014 JUWAN ABBASI APRN 786 .09 RESPIRATORY ABNORMALITY OTHER 04/22/2014 SAMANTHA HANEY MD 786.0 9 RESPIRATORY ABNORMALITY OTHER 04/22/2014 DAVEY DO, TIFFANY K 786.09 RESPIRATORY ABNORMALITY OTHER 04/22/2014 DAVEY DO, TIFFANY K 786.09 RESPIRATORY ABNORMALITY OTHER 04/22/2014 DAVEY DO, TIFFANY K 786.09 RESPIRATORY ABNORMALITY OTHER 04/22/2014 DAVEY DO, TIFFANY K 786.09 RESPIRATORY ABNORMALITY OTHER 04/29/2014 JUWAN ABBASI APRN L 786 .50 UNSPECIFIED CHEST PAIN 04/29/2014 SAMANTHA HANEY MD 786.5 0 UNSPECIFIED CHEST PAIN 04/29/2014 DAVEY DO, TIFFANY [...] 05/06/2014 DAVEY DO, TIFFANY K 799.02 HYPOXEMIA 12/09/2014 DAVEY DO, TIFFANY K 564.00 UNSPECIFIED CONSTIPATION 12/09/2014 DAVEY DO, TIFFANY K 719.46 PAIN IN JOINT INVOLVING LOWER LEG 12/09/2014 DAVEY DO, TIFFANY K 729.5 PAIN IN LIMB 12/09/2014 DAVEY DO, TIFFANY K 564.00 UNSPECIFIED CONSTIPATION 12/09/2014 DAVEY DO, TIFFANY K 719.46 PAIN IN JOINT INVOLVING LOWER LEG 12/09/2014 DAVEY DO, TIFFANY K 729.5 PAIN IN LIMB 07/25/2017 W 244.9 UNSP ECIFIED HYPOTHYROIDISM 07/25/2017 W 272.4 OTHE R AND UNSPECIFIED HYPERLIPIDEMIA 07/25/2017 W 300.02 GEN ERALIZED ANXIETY DISORDER 07/25/2017 W 401.9 UNSP ECIFIED ESSENTIAL HYPERTENSION 07/25/2017 W 414.00 COR ONARY ATHEROSCLEROSIS OF UNSPECIFIED TYPE OF VESSEL, [place] 07/25/2017 W 780.57 UNS PECIFIED SLEEP APNEA 07/25/2017 W E03.9 HYPO THYROIDISM, UNSPECIFIED 07/25/2017 W E78.5 HYPE RLIPIDEMIA, UNSPECIFIED 07/25/2017 W F41.1 GENE RALIZED ANXIETY DISORDER 07/25/2017 W G47.33 OBS TRUCTIVE SLEEP APNEA (ADULT) (PEDIATRIC) 07/25/2017 W I10 ESSENT IAL (PRIMARY) HYPERTENSION 07/25/2017 W I25.10 ATH EROSCLEROTIC HEART DISEASE OF [place] CORONARY ARTERY WITHOUT ANGINA PECTORIS 11/29/2017 VU BLISS W 272.4 11/29/2017 BLISS VU W 401.0 MALIGNANT ESSENTIAL HYPERTENSION 11/29/2017 BLISS VU W 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 11/29/2017 BLISS VU W 780.4 DIZZINESS AND GIDDINESS 11/29/2017 BLISS VU W 780.97 ALTERED MENTAL STATUS 11/29/2017 RUTHY VU W E78.5 HYPERLIPIDEMIA, UNSPECIFIED 11/29/2017 VU BLISS W I10 ESSENTIAL (PRIMARY) HYPERTENSION 11/29/2017 BLISS VU W 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 11/29/2017 BLISS VU W R41.82 ALTERED MENTAL STATUS, UNSPECIFIED 11/29/2017 LESLIE BLISSHEL W R42 DIZZINESS AND GIDDINESS 11/29/2017 BLISS, VU W 244.9 11/29/2017 BLISS, VU W 272.4 11/29/2017 BLISS, VU W 401.0 11/29/2017 LESLIE BLISSHEL W 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 11/29/2017 BLISS VU W 780.4 DIZZINESS AND GIDDINESS 11/29/2017 BLISS VU W 780.97 ALTERED MENTAL STATUS 11/29/2017 RUTHY VU W E03.9 HYPOTHYROIDISM, UNSPECIFIED 11/29/2017 BLISS VU W E78.5 HYPERLIPIDEMIA, UNSPECIFIED 11/29/2017 BLISS, VU W I10 ESSENTIAL (PRIMARY) HYPERTENSION 11/29/2017 BLISS VU W 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 11/29/2017 BLISS, VU W R41.82 ALTERED MENTAL STATUS, UNSPECIFIED 11/29/2017 BLISS, VU W R42 DIZZINESS AND GIDDINESS 11/29/2017 W 244.9 UNSP ECIFIED HYPOTHYROIDISM 11/29/2017 W 272.4 OTHE R AND UNSPECIFIED HYPERLIPIDEMIA 11/29/2017 W 401.0 PABLITO GNANT ESSENTIAL HYPERTENSION 11/29/2017 W 438.13 DYS ARTHRIA LATE EFFECT OF CEREBROVASCULAR DISEASE 11/29/2017 W 780.4 DIZZ INESS AND GIDDINESS 11/29/2017 W 780.97 ALT ERED MENTAL STATUS 11/29/2017 W E03.9 HYPO THYROIDISM, UNSPECIFIED 11/29/2017 W E78.5 HYPE RLIPIDEMIA, UNSPECIFIED 11/29/2017 W I10 ESSENT IAL (PRIMARY) HYPERTENSION 11/29/2017 W I69.822 DY SARTHRIA FOLLOWING OTHER CEREBROVASCULAR DISEASE 11/29/2017 W R41.82 ALT ERED MENTAL STATUS, UNSPECIFIED 11/29/2017 W R42 DIZZIN ESS AND GIDDINESS 11/29/2017 RUTHY VU W 244.9 11/29/2017 RUTHY VU W 272.4 11/29/2017 BLISS, VU W 401.0 11/29/2017 BLISS VU W 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 11/29/2017 BLISS, VU W 780.4 DIZZINESS AND GIDDINESS 11/29/2017 BLISS, VU W 780.97 ALTERED MENTAL STATUS 11/29/2017 RUTHY VU W E03.9 HYPOTHYROIDISM, UNSPECIFIED 11/29/2017 BLISS VU W E78.5 HYPERLIPIDEMIA, UNSPECIFIED 11/29/2017 BLISS, VU W I10 ESSENTIAL (PRIMARY) HYPERTENSION 11/29/2017 RUTHY VU W 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 11/29/2017 RUTHY VU W R41.82 ALTERED MENTAL STATUS, UNSPECIFIED 11/29/2017 BLISS, VU W R42 DIZZINESS AND GIDDINESS 12/03/2017 BLISS, VU W 780.97 ALTERED MENTAL STATUS 12/03/2017 BLISS, VU W R41.82 ALTERED MENTAL STATUS, UNSPECIFIED 12/03/2017 BLISS, VU W 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 12/03/2017 VU BLISS W 780.4 DIZZINESS AND GIDDINESS 12/03/2017 BLISS, VU W 780.97 ALTERED MENTAL STATUS 12/03/2017 VU BLISS 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 12/03/2017 VU BLISS R41.82 ALTERED MENTAL STATUS, UNSPECIFIED 12/03/2017 VU BLISS W R42 DIZZINESS AND GIDDINESS 12/03/2017 VU BLISS W 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 12/03/2017 VU BLISS W 780.4 DIZZINESS AND GIDDINESS 12/03/2017 VU BLISS W 780.97 ALTERED MENTAL STATUS 12/03/2017 VU BLISS 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 12/03/2017 VU BLISS R41.82 ALTERED MENTAL STATUS, UNSPECIFIED 12/03/2017 VU BLISS R42 DIZZINESS AND GIDDINESS 12/06/2017 ERICKSON BYRNE W 244.9 UNSPECIFIED HYPOTHYROIDISM 12/06/2017 ERICKSON BYRNE W 272.4 OTHER AND UNSPECIFIED HYPERLIPIDEMIA 12/06/2017 ERICKSON BYRNE W 401.0 MALIGNANT ESSENTIAL HYPERTENSION 12/06/2017 GERI BYRNEUA A 780.2 12/06/2017 CHAVEZ, ERICKSON W 780.4 12/06/2017 GERI BYRNEUA W 784.0 HEADACHE 12/06/2017 ERICKSON BYRNE W E03.9 HYPOTHYROIDISM, UNSPECIFIED 12/06/2017 CHAVEZ ERICKSON W E78.5 HYPERLIPIDEMIA, UNSPECIFIED 12/06/2017 CHAVEZ ERICKSON W I10 ESSENTIAL (PRIMARY) HYPERTENSION 12/06/2017 GERI BYRNEUA W R42 DIZZINESS AND GIDDINESS 12/06/2017 CHAVEZ ERICKSON W R51 HEADACHE 12/06/2017 ERICKSON BYRNE A R55 SYNCOPE AND COLLAPSE 12/07/2017 W 300.11 CON VERSION DISORDER 12/07/2017 W 487 INFLUENZA 12/07/2017 A 780.2 SYNC OPE AND COLLAPSE 12/07/2017 W J11.1 INFL UENZA DUE TO UNIDENTIFIED INFLUENZA VIRUS WITH OTHER RESPIRATORY MANIFESTATIONS 12/07/2017 A R55 SYNCOP E AND COLLAPSE 07/24/2018 Lea Powell W 719.42 PAIN IN JOINT INVOLVING UPPER ARM 07/24/2018 Lea Powell W 780.79 OTHER MALAISE AND FATIGUE 07/24/2018 PowellColetteLea W 989.5 TOXIC EFFECT OF VENOM 07/24/2018 PowellLea W M25.529 PAIN IN UNSPECIFIED ELBOW 07/24/2018 Lea Powell W R53.83 OTHER FATIGUE 07/24/2018 Lea Powell W S60.229 CONTUSION OF UNSPECIFIED HAND 07/24/2018 W 719.42 YESENIA N IN JOINT INVOLVING UPPER ARM 07/24/2018 W 780.79 OTH ER MALAISE AND FATIGUE 07/24/2018 W 989.5 TOXI C EFFECT OF VENOM 07/24/2018 W M25.529 PA IN IN UNSPECIFIED ELBOW 07/24/2018 W R53.83 OTH ER FATIGUE 07/24/2018 W S60.229 CO NTUSION OF UNSPECIFIED HAND 02/11/2019 VU BLISS W 244.9 UNSPECIFIED HYPOTHYROIDISM 02/11/2019 VU BLISS W 401.0 MALIGNANT ESSENTIAL HYPERTENSION 02/11/2019 VU BLISS W 414.01 CORONARY ATHEROSCLEROSIS [place] CORONARY ARTERY 02/11/2019 VU BLISS W E03.9 HYPOTHYROIDISM, UNSPECIFIED 02/11/2019 VU BLISS W I10 ESSENTIAL (PRIMARY) HYPERTENSION 02/11/2019 VU BLISS W I25.10 ATHEROSCLEROTIC HEART DISEASE OF [place] CORONARY ARTERY WITHOUT ANGINA PECTORIS 02/11/2019 VU BLISS W 244.9 UNSPECIFIED HYPOTHYROIDISM 02/11/2019 VU BLISS W 272.4 OTHER AND UNSPECIFIED HYPERLIPIDEMIA 02/11/2019 VU BLISS W 401.0 MALIGNANT ESSENTIAL HYPERTENSION 02/11/2019 VU BLISS W 414.01 CORONARY ATHEROSCLEROSIS OF [place] CORONARY ARTERY 02/11/2019 VU BLISS W E03.9 HYPOTHYROIDISM, UNSPECIFIED 02/11/2019 VU BLISS W E78.5 HYPERLIPIDEMIA, UNSPECIFIED 02/11/2019 VU BLISS W I10 ESSENTIAL (PRIMARY) HYPERTENSION 02/11/2019 VU BLISS W I25.10 ATHEROSCLEROTIC HEART DISEASE OF [place] CORONARY ARTERY WITHOUT ANGINA PECTORIS 02/11/2019 VU BLISS V45.86 BARIATRIC SURGERY STATUS 02/11/2019 VU BLISS W Z98.84 BARIATRIC SURGERY STATUS 02/11/2019 W 244.9 UNSP ECIFIED HYPOTHYROIDISM 02/11/2019 W 272.4 OTHE R AND UNSPECIFIED HYPERLIPIDEMIA 02/11/2019 W 401.0 PABLITO GNANT ESSENTIAL HYPERTENSION 02/11/2019 W 414.01 COR ONARY ATHEROSCLEROSIS OF [place] CORONARY ARTERY 02/11/2019 W E03.9 HYPO THYROIDISM, UNSPECIFIED 02/11/2019 W E78.5 HYPE RLIPIDEMIA, UNSPECIFIED 02/11/2019 W I10 ESSENT IAL (PRIMARY) HYPERTENSION 02/11/2019 W I25.10 ATH EROSCLEROTIC HEART DISEASE OF [place] CORONARY ARTERY WITHOUT ANGINA PECTORIS 02/11/2019 W V45.86 BAR IATRIC SURGERY STATUS 02/11/2019 W Z98.84 BAR IATRIC SURGERY STATUS 02/11/2019 LESLIE BLISSHEL W 244.9 UNSPECIFIED HYPOTHYROIDISM 02/11/2019 LESLIE BLISSHEL W 272.4 OTHER AND UNSPECIFIED HYPERLIPIDEMIA 02/11/2019 LESLIE BLISSHEL W 401.0 MALIGNANT ESSENTIAL HYPERTENSION 02/11/2019 LESLIE BLISSHEL W 414.01 CORONARY ATHEROSCLEROSIS OF [place] CORONARY ARTERY 02/11/2019 LESLIE BLISSHEL W E03.9 HYPOTHYROIDISM, UNSPECIFIED 02/11/2019 VU BLISS W E78.5 HYPERLIPIDEMIA, UNSPECIFIED 02/11/2019 VU BLISS W I10 ESSENTIAL (PRIMARY) HYPERTENSION 02/11/2019 VU BLISS W I25.10 ATHEROSCLEROTIC HEART DISEASE OF [place] CORONARY ARTERY WITHOUT ANGINA PECTORIS 02/11/2019 VU BLISS W V45.86 BARIATRIC SURGERY STATUS 02/11/2019 VU BLISS W Z98.84 BARIATRIC SURGERY STATUS 04/02/2019 W 611.1 HYPE RTROPHY OF BREAST 04/02/2019 W 611.71 MAS TODYNIA 04/02/2019 W 790.6 OTHE R ABNORMAL BLOOD CHEMISTRY 04/02/2019 W N62 HYPERT ROPHY OF BREAST 04/02/2019 W N64.4 MAST ODYNIA 04/02/2019 W R79.89 OTH ER SPECIFIED ABNORMAL FINDINGS OF BLOOD CHEMISTRY 05/08/2019 W V70 GENERA L MEDICAL EXAMINATION 05/08/2019 W V70.0 ROUT INE GENERAL MEDICAL EXAMINATION AT A HEALTH CARE FACILITY 05/08/2019 W Z00.00 ENC OUNTER FOR GENERAL ADULT MEDICAL EXAMINATION WITHOUT ABNORMAL FINDINGS 05/08/2019 W Z00.5 ENCO UNTER FOR EXAMINATION OF POTENTIAL DONOR OF ORGAN AND TISSUE 05/15/2019 Miguelito Briseno W 214.1 LIPOMA OF OTHER SKIN AND SUBCUTANEOUS TISSUE 05/15/2019 Miguelito Briseno W D17.1 BENIGN LIPOMATOUS NEOPLASM OF SKIN, SUBCU OF TRUNK 06/27/2019 LEISURE, AN W 692.76 SUNBURN OF SECOND DEGREE 06/27/2019 LEISURE, AN W L55.1 SUNBURN OF SECOND DEGREE 06/28/2019 Joel Perez W 692.76 SUNBURN OF SECOND DEGREE 06/28/2019 Joel Perez W L55.1 SUNBURN OF SECOND DEGREE 06/28/2019 W 692.76 SUN BURN OF SECOND DEGREE 06/28/2019 W 780.60 FEV ER, UNSPECIFIED 06/28/2019 W L55.1 SUNB URN OF SECOND DEGREE 06/28/2019 W R50.9 FEVE R, UNSPECIFIED 06/29/2019 Trinity Up W V58.30 ENCOUNTER FOR CHANGE OR REMOVAL OF NONSURGICAL WOUND DRESSING 06/29/2019 UpSaida-Armen W Z48.00 ENCOUNTER FOR CHANGE OR REMOVAL OF NONSURG WOUND DRESSING 06/30/2019 Up, Saida-Armen W V58.30 ENCOUNTER FOR CHANGE OR REMOVAL OF NONSURGICAL WOUND DRESSING 06/30/2019 Up, Saida-Armen W Z48.00 ENCOUNTER FOR CHANGE OR REMOVAL OF NONSURG WOUND DRESSING 07/01/2019 Up, Saida-Armen W V58.30 ENCOUNTER FOR CHANGE OR REMOVAL OF NONSURGICAL WOUND DRESSING 07/01/2019 Jeovanny, MarionArmen W Z48.00 ENCOUNTER FOR CHANGE OR REMOVAL OF NONSURG WOUND DRESSING 07/29/2019 Joel Perez W 780.4 DIZZINESS AND GIDDINESS 07/29/2019 Joel Perez W 784.0 HEADACHE 07/29/2019 Joel Perez R42 DIZZINESS AND GIDDINESS 07/29/2019 Joel Perez R51 HEADACHE 07/30/2019 VU BLISS W 300.19 OTHER AND UNSPECIFIED FACTITIOUS ILLNESS 07/30/2019 VU BLISS W F44.5 CONVERSION DISORDER WITH SEIZURES OR CONVULSIONS 07/30/2019 VU BLISS W 300.19 OTHER AND UNSPECIFIED FACTITIOUS ILLNESS 07/30/2019 BLISS, VU W F44.5 CONVERSION DISORDER WITH SEIZURES OR CONVULSIONS 07/30/2019 BLISSVU CARDOSO W 300.02 GENERALIZED ANXIETY DISORDER 07/30/2019 BLISS, VU W 300.19 OTHER AND UNSPECIFIED FACTITIOUS ILLNESS 07/30/2019 BLISS, VU W F41.1 GENERALIZED ANXIETY DISORDER 07/30/2019 BLISS VU W F44.5 CONVERSION DISORDER WITH SEIZURES OR CONVULSIONS 07/30/2019 BLISSVU CARDOSO W 300.02 GENERALIZED ANXIETY DISORDER 07/30/2019 BLISS, VU W 300.19 OTHER AND UNSPECIFIED FACTITIOUS ILLNESS 07/30/2019 BLISSVU CARDOSO W F41.1 GENERALIZED ANXIETY DISORDER 07/30/2019 BLISSVU CARDOSO W F44.5 CONVERSION DISORDER WITH SEIZURES OR CONVULSIONS 07/30/2019 BLISSVU CARDOSO W 300.02 GENERALIZED ANXIETY DISORDER 07/30/2019 BLISS, VU W 300.19 OTHER AND UNSPECIFIED FACTITIOUS ILLNESS 07/30/2019 VU BLISS W 388.3 TINNITUS 07/30/2019 BLISSVU CARDOSO W F41.1 GENERALIZED ANXIETY DISORDER 07/30/2019 BLISS, VU W F44.5 CONVERSION DISORDER WITH SEIZURES OR CONVULSIONS 07/30/2019 UV BLISS W H93.19 TINNITUS, UNSPECIFIED EAR 07/30/2019 VU BLISS W 300.02 GENERALIZED ANXIETY DISORDER 07/30/2019 BLISSLESLIE CARDOSOHEL W 300.19 OTHER AND UNSPECIFIED FACTITIOUS ILLNESS 07/30/2019 VU BLISS W 388.3 TINNITUS 07/30/2019 VU BLISS W 780.4 DIZZINESS AND GIDDINESS 07/30/2019 RUTHY VU W F41.1 GENERALIZED ANXIETY DISORDER 07/30/2019 VU BLISS W F44.5 CONVERSION DISORDER WITH SEIZURES OR CONVULSIONS 07/30/2019 VU BLISS W H93.19 TINNITUS, UNSPECIFIED EAR 07/30/2019 VU BLISS W R42 DIZZINESS AND GIDDINESS 07/30/2019 LESLIE BLISSHEL W 300.02 GENERALIZED ANXIETY DISORDER 07/30/2019 RUTHY VU W 300.19 OTHER AND UNSPECIFIED FACTITIOUS ILLNESS 07/30/2019 VU BLISS W 388.3 TINNITUS 07/30/2019 VU BLISS W 780.4 DIZZINESS AND GIDDINESS 07/30/2019 VU BLISS W F41.1 GENERALIZED ANXIETY DISORDER 07/30/2019 VU BLISS W F44.5 CONVERSION DISORDER WITH SEIZURES OR CONVULSIONS 07/30/2019 VU BLISS W H93.19 TINNITUS, UNSPECIFIED EAR 07/30/2019 VU BLISS W R42 DIZZINESS AND GIDDINESS 07/30/2019 LESLIE BLISSHEL W 300.02 GENERALIZED ANXIETY DISORDER 07/30/2019 LESLIE BLISSHEL W 300.19 OTHER AND UNSPECIFIED FACTITIOUS ILLNESS 07/30/2019 VU BLISS W 388.3 TINNITUS 07/30/2019 VU BLISS W 780.4 DIZZINESS AND GIDDINESS 07/30/2019 VU BLISS W F41.1 GENERALIZED ANXIETY DISORDER 07/30/2019 VU BLISS W F44.5 CONVERSION DISORDER WITH SEIZURES OR CONVULSIONS 07/30/2019 VU BLISS W H93.19 TINNITUS, UNSPECIFIED EAR 07/30/2019 VU BLISS W R42 DIZZINESS AND GIDDINESS 07/30/2019 VU BLISS W 300.02 GENERALIZED ANXIETY DISORDER 07/30/2019 LESLIE BLISSHEL W 300.19 OTHER AND UNSPECIFIED FACTITIOUS ILLNESS 07/30/2019 VU BLISS W 388.3 TINNITUS 07/30/2019 VU BLISS W 780.4 DIZZINESS AND GIDDINESS 07/30/2019 VU BLISS W F41.1 GENERALIZED ANXIETY DISORDER 07/30/2019 VU BLISS W F44.5 CONVERSION DISORDER WITH SEIZURES OR CONVULSIONS 07/30/2019 VU BLISS W H93.19 TINNITUS, UNSPECIFIED EAR 07/30/2019 LESLIE BLISSHEL W R42 DIZZINESS AND GIDDINESS Procedures Code Description [place] [id number] ROUT INE VENIPUNCTURE 03/27/2014 68481 EKG, TRACING (IN-HOUSE) 03/27/2014 13800 CBC 03/27/2014 27954 CMP 03/27/2014 51824 LIPI D PANEL 03/27/2014 64263 MAGNESIUM 03/27/2014 [id number] GF R CALC (RESULT ONLY) 03/27/2014 31385 PSA TOTAL 03/27/2014 47759 TSH 03/27/2014 76171 HEMOCCULT 03/31/2014 56725 HEMOCCULT 03/31/2014 CARDIOLOG [facility] 04/01/2014 09480 ROUT INE VENIPUNCTURE 04/22/2014 08685 A1C (IN-HOUSE) 04/22/2014 20759 SED/ ESR RATE (IN HOUSE) 04/22/2014 06384 URIC ACID 04/22/2014 18496 CRP 04/22/2014 75213 PULM ONARY FUNCTION TEST (IN- HOUSE) 04/23/2014 80093 PULM ONARY EDUCATION 04/23/2014 ANAANA GABRIELA ANALYZER (SCREEN) 04/23/2014 45326 RA FACTOR 04/23/2014 48797 CBC 04/29/2014 94881 OXIM ETRY - OVERNIGHT 04/29/2014 81344 SLEE P STUDY (HOME) 05/06/2014 21588 PULM ONARY FUNCTION TEST (IN- HOUSE) 05/09/2014 72143 RESP IRATORY FLOW VOLUME LOOP 05/09/2014 Results Test Result [...] g/dL 6.0-8.3 Thyroid Stimulating Hormone - 10/18/16 1 4:45 TSH 0.00 mIU/mL 0.32-5.00 Free T4 - 11/10/16 10:15 Free T4 1.47 ng/dL 0.81-1.61 Thyroid Stimulating Hormone - 11/10/16 1 0:15 TSH 0.00 mIU/mL 0.32-5.00 Thyroid Stimulating Hormone - 01/10/17 1 5:10 TSH 0.06 mIU/mL 0.32-5.00 Thyroid Stimulating Hormone - 03/28/17 1 7:00 TSH 0.63 mIU/mL 0.32-5.00 Comprehensive Metabolic Panel [...] 32.9 g/dL 32.0-36.0 MCV 92.4 fL 80.0-97.0 [place]% 8.5 % 0.0-12.0 MPV 9.1 fL 7.4-10.0 [place]% 55.7 % 37.0-80.0 Plt 189 K/uL 150-400 RBC 4.71 M/uL 4.20-5.40 RDW 12.6 % 11.6-14.8 WBC 8.32 K/uL 5.00-10.00 Elaine 4.63 K/uL 2.00-6.90 [place] 0.7 K/uL 0.0-0.9 Baso 0.0 K/uL 0.0-0.2 VIT B-12 - 06/27/17 17:38 Vitamin B12 1482.00 pg/mL 213.00-816.00 [place], Total Ab Test/Reflex - 06/27/17 17 :38 LYME IGG/IGM AB <0.91 [facility]00-0.90 [facility] - 06/27/17 17:38 [facility] SPOTTED FEVER, IGM 0.31 INDEX 0.00-0.89 Thyroid Stimulating Hormone - 11/29/17 1 0:35 TSH 1.01 mIU/mL 0.32-5.00 EKG - 12/06/17 12:09 EKG Complete CBC with Auto Diff - 12/06/17 12:09 Baso% 0.10 % 0.00-2.50 Eos 0.0 K/uL 0.0-0.7 Eos% 0.0 % 0.0-7.0 Hct 44.1 % 42.0-52.0 Hgb 14.8 g/dL 14.0-17.0 Lym 0.64 K/uL 0.60-3.40 Lym% 5.6 % 10.0-50.0 MCH 31.5 pg 27.0-31.2 MCHC 33.6 g/dL 32.0-36.0 MCV 93.8 fL 80.0-97.0 [place]% 12.9 % 0.0-12.0 MPV 8.3 fL 7.4-10.0 Elaine% 81.4 % 37.0-80.0 Plt 177 K/uL 150-400 RBC 4.70 M/uL 4.20-5.40 RDW 11.9 % 11.6-14.8 WBC 11.42 K/uL 5.00-10.00 [place] 9.30 K/uL 2.00-6.90 [place] 1.5 K/uL 0.0-0.9 Baso 0.0 K/uL 0.0-0.2 Rapid Drug Screen + ETOH,Medical - 12/06 12:09 Amphetamine NEGATIVE NEGATIVE Barbiturates NEGATIVE NEGATIVE Benzodiazepines NEGATIVE NEGATIVE Cocaine NEGATIVE NEGATIVE Marijuana NEGATIVE NEGATIVE Methylenedioxymethamphetamine NEGATIVE NEGATIVE Opiates NEGATIVE NEGATIVE Oxycodone NEGATIVE NEGATIVE Phencyclidine NEGATIVE NEGATIVE Propoxyphene NEGATIVE NEGATIVE Tricyclic Antidepressant NEGATIVE NEGAT ALEXANDRA Urinalysis - 12/06/17 12:09 Icotest N/A Negative Urine Volume Urine Volume Sufficient (10mL) Urine Yeast No Yeast present Urine-Appearance Clear Clear Urine-Bacteria Negative Urine-Bilirubin Negative Negative Urine-Blood Negative Negative Urine-Color Yellow Colorless-[place] ow Urine-Epithelial Cells 0-5/HPF Urine-Glucose Negative Negative Urine-Ketones Negative Negative Urine-Leukocytes Negative Negative Urine-Nitrite Negative Negative Urine-Other Urine Saved if Culture Need ed (48hrs from time of collection) Urine-pH 8.5 5-8.5 Urine-Protein Negative Negative Urine-RBC Negative Urine-Specific [place] 1.020 1.000-1 .030 Urine-WBC Nothing Seen on Microscopic Urobilinogen 1.0 E.U./dL 0.2-1.0 VIT B-12 - 12/07/17 15:39 Vitamin B12 967.00 pg/mL 213.00-816.00 Thyroid Stimulating Hormone - 12/07/17 1 5:39 TSH 0.73 mIU/mL 0.32-5.00 Carbamazepine - 07/24/18 11:37 Carbamazepine 8.7 ug/mL 4.0-10.[address] [place] [facility] Spotted Fev,IgG - 07/24/18 11: 37 RMSF, IGG, EIA NEGATIVE NEGATIVE [place] [facility] Spotted Fever, IgM - 07/24/18 11:37 WILLY MTN SPOTTED FEVER, IGM 0.28 INDEX 0.00-0.89 West Nile Virus Antibody,Serum - 8 11:37 [place] VIRUS, IGG NEGATIVE NEGATIVE [place] VIRUS, IGM NEGATIVE NEGATIVE Ferritin - 02/11/19 09:05 Ferritin 106.21 ng/mL 21.81-274.66 Thyroid Stimulating Hormone - 02/11/19 0 9:05 TSH 0.93 mIU/mL 0.32-5.00 Prolactin - 04/02/19 [...] 04/12/19 09:10 Surg Path Sent to [facility] Pathology Comprehensive Metabolic Panel - 06/27/19 12:25 Albumin 3.8 g/dL 3.6-5.1 ALP 69 U/L 35-130 ALT 11 U/L 6-45 Anion Gap 12 6-14 AST 11 U/L 2-40 BUN 13 mg/dL 5-25 Calcium 9.5 mg/dL 8.3-10.4 Chloride 107 mmol/L 95-114 CO2 28 mEq/L 22-33 Creat 0.81 mg/dL 0.50-1.50 eGFR 101 mL/min/1.73m2 >59 Globulin 2.7 g/dL 2.3-3.5 Glucose 98 mg/dL 70-110 O[place] 295 280-295 Potassium 3.8 mmol/L 3.5-5.3 Sodium 143 mmol/L 134-148 TBil 0.2 mg/dL 0.2-1.2 TP 6.5 g/dL 6.0-8.3 Blood Culture - 06/27/19 12:25 PRELIM CULTURE RESULTS Blood Culture Negativ e, No Growth Day 1 FINAL CULTURE RESULTS Blood Culture Negative , No Growth Day 5 MEDIA PLATED Setup at 12:48 on 06/27/2019, Blood Culture Media Position C47 CULTURE SOURCE peripheral [id number]\ Other Culture - 06/27/19 13:57 PRELIM CULTURE RESULTS No Growth 24 hours FINAL CULTURE RESULTS No Growth 48 hours MEDIA PLATED Setup at 14:00 on 06/27/2019 Myoglobin - 06/28/19 14:01 Myoglobin 37.1 ng/ml 1.6-154.9 Urinalysis - 06/28/19 15:23 Icotest N/A Negative Urine Volume Urine Volume Sufficient (10mL) Urine-Appearance Clear Clear Urine-Bacteria Negative Urine-Bilirubin Negative Negative Urine-Blood Negative Negative Urine-Color Dk Yellow Colorless-Lt. Yel low Urine-Epithelial Cells 0-5/HPF Urine-Glucose Negative Negative Urine-Ketones Trace Negative Urine-Leukocytes Negative Negative Urine-Mucus 1+ Urine-Nitrite Negative Negative Urine-Other Urine Saved if Culture Need ed (48hrs from time of collection) Urine-pH 5.5 5-8.5 Urine-Protein Trace Negative Urine-RBC Negative Urine-Specific [place] 1.025 1.000-1 .030 Urine-WBC Negative Urobilinogen 0.2 E.U./dL 0.2-1.0 Cardiac Panel - 07/29/19 12:24 CK 183 U/L 26-174 CK-MB 3.2 ng/ml 0.0-9.2 Myoglobin 59.7 ng/ml 1.6-154.9 Troponin <0.020 ng/mL 0.0-0.4 EKG - 07/29/19 12:25 EKG Complete Holter Monitor 48 hour - 07/29/19 13:41 Holter Monitor holter re-placed on 07/31 fo r another 24 hrs. VIT B-12 - 07/30/19 16:40 Vitamin B12 596.00 pg/mL 213.00-816.00 Thyroid Stimulating Hormone - 07/30/19 1 6:40 TSH 0.20 mIU/mL 0.32-5.00 Free T4 - 07/30/19 16:42 Free T4 0.82 ng/dL 0.81-1.61 Carbamazepine - 09/24/19 08:40 Carbamazepine 8.9 ug/mL 4.0-10.0 Thyroid Stimulating Hormone - 09/24/19 0 8:40 TSH 1.35 mIU/mL 0.32-5.00 Carbamazepine - 02/10/20 10:56 Carbamazepine 7.7 ug/mL 4.0-10.0 Encounters ACCT No. Visit Date/Time Discharge Status Pt. Type Provider Facility Loc./Unit Complaint [id number] 04/03/2019 00:06:00 Document Registration [id number] 07/29/2019 10:58:00 Document Registration [id number] 02/10/2020 10:53:00 02/10/2020 23:59 :00 DIS Outpatient Eliza Floyd [id number] 09/24/2019 08:33:00 09/24/2019 23:59: 00 DIS Outpatient Eliza Floyd [id number] 07/30/2019 18:07:00 07/30/2019 23:59: 00 DIS Outpatient VU BLISS [id number] 07/30/2019 16:00:00 07/30/2019 23:59: 00 DIS Outpatient VU BLISS [id number] 07/29/2019 10:58:00 07/29/2019 13:56: 00 DIS Outpatient Shandarl Chi [facility] ER [id number] 07/11/2019 16:50:00 07/11/2019 23:59: 00 DIS Outpatient VU BLISS [id number] 07/09/2019 00:00:00 07/09/2019 23:59: 00 DIS Outpatient VU BLISS [id number] 07/08/2019 16:44:00 07/08/2019 23:59: 00 DIS Outpatient Lea Powell [id number] 07/01/2019 17:34:00 07/01/2019 17:55: 00 DIS Outpatient Trinity Up [id number] 06/30/2019 12:35:00 06/30/2019 13:00: 00 DIS Outpatient Marion UpArmen [id number] 06/29/2019 13:52:00 06/29/2019 14:35: 00 DIS Outpatient Marion UpArmen [id number] 06/28/2019 13:56:00 06/28/2019 16:20: 00 DIS Outpatient Chris Chi [facility] ER [id number] 06/27/2019 12:20:00 06/27/2019 15:33: 00 DIS Outpatient AN KWAN [facility] ER [id number] 05/15/2019 00:00:00 05/15/2019 09:55: 00 DIS Outpatient Miguelito Briseno [id number] 05/01/2019 00:00:00 05/01/2019 07:11: 00 DIS Outpatient Miguelito Briseno [id number] 04/12/2019 07:14:00 04/12/2019 10:03: 00 DIS Outpatient Miguelito Briseno [id number] 04/08/2019 08:54:00 04/08/2019 23:59: 00 DIS Outpatient Miguelito Briseno [id number] 04/02/2019 10:54:00 04/02/2019 23:59: 00 DIS Outpatient VU BLISS [id number] 02/11/2019 10:07:00 02/11/2019 23:59: 00 DIS Outpatient RUTHY, VU [id number] 07/24/2018 11:37:00 07/24/2018 23:59: 00 DIS Outpatient Lea Powell [id number] 02/13/2018 08:39:00 02/13/2018 23:59: 00 DIS Outpatient KAVIN SALGADONON [id number] 12/07/2017 15:35:00 12/07/2017 23:59: 00 DIS Outpatient BLISS, VU [id number] 12/06/2017 12:01:00 12/06/2017 14:15: 00 DIS Outpatient ERICKSON BYRNE [facility] [id number] 12/03/2017 07:05:00 12/03/2017 23:59: 00 DIS Outpatient RUTHY, VU [id number] 11/29/2017 11:20:00 11/29/2017 23:59: 00 DIS Outpatient BLISS, VU [id number] 06/27/2017 17:36:00 06/27/2017 23:59: 00 DIS Outpatient BLISS, VU [id number] 05/17/2017 17:00:00 05/17/2017 23:59: 00 DIS Outpatient BLISS, VU [id number] 03/28/2017 17:00:00 03/28/2017 23:59: 00 DIS Outpatient BLISS, VU [id number] 01/10/2017 15:10:00 01/10/2017 23:59: 00 DIS Outpatient BLISS, VU [id number] 11/11/2016 10:42:00 11/11/2016 23:59: 00 DIS Outpatient BLISS, VU [id number] 11/10/2016 11:02:00 11/10/2016 23:59: 00 DIS Outpatient BLISS, VU [id number] 10/18/2016 14:41:00 10/18/2016 23:59: 00 DIS Outpatient BLISS, VU [id number] 06/28/2019 08:30:00 Document Registration [id number] 05/08/2019 15:30:00 Document Registration [id number] 04/02/2019 09:30:00 Document Registration [id number] 02/11/2019 09:30:00 Document Registration [id number] 07/24/2018 08:00:00 Document Registration [id number] 12/07/2017 14:40:00 Document Registration [id number] 12/06/2017 12:13:13 Document Registration [id number] 11/29/2017 10:10:00 Document Registration [id number] 07/25/2017 10:00:00 Document Registration [id number] 08/16/2016 06:58:00 Document Registration [id number] 12/15/2014 13:53:00 12/15/2014 23:59: 59 CLS Outpatient DAVEY DO, TIFFANY Samantha [id number] 12/09/2014 13:36:00 12/09/2014 23:59: 59 CLS Outpatient DAVEY DO, TIFFANY K [id number] 05/09/2014 16:00:00 05/09/2014 23:59: 59 CLS Outpatient DAVEY DO, TIFFANY Singh [id number] 05/06/2014 13:23:00 05/06/2014 23:59: 59 CLS Outpatient DAVEY DO, TIFFANY K [id number] 04/30/2014 05:36:00 04/30/2014 23:59: 59 CLS Outpatient SAMANTHA HAENY MD [id number] 04/29/2014 15:30:00 04/29/2014 23:59: 59 CLS Outpatient JUWAN ABBASI APRN [id number] 04/22/2014 13:18:00 04/22/2014 23:59: 59 CLS Outpatient DAVEY DO, TIFFANY K [id number] 04/14/2014 12:45:00 04/14/2014 23:59: 59 CLS Outpatient DAVEY DO, TIFFANY Samantha [id number] 03/31/2014 17:27:00 03/31/2014 23:59: 59 CLS Outpatient DAVEY DO, TIFFANY Singh [id number] 03/27/2014 08:50:00 03/27/2014 23:59: 59 CLS Outpatient DAVEY DO, TIFFANY Samantha [id number] 04/12/2019 07:14:00 Document Registration
[2020-02-20 21:19] VITALS: BP 136/78
== END 2020-02-20 21:19 | disposition home or self-care (01) ==
LOC: EDUNIT# 18:48 → ER 18:51
DX: J20.9 Acute bronchitis, unspecified (principal); Z87.891 Personal history of nicotine dependence; E78.00 Pure hypercholesterolemia, unspecified; I10 Essential (primary) hypertension; E03.9 Hypothyroidism, unspecified; M54.9 Dorsalgia, unspecified; Z79.899 Other long term (current) drug therapy
CPT/HCPCS: 36415; 71045; 80053; 83880; 84145; 84484; 85025; 86141

== ENCOUNTER 2021-04-15 00:11 | Observation (INO) | payer BC ==
[~2021-04-15] VITALS: Ht 170.2 cm; Wt 113.2 kg
[~2021-04-15 00:11] MED LIST changes: -CALC-6 PO; +CALC1TAB84 PO; +PROM5SYR PO
[2021-04-16 00:30] VITALS: BP 149/80
[2021-04-16] MEDS ORDERED: ONDANSETRON 4 MG/2 ML (SDV) Z0FRAN IVP PRN (00:30)
[2021-04-16] MEDS ORDERED: NS 50 ML (IVPB) BAG IV SCH (00:30)
[2021-04-16] MEDS ORDERED: diphenhydrAMINE 25 MG TAB (BENADRYL) PO ONE (00:30)
[2021-04-16] MEDS ORDERED: ACETAMINOPHEN 325 MG TABLET PO PRN (00:30)
[2021-04-16] MEDS ORDERED: NS IV 1000 ML 1,000 ML ONE (01:27)
[2021-04-16] MEDS ORDERED: diphenhydrAMINE 25 MG TAB (BENADRYL) PO PRN (01:30)
[2021-04-16] MEDS ORDERED: NS IV 1000 ML 1,000 ML IV SCH (01:45)
[2021-04-16 02:14] LABS: CREATINE KINASE MB 7.9 NG/ML (<6.6)
[2021-04-16] MEDS: NITROGLYCERIN 2% OINT 1 GM UNIT DOSE PACKET TOP SCH ×3 (03:36→12:55)
[2021-04-16 03:48] VITALS: BP 124/76
[2021-04-16 06:34] LABS: BASOPHILS % (AUTO) 0 % (0-10); EOSINOPHILS # (AUTO) 0.1 10^3/uL (0.0-0.3); EOSINOPHILS % (AUTO) 1 % (0-10); HEMATOCRIT 42 % (40-54); HEMOGLOBIN 14.1 g/dL (13.3-17.7); LYMPHOCYTES % (AUTO) 19 % (12-44); MEAN CORPUSCULAR HEMOGLOBIN 30 pg (25-34); MEAN CORPUSCULAR HGB CONC 33 g/dL (32-36); MEAN CORPUSCULAR VOLUME 90 fL (80-99); MEAN PLATELET VOLUME 8.5 fL (9.0-12.2); MONOCYTES % (AUTO) 9 % (0-12); NEUTROPHILS # (AUTO) 7.1 10^3/uL (1.8-7.8); NEUTROPHILS % (AUTO) 70 % (42-75); PLATELET COUNT 217 10^3/uL (130-400); WHITE BLOOD COUNT 10.2 10^3/uL (4.3-11.0)
[2021-04-16 06:53] LABS: ALBUMIN 3.6 GM/DL (3.2-4.5); CHLORIDE 106 MMOL/L (98-107); POTASSIUM 4.3 MMOL/L (3.6-5.0); SODIUM 139 MMOL/L (135-145)
[2021-04-16 06:54] LABS: CALCIUM 8.6 MG/DL (8.5-10.1)
[2021-04-16 06:55] LABS: GLUCOSE 80 MG/DL (70-105); TOTAL PROTEIN 5.9 GM/DL (6.4-8.2); TRIGLYCERIDES 99 MG/DL (<150); VLDL CHOLESTEROL 20 MG/DL (5-40)
[2021-04-16 06:56] LABS: CARBON DIOXIDE 23 MMOL/L (21-32)
[2021-04-16 06:57] LABS: BILIRUBIN,TOTAL 0.7 MG/DL (0.1-1.0)
[2021-04-16 06:59] LABS: ALKALINE PHOSPHATASE 106 U/L (40-136); CREATININE SERUM 0.77 MG/DL (0.60-1.30); GFR ESTIMATED > 60
[2021-04-16 07:00] LABS: BUN/CREATININE RATIO 18; CHOLESTEROL 182 MG/DL (< 200)
[2021-04-16 07:01] LABS: HDL CHOLESTEROL 40 MG/DL (40-60)
[2021-04-16 07:02] LABS: ALANINE AMINOTRANSFERASE 20 U/L (0-55); MAGNESIUM 2.2 MG/DL (1.6-2.4)
[2021-04-16 07:12] LABS: CREATINE KINASE MB 6.2 NG/ML (<6.6)
[2021-04-16 08:00] VITALS: BP 98/60
[2021-04-16] MEDS ORDERED: ASPIRIN 325 MG (5 GR) TABLET PO SCH (09:00)
--- NOTE | 2021-04-16 09:20 | History & Physical-Hospitalist ---
History of Present Illness HPI/Chief Complaint Pt is a 50yoCM with a PMH of CAD, HTN, tobacco abuse, methamphetamine abuse who presented to outside ER due to the chest pain and presyncope. He has been at [facility] in [place] for a few weeks for methamphetamine and narcotic abuse and states he has been doing well. Yesterday he received some "bad news" though and he went ou tside to walk. While he was walking he developed chest pain and SOB. He at first though it was due to anxiety but it continued to worse and he sat down and had a near syncopal episode prompting evaluation the ER. He reports feeling better now and has no complaints. He has a history of mild CAD on cath but that was from 10 years ago. He has followed with Dr Bhatt in the past. He continues to smoke 1- 3ppd and was using meth until recently. Source: patient Date Seen 04/16/21 Time Seen by a Provider: 09:15 Attending Physician Marisela Lucio MD [facility] Referring Physician Date of Admission April 16, 2021 at 00:12 Home Medications & Allergies Home Medications Reviewed patient Home Medication Reconciliation performed by pharmacy medication reconciliations ordnance technician and/or nursing. Patients Allergies have been reviewed. Allergies Allergies Coded Allergies rofecoxib (Unverified Allergy, Intermediate, 07/18/10) bisacodyl (Unverified Allergy, Mild, 07/18/10) acetaminophen (Verified Allergy, Unknown, 04/29/19) oxycodone (Verified Allergy, Unknown, 04/29/19) Past Medical/Social/Family Hx Patient Social History Tobacco Use?: Yes Tobacco type used: Cigarettes Smoking Status: Current Everyday Smoker Smokeless Tobacco Frequency: Never a User Use of E-Cig and/or Vaping dev: Yes E-Cig or Vaping type used: Nicotine E-Cig and/or Vaping Freq: Current Someday User Substance use?: Yes Substance type: Methamphetamine, Nicotine, Misuse of prescript meds, Marijuana Substance frequency: Daily Alcohol Use?: Yes Alcohol type: Beer, Hard Liquor Alcohol Frequency: Daily Pt stated abuse/neglect: No Immunizations Up To Date Influenza Vaccine Up-to-Date: No; Not Current Tetanus Booster (TDap): Unknown Hepatitis A: No Hepatitis B: No TB Skin Test: None Date of Pneumonia Vaccine: Nov 27, 2011 Current Status Advance Directives: No Communicates: Verbally Primary Language: [place] Preferred Spoken Language: [place] Is interpretation needed?: No Sensory deficits: Vision impairment Implanted or Applied Medical D: None Past Medical History PMedHx: Prostate problems- unsure of dx, had testing every 6 months but has stopped following up CAD (was seeing Dr. Bhatt, reports released end of 2013) HTN HLD PSurgHx: Back surgery with implanted rods and plates Carpal tunnel Hernia repair Heart cath x 5-6- reports all have come out showing 3 blockages, but no stents done Review of Systems Constitutional: No chills, No fever EENTM: no symptoms reported Respiratory: short of breath Cardiovascular: see HPI, syncope (near syncope) Gastrointestinal: No abdominal pain, No constipation, No nausea, No vomiting Genitourinary: no symptoms reported Musculoskeletal: no symptoms reported Skin: no symptoms reported Psychiatric/Neurological: Anxiety Physical Exam Physical Exam Vital Signs Vital Signs - First Documented 04/16/21 00:30 Temp 36.6 Pulse 84 Resp 18 B/P (MAP) 149/80 (103) Pulse Ox 98 O2 Delivery Room Air Capillary Refill : Height, Weight, BMI Height: 5'7.00" Weight: 200lbs. 0oz. 90.767389rw; 39.07 BMI Method:Stated General Appearance: No Apparent Distress, WD/WN, Obese HEENT: PERRL/EOMI, Moist Mucous Membranes Neck: Normal Inspection, Supple Respiratory: Lungs Clear, No Accessory Muscle Use, No Respiratory Distress Cardiovascular: Regular Rate, Rhythm, No Murmur Gastrointestinal: Normal Bowel Sounds, Non Tender, Soft Neurologic/Psychiatric: Alert, Oriented x3 Results Results/Procedures Labs Laboratory Tests 04/16/21 06:10 Patient resulted labs reviewed. Imaging: Reviewed Imaging Report Assessment/Plan Admission Diagnosis Chest pain Admission Status: Observation Reason for Inpatient Admission: see below Assessment and Plan Chest pain mild CAD Trop negative x2 Continue ASA Cardiology consulted, appreciate recs Noncompliant wit antiplatelet therapy at home Discussed with Dr Dumont, requesting echo and stress test If negative can DC home Chronic pain Continue home meds of gabapentin and ibuprofen Hypothyroidism Continue home meds polysubstance abuse Hopeful to DC back to [facility] when medically optimized Diagnosis/Problems Diagnosis/Problems (1) Chest pain Status: Acute Qualifiers: Chest pain type: unspecified Qualified Codes: R07.9 - Chest pain, unspecified (2) Polysubstance abuse Status: Acute (3) CAD (coronary artery disease) Status: Chronic Qualifiers: Coronary Disease-Associated Artery/Lesion type: [place] artery [place] vs. transplanted heart: [place] heart Associated angina: angina presence unspecified Qualified Codes: I25.10 - Atherosclerotic heart disease of [place] coronary artery without angina pectoris (4) Hypothyroidism Status: Chronic Qualifiers: Hypothyroidism type: acquired Qualified Codes: E03.9 - Hypothyroidism, unspecified ALESHA BUSTAMANTE MD April 16, 2021 09:20
[2021-04-16] MEDS ORDERED: IBUPROFEN 800 MG (MOTRIN) TAB PO PRN (10:00)
[2021-04-16] MEDS ORDERED: REGADENOSON 0.4 MG/5 ML SYR (LEXISCAN) IV ONE ×3 (10:00→12:30)
--- NOTE | 2021-04-16 10:39 | Consultation-Cardiology ---
HPI-Cardiology Cardiology Consultation: Date of Consultation 04/16/21 Date of Admission Attending Physician Marisela Lucio MD Admitting Physician [facility] Consulting Physician Lesly DUMONT MD HPI: Time Seen by a Provider: 09:15 Chief Complaint: Chest pain This is a 50-year-old gentleman who has previous history of coronary artery disease, hypertension, active smoking, methamphetamine abuse. He was transferred from an outside ER to our hospital for further evaluation and management of chest discomfort and near syncope. Yesterday he was in a stressful situation and developed shortness of breath and chest discomfort. When I saw the patient he had no further symptoms. He has previously had mild coronary artery disease on coronary angiography. He has seen Dr. Jeffers as well. He is an active heavy smoker and also uses meth. Review of Systems-Cardiology Review of Systems Constitutional: As described under HPI; No As described under HPI, No no symptoms reported, No chills, No fever, No lightheadedness Eyes: No As described under HPI, No no symptoms reported, No blindness, No blurred vision, No contact lenses, No drainage, No decreased acuity, No foreign body sensation, No pain, No vision change Ears/Nose/Throat: No As described under HPI, No no symptoms reported, No chronic hearing loss, No ear discharge, No ear pain, No nasal drainage, No ulcerations Respiratory: No no symptoms reported; As described under HPI; No As described under HPI, No cough, No orthopnea; shortness of breath; No SOB with excertion Cardiovascular: No no symptoms reported; As described under HPI; No As described under HPI; chest pain; No edema, No irregular heart rate, No lightheadedness, No palpitations Gastrointestinal: No no symptoms reported, No As described under HPI, No abdomen distended, No abdominal pain, No blood streaked bowels, No constipation, No diarrhea, No nausea, No vomiting, No stool coloration changes Genitourinary: No As described under HPI, No burning, No dysuria, No discharge, No frequency, No flank pain, No hematuria, No urgency Skin: No rash, No skin related problems, No ulcerations Psychiatric/Neurological: No anxiety, No depression, No seizure, No focal weakness, No syncope Hematologic: No bleeding abnormalities OWR-Imefid-Zyvbmy Hx Patient Social History Smoking Status: Current Everyday Smoker Have you traveled recently?: No Alcohol Use?: Yes Substance type: Methamphetamine, Nicotine, Misuse of prescript meds, Marijuana Pt feels they are or have been: No Tobacco type used: Cigarettes Immunizations Up To Date Date of Pneumonia Vaccine: Nov 27, 2011 Date of Influenza Vaccine: Aug 27, 2018 Past Medical History PMH As described under Assessment. Family Medical History Family Medical History: He does report his grandparents had heart attacks in their 70's. He does have a family history of HTN and HLP. He does not report a family history of premature coronary artery disease. Family History: Arthritis 19 MOTHER Diabetes mellitus 19 MOTHER FH: non-Hodgkin's lymphoma 19 MOTHER Hypertension 19 MOTHER Allergies and Home Medications Allergies Coded Allergies: rofecoxib (Unverified Allergy, Intermediate, 07/18/10) bisacodyl (Unverified Allergy, Mild, 07/18/10) acetaminophen (Verified Allergy, Unknown, 04/29/19) oxycodone (Verified Allergy, Unknown, 04/29/19) Home Medications Atorvastatin Calcium 40 Mg Tablet, 80 MG PO HS Prescribed by: ALESHA BUSTAMANTE on 04/16/21 1431 Bupropion HCl 100 Mg Tablet.er, 100 MG PO BID, (Reported) Last Action: Reviewed Gabapentin 300 Mg Capsule, 900 MG PO TID, (Reported) TAKES 3 (300MG) CAPS Last Action: Reviewed Ibuprofen 800 Mg Tablet, 800 MG PO TID PRN for PAIN-MILD, (Reported) Last Action: Reviewed Levothyroxine Sodium 88 Mcg Tablet, 88 MCG PO DAILY, (Reported) Last Action: Reviewed Melatonin 5 Mg Tablet, 5-10 MG PO HS, (Reported) Last Action: Reviewed Quetiapine Fumarate 100 Mg Tablet, 100 MG PO HS, (Reported) Last Action: Reviewed Patient Home Medication List Home Medication List Reviewed: Yes Physical Exam-Cardiology Physical Exam Vital Signs/I&O Capillary Refill : Constitutional: appears stated age, AAO x 3; No apparent distress; well- developed, well-nourished HEENT: PERRL; No discharge; hearing is well preserved, oral hygience is good; No ulceration, No xanthelasmas are seen Neck: No carotid bruit; carotid pulses are 2 + bilaterally Respiratory: chest is bilaterally symmetric, lungs clear to auscultation Cardiovascular: regular rate-rhythm, S1 and S2 Gastrointestinal: soft, audible bowel sounds; No spleenomegaly Rectal: deferred Extremities: No clubbing, No cyanosis; no lower extremity edema bilateral; No significant edema Neurologic/Psychiatric: no motor/sensory deficits, alert, normal mood/affect, oriented x 3, power is 5/5 both on sides Skin: No rash, No ulcerations Data Review Labs ECG Impression ECG Initial ECG Rhythm: Normal Sinus Initial ECG Impression: Normal A/P-Cardiology Assessment/Admission Diagnosis Chest pain, Mild CAD, Smoker, Meth abuse Plan Chest pain: Serial troponin negative. EKG is negative. Recommend echocardiogram and nuclear stress test. If both are within normal/acceptable limits. The patient can be discharged to follow-up with Dr. Jeffers early next week. If he has any further chest pain he should seek immediate medical attention. Active smoker: Strongly suggested to quit smoking and drug abuse. Thank you for your consultation. Please call me if you have any questions. Beto Dumont MD, FACP, FACC, FSCAI, FHRS, CCDS Interventional Cardiology Cardiac Electrophysiology Vascular Medicine and Endovascular Interventions Lesly DUMONT MD April 16, 2021 10:39
[2021-04-16 12:40] VITALS: BP 140/81
[2021-04-16] MEDS ORDERED: GABAPENTIN 300 MG (NEURONTIN) CAP PO SCH (13:00)
--- NOTE | 2021-04-16 13:18 | Physical Therapy Progress Note ---
Therapy Progress Note PT to disregard order per IRIS Mobley. Physician attempted to cancel order, however, was unable to do so. No PT order per physician. WILBER DOMINGUEZ PT April 16, 2021 13:18
[2021-04-16 14:29] LABS: CREATINE KINASE MB 4.8 NG/ML (<6.6)
[2021-04-16] MEDS ORDERED: ATOR40TA PO (14:31)
--- NOTE | 2021-04-16 14:35 | Discharge Inst-Simple/Standard ---
Discharge Inst-Standard Discharge Medications New, Converted or Re-Newed RX: Transmitted to Pharmacy Patient Instructions/Follow Up Plan of Care/Instructions/FU: Please continue to take medications as written. Please follow up with your primary care doctor to follow up this hospital stay. Activity as Tolerated: Yes Discharge Diet: No Restrictions Return to The Hospital For: Chest pain, shortness of breath, fever, if you feel you are getting worse. ALESHA BUSTAMANTE MD April 16, 2021 14:35
[2021-04-16] MEDS ORDERED: BUPR100T8 PO (14:50)
[2021-04-16] MEDS ORDERED: QUET100T33 PO (14:50)
[2021-04-16] MEDS ORDERED: MELA5TAB14 PO (14:50)
[2021-04-16] MEDS ORDERED: GABA300C PO (14:50)
[2021-04-16 16:09] VITALS: BP 140/81
[2021-04-16] MEDS ORDERED: buPROPion SR 100 MG (WELLBUTRIN SR) TAB PO SCH (21:00)
[2021-04-16] MEDS ORDERED: QUEtiapine 100 MG (SEROquel) TAB IMMEDIATE RELEASE PO SCH (21:00)
[2021-04-17] MEDS ORDERED: LEVOTHYROXINE 88 MCG (LEVOTHORID) TAB PO SCH (06:30)
[2021-04-17] MEDS ORDERED: ASPIRIN 81 MG CHEW (CHILDREN'S ASA) PO SCH (09:00)
--- NOTE | 2021-04-18 18:39 | Cardiology Stress Test Report ---
Stress Test Report Type of NM Stress Test: Test Type: LEXISCAN 0.4MG/5ML Date of Procedure/Referring: Date of Procedure: April 16, 2021 PCP Marisela uLcio MD Admitting Physician Center/[facility] Indications: Chest pain Baseline Heart Rate: 78 Baseline Blood Pressure: Blood Pressure Systolic: 140 Blood Pressure Diastolic: 81 Baseline EKG: Baseline EKG: Sinus rhythm Summary & Conclusion: Summary: The patient was brought to the stress lab after informed consent was taken. Stress test was performed according to the Lexiscan protocol. 0.4 mg of IV Lexiscan was given. Low-grade exercise was performed. Baseline EKG showed sinus rhythm at 78, blood pressure 140/81 mmHg. Maximum heart rate of 91 bpm and blood pressure of 144/80. Patient did complain of chest pain. However no EKG changes or arrhythmias were noted. 9.96 mCi of Myoview were given for rest imaging and 30.6 mCi of Myoview given for stress imaging. Transient ischemic dilatation score 1.12, EF 63 percent. Normal wall motion. Normal myocardial perfusion imaging during rest and stress. SSS 1, SRS 0, SDS 1. Conclusion: Pharmacological stress test was negative for ischemia. Normal LV function with no wall motion abnormalities. Normal myocardial perfusion imaging during rest and stress. Lesly FERNANDEZ MD April 18, 2021 18:39
--- NOTE | 2021-04-23 09:59 | Physician Query-Final Dx ---
MOSES FLORES 04/23/21 0959: Final Diagnosis Give Final Diagnosis Please give Final Diagnosis ALESHA BUSTAMANTE MD 04/27/21 1546: Final Diagnosis Give Final Diagnosis Atypical chest pain MOSES FLORES April 23, 2021 09:59 ALESHA BUSTAMANTE MD Apr 27, 2021 15:46
== END 2021-04-16 15:38 ==
LOC: UNDOADMOB 04-16 00:12 → 4TH 04-16 00:12 → UNDODISOB 04-16 16:50
PROVIDERS: ADMIT Internal Medicine; ATTEND Internal Medicine
DX: R07.89 Other chest pain (principal); R55 Syncope and collapse; I25.10 Atherosclerotic heart disease of native coronary artery without angina pectoris; I10 Essential (primary) hypertension; E78.5 Hyperlipidemia, unspecified; G89.29 Other chronic pain; M54.9 Dorsalgia, unspecified; E03.9 Hypothyroidism, unspecified; F19.10 Other psychoactive substance abuse, uncomplicated; F17.210 Nicotine dependence, cigarettes, uncomplicated; Z83.3 Family history of diabetes mellitus; Z80.6 Family history of leukemia; Z79.899 Other long term (current) drug therapy; Z79.890 Hormone replacement therapy
CPT/HCPCS: 78452; 80053; 80061; 82465; 82553; 83735; 83874; 84484; 85025; 93005; 93017; 93306; A9502; G0378; G0379; 36415; 99211

== ENCOUNTER 2021-05-25 10:00 | Day surgery (SDC) | payer BC ==
[~2021-05-25] VITALS: Ht 167.6 cm; Wt 105.3 kg
[2021-05-25] VITALS (11 sets, daily range): BP systolic 113–131; BP diastolic 71–84
[2021-05-25 08:35] LABS: HEMATOCRIT 45 % (40-54); HEMOGLOBIN 14.2 g/dL (13.3-17.7); MEAN CORPUSCULAR HEMOGLOBIN 29 pg (25-34); MEAN CORPUSCULAR HGB CONC 32 g/dL (32-36); MEAN CORPUSCULAR VOLUME 91 fL (80-99); MEAN PLATELET VOLUME 8.6 fL (9.0-12.2); PLATELET COUNT 215 10^3/uL (130-400)
[2021-05-25 08:48] LABS: PROTHROMBIN TIME PATIENT 13.2 SEC (12.2-14.7)
[2021-05-25 08:51] LABS: ALANINE AMINOTRANSFERASE 15 U/L (0-55); ALBUMIN 3.8 GM/DL (3.2-4.5); ALKALINE PHOSPHATASE 100 U/L (40-136); BILIRUBIN,TOTAL 0.5 MG/DL (0.1-1.0); BUN/CREATININE RATIO 16; CALCIUM 9.2 MG/DL (8.5-10.1); CARBON DIOXIDE 25 MMOL/L (21-32); CHLORIDE 106 MMOL/L (98-107); CHOLESTEROL 139 MG/DL (< 200); CREATININE SERUM 0.94 MG/DL (0.60-1.30); GFR ESTIMATED > 60; GLUCOSE 91 MG/DL (70-105); HDL CHOLESTEROL 39 MG/DL (40-60); POTASSIUM 3.5 MMOL/L (3.6-5.0); SODIUM 141 MMOL/L (135-145); TOTAL PROTEIN 6.2 GM/DL (6.4-8.2); TRIGLYCERIDES 146 MG/DL (<150); VLDL CHOLESTEROL 29 MG/DL (5-40)
[~2021-05-25 10:00] MED LIST changes: +BUPR100T8 PO; +CA C1TAB75 PO; +GABA300C PO; +MELA5TAB14 PO; +MULT-1056 PO; +NS IV 1000 ML 1,000 ML IV SCH; +QUET100T33 PO
[2021-05-25] MEDS ORDERED: ASPI-999 PO (11:34)
--- NOTE | 2021-05-25 11:34 | Discharge Inst-Cardiology ---
Discharge Inst-Cardiac Discharge Medications New Medications: Aspirin (Aspirin) 81 Mg Tab.chew 81 MG PO DAILY, #90 TAB 3 Refills Continued Medications: Atorvastatin Calcium (Lipitor) 40 Mg Tablet 40 MG PO DAILY, TAB Bupropion HCl (Bupropion HCl Sr) 100 Mg Tablet.er 100 MG PO DAILY, TAB Ca Carbonate/Vitamin D3/Vit K (Calcium + D Soft Chewable Tab) 1 Each Tab.chew 1 EACH PO DAILY, TAB Gabapentin (Neurontin) 300 Mg Capsule 900 MG PO TID, CAP TAKES 3 (300MG) CAPS Levothyroxine Sodium (Levothyroxine Sodium) 88 Mcg Tablet 88 MCG PO DAILY, TAB Melatonin (Melatonin) 5 Mg Tablet 5-10 MG PO HS, TAB Multivit-Min/FA/Lycopen/Lutein (Men 50 Plus Multivitamin Tab) 1 Each Tablet 1 EACH PO DAILY, TAB Quetiapine Fumarate (Quetiapine Fumarate) 100 Mg Tablet 100 MG PO HS, TAB Discontinued Medications: Ibuprofen (Ibuprofen) 800 Mg Tablet 800 MG PO TID PRN for PAIN-MILD, TAB EVERARDO HERRING MD FACP FAC CCDS May 25, 2021 11:34
--- NOTE | 2021-05-25 11:36 | Discharge Inst-Post CATH ---
Discharge Inst-CATH/EP Post Cardiac Cath/EP D/C Inst Follow Up/Plan F/u with Dr Bhatt in 3-4 weeks ACTIVITY * Go Home directly and rest. * Limit activity of the leg (or wrist if it was used) for 7 days including aerobics, swimming, jogging, bicycling, etc. * Restrict stair-climbing for 7 days if possible, if not, climb up with your non-cath leg, then bring together on the same step. * Avoid lifting, pushing, pulling or excessive movement of the affected extremity for 7 days. * Customary sexual activity may be resumed after 2 days-use caution not to use a position that strains or causes pain to the affected extremity. * No driving for 24 hours. * NO SMOKING. * Avoid straining for bowel movements for 7 days. * Gentle walking on level ground is allowed. * Returning to work will depend on the type of procedure and the results. Your doctor will discuss this with you. CALL YOUR DOCTOR FOR ANY OF THE FOLLOWING: *If bleeding from the puncture site occurs- Apply gentle pressure to site with clean cloth and call your doctor or EMS. * If a knot or lump forms under the skin, increases in size, or causes pain. * If bruising appears to be worsening or moving further down your leg instead of disappearing. * Temperature above 101 F. CARE OF YOUR GROIN INCISION; * Bruising or purple discoloration of the skin near the puncture site is common. * You may shower only, no bathtub bathing for 5 days. Be careful to avoid slipping as your leg may feel stiff. * If a closure device was used on your femoral artery, please see the attached guide regarding care of the device and your leg. * Leave dressing on FOR 24 hours. CARE OF YOUR WRIST INCISION; * Bruising or purple discoloration of the skin near the puncture site is common. * You may shower. * DO NOT submerge wrist. * Leave dressing on FOR 24 hours. EVERARDO BHATT MD [facility] CCDS May 25, 2021 11:36
--- NOTE | 2021-05-25 11:36 | Cardiac Procedure Note-CS/ASA ---
Pre-Procedure Note Pre-Op Procedure Note H&P Reviewed The H&P was reviewed, patient examined and no changes noted. Date H&P Reviewed: May 25, 2021 Time H&P Reviewed: 10:00 Conscious Sedation Pre-Proced Time 10:00 ASA Score 3 For ASA 3 and 4: Consider anesthesia and medical clearance. Also, for patients with a history of failed moderate sedation consider anesthesia. Airway Lungs Heart ASA score ASA 1: a normal healthy patient ASA 2: a patient with a mild systemic disease (mid diabetes, controlled hypertension, obesity ASA 3: a patient with a severe systemic disease that limits activity (angina, COPD, prior Myocardial infarction) ASA 4: a patient with an incapacitating disease that is a constant threat to life (CHF, renal failure) ASA 5: a moribund patient not expected to survive 24 hrs. (ruptured aneurysm) ASA 6: a declared brain- patient whose organs are being harvested. For emergent operations, add the letter E after the classification Mallampati Classification Grade 2 Sedation Plan Analgesia, Amnesia, Plan communicated to team members, Discussed options with patient/fam, Discussed risks with patient/fam The patient is an appropriate candidate to undergo the planned procedure, sedation, and anesthesia. The patient immediately re-assessed prior to indication. EVERARDO HERRING MD FACP FAC CCDS May 25, 2021 11:36
[2021-05-25] MEDS ORDERED: PATIENT MAY USE OWN MEDS, ALL PO SCH (11:45)
[2021-05-25] MEDS ORDERED: NS IV 1000 ML 1,000 ML IV SCH (11:45)
[2021-05-25] MEDS ORDERED: ACETAMINOPHEN 325 MG TABLET PO ONE (12:15)
--- NOTE | 2021-05-25 13:55 | CARDIAC CATHETERIZATION ---
DATE OF SERVICE: CARDIAC CATHETERIZATION REPORT The patient is a 50-year-old gentleman who has symptoms suggestive of angina and who has multiple coronary risk factors. Cardiac catheterization was recommended. Informed consent was obtained. DESCRIPTION OF PROCEDURE: He was brought to the cardiac catheterization laboratory in a fasting state. Right groin was prepared and draped in the usual sterile fashion. Lidocaine 1% was infused to local anesthesia. Modified Seldinger technique was used to advance a 5-German sheath in right femoral artery, 5-German JL4 catheter was used for left coronary angiography, 5-German JR4 catheter for right coronary angiography, 5-German pigtail catheter was used for left heart catheterization and left ventricular angiography. At the end of the procedure, Mynx was used to achieve hemostasis. Angiography of the right femoral artery had been carried out at the beginning of the procedure to evaluate for device closure. HEMODYNAMICS: Left ventricular end-diastolic pressure following coronary angiography was 16 mmHg. There is no significant pressure gradient on pullback across the aortic valve. Ascending aortic pressure was 128/82 with a mean of 100 mmHg. CORONARY ANGIOGRAPHY: Moderate diffuse atherosclerotic disease of the left anterior descending is seen. Left anterior descending is generally of a small caliber. Left circumflex artery has mild plaques. Right coronary artery is dominant, generally of a small caliber, and has mild to moderate plaque. LEFT VENTRICULAR ANGIOGRAPHY: Left ventricular angiography was carried out in the right anterior oblique projection. Global left ventricular systolic function appears well preserved. Left ventricular ejection fraction approximately 50% to 55%. CONCLUSIONS: 1. Relatively moderate coronary artery disease without any evidence of significant focal stenoses. 2. Normal global left ventricular systolic function with ejection fraction approximately 55% to 60%. 3. Mildly elevated left ventricular end-diastolic pressure. DISCUSSION AND RECOMMENDATIONS: Based on results of the study, it is okay to continue a conservative approach. Risk factor modification has been reviewed. Outpatient followup is advised. Job ID: [id number] DocumentID: [id number] Dictated Date: 05/25/2021 11:23:33 Pipe Coverer Date: 05/25/2021 13:55:00 Dictated By: EVERARDO HERRING MD, MA, FACP, FACC,
== END 2021-05-25 15:00 | disposition home or self-care (01) ==
LOC: CATH 10:00 → SDC 11:55 → CATH 15:00
PROVIDERS: ATTEND Internal Medicine Cardiovascular Disease
DX: I25.10 Atherosclerotic heart disease of native coronary artery without angina pectoris (principal); E78.2 Mixed hyperlipidemia; I10 Essential (primary) hypertension; E66.9 Obesity, unspecified; Z68.37 Body mass index [BMI] 37.0-37.9, adult; Z79.899 Other long term (current) drug therapy; F15.21 Other stimulant dependence, in remission; Z79.890 Hormone replacement therapy; Z87.891 Personal history of nicotine dependence
CPT/HCPCS: 80053; 80061; 85027; 85610; 85730; 87081; 93458; C1760; C1894; 36415

== ENCOUNTER 2021-06-19 07:57 | Emergency (ER) | payer BC ==
[~2021-06-19] VITALS: Ht 165.1 cm; Wt 111.1 kg
[~2021-06-19 07:57] MED LIST changes: +ASPI-999 PO; -NS IV 1000 ML 1,000 ML IV SCH
[2021-06-19] MEDS ORDERED: LACTATED RINGERS 1,000 ML IV ONE (08:30)
[2021-06-19] MEDS ORDERED: ONDANSETRON 4 MG/2 ML (SDV) Z0FRAN IVP ONE (08:30)
--- NOTE | 2021-06-19 08:30 | ED General ---
General Chief Complaint: Cough/Cold/Flu Symptoms Stated Complaint: COVID SYMPTOMS Nursing Triage Note: PT TO ROOM 08 [facility]IA [facility] WITH C/O COUGH, FATIGUE, N/V X2 DAYS. Source of Information: Patient Exam Limitations: No Limitations History of Present Illness Date Seen by Provider: Jun 19, 2021 Time Seen by Provider: 08:05 Initial Comments This 50-year-old man presents to emergency room via EMS with primary complaint of dry heaves and abdominal discomfort. On evaluation he appears short of breath and admits to feeling short of breath along with chest heaviness. He also notes diarrhea. Symptoms started a few days ago. He felt bad for a day or 2 and then improved for a couple days. Then he began to feel bad again today. He is afebrile with stable vital signs. He appears very uncomfortable. He reports recent heart cath. Review of chart notes moderate coronary artery disease without interventions on a heart cath in May 25. Patient reports prior history of substance abuse but being clean for the past 3 months. He has had confirmed exposure to COVID-19. He has been interacting with his neighbors who have Covid presently. His abdominal pain is generalized but more intense in the left lower quadrant. He complains of left earache and jaw aching over the past few days. Allergies and Home Medications Allergies Coded Allergies: rofecoxib (Unverified Allergy, Intermediate, 07/18/10) bisacodyl (Unverified Allergy, Mild, 07/18/10) oxycodone (Verified Allergy, Unknown, 04/29/19) Home Medications Aspirin 81 Mg Tab.chew, 81 MG PO DAILY Prescribed by: EVERARDO HERRING on 05/25/21 1134 Atorvastatin Calcium 40 Mg Tablet, 40 MG PO DAILY, (Reported) Benzonatate 100 Mg Capsule, 200 MG PO TID PRN for COUGH Prescribed by: ERICKSON RAHMAN on 06/19/21 1132 Bupropion HCl 100 Mg Tablet.er, 100 MG PO DAILY, (Reported) Ca Carbonate/Vitamin D3/Vit K 1 Each Tab.chew, 1 EACH PO DAILY, (Reported) Gabapentin 300 Mg Capsule, 900 MG PO TID, (Reported) TAKES 3 (300MG) CAPS Levothyroxine Sodium 88 Mcg Tablet, 88 MCG PO DAILY, (Reported) Melatonin 5 Mg Tablet, 5-10 MG PO HS, (Reported) Multivit-Min/FA/Lycopen/Lutein 1 Each Tablet, 1 EACH PO DAILY, (Reported) Ondansetron 4 Mg Tab.rapdis, 4 MG PO Q4H PRN for NAUSEA/VOMITING Prescribed by: ERICKSON RAHMAN on 06/19/21 1132 Quetiapine Fumarate 100 Mg Tablet, 100 MG PO HS, (Reported) Patient Home Medication List Home Medication List Reviewed: Yes Review of Systems Review of Systems Constitutional: chills; No fever EENTM: see HPI Respiratory: see HPI Cardiovascular: see HPI Gastrointestinal: see HPI Genitourinary: see HPI Musculoskeletal: no symptoms reported Skin: no symptoms reported Psychiatric/Neurological: No Symptoms Reported Hematologic/Lymphatic: No Symptoms Reported Immunological/Allergic: no symptoms reported Past Ktorzrm-Vnurzs-Qgrbkt Hx Patient Social History Tobacco Use?: Yes Substance use?: No Alcohol Use?: No Pt feels they are or have been: No Immunizations Up To Date Tetanus Booster (TDap): Unknown Seasonal Allergies Seasonal Allergies: No Past Medical History Surgeries: Yes (GASTRIC SLEEVE) Abdominal (Hernia, gastric sleeve), Cardiac (Heart cath wo intervention 04/2021. Loop recorder placement/removal), Gallbladder, Orthopedic, Tonsillectomy Respiratory: Yes Asthma Cardiac: Yes Coronary Artery Disease, Heart Murmur, High Cholesterol, Hypertension, Syncope Neurological: No Reproductive Disorders: No Sexually Transmitted Disease: No Genitourinary: Yes Prostate Problems, Kidney Stones Gastrointestinal: Yes (DIFFICULTY SWALLOWING) Hiatal Hernia Musculoskeletal: Yes Chronic Back Pain Endocrine: Yes Hypothyroidsim HEENT: No Cancer: No Psychosocial: Yes ("Anger issues") Anxiety, Depression Integumentary: No Blood Disorders: No Family Medical History Reviewed Nursing Family Hx Arthritis 19 MOTHER Diabetes mellitus 19 MOTHER FH: non-Hodgkin's lymphoma 19 MOTHER Hypertension 19 MOTHER Heart Disease, Diabetes Physical Exam Vital Signs Vital Signs - First Documented 06/19/21 06/19/21 08:02 11:42 Temp 35.9 Pulse 64 Resp 16 B/P (MAP) 134/85 (101) Pulse Ox 99 O2 Delivery Room Air Capillary Refill : Less Than 3 Seconds Height, Weight, BMI Height: 5'7.00" Weight: 200lbs. 0oz. [id number]; 40.00 BMI Method:Stated General Appearance: No Apparent Distress, Mild Distress HEENT: PERRL/EOMI, Normal ENT Inspection, Other (Poor dentition. Significant erythema of the left ear canal, mild erythema of the right ear canal) Neck: Normal Inspection Respiratory: Lungs Clear, Normal Breath Sounds; No Crackles; Other (Tachypnea) Cardiovascular: Regular Rate, Rhythm, No Edema, No Murmur, Normal Peripheral Pulses Gastrointestinal: Normal Bowel Sounds, Soft; No Distended, No Guarding; Tenderness (Diffuse and more intense in the left lower quadrant) Extremity: Normal Inspection, No Pedal Edema Neurologic/Psychiatric: Alert, Oriented x3, No Motor/Sensory Deficits, scarfer operator II- XII Norm as Tested, Other (Avoids eye contact. Uses minimal words and responses) Skin: Normal Color, Warm/Dry Progress/Results/Core Measures Suspected Sepsis SIRS Temperature: Pulse: 64 Respiratory Rate: 16 Laboratory Tests 06/19/21 08:10: White Blood Count 9.9 Blood Pressure 134 /85 Mean: 101 Laboratory Tests 06/19/21 08:10: Creatinine 1.02, INR Comment 1.0, Platelet Count 246, Total Bilirubin 0.5 Results/Orders Lab Results Laboratory Tests Test 06/19/21 08:08 06/19/21 08:10 06/19/21 09:02 06/19/21 10:43 Range/Units Influenza Type A (RT-PCR) Not Detected Not Detecte Influenza Type B (RT-PCR) Not Detected Not Detecte SARS-CoV-2 RNA (RT-PCR) Not Detected Not Detecte White Blood Count 9.9 4.3-11.0 10^3/uL Red Blood Count 4.87 4.30-5.52 10^6/uL Hemoglobin 14.2 13.3-17.7 g/dL Hematocrit 43 40-54 % Mean Corpuscular Volume 89 80-99 fL Mean Corpuscular Hemoglobin 29 25-34 pg Mean Corpuscular Hemoglobin Concent 33 32-36 g/dL Red Cell Distribution Width 14.2 10.0-14.5 % Platelet Count 246 130-400 10^3/uL Mean Platelet Volume 8.8 L 9.0-12.2 fL Immature Granulocyte % (Auto) 0 % Neutrophils (%) (Auto) 76 H 42-75 % Lymphocytes (%) (Auto) 15 12-44 % Monocytes (%) (Auto) 8 0-12 % Eosinophils (%) (Auto) 1 0-10 % Basophils (%) (Auto) 0 0-10 % Neutrophils # (Auto) 7.5 1.8-7.8 10^3/uL Lymphocytes # (Auto) 1.5 1.0-4.0 10^3/uL Monocytes # (Auto) 0.8 0.0-1.0 10^3/uL Eosinophils # (Auto) 0.1 0.0-0.3 10^3/uL Basophils # (Auto) 0.0 0.0-0.1 10^3/uL Immature Granulocyte # (Auto) 0.0 0.0-0.1 10^3/uL Prothrombin Time 13.1 12.2-14.7 SEC INR Comment 1.0 0.8-1.4 Activated Partial Thromboplast Time 27 24-35 SEC D-Dimer 0.81 H 0.00-0.49 UG/ML Sodium Level 141 135-145 MMOL/L Potassium Level 3.4 L 3.6-5.0 MMOL/L Chloride Level 108 H 98-107 MMOL/L Carbon Dioxide Level 23 21-32 MMOL/L Anion Gap 10 5-14 MMOL/L Blood Urea Nitrogen 14 7-18 MG/DL Creatinine 1.02 0.60-1.30 MG/DL Estimat Glomerular Filtration Rate 77 BUN/Creatinine Ratio 14 Glucose Level 102 70-105 MG/DL Calcium Level 9.0 8.5-10.1 MG/DL Corrected Calcium 9.2 8.5-10.1 MG/DL Magnesium Level 2.4 1.6-2.4 MG/DL Total Bilirubin 0.5 0.1-1.0 MG/DL Aspartate Amino Transf (AST/SGOT) 41 H 5-34 U/L Alanine Aminotransferase (ALT/SGPT) 29 0-55 U/L Alkaline Phosphatase 115 40-136 U/L Myoglobin 292.0 H 10.0-92.0 NG/ML Troponin I < 0.028 < 0.028 <0.028 NG/ML C-Reactive Protein High Sensitivity 0.32 0.00-0.50 MG/DL Total Protein 6.8 6.4-8.2 GM/DL Albumin 3.8 3.2-4.5 GM/DL Lipase 30 8-78 U/L Thyroid Stimulating Hormone (TSH) 1.06 0.35-4.94 UIU/ML Free Thyroxine 0.90 0.70-1.48 NG/DL Urine Color YELLOW Urine Clarity SL CLOUDY Urine pH 6.5 5-9 Urine Specific [place] 1.020 1.016-1.022 Urine Protein NEGATIVE NEGATIVE Urine Glucose (UA) NEGATIVE NEGATIVE Urine Ketones NEGATIVE NEGATIVE Urine Nitrite NEGATIVE NEGATIVE Urine Bilirubin NEGATIVE NEGATIVE Urine Urobilinogen 0.2 < = 1.0 MG/DL Urine Leukocyte Esterase NEGATIVE NEGATIVE Urine RBC (Auto) NEGATIVE NEGATIVE Urine RBC NONE /HPF Urine WBC NONE /HPF Urine Squamous Epithelial Cells RARE /HPF Urine Crystals NONE /LPF Urine Bacteria NEGATIVE /HPF Urine Casts NONE /LPF Urine Mucus NEGATIVE /LPF Urine Culture Indicated NO My Orders Orders - ERICKSON SCOTT MD Covid 19 Inhouse Test (06/19/21 08:07) Influenza A And B By Pcr (06/19/21 08:07) Ed Iv/Invasive Line Start (06/19/21 08:25) Lactated Ringers (Lr 1000 Ml Iv Solution (06/19/21 08:30) Ondansetron Injection (Zofran Injectio (06/19/21 08:30) Cbc With Automated Diff (06/19/21 08:25) Magnesium (06/19/21 08:25) Chest 1 View, Ap/Pa Only (06/19/21 08:25) Ekg Tracing (06/19/21 08:25) Comprehensive Metabolic Panel (06/19/21 08:25) Myoglobin Serum (06/19/21 08:25) Protime With Inr (06/19/21 08:25) Partial Thromboplastin Time (06/19/21 08:25) O2 (06/19/21 08:25) Monitor-Rhythm Ecg Trace Only (06/19/21 08:25) Ed Iv/Invasive Line Start (06/19/21 08:25) Lipase (06/19/21 08:25) Ua Culture If Indicated (06/19/21 08:25) Hs C Reactive Protein (06/19/21 08:10) Free T4 (Free Thyroxine) (06/19/21 08:10) Troponin I (06/19/21 08:10) Thyroid Stimulating Hormone (06/19/21 08:10) Fibrin Degradation Products (06/19/21 08:10) Ct Pita Chest/Noang Abd-Pelv W (06/19/21 09:23) Iohexol Injection (Omnipaque 350 Mg/Ml 1 (06/19/21 09:45) Received Contrast (Hold Metformin- Contr (06/19/21 09:45) Ns (Ivpb) (Sodium Chloride 0.9% Ivpb Bag (06/19/21 09:45) Troponin I (06/19/21 10:20) Ketorolac Injection (Toradol Injection) (06/19/21 10:45) Acetaminophen Tablet (Tylenol Tablet) (06/19/21 10:45) Benzonatate Capsule (Tessalon Perles) (06/19/21 10:45) Medications Given in ED Current Medications Medications Dose Ordered Sig/Shant Route Start Time Stop Time Status Last Admin Dose Admin Acetaminophen 1,000 mg ONCE ONCE PO 06/19/21 10:45 06/19/21 10:46 DC 06/19/21 10:49 1,000 MG Benzonatate 200 mg ONCE ONCE PO 06/19/21 10:45 06/19/21 10:46 DC 06/19/21 10:49 200 MG Iohexol 100 ml ONCE ONCE IV 06/19/21 09:45 06/19/21 09:46 DC 06/19/21 09:47 100 ML Ketorolac Tromethamine 15 mg ONCE ONCE IVP 06/19/21 10:45 06/19/21 10:46 DC 06/19/21 10:50 15 MG Lactated Ringer's 1,000 ml @ 0 mls/hr Q0M ONCE IV 06/19/21 08:30 06/19/21 08:31 DC 06/19/21 08:34 999 MLS/HR Ondansetron HCl 8 mg ONCE ONCE IVP 06/19/21 08:30 06/19/21 08:31 DC 06/19/21 08:34 8 MG Sodium Chloride 100 ml ONCE ONCE IV 06/19/21 09:45 06/19/21 09:46 DC 06/19/21 09:48 80 ML Vital Signs/I&O 06/19/21 06/19/21 06/19/21 08:02 08:05 11:42 Temp 35.9 35.9 Pulse 64 80 Resp 16 16 B/P (MAP) 134/85 (101) 143/78 (101) Pulse Ox 99 O2 Delivery Room Air Room Air Room Air Capillary Refill : Less Than 3 Seconds Blood Pressure Mean: 101 Progress Note #1: Time: 08:35 Progress Note Patient seen and examined. Labs, chest x-ray, EKG, Covid swab, and urinalysis are all pending. Vital signs are stable and normal at this time. Patient is being treated with Zofran and IV fluids. Progress Note #2: Progress Note D-dimer was elevated. Work-up was otherwise relatively unremarkable. CT angiogram was obtained and showed no pneumonia or PE. Patient was further treated with Tessalon Perles, Toradol, and Tylenol. Repeat 2-hour troponin was negative. Patient had recent heart cath showing nonobstructive moderate coronary artery disease. Pain was more pleuritic or atypical in nature. He was discharged in improved condition. ECG Initial ECG Impression Date: Jun 19, 2021 Initial ECG Impression Time: 08:37 Initial ECG Rate: 62 Initial ECG Rhythm: Normal Sinus Initial ECG Intervals: Normal Comment Normal sinus rhythm with no ST elevation or depression. No abnormal intervals or axis deviation. Diagnostic Imaging Diagonstic Imaging: Xray Plain Films/CT/US/NM/MRI: chest Comments NAME: [facility] REC#: [id number] PT STATUS: REG ER : 1970 PHYSICIAN: ERICKSON SCOTT MD ADMIT DATE: 06/19/21/ER Signed Date of Exam:06/19/21 CHEST 1 VIEW, AP/PA ONLY INDICATION: Chest pain. COMPARISON: 02/20/2020. FINDINGS: The lungs appear clear without focal infiltrate or consolidation. There are no findings of an effusion. There is no evidence of a pneumothorax. Heart size and mediastinal contours appear appropriate. Pulmonary vascularity appears within normal limits. There is no acute or suspicious osseous abnormality demonstrated. IMPRESSION: No radiographic evidence of an acute cardiopulmonary process. Dictated by: Dictated on workstation # [id number] Dict: 06/19/21906 Trans: 06/19/21907 [facility] [id number] Interpreted by: CATHLEEN SIMON MD Electronically signed by: CATHLEEN SIMON MD 06/19/21907 Reviewed: Reviewed by Ks Diagonstic Imaging: CT Plain Films/CT/US/NM/MRI: chest Comments NAME: [facility] REC#: [id number] PT STATUS: REG ER : 1970 PHYSICIAN: ERICKSON SCOTT MD ADMIT DATE: 06/19/21/ER Signed Date of Exam:06/19/21 CT PITA CHEST/NOANG ABD-PELV W INDICATION: Chest pain, abd pain, elev D-dimer CTA chest, abdomen and pelvis Thin axial sections through the chest, abdomen and pelvis are obtained following intravenous contrast bolus. Multiplanar MIP images were reconstructed and reviewed. All CT scans use one or more of the following dose optimizing techniques: automated exposure control, MA and/or KvP adjustment based on patient size and exam type or iterative reconstruction. INDICATION: Chest pain with elevated d-dimer. Abdominal pain. Comparison is made to the prior study from April 29, 2019. FINDINGS: CT angiogram demonstrates no evidence of a pulmonary artery filling defect or embolism. There are no findings of right ventricular strain. The thoracic aorta is normal in caliber without dissection or aneurysm. There are coronary calcifications. Heart size is normal. There is no pericardial collection. Lungs demonstrate no focal infiltrate or consolidation. There is no effusion. There are stable calcified granulomas within the right lower lobe. There is no suspicious pulmonary nodule or mass. There are no findings of mediastinal, hilar or axillary adenopathy. No acute osseous abnormality evident within the chest. Within the abdomen, there are no findings of a focal intrahepatic abnormality. The portal veins are patent. Patient is status post cholecystectomy without biliary dilatation. The pancreas is unremarkable. The spleen is normal in size. There is no adrenal mass. Kidneys enhance normally and are nonobstructed. There are previous operative changes of gastric bypass. There are no findings of large or small bowel dilation or bowel obstruction. No abnormal bowel thickening is demonstrated. The appendix is normal. There is moderate stool within the colon. There are few uncomplicated diverticula. There is no free fluid within the pelvis. Thre is no focal inflammatory fat stranding within the omentum or mesentery. There is no free air or abscess. There is no pathologic abdominal adenopathy. There are atherosclerotic calcifications within a normal caliber aorta. There are previous operative changes of lumbosacral spinal fusion. No acute osseous abnormality is demonstrated. IMPRESSION: 1. No CT angiographic evidence of pulmonary embolism. 2. Thoracic aorta unremarkable. 3. No acute inflammatory process within the chest. 4. Operative changes of gastric bypass and cholecystectomy. No acute inflammatory or obstructive process evident within the abdomen or pelvis. 5. Prior spinal fusion. Dictated by: Dictated on workstation # [id number] Dict: 06/19/21 1000 Trans: 06/19/21 1058 BEV [id number] Interpreted by: CATHLEEN SIMON MD Electronically signed by: CATHLEEN SIMON MD 06/19/21 1058 Reviewed: Reviewed by Me Departure Impression Primary Impression: Nausea vomiting and diarrhea Additional Impressions: Generalized abdominal pain Atypical chest pain Flu-like symptoms Disposition: 01 HOME, SELF-CARE Condition: Improved Departure-Patient Inst. Decision time for Depature: 11:29 Referrals: [facility] (PCP/Family) Primary Care Physician Patient Instructions: Abdominal Pain, Adult ED Add. Discharge Instructions: Drink plenty of clear liquids to stay well-hydrated. Gradually advance your diet with small quantities of bland food as tolerated. You may take ibuprofen up to 600 mg every 6 hours and/or Tylenol (acetaminophen) up to 1000 mg every 6 hours as needed for pain. Use Tessalon Perls as prescribed for cough suppression. Use Zofran (ondansetron) as prescribed for nausea and vomiting. Call with questions or concerns. Return to the emergency room if you are having worsening symptoms. All discharge instructions reviewed with patient and/or family. Voiced understanding. Scripts Benzonatate (TESSALON PERLES) 100 Mg Capsule 200 MG PO TID PRN for COUGH, #10 CAP Prov: ERICKSON SCOTT MD 06/19/21 Ondansetron (Ondansetron Odt) 4 Mg Tab.rapdis 4 MG PO Q4H PRN for NAUSEA/VOMITING, #10 TAB Prov: ERICKSON SCOTT MD 06/19/21 Copy Copies To 1: TIFFANY DAVEY DO Copies To 2: EVERARDO HERRING MD [facility] ERICKSON SCOTT MD Jun 19, 2021 08:29
[2021-06-19 08:31] LABS: BASOPHILS % (AUTO) 0 % (0-10); EOSINOPHILS # (AUTO) 0.1 10^3/uL (0.0-0.3); EOSINOPHILS % (AUTO) 1 % (0-10); HEMATOCRIT 43 % (40-54); HEMOGLOBIN 14.2 g/dL (13.3-17.7); LYMPHOCYTES # (AUTO) 1.5 10^3/uL (1.0-4.0); LYMPHOCYTES % (AUTO) 15 % (12-44); MEAN CORPUSCULAR HEMOGLOBIN 29 pg (25-34); MEAN CORPUSCULAR HGB CONC 33 g/dL (32-36); MEAN CORPUSCULAR VOLUME 89 fL (80-99); MEAN PLATELET VOLUME 8.8 fL (9.0-12.2); MONOCYTES # (AUTO) 0.8 10^3/uL (0.0-1.0); MONOCYTES % (AUTO) 8 % (0-12); NEUTROPHILS # (AUTO) 7.5 10^3/uL (1.8-7.8); NEUTROPHILS % (AUTO) 76 % (42-75); PLATELET COUNT 246 10^3/uL (130-400); WHITE BLOOD COUNT 9.9 10^3/uL (4.3-11.0)
[2021-06-19 08:43] LABS: ALBUMIN 3.8 GM/DL (3.2-4.5); CHLORIDE 108 MMOL/L (98-107); POTASSIUM 3.4 MMOL/L (3.6-5.0); SODIUM 141 MMOL/L (135-145)
[2021-06-19 08:46] LABS: GLUCOSE 102 MG/DL (70-105); TOTAL PROTEIN 6.8 GM/DL (6.4-8.2)
[2021-06-19 08:47] LABS: BILIRUBIN,TOTAL 0.5 MG/DL (0.1-1.0); CARBON DIOXIDE 23 MMOL/L (21-32)
[2021-06-19 08:49] LABS: ALKALINE PHOSPHATASE 115 U/L (40-136); CREATININE SERUM 1.02 MG/DL (0.60-1.30); GFR ESTIMATED 77
[2021-06-19 08:50] LABS: BUN/CREATININE RATIO 14
[2021-06-19 08:52] LABS: ALANINE AMINOTRANSFERASE 29 U/L (0-55); MAGNESIUM 2.4 MG/DL (1.6-2.4)
[2021-06-19 08:53] LABS: LIPASE 30 U/L (8-78)
[2021-06-19 09:01] LABS: FIBRIN DEGRADATION PRODUCTS 0.81 UG/ML (0.00-0.49); PROTHROMBIN TIME PATIENT 13.1 SEC (12.2-14.7)
[2021-06-19 09:08] LABS: BILIRUBIN,URINE NEGATIVE (NEGATIVE); CLARITY,URINE SL CLOUDY; COLOR,URINE YELLOW; GLUCOSE, URINE (UA) NEGATIVE (NEGATIVE); KETONES,URINE NEGATIVE (NEGATIVE); LEUKOCYTE ESTERASE ,URINE NEGATIVE (NEGATIVE); NITRITE,URINE NEGATIVE (NEGATIVE); PH,URINE 6.5 (5-9); PROTEIN,URINE NEGATIVE (NEGATIVE)
--- NOTE | 2021-06-19 09:10 | Diagnostic Imaging Report ---
INDICATION: Chest pain. COMPARISON: 02/20/2020. FINDINGS: The lungs appear clear without focal infiltrate or consolidation. There are no findings of an effusion. There is no evidence of a pneumothorax. Heart size and mediastinal contours appear appropriate. Pulmonary vascularity appears within normal limits. There is no acute or suspicious osseous abnormality demonstrated. IMPRESSION: No radiographic evidence of an acute cardiopulmonary process. Dictated by: Dictated on workstation # [id number]
[2021-06-19 09:14] LABS: BACTERIA,URINE NEGATIVE /HPF; SQUAMOUS EPITHELIAL CELL,UR RARE /HPF
[2021-06-19] MEDS ORDERED: NS 100 ML (IVPB) BAG IV ONE (09:45)
[2021-06-19] MEDS ORDERED: IOHEXOL 350 MG/ML 100 ML (OMNIPAQUE 350) VIAL IV ONE (09:45)
[2021-06-19] MEDS ORDERED: HOLD METFORMIN - RECEIVED CONTRAST 20 ML VIAL IV SCH (09:45)
--- NOTE | 2021-06-19 10:09 | Diagnostic Imaging Report ---
INDICATION: Chest pain, abd pain, elev D-dimer CTA chest, abdomen and pelvis Thin axial sections through the chest, abdomen and pelvis are obtained following intravenous contrast bolus. Multiplanar MIP images were reconstructed and reviewed. All CT scans use one or more of the following dose optimizing techniques: automated exposure control, MA and/or KvP adjustment based on patient size and exam type or iterative reconstruction. INDICATION: Chest pain with elevated d-dimer. Abdominal pain. Comparison is made to the prior study from April 29, 2019. FINDINGS: CT angiogram demonstrates no evidence of a pulmonary artery filling defect or embolism. There are no findings of right ventricular strain. The thoracic aorta is normal in caliber without dissection or aneurysm. There are coronary calcifications. Heart size is normal. There is no pericardial collection. Lungs demonstrate no focal infiltrate or consolidation. There is no effusion. There are stable calcified granulomas within the right lower lobe. There is no suspicious pulmonary nodule or mass. There are no findings of mediastinal, hilar or axillary adenopathy. No acute osseous abnormality evident within the chest. Within the abdomen, there are no findings of a focal intrahepatic abnormality. The portal veins are patent. Patient is status post cholecystectomy without biliary dilatation. The pancreas is unremarkable. The spleen is normal in size. There is no adrenal mass. Kidneys enhance normally and are nonobstructed. There are previous operative changes of gastric bypass. There are no findings of large or small bowel dilation or bowel obstruction. No abnormal bowel thickening is demonstrated. The appendix is normal. There is moderate stool within the colon. There are few uncomplicated diverticula. There is no free fluid within the pelvis. Thre is no focal inflammatory fat stranding within the omentum or mesentery. There is no free air or abscess. There is no pathologic abdominal adenopathy. There are atherosclerotic calcifications within a normal caliber aorta. There are previous operative changes of lumbosacral spinal fusion. No acute osseous abnormality is demonstrated. IMPRESSION: 1. No CT angiographic evidence of pulmonary embolism. 2. Thoracic aorta unremarkable. 3. No acute inflammatory process within the chest. 4. Operative changes of gastric bypass and cholecystectomy. No acute inflammatory or obstructive process evident within the abdomen or pelvis. 5. Prior spinal fusion. Dictated by: Dictated on workstation # [id number]
[2021-06-19] MEDS ORDERED: KETOROLAC 30 MG/ML VIAL IVP ONE (10:45)
[2021-06-19] MEDS ORDERED: BENZONATATE 100 MG (TESSALON) CAPSULE PO ONE (10:45)
[2021-06-19] MEDS ORDERED: ACETAMINOPHEN 500 MG TAB (TYLENOL) PO ONE (10:45)
[2021-06-19] MEDS ORDERED: BENZ100C18 PO (11:32)
[2021-06-19] MEDS ORDERED: ONDA4TAB11 PO (11:32)
[2021-06-19 11:42] VITALS: BP 143/78
== END 2021-06-19 11:42 | disposition home or self-care (01) ==
LOC: EDUNIT# 07:57 → ER 08:02
DX: R11.2 Nausea with vomiting, unspecified (principal); R19.7 Diarrhea, unspecified; R10.84 Generalized abdominal pain; R07.89 Other chest pain; J11.1 Influenza due to unidentified influenza virus with other respiratory manifestations; J45.909 Unspecified asthma, uncomplicated; E78.00 Pure hypercholesterolemia, unspecified; F32.9 Major depressive disorder, single episode, unspecified; I25.10 Atherosclerotic heart disease of native coronary artery without angina pectoris; I10 Essential (primary) hypertension; E03.9 Hypothyroidism, unspecified; Z20.822 Contact with and (suspected) exposure to COVID-19; Z79.82 Long term (current) use of aspirin; Z79.899 Other long term (current) drug therapy; Z79.890 Hormone replacement therapy
CPT/HCPCS: 36415; 71045; 71275; 74177; 80053; 81000; 83690; 83735; 83874; 84439; 84443; 84484; 85025; 85379; 85610; 85730; 86141; 87636; 93005; 93041

== ENCOUNTER 2021-07-09 21:46 | Emergency (ER) | payer BC ==
[~2021-07-09] VITALS: Ht 170.1 cm; Wt 100.0 kg
[~2021-07-09 21:46] MED LIST changes: +BENZ100C18 PO; +ONDA4TAB11 PO
[2021-07-09 22:10] VITALS: BP 150/79
--- NOTE | 2021-07-09 22:48 | ED Lower Extremity ---
General Chief Complaint: Laceration Stated Complaint: LEFT INDEX FINGER LAC Nursing Triage Note: Pt ambulatory into ER with complaint of 1cm Laceration to 2nd Finger L. Hand. 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 Pt was using knife as a pry tool and it slipped cutting the first knuckle of 2nd finger. Allergies and Home Medications Allergies Coded Allergies: rofecoxib (Unverified Allergy, Intermediate, 07/18/10) bisacodyl (Unverified Allergy, Mild, 07/18/10) oxycodone (Verified Allergy, Unknown, 04/29/19) Home Medications Aspirin 81 Mg Tab.chew, 81 MG PO DAILY Prescribed by: EVERARDO HERRING on 05/25/21 1134 Atorvastatin Calcium 40 Mg Tablet, 40 MG PO DAILY, (Reported) Benzonatate 100 Mg Capsule, 200 MG PO TID PRN for COUGH Prescribed by: ERICKSON RAHMAN on 06/19/21 1132 Bupropion HCl 100 Mg Tablet.er, 100 MG PO DAILY, (Reported) Ca Carbonate/Vitamin D3/Vit K 1 Each Tab.chew, 1 EACH PO DAILY, (Reported) Gabapentin 300 Mg Capsule, 900 MG PO TID, (Reported) TAKES 3 (300MG) CAPS Levothyroxine Sodium 88 Mcg Tablet, 88 MCG PO DAILY, (Reported) Melatonin 5 Mg Tablet, 5-10 MG PO HS, (Reported) Multivit-Min/FA/Lycopen/Lutein 1 Each Tablet, 1 EACH PO DAILY, (Reported) Ondansetron 4 Mg Tab.rapdis, 4 MG PO Q4H PRN for NAUSEA/VOMITING Prescribed by: ERICKSON RAHMAN on 06/19/21 1132 Quetiapine Fumarate 100 Mg Tablet, 100 MG PO HS, (Reported) Past Vgsugpf-Miqsdx-Cqemwx Hx Patient Social History Tobacco Use?: Yes Tobacco type used: Cigarettes Smoking Status: Former Smoker Use of E-Cig and/or Vaping dev: No Substance use?: No Alcohol Use?: No Pt feels they are or have been: No Immunizations Up To Date Tetanus Booster (TDap): Unknown Influenza Vaccine Up-to-Date: No; Not Current Seasonal Allergies Seasonal Allergies: No Past Medical History Surgeries: Yes (GASTRIC SLEEVE) Abdominal, Cardiac, Gallbladder, Orthopedic, Tonsillectomy Respiratory: Yes Asthma Cardiac: Yes Coronary Artery Disease, Heart Murmur, High Cholesterol, Hypertension, Syncope Neurological: No Reproductive Disorders: No Sexually Transmitted Disease: No Genitourinary: Yes Prostate Problems, Kidney Stones Gastrointestinal: Yes (DIFFICULTY SWALLOWING) Hiatal Hernia Musculoskeletal: Yes Chronic Back Pain Endocrine: Yes Hypothyroidsim HEENT: No Cancer: No Psychosocial: Yes ("Anger issues") Anxiety, Depression Integumentary: No Blood Disorders: No Family Medical History Arthritis 19 MOTHER Diabetes mellitus 19 MOTHER FH: non-Hodgkin's lymphoma 19 MOTHER Hypertension 19 MOTHER Heart Disease, Diabetes Physical Exam Vital Signs Vital Signs - First Documented 07/09/21 22:10 Temp 36.6 Pulse 78 Resp 18 B/P (MAP) 150/79 (102) Pulse Ox 97 O2 Delivery Room Air Capillary Refill : Less Than 3 Seconds Height, Weight, BMI Height: 5'7.00" Weight: 200lbs. 0oz. [id number]; 34.00 BMI Method:Stated Progress/Results/Core Measures Results/Orders Vital Signs/I&O 07/09/21 22:10 Temp 36.6 Pulse 78 Resp 18 B/P (MAP) 150/79 (102) Pulse Ox 97 O2 Delivery Room Air Blood Pressure Mean: 102 Departure Impression Primary Impression: Finger laceration Disposition: 01 HOME, SELF-CARE Condition: Stable Departure-Patient Inst. Decision time for Depature: 22:40 Referrals: VU BLISS MD (PCP/Family) Primary Care Physician Patient Instructions: Laceration Repair With Stitches (DC) Add. Discharge Instructions: CLEAN WOUND TWICE A DAY WITH ANTIBACTERIAL SOAP AND WATER ON A Q-TIP, OTHERWISE KEEP CLEAN AND DRY SUTURES OUT IN 10 DAYS--RETURN TO ER FOR REMOVAL TYLENOL AND MOTRIN NEEDED FOR PAIN All discharge instructions reviewed with patient and/or family. Voiced understanding. DEBORA DELGADO DO Jul 09, 2021 22:48
== END 2021-07-09 22:45 | disposition home or self-care (01) ==
LOC: EDUNIT# 21:46 → ER 21:48
DX: S61.211A Laceration without foreign body of left index finger without damage to nail, initial encounter (principal); J45.909 Unspecified asthma, uncomplicated; I10 Essential (primary) hypertension; E03.9 Hypothyroidism, unspecified; I25.10 Atherosclerotic heart disease of native coronary artery without angina pectoris; E78.00 Pure hypercholesterolemia, unspecified; F32.9 Major depressive disorder, single episode, unspecified; Z87.891 Personal history of nicotine dependence; Z79.890 Hormone replacement therapy; Z79.82 Long term (current) use of aspirin; Z79.899 Other long term (current) drug therapy; W26.0XXA Contact with knife, initial encounter
CPT/HCPCS: 99284

== ENCOUNTER 2021-12-05 17:02 | Emergency (ER) | payer BC ==
[~2021-12-05] VITALS: Ht 170.2 cm; Wt 105.7 kg
[2021-12-05 17:27] LABS: BASOPHILS % (AUTO) 0 % (0-10); EOSINOPHILS % (AUTO) 0 % (0-10); HEMATOCRIT 47 % (40-54); HEMOGLOBIN 15.2 g/dL (13.3-17.7); LYMPHOCYTES # (AUTO) 0.8 10^3/uL (1.0-4.0); LYMPHOCYTES % (AUTO) 16 % (12-44); MEAN CORPUSCULAR HEMOGLOBIN 29 pg (25-34); MEAN CORPUSCULAR HGB CONC 33 g/dL (32-36); MEAN CORPUSCULAR VOLUME 89 fL (80-99); MEAN PLATELET VOLUME 8.5 fL (9.0-12.2); MONOCYTES # (AUTO) 0.3 10^3/uL (0.0-1.0); MONOCYTES % (AUTO) 6 % (0-12); NEUTROPHILS # (AUTO) 3.7 10^3/uL (1.8-7.8); NEUTROPHILS % (AUTO) 77 % (42-75); PLATELET COUNT 222 10^3/uL (130-400); WHITE BLOOD COUNT 4.7 10^3/uL (4.3-11.0)
[2021-12-05] MEDS ORDERED: LACTATED RINGERS 1,000 ML IV ONE (17:30)
[2021-12-05] MEDS ORDERED: ONDANSETRON 4 MG/2 ML (SDV) Z0FRAN IVP ONE (17:30)
[2021-12-05] MEDS ORDERED: KETOROLAC 30 MG/ML VIAL IVP ONE (17:30)
[2021-12-05 17:39] LABS: ALBUMIN 3.9 GM/DL (3.2-4.5); POTASSIUM 3.9 MMOL/L (3.6-5.0)
[2021-12-05 17:40] LABS: CALCIUM 8.9 MG/DL (8.5-10.1)
--- NOTE | 2021-12-05 17:41 | ED Cough/URI ---
General Chief Complaint: COVID19 Suspect/Confirmed Stated Complaint: DIFFICULTY BREATHING, COVID POSITIVE Nursing Triage Note: PT AMB TO RM 9 W C/O SOA, CP, COUGH, MONIQUE, AND DECREASED APPETITE. PT TESTED COVID + YESTERDAY, SYMPTOMS FOR APPROX 1 WEEK. A&OX4. Source: patient Exam Limitations: no limitations (JEANNETTE MONROY) History of Present Illness Date Seen by Provider: Dec 05, 2021 Time Seen by Provider: 16:59 Initial Comments Patient presents ER by private conveyance from home with chief complaint of shortness of breath cough headache body aches anorexia nausea vomiting diarrhea. He was seen at urgent care about 5 or 6 days ago when symptoms started and had a positive COVID-19 test. Negative for influenza. He did not receive COVID-19 vaccination nor has he had influenza vaccination. He has had subjective fevers. He has not been using Tylenol or Motrin routinely. He was not given any Zofran. He was however given a pack for prednisone and azithromycin which has not helped his symptoms. Patient has not taken any Imodium. He was however able to take his gabapentin. He quit smoking 2 months ago about a pack a day at that time. He denies history of COPD or asthma. (JEANNETTE MONROY) Allergies and Home Medications Allergies Coded Allergies: rofecoxib (Unverified Allergy, Intermediate, 07/18/10) bisacodyl (Unverified Allergy, Mild, 07/18/10) oxycodone (Verified Allergy, Unknown, 04/29/19) Patient Home Medication List Home Medication List Reviewed: Yes (JEANNETTE MONROY) Aspirin (Aspirin) 81 Mg Tab.chew, 81 MG PO DAILY Prescribed by: EVERARDO HERRING on 05/25/21 1134 Atorvastatin Calcium (Lipitor) 40 Mg Tablet, 40 MG PO DAILY, (Reported) Entered as Reported by: ONI PHELAN on 05/25/21 0845 Benzonatate (Tessalon Perles) 100 Mg Capsule, 200 MG PO TID PRN for COUGH Prescribed by: ERICKSON RAHMAN on 06/19/21 1132 Bupropion HCl (Bupropion HCl Sr) 100 Mg Tablet.er, 100 MG PO DAILY, (Reported) Entered as Reported by: TAYA CINTRON on 04/16/21 1450 Ca Carbonate/Vitamin D3/Vit K (Calcium + D Soft Chewable Tab) 1 Each Tab.chew, 1 EACH PO DAILY, (Reported) Entered as Reported by: ONI PHELAN on 05/25/21 0845 Gabapentin (Neurontin) 300 Mg Capsule, 900 MG PO TID, (Reported) Entered as Reported by: TAYA CINTRON on 04/16/21 1450 Levothyroxine Sodium (Levothyroxine Sodium) 88 Mcg Tablet, 88 MCG PO DAILY, (Reported) Entered as Reported by: CHARO SANTOYO on 04/30/19 0853 Melatonin (Melatonin) 5 Mg Tablet, 5-10 MG PO HS, (Reported) Entered as Reported by: TAYA CINTRON on 04/16/21 1450 Multivit-Min/FA/Lycopen/Lutein (Men 50 Plus Multivitamin Tab) 1 Each Tablet, 1 EACH PO DAILY, (Reported) Entered as Reported by: ONI PHELAN on 05/25/21 0845 Ondansetron (Ondansetron Odt) 4 Mg Tab.rapdis, 4 MG PO Q4H PRN for NAUSEA/VOMITING Prescribed by: ERICKSON RAHMAN on 06/19/21 1132 Quetiapine Fumarate (Quetiapine Fumarate) 100 Mg Tablet, 100 MG PO HS, (Reported) Entered as Reported by: TAYA CINTRON on 04/16/21 1450 Review of Systems Review of Systems Constitutional: No chills, No diaphoresis EENTM: No ear discharge, No ear pain Respiratory: cough, short of breath Cardiovascular: No chest pain, No palpitations Gastrointestinal: No abdominal pain, No constipation; diarrhea, loss of appetite, nausea, vomiting Genitourinary: No discharge, No dysuria Musculoskeletal: No back pain, No joint pain (JEANNETTE MONROY) All Other Systems Reviewed Negative Unless Noted: Yes (JEANNETTE MONROY) Past Phntzas-Ieqfwl-Hkcuxf Hx Patient Social History Tobacco Use?: No Smoking Status: Former Smoker Use of E-Cig and/or Vaping dev: No Substance use?: No Additional substance use comme: 9 MONTHS SOBER (METH) Alcohol Use?: No (JEANNETTE MONROY) Immunizations Up To Date Tetanus Booster (TDap): Unknown Influenza Vaccine Up-to-Date: No; Not Current First/Initial COVID19 Vaccinat: NONE Second COVID19 Vaccination Osman: NONE Third COVID19 Vaccination Date: NONE COVID19 Vaccine 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 (JEANNETTE MONROY) Seasonal Allergies Seasonal Allergies: No (JEANNETTE MONROY) Past Medical History Surgeries: Yes (GASTRIC SLEEVE) Abdominal, Cardiac, Gallbladder, Orthopedic, Tonsillectomy Respiratory: Yes Asthma Cardiac: Yes Coronary Artery Disease, Heart Murmur, High Cholesterol, Hypertension, Syncope Neurological: No Reproductive Disorders: No Sexually Transmitted Disease: No Genitourinary: Yes Prostate Problems, Kidney Stones Gastrointestinal: Yes (DIFFICULTY SWALLOWING) Hiatal Hernia Musculoskeletal: Yes Chronic Back Pain Endocrine: Yes Hypothyroidsim HEENT: No Cancer: No Psychosocial: Yes ("Anger issues") Anxiety, Depression Integumentary: No Blood Disorders: No (JEANNETTE MONROY) Family Medical History Arthritis 19 MOTHER Diabetes mellitus 19 MOTHER FH: non-Hodgkin's lymphoma 19 MOTHER Hypertension 19 MOTHER Heart Disease, Diabetes (JEANNETTE MONROY) Physical Exam Vital Signs - First Documented 12/05/21 17:12 Temp 36.1 Pulse 82 Resp 22 B/P (MAP) 141/90 (107) Pulse Ox 96 O2 Delivery Room Air (YANCY GUZMAN APRN) Capillary Refill : Less Than 3 Seconds (JEANNETTE MONROY) Height: 5'7.00" Weight: 200lbs. 0oz. [id number]; 36.00 BMI Method:Stated General Appearance: WD/WN, no apparent distress Eyes: Bilateral Eye Normal Inspection, Bilateral Eye PERRL, Bilateral Eye EOMI HEENT: PERRL/EOMI, normal ENT inspection, pharynx normal Neck: full range of motion, supple, normal inspection Respiratory: lungs clear, normal breath sounds, no respiratory distress, no accessory muscle use Cardiovascular: normal peripheral pulses, regular rate, rhythm Gastrointestinal: normal bowel sounds, non tender, soft Neurologic/Psychiatric: alert, normal mood/affect, oriented x 3 Skin: normal color, warm/dry (JEANNETTE MONROY) Procedures/Interventions Suture Size: 4-0 (JEANNETTE MONROY) Progress/Results/Core Measures Suspected Sepsis SIRS Temperature: Pulse: 82 Respiratory Rate: 22 Laboratory Tests 12/05/21 17:16: White Blood Count 4.7 Blood Pressure 141 /90 Mean: 107 Laboratory Tests 12/05/21 17:16: Creatinine 0.91, Platelet Count 222, Total Bilirubin 0.3 (JEANNETTE MONROY) Results/Orders Lab Results Laboratory Tests Test 12/05/21 17:16 Range/Units White Blood Count 4.7 4.3-11.0 10^3/uL Red Blood Count 5.21 4.30-5.52 10^6/uL Hemoglobin 15.2 13.3-17.7 g/dL Hematocrit 47 40-54 % Mean Corpuscular Volume 89 80-99 fL Mean Corpuscular Hemoglobin 29 25-34 pg Mean Corpuscular Hemoglobin Concent 33 32-36 g/dL Red Cell Distribution Width 13.2 10.0-14.5 % Platelet Count 222 130-400 10^3/uL Mean Platelet Volume 8.5 L 9.0-12.2 fL Immature Granulocyte % (Auto) 0 % Neutrophils (%) (Auto) 77 H 42-75 % Lymphocytes (%) (Auto) 16 12-44 % Monocytes (%) (Auto) 6 0-12 % Eosinophils (%) (Auto) 0 0-10 % Basophils (%) (Auto) 0 0-10 % Neutrophils # (Auto) 3.7 1.8-7.8 10^3/uL Lymphocytes # (Auto) 0.8 L 1.0-4.0 10^3/uL Monocytes # (Auto) 0.3 0.0-1.0 10^3/uL Eosinophils # (Auto) 0.0 0.0-0.3 10^3/uL Basophils # (Auto) 0.0 0.0-0.1 10^3/uL Immature Granulocyte # (Auto) 0.0 0.0-0.1 10^3/uL Sodium Level 138 135-145 MMOL/L Potassium Level 3.9 3.6-5.0 MMOL/L Chloride Level 105 98-107 MMOL/L Carbon Dioxide Level 22 21-32 MMOL/L Anion Gap 11 5-14 MMOL/L Blood Urea Nitrogen 12 7-18 MG/DL Creatinine 0.91 0.60-1.30 MG/DL Estimat Glomerular Filtration Rate 87 BUN/Creatinine Ratio 13 Glucose Level 138 H 70-105 MG/DL Calcium Level 8.9 8.5-10.1 MG/DL Corrected Calcium 9.0 8.5-10.1 MG/DL Total Bilirubin 0.3 0.1-1.0 MG/DL Aspartate Amino Transf (AST/SGOT) 31 5-34 U/L Alanine Aminotransferase (ALT/SGPT) 26 0-55 U/L Alkaline Phosphatase 96 40-136 U/L C-Reactive Protein High Sensitivity 0.63 H 0.00-0.50 MG/DL Total Protein 7.1 6.4-8.2 GM/DL Albumin 3.9 3.2-4.5 GM/DL (YANCY GUZMAN APRN) Medications Given in ED Current Medications Medications Dose Ordered Sig/Shant Route Start Time Stop Time Status Last Admin Dose Admin Ketorolac Tromethamine 30 mg ONCE ONCE IVP 12/05/21 17:30 12/05/21 17:31 DC 12/05/21 17:39 30 MG Lactated Ringer's 1,000 ml @ 0 mls/hr Q0M ONCE IV 12/05/21 17:30 12/05/21 17:31 DC 12/05/21 17:39 0 MLS/HR Ondansetron HCl 8 mg ONCE ONCE IVP 12/05/21 17:30 12/05/21 17:31 DC 12/05/21 17:39 8 MG (YANCY GUZMAN APRN) Vital Signs/I&O 12/05/21 17:12 Temp 36.1 Pulse 82 Resp 22 B/P (MAP) 141/90 (107) Pulse Ox 96 O2 Delivery Room Air (YANCY GUZMAN APRN) Vital Signs/I&O Capillary Refill : Less Than 3 Seconds (JEANNETTE MONROY) Blood Pressure Mean: 107 Progress Note : Time: 17:38 Progress Note Patient appears mildly dehydrated but has normal aseptic vital signs with heart rate in the 70s, oxygen saturation 96 to 98% on room air nonlabored breathing. No wheezing heard. We will give him a liter of fluids Toradol and Zofran and get him a prescription for some Zofran. We have encouraged him to discontinue the steroids and azithromycin for now as he is likely to experience more side effects than any benefit. (JEANNETTE MONROY) Diagnostic Imaging Diagonstic Imaging: Xray Plain Films/CT/US/NM/MRI: chest Reviewed: Reviewed by Me (JEANNETTE MONROY) Comments NAME: [facility] REC#: [id number] PT STATUS: REG ER : 1970 PHYSICIAN: JEANNETTE MONROY MD ADMIT DATE: 12/05/21/ER Draft Date of Exam:12/05/21 CHEST 1 VIEW, AP/PA ONLY EXAM: Chest 1 view, AP/PA only. INDICATION: Shortness of air. COVID. COMPARISON: 06/19/2021. FINDINGS: Normal heart size and central pulmonary vascularity. Mild airspace opacity in the right lung base. No pleural effusion or pneumothorax. No acute osseous findings. IMPRESSION: Mild atelectasis or infiltrate in the right lung base. Dictated on workstation # [id number] Dict: 12/05/211811 Trans: 12/05/211813 [facility] [id number] Interpreted by: JERED TORIBIO MD Electronically signed by: (YANCY GUZMAN APRN) Transfer of Care Transfer of Care Time: 18:00 Care transferred to: kari (JEANNETTE MONROY) Departure Impression Primary Impression: COVID-19 Disposition: 01 HOME, SELF-CARE Condition: Stable Departure-Patient Inst. Decision time for Depature: 18:17 (YANCY GUZMAN APRN) Referrals: NO,LOCAL PHYSICIAN (PCP/Family) Primary Care Physician Patient Instructions: COVID-19 Overview Add. Discharge Instructions: Drink lots of fluids. Tylenol 1000 mg every 8 hours necessary for body aches fever or chills. Ibuprofen 800 mg every 8 hours as necessary for body aches, fever or chills. Ondansetron 1 tablet every 6 hours as necessary for nausea and/or vomiting. Place it under the tongue and allow to dissolve and absorb to your mouth. Tessalon Perles 1 caplet every 6 hours as necessary for cough. Imodium antidiarrheal 2 tablets followed by 1 tablet every 4 hours afterwards that you are still having loose, watery diarrhea. Return to the ER for oxygen saturations below 90% while at rest, intractable vomiting or other worrisome symptoms. All discharge instructions reviewed with patient and/or family. Voiced understanding. Scripts Benzonatate (TESSALON PERLES) 100 Mg Capsule 100 MG PO Q6H PRN for COUGH, #20 CAP 0 Refills Prov: YANCY GUZMAN SMART GRID ENGINEER 12/05/21 Ondansetron (Ondansetron Odt) 4 Mg Tab.rapdis 4 MG PO Q6H PRN for NAUSEA/VOMITING, #12 TAB 0 Refills Prov: YANCY GUZMAN APRN 12/05/21 Work/School Note: Work Release Form Date Seen in the Emergency Department: Dec 05, 2021 Return to Work: Dec 13, 2021 Restrictions: Return-No Fever (24hrs) JEANNETTE MONROY Dec 05, 2021 17:41 YANCY GUZMAN APRN Dec 05, 2021 18:20
[2021-12-05 17:42] LABS: TOTAL PROTEIN 7.1 GM/DL (6.4-8.2)
[2021-12-05 17:44] LABS: BILIRUBIN,TOTAL 0.3 MG/DL (0.1-1.0)
[2021-12-05 17:45] LABS: CREATININE SERUM 0.91 MG/DL (0.60-1.30)
--- NOTE | 2021-12-05 18:14 | Diagnostic Imaging Report ---
EXAM: Chest 1 view, AP/PA only. INDICATION: Shortness of air. COVID. COMPARISON: 06/19/2021. FINDINGS: Normal heart size and central pulmonary vascularity. Mild airspace opacity in the right lung base. No pleural effusion or pneumothorax. No acute osseous findings. IMPRESSION: Mild atelectasis or infiltrate in the right lung base. Dictated by: Dictated on workstation # [id number]
[2021-12-05] MEDS ORDERED: ONDA4TAB11 PO (18:20)
[2021-12-05] MEDS ORDERED: BENZ100C18 PO (18:20)
[2021-12-05] MEDS ORDERED: RX-ONDANSETRON 4 MG ODT (ZOFRAN) PPK #4 PO STA (18:24)
[2021-12-05] MEDS ORDERED: PROMETHAZINE 25 MG (PHENERGAN) TAB PO ONE (18:30)
[2021-12-05] MEDS ORDERED: ACETAMINOPHEN 500 MG TAB (TYLENOL) PO ONE (18:30)
[2021-12-05 19:30] VITALS: BP 140/83
== END 2021-12-05 19:30 | disposition home or self-care (01) ==
LOC: EDUNIT# 17:02 → ER 17:08
DX: U07.1 COVID-19 (principal); I10 Essential (primary) hypertension; E78.00 Pure hypercholesterolemia, unspecified; I25.10 Atherosclerotic heart disease of native coronary artery without angina pectoris; E03.9 Hypothyroidism, unspecified; F32.9 Major depressive disorder, single episode, unspecified; F41.9 Anxiety disorder, unspecified; Z87.891 Personal history of nicotine dependence; Z79.82 Long term (current) use of aspirin; Z79.890 Hormone replacement therapy
CPT/HCPCS: 36415; 71045; 80053; 85025; 86141